=== PATIENT | male | born 1945 | race Caucasian/White ===

== ENCOUNTER → 2019-05-05 13:31 | Outpatient (CLI) | payer MEDICARE, OTHER, SELFPAY ==
[2019-05-05 13:39] LABS: Adenovirus F 40/41, stool Not Detected (NotDetected); Astrovirus Not Detected (NotDetected); Campylobacter Not Detected (NotDetected); Clostridium Difficile A/B, PCR Not Detected (NotDetected); Cryptosporidium Not Detected (NotDetected); Cyclospora Cayetanesis Not Detected (NotDetected); Entamoeba histolytica Not Detected (NotDetected); Enteroaggregative E coli Not Detected (NotDetected); Enteropathogenic E coli Not Detected (NotDetected); Enterotoxigenic E coli Not Detected (NotDetected); Giardia lamblia Not Detected (NotDetected); Norovirus Not Detected (NotDetected); Plesimonas Shigalloides, PCR Not Detected (NotDetected); Rotavirus A Not Detected (NotDetected); Salmonella, PCR Not Detected (NotDetected); Sapovirus Not Detected (NotDetected); Shiga-like toxin E coli Not Detected (NotDetected); Shigella Enterovasive E coli Not Detected (NotDetected); Vibrio Cholerae Not Detected (NotDetected); Vibrio, PCR Not Detected (NotDetected); Yersinia Entercolitica, PCR Not Detected (NotDetected)
== END ==
PROVIDERS: Visit Provider Nurse Practitioner Family
DX: K52.9 Noninfective gastroenteritis and colitis, unspecified (principal)
CPT/HCPCS: 87506

== ENCOUNTER → 2019-06-08 09:00 | Outpatient (CLI) | payer MEDICARE, OTHER, SELFPAY ==
--- NOTE | 2019-06-08 09:03 | US_ITS ---
US thyroid HISTORY: ITS.REASON: THYROID NODULE ORDERING PHYSICIAN: Ovidio Arreguin MD PATIENT AGE: 74 years Comparison: None FINDINGS:, There is enlarged thyroid gland The right lobe is 3 x 1.1 x 1.5 cm. The left lobe is 2.4 x 0.9 x 1.3 cm There is homogeneous echogenicity. No discrete nodule. The isthmus has an unremarkable appearance IMPRESSION: Unremarkable thyroid ultrasound
== END ==
PROVIDERS: PCP Family Medicine; Visit Provider Family Medicine
DX: E04.1 Nontoxic single thyroid nodule (principal)
CPT/HCPCS: 76536

== ENCOUNTER 2021-05-16 08:02 | Emergency (ER) | payer MEDICARE, OTHER, SELFPAY ==
[2021-05-16] VITALS (10 sets, daily range): BP systolic 116–155; BP diastolic 53–80; PULSE 65–82; RESP 16–20; TEMP 36.6–37.3; O2SAT 92–100; BMI 26.4
--- NOTE | 2021-05-16 08:38 | HMH.EDGENADL ---
ED Disposition Clinical Impression: Cholecystitis, Common bile duct stone, Gallstone pancreatitis Disposition: Xfer Short-Term Hosp Condition on Discharge: Fair Instructions: DI for Diarrhea and Traveler's Diarrhea -- Adult, DI for Diarrhea and Traveler's Diarrhea -- Child, DI for Nausea -- Adult, DI for Nausea -- Child Referrals: Kamlesh Fair MD [Primary Care Provider] - Forms: Transfer Record - ED - Critical Care Critical Care Time: No Attestation: On 05/16/21, the high probability of a clinically significant, sudden or life threatening deterioration of the following system(s) required my full and direct attention, intervention and personal management. The time I documented below is in addition to time spent performing reported procedures but includes the following listed in this critical care notation. Medical Decision Making - Yemi Inquiry Pt receiving controlled substance: Yes Yemi was queried for this patient: Yes Risks and benefits of using a controlled substance: were not discussed with pt by me Vital Signs: 05/16/21 08:04 05/16/21 08:30 05/16/21 09:00 Temperature 99.1 F Temperature Source Oral Pulse Rate 69 66 Pulse Rate [Left Radial] 82 Respiratory Rate 18 Blood Pressure 135/70 155/80 H Blood Pressure [Right Arm] 142/79 H Blood Pressure Mean 99 105 Blood Pressure Mean [Right Arm] 100 Blood Pressure Source [Right Arm] Automatic Cuff Blood Pressure Position Blood Pressure Position [Right Arm] Sitting 02 Sat by Pulse Oximetry 97 100 97 Oxygen Delivery Method Room Air 05/16/21 09:41 05/16/21 10:01 05/16/21 10:31 Temperature Temperature Source Pulse Rate 73 65 69 Pulse Rate [Left Radial] Respiratory Rate 18 20 20 Blood Pressure 125/53 L 120/57 L 128/59 L Blood Pressure [Right Arm] Blood Pressure Mean 77 78 82 Blood Pressure Mean [Right Arm] Blood Pressure Source [Right Arm] Blood Pressure Position Blood Pressure Position [Right Arm] 02 Sat by Pulse Oximetry 97 94 L 92 L Oxygen Delivery Method 05/16/21 11:30 05/16/21 11:55 05/16/21 12:00 Temperature Temperature Source Pulse Rate 70 69 68 Pulse Rate [Left Radial] Respiratory Rate 20 Blood Pressure 127/66 116/65 116/61 Blood Pressure [Right Arm] Blood Pressure Mean 78 72 79 Blood Pressure Mean [Right Arm] Blood Pressure Source [Right Arm] Blood Pressure Position Blood Pressure Position [Right Arm] 02 Sat by Pulse Oximetry 94 L 98 96 Oxygen Delivery Method 05/16/21 13:06 Temperature 98 F Temperature Source Oral Pulse Rate 78 Pulse Rate [Left Radial] Respiratory Rate 16 Blood Pressure 116/74 Blood Pressure [Right Arm] Blood Pressure Mean Blood Pressure Mean [Right Arm] Blood Pressure Source [Right Arm] Blood Pressure Position Sitting Blood Pressure Position [Right Arm] 02 Sat by Pulse Oximetry Oxygen Delivery Method Room Air - Lab Data Lab Results 05/16/21 08:13: WBC 8.3, RBC 3.91 L, Hgb 13.5 L, Hct 37.8 L, MCV 96.7 H, MCH 34.6 H, MCHC 35.7 H, RDW 13.2, Plt Count 250, MPV 7.8, Neut % (Auto) 81.5 H, Lymph % (Auto) 10.0, [place] % (Auto) 7.0, Eos % (Auto) 1.3, Baso % (Auto) 0.2, Neut # (Auto) 6.7, Lymph # (Auto) 0.8, [place] # (Auto) 0.6, Eos # (Auto) 0.1, Baso # (Auto) 0.0 05/16/21 08:13: Sodium 136, Potassium 3.4 L, Chloride 104, Carbon Dioxide 20 L, Anion Gap 15.4 H, BUN 11, Creatinine 1.10, Estimated Creat Clear 74, Estimated GFR 65, Est GFR ( Amer) 79, Glucose 101 H, Calcium 8.9, Total Bilirubin 3.4 H, AST 69 H, ALT 116 H, Alkaline Phosphatase 173 H, Total Protein 7.3, Albumin 4.1, Globulin 3.2, Albumin/Globulin Ratio 1.3 05/16/21 08:13: Monoscreen Negative 05/16/21 08:13: Amylase 252 H, Lipase 1878 H 05/16/21 09:02: SARS-CoV-2 (PCR) Not detected, Influenza A Untype (PCR) Not detected, Influenza Type B (PCR) Not detected 05/16/21 09:02: Lactate 0.8 05/16/21 09:03: Group A Strep Rapid Negative 05/16/21 11:45: Urine Color Gemma,
[2021-05-16 08:40] LABS: Chloride 104 mmol/L (98-107); Potassium 3.4 mmoL/L (3.5-5.1); Sodium 136 mmol/L (136-145)
[2021-05-16 08:42] LABS: Basophils % 0.2 % (0.1-2.0); Blood Urea Nitrogen 11 mg/dl (9-20); Creatinine Clearance Estimated 74 mL/min (50-200); Eosinophils # 0.1 K/mm3 (0.0-0.4); Eosinophils % 1.3 % (0.1-12.0); Estimated Glomerular Filt Rate 65 ml/min (>60); GFR (African American) 79 ML/MIN (>60); Hematocrit 37.8 % (42.0-52.0); Hemoglobin 13.5 g/dL (14.1-18.0); Lymphocytes # 0.8 K/mm3 (0.7-4.5); Mean Corpuscular HGB Conc 35.7 g/dL (31.8-35.4); Mean Corpuscular Hemoglobin 34.6 pg (27.0-31.2); Mean Corpuscular Volume 96.7 fl (80-94); Mean Platelet Volume 7.8 fl (7.4-10.4); Monocytes # 0.6 K/mm3 (0.1-1.0); Neutrophils # 6.7 K/mm3 (1.8-7.8); Neutrophils % 81.5 % (37.0-80.0); Platelet Count 250 K/mm3 (142-424); Red Blood Count 3.91 M/mm3 (4.60-6.20); Red Cell Distribution Width 13.2 % (11.5-17.5); White Blood Count 8.3 K/mm3 (4.8-10.8)
[2021-05-16 08:43] LABS: Alanine Aminotransferase 116 U/L (12-78); Albumin Level 4.1 g/dl (3.5-5.0); Albumin/Globulin Ratio 1.3 (1.1-1.8); Alkaline Phosphatase 173 U/L (38-126); Anion Gap 15.4 mEq/L (5-15); Aspartate Amino Transferase 69 U/L (17-59); Bilirubin,Total 3.4 mg/dl (0.2-1.3); Calcium 8.9 mg/dl (8.4-10.2); Carbon Dioxide 20 mmol/L (22.0-30.0); Globulin 3.2 g/dL (1.3-3.2); Glucose 101 mg/dl (74-100); Total Protein,Serum 7.3 g/dl (6.3-8.2)
--- NOTE | 2021-05-16 08:45 | XR_ITS ---
PROCEDURE: XR CHEST 2V CLINICAL HISTORY: fever Fever and shortness of air COMPARISON: CR CXR CHEST(2 VIEWS-NOT PORTABLE) from 03/23/2013 CR CXR CHEST(2 VIEWS-NOT PORTABLE) from 11/27/[address] ABDOMEN PELVIS W CON from 05/16/2021 FINDINGS: The cardiomediastinal silhouette and pulmonary vascularity are within normal limits. Minimal atelectatic or fibrotic change in the left lung base. The right lung is clear. Small hiatal hernia No acute bony abnormalities. IMPRESSION: Minimal left basilar atelectasis or fibrosis Dictated by: Rey Alicea MD 05/16/2021 10:09 Rey Alicea MD in [facility] 05/16/2021 10:09
--- NOTE | 2021-05-16 08:46 | CT_ITS ---
PROCEDURE: CT ABDOMEN PELVIS W CON CLINICAL INDICATION: abdominal pain Nausea and vomiting, bili pain COMPARISON: CT ABDPELW/O CT ABD PELVIS W/O CONTRAST from 12/07/2013 TECHNIQUE: IV Contrast: 75ML Isovue 370 Oral Contrast None Axial images obtained with sagittal and coronal reformats. All CT scans at the facility use one or more dose reduction, viz: automated exposure control, ma/kV adjustment per patient size (including targeted exams where dose is matched to indication, i.e. head), or iterative reconstruction technique. FINDINGS: LOWER THORAX: Chronic changes are present in the left lung base with chronic area of consolidation/volume loss laterally posteriorly. There is a small hiatal hernia. ABDOMEN & PELVIS: There are least 4 small areas of decreased attenuation within the liver. These are nonspecific. Differential diagnosis includes benign findings such as cyst or hemangiomas versus metastatic foci. Nonemergent MRI with hemangioma protocol may further evaluate. The liver has a somewhat irregular margin suggesting mild cirrhosis. Gallbladder wall is slightly thickened versus a small amount of pericholecystic fluid. Gallstones are present. There is a small amount of perisplenic fluid versus capsular thickening laterally versus chronic subcapsular hematoma. This does not appear significantly changed. The adrenal glands and pancreas have an unremarkable appearance. There are few small retroperitoneal lymph nodes. No renal or ureteral calculi. No evidence of appendicitis. Numerous colonic diverticula are present. No evidence of diverticulitis. Anterior to the descending colon on image 64 series 3 there is a circular area of increased density consistent with an area of epiploic appendagitis. There are postsurgical changes with a small bowel anastomosis the left lower quadrant with mild distension of the small bowel at this region with an air-fluid level and mildly prominent small bowel loops around this region with a few air-fluid levels. Postsurgical changes are present in the left inguinal region. There are old left superior and inferior pubic rami fractures on the left. Bladder diverticula are noted. Degenerative changes are present in the SI joints and lumbar spine. There is a small umbilical hernia containing fat. IMPRESSION: 1. Cholelithiasis with mild gallbladder wall thickening versus small amount of pericholecystic fluid. Consider ultrasound for further evaluation if cholecystitis is a clinical consideration. 2. Multiple hypodense hepatic lesions. Suggest nonemergent MRI with hemangioma protocol. 3. Chronic subcapsular thickening of the spleen on the left versus small amount of perisplenic fluid. 4. Postsurgical changes of the small bowel in the left lower quadrant with a dilated anastomotic loop in this area with an air-fluid level. Other mildly dilated loops are present around this region with a few scattered air-fluid levels. This could be related to either an atonic segment or early bowel obstruction. Please correlate with clinical parameters. 5. Epiploic appendagitis along the anterior aspect of the descending colon. 6. Colonic diverticulosis with no convincing evidence of diverticulitis Dictated by: Rey Alicea MD 05/16/2021 10:05 Rey Alicea MD in [facility] 05/16/2021 10:05
--- NOTE | 2021-05-16 09:12 | PC.NURSE ---
pt given urinal, unable to urinate at this time.
[2021-05-16 09:19] LABS: Coronavirus 19, PCR Not Detected (NotDetected); Influenza A, PCR Not Detected (NotDetected); Influenza B, PCR Not Detected (NotDetected)
[2021-05-16 09:28] LABS: Lactic Acid 0.8 mmol/L (0.7-2.1)
[2021-05-16 09:31] LABS: Strep Scrn Group A (Rapid) Negative (Negative)
[2021-05-16 09:53] LABS: Monoscreen (Rapid) Negative (Negative)
--- NOTE | 2021-05-16 10:19 | US_ITS ---
PROCEDURE: US GALLBLADDER CLINICAL INDICATION: possible cholecystitis COMPARISON: CT CT ABDOMEN PELVIS W CON from 05/16/2021 FINDINGS: Pancreas: Unremarkable/Not well seen Liver: Unremarkable. There is appropriate direction of blood flow within a non dilated portal vein. Right kidney: Unremarkable appearing. No hydronephrosis. Gallbladder: Gallstones and gallbladder sludge noted. Gallbladder wall is thickened at 5 mm. No pericholecystic fluid. Common bile duct is normal at 5 mm. IMPRESSION: Cholelithiasis and thick gallbladder sludge with gallbladder wall thickening Dictated by: Rey Alicea MD 05/16/2021 11:30 Rey Alicea MD in [facility] 05/16/2021 11:30
[2021-05-16 10:31] LABS: Amylase 252 U/L (30-110); Lipase 1878 U/L (23-300)
--- NOTE | 2021-05-16 11:06 | PC.NURSE ---
mechanical laboratory technician gave Dr Abhinav KAISER US results.
--- NOTE | 2021-05-16 11:19 | PC.NURSE ---
GAY KAYE speaking with Dr Fair
--- NOTE | 2021-05-16 11:28 | PC.NURSE ---
called for Dr Duke he is in surgery, they will call back
--- NOTE | 2021-05-16 11:42 | PC.NURSE ---
Dr La speaking with Dr Duke
[2021-05-16 11:53] LABS: Microscopic, Urine URINE MICROSCOPIC (MICROSCOPIC)
--- NOTE | 2021-05-16 11:56 | PC.NURSE ---
[facility] called for transfer they have no bed availability. Dr La asked to put transfer on hold for moment but to speak with Dr Vizcarra, pt's GI DR. Cope is paging him for us.
[2021-05-16 12:06] LABS: Appearance,Urine CLEAR (Clear); Blood, Urine TRACE-I (Negative); Color,Urine AMBER (Yellow); Glucose,Urine (UA) Negative (Negative); Ketones,Urine 1+ (Negative); Leukocyte Esterase,Urine Negative (Negative); Nitrate,Urine Negative (Negative); Protein,Urine TRACE (Negative); Urobilinogen,Urine >=8.0 EU/dl (0.2)
--- NOTE | 2021-05-16 12:10 | PC.NURSE ---
Dr La speaking with Dr Vizcarra GI nurse practitioner.
--- NOTE | 2021-05-16 12:15 | PC.NURSE ---
Dr La speaking with MD at [facility] [place] for admission
[2021-05-16 12:20] LABS: Bilirubin,Urine 1+ (Negative)
[2021-05-16 12:24] LABS: WBC,Urine Occasional #/hpf (0-3)
[2021-05-16 12:25] LABS: Bacteria,Urine Trace /lpf; Squamous Epithelial Cell,Urine Occasional #/hpf (0-5)
--- NOTE | 2021-05-16 12:40 | PC.NURSE ---
REPORT CALLED TO JUSTINO GUERRERO
[2021-05-17 09:13] LABS: Hep A Ab, IgM Negative (Negative); Hepatitis B Core Antibody IgM Negative (Negative); Hepatitis B Surface Antigen Negative (Negative); Hepatitis C Antibody <0.1 s/co ratio (0.0-0.9)
== END 2021-05-16 13:08 | disposition short-term general hospital (02) ==
PROVIDERS: Emergency Provider Emergency Medicine; PCP Family Medicine
DX: K85.10 Biliary acute pancreatitis without necrosis or infection (principal); K80.50 Calculus of bile duct without cholangitis or cholecystitis without obstruction; K21.9 Gastro-esophageal reflux disease without esophagitis; Z87.891 Personal history of nicotine dependence; I10 Essential (primary) hypertension; Z79.899 Other long term (current) drug therapy
CPT/HCPCS: 71046; 74177; 76705; 80053; 80074; 81001; 82150; 83605; 83690; 85025; 86318; 87040; 87077; 87186; 87430; 96365; 96367; 96375; 96376; 99284; J1335; J2405; Q9967; U0003

== ENCOUNTER → 2022-01-12 16:00 | Outpatient (CLI) | payer MEDICARE, OTHER, SELFPAY ==
--- NOTE | 2022-01-12 16:11 | XR_ITS ---
FINAL REPORT CLINICAL HISTORY: COVID OUTPATIENT, cough, soa, hx smoker COMPARISON: May 16, 2021 FINDINGS: The heart size is normal. The mediastinum is normal. There is no focal infiltrate or edema. There is worsening bibasilar atelectasis or pneumonia. There is no pneumothorax. There is no osseous abnormality. IMPRESSION: Worsening bibasilar atelectasis or pneumonia. Reviewed, Interpreted and Dictated by Idris Hsu III, MD Transcribed by Lobo Olguni Authenticated by Idris Hsu III, MD on 01/12/2022 04:58:46 PM [facility]
[2022-01-12 17:02] LABS: Adenovirus,PCR Not Detected (NotDetected); Bordetella Pertussis Not Detected (NotDetected); Chlamydophila Pneumoniae, PCR Not Detected (NotDetected); Coronavirus 19, PCR Not Detected (NotDetected); Coronavirus 229E Not Detected (NotDetected); Coronavirus NL63 Not Detected (NotDetected); Coronavirus OC43 Not Detected (NotDetected); Coronovirus HKU1,PCR Not Detected (NotDetected); Human Metapneumovirus Not Detected (NotDetected); Influenza A, PCR Not Detected (NotDetected); Influenza AH1, 2009 Not Detected (NotDetected); Influenza AH1, PCR Not Detected (NotDetected); Influenza AH3,PCR Not Detected (NotDetected); Influenza B, PCR Not Detected (NotDetected); Mycoplasma Pneumoniae, PCR Not Detected (NotDetected); Parainfluenza 1, PCR Not Detected (NotDetected); Parainfluenza 2, PCR Not Detected (NotDetected); Parainfluenza 3, PCR Not Detected (NotDetected); Parainfluenza 4, PCR Not Detected (NotDetected); Respiratory Syncytial Virus Not Detected (NotDetected); Rhinovirus/Enterovirus Not Detected (NotDetected)
[2022-01-12 19:07] LABS: Strep Scrn Group A (Rapid) Negative (Negative)
== END ==
PROVIDERS: PCP Nurse Practitioner; Visit Provider Nurse Practitioner
DX: Z20.822 Contact with and (suspected) exposure to COVID-19 (principal)
CPT/HCPCS: 71045; 87430; 87581; 87632; 87798; C9803; U0003; U0005

== ENCOUNTER → 2022-02-14 17:02 | Outpatient (CLI) | payer MEDICARE, OTHER, SELFPAY ==
--- NOTE | 2022-02-14 17:22 | XR_ITS ---
PROCEDURE INFORMATION: Exam: XR Chest Exam date and time: 02/14/2022 5:14 PM Age: 77 years old Clinical indication: Condition or disease; Other: Pneumonia TECHNIQUE: Imaging protocol: XR of the chest. Views: 2 views. COMPARISON: CR XR CHEST PORTABLE 01/12/2022 4:18 PM FINDINGS: Lungs: Consolidative opacity in the lingula, which may represent subsegmental atelectasis vs infiltrate. Hyperinflated lungs with flattening of the diaphragm and increased retrosternal space. Pleural spaces: No pleural effusion. No pneumothorax. Heart/Mediastinum: Cardiomediastinal silhouette is unchanged. Bones/joints: No acute osseous abnormality. Soft tissues: Unremarkable. IMPRESSION: 1. Consolidative opacity in the lingula, which may represent subsegmental atelectasis vs infiltrate. 2. Chronic findings compatible with COPD.
== END ==
PROVIDERS: PCP Nurse Practitioner; Visit Provider Nurse Practitioner
DX: J18.9 Pneumonia, unspecified organism (principal)
CPT/HCPCS: 71046

== ENCOUNTER → 2022-02-23 08:16 | Outpatient (CLI) | payer MEDICARE, OTHER, SELFPAY ==
[2022-02-23 08:48] LABS: Blood Urea Nitrogen 10 mg/dl (9-20); Estimated Glomerular Filt Rate 73 ml/min (>60); GFR (African American) 88 ML/MIN (>60)
--- NOTE | 2022-02-23 08:57 | CT_ITS ---
FINAL REPORT CLINICAL HISTORY: ABNORMAL CXR COMPARISON: Chest x-ray dated January 12, 2022 FINDINGS: Axial CT images of the chest were obtained with contrast. Coronal reformatted images were also obtained. This study was performed with techniques to keep radiation doses as low as reasonably achievable, (ALARA). Individualized dose reduction techniques using automated exposure control or adjustment of mA and/or KV according to the patient's size were employed. There is no evidence of mediastinal or hilar mass or adenopathy.No axillary mass or adenopathy is identified. There is a small hiatal hernia. On lung window images, no pulmonary mass or dominant pulmonary nodule is identified. There is a small lingular opacity which is consistent with atelectasis. There is also mild bibasilar atelectasis or scarring. No localized pulmonary inflammatory process is identified. Limited images of the upper abdomen reveal a small perisplenic fluid collection favoring a small chronic subcapsular hematoma which appears stable. There are postoperative changes consistent with cholecystectomy. IMPRESSION: No mass or localized inflammatory process. Small lingular opacity consistent with atelectasis. Small perisplenic fluid collection favoring a small chronic subcapsular hematoma, stable. Reviewed, Interpreted and Dictated by Idris Hsu III, MD Transcribed by Janice Perez Authenticated by Idris Hsu III, MD on 02/23/2022 10:11:13 AM [facility]
== END ==
PROVIDERS: PCP Nurse Practitioner; Visit Provider Nurse Practitioner
DX: R93.89 Abnormal findings on diagnostic imaging of other specified body structures (principal)
CPT/HCPCS: 36415; 71260; 82565; 84520; Q9967

== ENCOUNTER → 2022-04-13 10:19 | Outpatient (CLI) | payer MEDICARE, OTHER, SELFPAY ==
--- NOTE | 2022-04-13 10:31 | XR_ITS ---
FINAL REPORT CLINICAL HISTORY: LT KNEE PAIN FINDINGS: Three views of the left knee reveal no evidence of fracture or dislocation. The bony alignment is normal. There is mild and moderate degenerative change, greatest at the medial compartment. There is no evidence of joint effusion. There are meniscal calcifications. IMPRESSION: Degenerative change with no acute abnormality identified. Reviewed, Interpreted and Dictated by Idris Hsu III, MD Transcribed by Tiera Nam Authenticated by Idris Hsu III, MD on 04/13/2022 11:23:16 AM [facility]
--- NOTE | 2022-04-13 10:31 | XR_ITS ---
FINAL REPORT CLINICAL HISTORY: RT KNEE PAIN FINDINGS: Three views of the right knee reveal no evidence of fracture or dislocation. The bony alignment is normal. 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 There is mild and moderate degenerative change, greatest at the medial compartment. There is a moderate joint effusion. There are small soft tissue calcifications in the medial compartment. IMPRESSION: Degenerative change with no acute abnormality identified. Reviewed, Interpreted and Dictated by Idris Hsu III, MD Transcribed by Tiera Nam Authenticated by Idris Hsu III, MD on 04/13/2022 11:23:15 AM [facility]
== END ==
PROVIDERS: PCP Nurse Practitioner; Visit Provider Nurse Practitioner
DX: M25.562 Pain in left knee (principal); M25.561 Pain in right knee
CPT/HCPCS: 73562

== ENCOUNTER → 2022-07-05 06:21 | Outpatient (CLI) | payer MEDICARE, OTHER, SELFPAY ==
[2022-07-05 18:19] LABS: Basophils # 0.1 K/mm3 (0-0.2); Basophils % 0.7 % (0.1-2.0); Eosinophils # 0.7 K/mm3 (0.0-0.4); Eosinophils % 9.5 % (0.1-12.0); Hematocrit 38.1 % (42.0-52.0); Hemoglobin 12.4 g/dL (14.1-18.0); Lymphocytes # 1.3 K/mm3 (0.7-4.5); Lymphocytes % 18.4 % (10-50); Mean Corpuscular HGB Conc 32.5 g/dL (31.8-35.4); Mean Corpuscular Hemoglobin 34.2 pg (27.0-31.2); Mean Corpuscular Volume 105.4 fl (80-94); Mean Platelet Volume 10.3 fl (7.4-10.4); Monocytes # 0.6 K/mm3 (0.1-1.0); Monocytes % 8.8 % (1.7-9.3); Neutrophils # 4.3 K/mm3 (1.8-7.8); Neutrophils % 62.6 % (37.0-80.0); Platelet Count 352 K/mm3 (142-424); Red Blood Count 3.61 M/mm3 (4.60-6.20); Red Cell Distribution Width 13.9 % (11.5-17.5); White Blood Count 6.9 K/mm3 (4.8-10.8)
[2022-07-05 18:21] LABS: Alanine Aminotransferase 24 U/L (12-78); Albumin Level 3.6 g/dl (3.5-5.0); Albumin/Globulin Ratio 1.3 (1.1-1.8); Alkaline Phosphatase 121 U/L (38-126); Anion Gap 13.5 mEq/L (5-15); Aspartate Amino Transferase 31 U/L (17-59); Bilirubin,Total 1.6 mg/dl (0.2-1.3); Blood Urea Nitrogen 23 mg/dl (9-20); Calcium 8.8 mg/dl (8.4-10.2); Carbon Dioxide 18 mmol/L (22.0-30.0); Chloride 111 mmol/L (98-107); Estimated Glomerular Filt Rate 33 ml/min (>60); GFR (African American) 40 ML/MIN (>60); Globulin 2.8 g/dL (1.3-3.2); Glucose 100 mg/dl (74-100); Potassium 4.5 mmoL/L (3.5-5.1); Sodium 138 mmol/L (136-145); Total Protein,Serum 6.4 g/dl (6.3-8.2); Uric Acid 9.3 mg/dl (3.5-8.5)
== END ==
PROVIDERS: PCP Nurse Practitioner; Visit Provider Nurse Practitioner
DX: E79.0 Hyperuricemia without signs of inflammatory arthritis and tophaceous disease (principal); R30.0 Dysuria; R05.9 Cough, unspecified; R06.02 Shortness of breath
CPT/HCPCS: 80053; 84550; 85025; 87086

== ENCOUNTER → 2022-07-12 06:40 | Outpatient (CLI) | payer MEDICARE, OTHER, SELFPAY ==
[2022-07-12 20:26] LABS: Anion Gap 12.6 mEq/L (5-15); Blood Urea Nitrogen 29 mg/dl (9-20); Carbon Dioxide 20 mmol/L (22.0-30.0); Chloride 107 mmol/L (98-107); Estimated Glomerular Filt Rate 39 ml/min (>60); GFR (African American) 48 ML/MIN (>60); Potassium 4.6 mmoL/L (3.5-5.1); Sodium 135 mmol/L (136-145)
[2022-07-12 20:42] LABS: Glucose 82 mg/dl (74-100)
[2022-07-12 21:21] LABS: Calcium 8.2 mg/dl (8.4-10.2)
== END ==
PROVIDERS: PCP Nurse Practitioner; Visit Provider Nurse Practitioner
DX: M79.605 Pain in left leg (principal); M79.604 Pain in right leg
CPT/HCPCS: 80048

== ENCOUNTER → 2022-08-01 18:01 | Outpatient (CLI) | payer MEDICARE, OTHER, SELFPAY ==
--- NOTE | 2022-08-01 18:13 | XR_ITS ---
PROCEDURE INFORMATION: Exam: XR Bilateral Hips Exam date and time: 08/01/2022 6:15 PM Age: 77 years old Clinical indication: Pelvic pain; Additional info: Ble pain TECHNIQUE: Imaging protocol: Radiologic exam of the bilateral hips. Views: 2 views of hips with pelvis when performed. COMPARISON: CT ABDOMEN PELVIS W CON 05/16/2021 9:15 AM FINDINGS: Tubes, catheters and devices: Surgical clips project over the left side of the pelvis. Surgical staple line in the left lower quadrant. Bones/joints: No acute fracture or dislocation. Old left superior pubic ramus fracture. Spurring at the superior margin of the pubic symphysis. SI joints are unremarkable. Hip joints are preserved. Soft tissues: Unremarkable. IMPRESSION: No acute findings.
--- NOTE | 2022-08-01 18:13 | XR_ITS ---
PROCEDURE INFORMATION: Exam: XR Lumbosacral Spine Exam date and time: 08/01/2022 6:11 PM Age: 77 years old Clinical indication: Low back pain; Additional info: Ble pain TECHNIQUE: Imaging protocol: Radiologic exam of the lumbosacral spine. Views: 2 or 3 views. COMPARISON: CT LUMBAR SPINE WO CON 10/28/2019 5:02 PM FINDINGS: Bones/joints: No acute fracture or spondylolisthesis. Mild disc space narrowing at L5-S1. Mild facet arthrosis at L4-L5. Moderate facet arthrosis at L5-S1. Small endplate osteophytes at multiple lumbar levels. SI joints are unremarkable. Soft tissues: Unremarkable. Intraperitoneal space: Cholecystectomy clips. IMPRESSION: Degenerative changes.
== END ==
PROVIDERS: PCP Nurse Practitioner; Visit Provider Nurse Practitioner
DX: M54.16 Radiculopathy, lumbar region (principal)
CPT/HCPCS: 72100; 73521

== ENCOUNTER 2022-09-08 08:07 | Emergency (ER) | payer MEDICARE, OTHER, SELFPAY ==
[2022-09-08 08:08] VITALS: BP 137/85; PULSE 95; RESP 18; TEMP 37.1; O2SAT 96; BMI 27.1
--- NOTE | 2022-09-08 08:19 | ECG_ITS ---
APPROVED REPORT Exam: Resting ECG HR:84 bpm ECG Measurements Heart Rate 84 AXES TN 212 P 50 QRSd 96 QRS 63 QT 350 T 48 QTc 391 Conclusion SINUS RHYTHM WITH FIRST DEGREE AV BLOCK ABNORMAL ECG UNCONFIRMED REPORT Electronically signed by : Eddie Sifuentes MD 09/10/2022 21:29:01
--- NOTE | 2022-09-08 08:20 | CT_ITS ---
PROCEDURE INFORMATION: Exam: CT Cervical Spine Without Contrast Exam date and time: 09/08/2022 8:48 AM Age: 77 years old Clinical indication: Radicular pain (radiculopathy); Cervical region; Additional info: Pain, left radicular TECHNIQUE: Imaging protocol: Computed tomography of the cervical spine without contrast. Radiation optimization: All CT scans at this facility use at least one of these dose optimization techniques: automated exposure control; mA and/or kV adjustment per patient size (includes targeted exams where dose is matched to clinical indication); or iterative reconstruction. COMPARISON: CT CHEST W CON 02/23/2022 9:17 AM FINDINGS: Bones/joints: No acute fracture of the cervical spine. No subluxation or dislocation of the cervical spine. Intervertebral disc space narrowing C3 through C6 may represent degenerative disc disease.. Anterior osteophyte formation C3 through C6. Posterior osteophyte formation C3 through C6. Degenerative changes in the facets at multiple levels. Degenerative changes at C1/C2 Lungs: Lung apices are normal. Thyroid: The thyroid is unremarkable Soft tissues: Unremarkable. IMPRESSION: 1. No acute fracture of the cervical spine. 2. No subluxation or dislocation of the cervical spine. 3. Intervertebral disc space narrowing C3 through C6 may represent degenerative disc disease..
--- NOTE | 2022-09-08 08:22 | HMH.EDGENADL ---
Discharge Plan Disposition Patient Disposition: Home, Self-Care Condition: Fair Prescriptions Prescriptions: New ibuprofen 600 mg tablet 600 mg PO Q8H PRN (Reason: pain) Qty: 20 0RF prednisone 10 mg tablet 10 mg PO DAILY Qty: 21 0RF Rx Instructions: Take on decreasing burst, 6 tablets on day 1, 5 tablets on day 2, 4 tablets on day 3, etc methocarbamol 500 mg tablet 500 mg PO Q8H PRN (Reason: muscle spasm) Qty: 20 0RF No Action albuterol sulfate 90 mcg/actuation aerosol powdr breath activated 2 inh IH .COMPLEX PRN (Reason: shortness of breath or wheezing) Qty: 1 0RF Rx Instructions: 2 inhalations inhalation QID and prn PRN; colchicine 0.6 mg tablet 0.6 mg PO BID Qty: 60 2RF levothyroxine 25 mcg tablet 25 mcg PO DAILY Qty: 30 2RF hydrochlorothiazide 25 mg tablet 25 mg PO DAILY Qty: 30 2RF losartan 100 mg tablet 100 mg PO DAILY Qty: 30 2RF methylprednisolone [Medrol (Satinder)] 4 mg tablets,dose pack See Rx Instructions PO PER PKG DIR Qty: 21 0RF Rx Instructions: PO PER PKG DIR [id number] 2-30-10 mg/5 mL syrup 5 ml PO Q4H PRN (Reason: sinus symptoms) Qty: 473 1RF famotidine 20 MG tablet 20 mg PO DAILY tamsulosin 0.4 MG capsule 0.4 mg PO DAILY cyanocobalamin (vitamin B-12) 1,000 MCG capsule 1,000 mcg PO DAILY Referrals Follow up/Referrals: Kamlesh Fair MD [Primary Care Provider] - See instructions Activity Restrictions/Add. Instructions Additional Instructions/Restrictions: You have been evaluated for neck pain. This is likely due to degenerative disc disease of the cervical spine, C3-C6. Please take anti-inflammatories as scheduled, 600 mg ibuprofen. Take steroid burst. Muscle relaxers as needed. Follow-up with your primary care doctor. Return to the emergency department at once for any new or worsening symptoms Clinical Impressions Clinical Impression: DJD (degenerative joint disease) of cervical spine, Cervical disc disease Instructions Patient Instructions: DI for Cervical Radiculopathy, DI for Neck Pain Discharge ED Provider: Roselyn Siegel Adult HPI General Chief complaint: PAIN Stated complaint: Severe neck pain, no accident Time Seen by Provider: 09/08/22 08:09 Mode of Arrival: Ambulatory Source of Information: Patient Limitations: No Limitations History of Present Illness HPI narrative: 77-year-old male presenting to the emergency department with neck pain. Started earlier in the week, about 4 to 5 days ago. Initially was intermittent, worse with turning his neck ot the side. Pain starts in the midportion of the spine, just above the left shoulder. Has become more persistent. Was worse last night when he was trying to go to bed. Feels like achy, sharp pain. Radiates toward his left shoulder. No numbness, weakness, tingling in the upper extremities. He has a history of lumbar disc disease. Has never seen a scheduling specialist. Has tried taking Tylenol and ibuprofen without relief. Use heating pad last night. Denies recent illness, fevers, chills, nausea, vomiting, sore throat. Related Data Home Medications Medication Instructions Recorded Confirmed cyanocobalamin (vitamin B-12) 1,000 mcg PO DAILY Supplement 05/16/21 07/12/22 1,000 mcg capsule famotidine 20 mg tablet 20 mg PO DAILY stomach 05/16/21 07/12/22 tamsulosin 0.4 mg capsule 0.4 mg PO DAILY prostate 05/16/21 07/12/22 Previous Rx's Medication Instructions Recorded albuterol sulfate 90 mcg/actuation 2 inh inhalation .COMPLEX PRN 07/05/22 breath activated powder inhaler shortness of breath or wheezing #1 ea hydrochlorothiazide 25 mg tablet 25 mg PO DAILY #30 tabs 07/10/22 levothyroxine 25 mcg tablet 25 mcg PO DAILY #30 tabs 07/10/22 losartan 100 mg tablet 100 mg PO DAILY #30 tabs 07/10/22 colchicine 0.6 mg tablet 0.6 mg PO BID #60 tabs 07/12/22 methylprednisolone 4 mg tablets in See Rx Instructions PO
--- NOTE | 2022-09-08 08:53 | PC.NURSE ---
PT to RAD
--- NOTE | 2022-09-08 08:57 | PC.NURSE ---
pt back from rad
[2022-09-08 09:07] VITALS: BP 159/83; PULSE 64; RESP 18; O2SAT 98
--- NOTE | 2022-09-08 09:08 | PC.NURSE ---
Visitor back to the room
[2022-09-08 10:17] VITALS: BP 142/80; PULSE 68; RESP 18; TEMP 37.1; O2SAT 97
== END 2022-09-08 10:18 | disposition home or self-care (01) ==
PROVIDERS: Emergency Provider Emergency Medicine; PCP Family Medicine
DX: M50.30 Other cervical disc degeneration, unspecified cervical region (principal)
CPT/HCPCS: 72125; 93005; 96372; 99284

== ENCOUNTER → 2022-10-23 16:14 | Outpatient (CLI) | payer MEDICARE, OTHER, SELFPAY ==
--- NOTE | 2022-10-23 16:18 | XR_ITS ---
PROCEDURE INFORMATION: Exam: XR Chest Exam date and time: 10/23/2022 4:14 PM Age: 77 years old Clinical indication: Cough; Additional info: Covid 19, cough, bronchitis TECHNIQUE: Imaging protocol: Radiologic exam of the chest. Views: 2 views. COMPARISON: CT CHEST W CON 02/23/2022 9:17 AM FINDINGS: Lungs: No evidence of pneumonia or interstitial edema. Pleural spaces: Unremarkable. No pleural effusion. No pneumothorax. Heart/Mediastinum: Unremarkable. No cardiomegaly. Bones/joints: Unremarkable. IMPRESSION: No evidence of pneumonia or interstitial edema.
[2022-10-23 19:33] LABS: Influenza A, PCR Not Detected (NotDetected); Influenza B, PCR Not Detected (NotDetected)
[2022-10-23 21:06] LABS: Coronavirus 19, PCR Detected (NotDetected)
== END ==
PROVIDERS: PCP Nurse Practitioner; Visit Provider Nurse Practitioner
DX: J40 Bronchitis, not specified as acute or chronic (principal); R05.9 Cough, unspecified; U07.1 COVID-19
CPT/HCPCS: 71046; C9803; U0003; U0005

== ENCOUNTER → 2022-11-14 11:15 | Outpatient (CLI) | payer MEDICARE, OTHER, SELFPAY ==
[2022-11-14 18:17] LABS: Adenovirus,PCR Not Detected (NotDetected); Bordetella Pertussis Not Detected (NotDetected); Chlamydophila Pneumoniae, PCR Not Detected (NotDetected); Coronavirus 19, PCR Not Detected (NotDetected); Coronavirus 229E Not Detected (NotDetected); Coronavirus NL63 Not Detected (NotDetected); Coronavirus OC43 Not Detected (NotDetected); Coronovirus HKU1,PCR Not Detected (NotDetected); Human Metapneumovirus Not Detected (NotDetected); Influenza A, PCR Not Detected (NotDetected); Influenza AH1, 2009 Not Detected (NotDetected); Influenza AH1, PCR Not Detected (NotDetected); Influenza AH3,PCR Not Detected (NotDetected); Influenza B, PCR Not Detected (NotDetected); Mycoplasma Pneumoniae, PCR Not Detected (NotDetected); Parainfluenza 1, PCR Not Detected (NotDetected); Parainfluenza 2, PCR Not Detected (NotDetected); Parainfluenza 3, PCR Not Detected (NotDetected); Parainfluenza 4, PCR Not Detected (NotDetected); Respiratory Syncytial Virus Not Detected (NotDetected); Rhinovirus/Enterovirus Not Detected (NotDetected)
[2022-11-14 18:40] LABS: Basophils % 0.4 % (0.1-2.0); Eosinophils # 0.3 K/mm3 (0.0-0.4); Hematocrit 43.4 % (42.0-52.0); Hemoglobin 14.2 g/dL (14.1-18.0); Lymphocytes # 1.2 K/mm3 (0.7-4.5); Lymphocytes % 12.4 % (10-50); Mean Corpuscular HGB Conc 32.8 g/dL (31.8-35.4); Mean Corpuscular Hemoglobin 33.5 pg (27.0-31.2); Mean Platelet Volume 8.4 fl (7.4-10.4); Monocytes # 0.7 K/mm3 (0.1-1.0); Neutrophils # 7.4 K/mm3 (1.8-7.8); Neutrophils % 77.2 % (37.0-80.0); Platelet Count 382 K/mm3 (142-424); Red Blood Count 4.25 M/mm3 (4.60-6.20); Red Cell Distribution Width 13.1 % (11.5-17.5); White Blood Count 9.5 K/mm3 (4.8-10.8)
[2022-11-14 18:49] LABS: Alanine Aminotransferase 22 U/L (12-78); Albumin Level 3.7 g/dl (3.5-5.0); Albumin/Globulin Ratio 1.3 (1.1-1.8); Alkaline Phosphatase 223 U/L (38-126); Aspartate Amino Transferase 24 U/L (17-59); Bilirubin,Total 1.1 mg/dl (0.2-1.3); Blood Urea Nitrogen 16 mg/dl (9-20); Calcium 9.3 mg/dl (8.4-10.2); Carbon Dioxide 24 mmol/L (22.0-30.0); Chloride 102 mmol/L (98-107); Estimated Glomerular Filt Rate 54 ml/min (>60); GFR (African American) 65 ML/MIN (>60); Globulin 2.8 g/dL (1.3-3.2); Glucose 92 mg/dl (74-100); Sodium 132 mmol/L (136-145); Total Protein,Serum 6.5 g/dl (6.3-8.2); Uric Acid 6.8 mg/dl (3.5-8.5)
[2022-11-14 18:54] LABS: Erythrocyte Sedimentation Rate 54 mm/hr (0-20)
[2022-11-14 18:55] LABS: C-Reactive Protein 33.6 mg/L (0-4)
[2022-11-16 10:13] LABS: RA Latex Turbid. <10.0 IU/mL (<14.0)
[2022-11-19 12:46] LABS: Antinuclear Antibodies, IFA Negative (.)
[2022-11-19 16:23] LABS: Anti-Centromere B Antibodies <0.2 AI (0.0-0.9); Anti-DNA (DS) Ab Qn 2 IU/mL (0-9); Anti-Jo-1 <0.2 AI (0.0-0.9); Anti-Smith Antibody <0.2 AI (0.0-0.9); Antichromatin Antibodies <0.2 AI (0.0-0.9); Antiscleroderma-70 Antibodies <0.2 AI (0.0-0.9); RNP Antibodies <0.2 AI (0.0-0.9); Sjogren's Anti-SS-A <0.2 AI (0.0-0.9); Sjogren's Anti-SS-B <0.2 AI (0.0-0.9)
== END ==
PROVIDERS: PCP Nurse Practitioner; Visit Provider Nurse Practitioner
DX: M25.50 Pain in unspecified joint (principal); R50.9 Fever, unspecified; M54.2 Cervicalgia
CPT/HCPCS: 80053; 84550; 85025; 85651; 86038; 86140; 86225; 86235; 86431; 87581; 87632; 87798; C9803; U0003; U0005

== ENCOUNTER → 2022-12-12 10:35 | Outpatient (CLI) | payer MEDICARE, OTHER, SELFPAY ==
[2022-12-12 19:12] LABS: Adenovirus,PCR Not Detected (NotDetected); Bordetella Pertussis Not Detected (NotDetected); Chlamydophila Pneumoniae, PCR Not Detected (NotDetected); Coronavirus 19, PCR Not Detected (NotDetected); Coronavirus 229E Not Detected (NotDetected); Coronavirus NL63 Not Detected (NotDetected); Coronavirus OC43 Not Detected (NotDetected); Coronovirus HKU1,PCR Not Detected (NotDetected); Human Metapneumovirus Not Detected (NotDetected); Influenza A, PCR Not Detected (NotDetected); Influenza AH1, 2009 Not Detected (NotDetected); Influenza AH1, PCR Not Detected (NotDetected); Influenza AH3,PCR Not Detected (NotDetected); Influenza B, PCR Not Detected (NotDetected); Mycoplasma Pneumoniae, PCR Not Detected (NotDetected); Parainfluenza 1, PCR Not Detected (NotDetected); Parainfluenza 2, PCR Not Detected (NotDetected); Parainfluenza 3, PCR Not Detected (NotDetected); Parainfluenza 4, PCR Not Detected (NotDetected); Respiratory Syncytial Virus Not Detected (NotDetected); Rhinovirus/Enterovirus Not Detected (NotDetected)
[2022-12-12 19:27] LABS: Basophils # 0.1 K/mm3 (0-0.2); Basophils % 0.7 % (0.1-2.0); Eosinophils # 0.8 K/mm3 (0.0-0.4); Eosinophils % 9.4 % (0.1-12.0); Hematocrit 42.5 % (42.0-52.0); Hemoglobin 14.6 g/dL (14.1-18.0); Lymphocytes # 1.5 K/mm3 (0.7-4.5); Lymphocytes % 18.6 % (10-50); Mean Corpuscular HGB Conc 34.4 g/dL (31.8-35.4); Mean Corpuscular Hemoglobin 34.7 pg (27.0-31.2); Mean Corpuscular Volume 100.9 fl (80-94); Mean Platelet Volume 8.7 fl (7.4-10.4); Monocytes # 0.7 K/mm3 (0.1-1.0); Monocytes % 8.3 % (1.7-9.3); Neutrophils # 5.1 K/mm3 (1.8-7.8); Platelet Count 359 K/mm3 (142-424); Red Blood Count 4.21 M/mm3 (4.60-6.20); Red Cell Distribution Width 13.5 % (11.5-17.5); White Blood Count 8.1 K/mm3 (4.8-10.8)
== END ==
PROVIDERS: PCP Nurse Practitioner; Visit Provider Nurse Practitioner
DX: E79.0 Hyperuricemia without signs of inflammatory arthritis and tophaceous disease (principal); J06.9 Acute upper respiratory infection, unspecified
CPT/HCPCS: 85025; 87581; 87632; 87798; C9803; U0003; U0005

== ENCOUNTER → 2022-12-18 15:45 | Outpatient (CLI) | payer MEDICARE, OTHER, SELFPAY ==
[2022-12-18 19:03] LABS: Basophils % 0.2 % (0.1-2.0); Eosinophils % 0.1 % (0.1-12.0); Hematocrit 45.1 % (42.0-52.0); Hemoglobin 15.2 g/dL (14.1-18.0); Lymphocytes # 1.1 K/mm3 (0.7-4.5); Lymphocytes % 10.7 % (10-50); Mean Corpuscular HGB Conc 33.7 g/dL (31.8-35.4); Mean Corpuscular Hemoglobin 33.8 pg (27.0-31.2); Mean Corpuscular Volume 100.2 fl (80-94); Mean Platelet Volume 8.4 fl (7.4-10.4); Monocytes # 0.9 K/mm3 (0.1-1.0); Monocytes % 8.1 % (1.7-9.3); Neutrophils # 8.6 K/mm3 (1.8-7.8); Neutrophils % 80.9 % (37.0-80.0); Platelet Count 447 K/mm3 (142-424); Red Cell Distribution Width 13.6 % (11.5-17.5); White Blood Count 10.7 K/mm3 (4.8-10.8)
[2022-12-18 19:51] LABS: Anion Gap 16.2 mEq/L (5-15); Blood Urea Nitrogen 31 mg/dl (9-20); Calcium 8.8 mg/dl (8.4-10.2); Carbon Dioxide 20 mmol/L (22.0-30.0); Chloride 105 mmol/L (98-107); Estimated Glomerular Filt Rate 49 ml/min (>60); GFR (African American) 60 ML/MIN (>60); Glucose 127 mg/dl (74-100); Potassium 4.2 mmoL/L (3.5-5.1); Sodium 137 mmol/L (136-145)
== END ==
PROVIDERS: PCP Nurse Practitioner; Visit Provider Nurse Practitioner
DX: E79.0 Hyperuricemia without signs of inflammatory arthritis and tophaceous disease (principal); Z01.818 Encounter for other preprocedural examination
CPT/HCPCS: 80048; 85025

== ENCOUNTER → 2023-01-08 23:27 | Outpatient (CLI) | payer MEDICARE, OTHER, SELFPAY ==
[2023-01-08 18:40] LABS: Basophils % 0.3 % (0.1-2.0); Eosinophils # 0.4 K/mm3 (0.0-0.4); Eosinophils % 6.3 % (0.1-12.0); Hematocrit 41.5 % (42.0-52.0); Hemoglobin 13.6 g/dL (14.1-18.0); Lymphocytes # 1.1 K/mm3 (0.7-4.5); Lymphocytes % 17.7 % (10-50); Mean Corpuscular HGB Conc 32.9 g/dL (31.8-35.4); Mean Corpuscular Hemoglobin 32.5 pg (27.0-31.2); Mean Platelet Volume 8.3 fl (7.4-10.4); Monocytes # 0.5 K/mm3 (0.1-1.0); Monocytes % 8.8 % (1.7-9.3); Neutrophils # 4.1 K/mm3 (1.8-7.8); Platelet Count 386 K/mm3 (142-424); Red Blood Count 4.19 M/mm3 (4.60-6.20); Red Cell Distribution Width 13.8 % (11.5-17.5); White Blood Count 6.1 K/mm3 (4.8-10.8)
== END ==
PROVIDERS: PCP Nurse Practitioner; Visit Provider Nurse Practitioner
DX: R09.89 Other specified symptoms and signs involving the circulatory and respiratory systems (principal)
CPT/HCPCS: 85025

== ENCOUNTER → 2023-01-14 23:45 | Outpatient (CLI) | payer MEDICARE, OTHER, SELFPAY ==
[2023-01-14 19:16] LABS: Chloride 109 mmol/L (98-107); Potassium 4.6 mmoL/L (3.5-5.1); Sodium 134 mmol/L (136-145)
[2023-01-14 19:19] LABS: Anion Gap 14.6 mEq/L (5-15); Blood Urea Nitrogen 65 mg/dl (9-20); Carbon Dioxide 15 mmol/L (22.0-30.0); Estimated Glomerular Filt Rate 37 ml/min (>60); GFR (African American) 45 ML/MIN (>60)
[2023-01-14 19:20] LABS: Calcium 8.6 mg/dl (8.4-10.2); Glucose 107 mg/dl (74-100)
[2023-01-14 20:29] LABS: Basophils % 0.5 % (0.1-2.0); Eosinophils # 0.3 K/mm3 (0.0-0.4); Eosinophils % 4.5 % (0.1-12.0); Hematocrit 45.5 % (42.0-52.0); Hemoglobin 14.6 g/dL (14.1-18.0); Lymphocytes % 13.4 % (10-50); Mean Corpuscular HGB Conc 32.1 g/dL (31.8-35.4); Mean Corpuscular Hemoglobin 32.2 pg (27.0-31.2); Mean Corpuscular Volume 100.3 fl (80-94); Mean Platelet Volume 8.3 fl (7.4-10.4); Monocytes # 0.7 K/mm3 (0.1-1.0); Monocytes % 9.3 % (1.7-9.3); Neutrophils # 5.2 K/mm3 (1.8-7.8); Neutrophils % 72.3 % (37.0-80.0); Platelet Count 468 K/mm3 (142-424); Red Blood Count 4.54 M/mm3 (4.60-6.20); Red Cell Distribution Width 13.9 % (11.5-17.5); White Blood Count 7.2 K/mm3 (4.8-10.8)
== END ==
PROVIDERS: PCP Nurse Practitioner; Visit Provider Nurse Practitioner
DX: I10 Essential (primary) hypertension (principal); I95.9 Hypotension, unspecified
CPT/HCPCS: 80048; 85025

== ENCOUNTER → 2023-01-24 06:50 | Outpatient (CLI) | payer MEDICARE, OTHER, SELFPAY ==
[2023-01-24 18:04] LABS: Basophils % 0.6 % (0.1-2.0); Eosinophils # 0.4 K/mm3 (0.0-0.4); Eosinophils % 7.3 % (0.1-12.0); Hemoglobin 13.1 g/dL (14.1-18.0); Lymphocytes # 1.2 K/mm3 (0.7-4.5); Lymphocytes % 20.5 % (10-50); Mean Corpuscular HGB Conc 33.5 g/dL (31.8-35.4); Mean Corpuscular Hemoglobin 33.2 pg (27.0-31.2); Mean Corpuscular Volume 99.1 fl (80-94); Mean Platelet Volume 8.6 fl (7.4-10.4); Monocytes # 0.5 K/mm3 (0.1-1.0); Monocytes % 8.9 % (1.7-9.3); Neutrophils # 3.7 K/mm3 (1.8-7.8); Neutrophils % 62.6 % (37.0-80.0); Platelet Count 377 K/mm3 (142-424); Red Blood Count 3.93 M/mm3 (4.60-6.20); Red Cell Distribution Width 14.1 % (11.5-17.5); White Blood Count 5.9 K/mm3 (4.8-10.8)
[2023-01-24 18:08] LABS: Chloride 103 mmol/L (98-107); Sodium 135 mmol/L (136-145)
[2023-01-24 18:11] LABS: Blood Urea Nitrogen 15 mg/dl (9-20); Estimated Glomerular Filt Rate 65 ml/min (>60); GFR (African American) 79 ML/MIN (>60)
[2023-01-24 18:12] LABS: Calcium 8.7 mg/dl (8.4-10.2); Carbon Dioxide 27 mmol/L (22.0-30.0); Glucose 98 mg/dl (74-100)
== END ==
PROVIDERS: PCP Nurse Practitioner; Visit Provider Nurse Practitioner
DX: E79.0 Hyperuricemia without signs of inflammatory arthritis and tophaceous disease (principal); N18.9 Chronic kidney disease, unspecified
CPT/HCPCS: 80048; 85025

== ENCOUNTER → 2023-07-08 14:36 | Outpatient (CLI) | payer MEDICARE, OTHER, SELFPAY ==
[2023-07-08 19:47] LABS: Basophils % 0.3 % (0.1-2.0); Eosinophils # 0.6 K/mm3 (0.0-0.4); Eosinophils % 8.4 % (0.1-12.0); Hematocrit 39.8 % (42.0-52.0); Hemoglobin 13.5 g/dL (14.1-18.0); Lymphocytes # 1.1 K/mm3 (0.7-4.5); Lymphocytes % 16.7 % (10-50); Mean Corpuscular HGB Conc 33.8 g/dL (31.8-35.4); Mean Corpuscular Hemoglobin 33.9 pg (27.0-31.2); Mean Corpuscular Volume 100.2 fl (80-94); Mean Platelet Volume 8.8 fl (7.4-10.4); Monocytes # 0.5 K/mm3 (0.1-1.0); Monocytes % 7.7 % (1.7-9.3); Neutrophils # 4.5 K/mm3 (1.8-7.8); Platelet Count 325 K/mm3 (142-424); Red Blood Count 3.97 M/mm3 (4.60-6.20); White Blood Count 6.7 K/mm3 (4.8-10.8)
[2023-07-08 20:07] LABS: Chloride 104 mmol/L (98-107); Sodium 140 mmol/L (136-145)
[2023-07-08 20:08] LABS: Potassium 3.8 mmoL/L (3.5-5.1)
[2023-07-08 20:10] LABS: Blood Urea Nitrogen 21 mg/dl (9-20); Estimated Glomerular Filt Rate 54 ml/min (>60); GFR (African American) 65 ML/MIN (>60)
[2023-07-08 20:11] LABS: Anion Gap 15.8 mEq/L (5-15); Calcium 9.1 mg/dl (8.4-10.2); Carbon Dioxide 24 mmol/L (22.0-30.0); Glucose 114 mg/dl (74-100)
== END ==
PROVIDERS: PCP Nurse Practitioner; Visit Provider Nurse Practitioner
DX: J06.9 Acute upper respiratory infection, unspecified (principal); N18.9 Chronic kidney disease, unspecified; R05.9 Cough, unspecified
CPT/HCPCS: 80048; 85025

== ENCOUNTER → 2023-09-13 08:59 | Outpatient (CLI) | payer MEDICARE, OTHER, SELFPAY ==
[2023-09-12 19:08] LABS: Adenovirus,PCR Not Detected (NotDetected); Coronavirus 229E Not Detected (NotDetected); Coronavirus NL63 Not Detected (NotDetected); Coronavirus OC43 Not Detected (NotDetected); Coronovirus HKU1,PCR Not Detected (NotDetected); Human Metapneumovirus Not Detected (NotDetected); Influenza A, PCR Not Detected (NotDetected); Influenza AH1, 2009 Not Detected (NotDetected); Influenza AH1, PCR Not Detected (NotDetected); Influenza AH3,PCR Not Detected (NotDetected); Influenza B, PCR Not Detected (NotDetected); Parainfluenza 1, PCR Not Detected (NotDetected); Parainfluenza 2, PCR Not Detected (NotDetected); Parainfluenza 3, PCR Not Detected (NotDetected); Parainfluenza 4, PCR Not Detected (NotDetected); Respiratory Syncytial Virus Not Detected (NotDetected); Rhinovirus/Enterovirus Not Detected (NotDetected)
[2023-09-12 20:02] LABS: Basophils % 0.4 % (0.1-2.0); Eosinophils # 0.4 K/mm3 (0.0-0.4); Eosinophils % 7.3 % (0.1-12.0); Hematocrit 41.6 % (42.0-52.0); Hemoglobin 14.3 g/dL (14.1-18.0); Lymphocytes # 0.6 K/mm3 (0.7-4.5); Lymphocytes % 10.3 % (10-50); Mean Corpuscular HGB Conc 34.4 g/dL (31.8-35.4); Mean Corpuscular Hemoglobin 35.4 pg (27.0-31.2); Mean Corpuscular Volume 102.8 fl (80-94); Mean Platelet Volume 8.6 fl (7.4-10.4); Monocytes # 0.5 K/mm3 (0.1-1.0); Monocytes % 8.7 % (1.7-9.3); Neutrophils # 4.4 K/mm3 (1.8-7.8); Neutrophils % 73.3 % (37.0-80.0); Platelet Count 277 K/mm3 (142-424); Red Blood Count 4.04 M/mm3 (4.60-6.20); Red Cell Distribution Width 13.2 % (11.5-17.5)
[2023-09-12 21:48] LABS: Coronavirus 19, PCR Detected (NotDetected)
== END ==
PROVIDERS: PCP Nurse Practitioner; Visit Provider Nurse Practitioner
DX: U07.1 COVID-19; R05.8 Other specified cough; R09.81 Nasal congestion; R09.89 Other specified symptoms and signs involving the circulatory and respiratory systems; J02.9 Acute pharyngitis, unspecified; R53.83 Other fatigue; Z20.822 Contact with and (suspected) exposure to COVID-19
CPT/HCPCS: 85025; 87632; 87635

== ENCOUNTER 2023-12-18 21:09 | Outpatient (CLI) | payer MEDICARE, SELFPAY ==
[2023-12-18 18:20] LABS: Basophils # 0.1 K/mm3 (0-0.2); Basophils % 0.7 % (0.1-2.0); Eosinophils # 0.5 K/mm3 (0.0-0.4); Eosinophils % 5.7 % (0.1-12.0); Hematocrit 44.6 % (42.0-52.0); Hemoglobin 15.1 g/dL (14.1-18.0); Lymphocytes # 1.6 K/mm3 (0.7-4.5); Mean Corpuscular HGB Conc 33.9 g/dL (31.8-35.4); Mean Corpuscular Hemoglobin 34.9 pg (27.0-31.2); Mean Corpuscular Volume 103.2 fl (80-94); Mean Platelet Volume 8.9 fl (7.4-10.4); Monocytes # 0.7 K/mm3 (0.1-1.0); Monocytes % 8.3 % (1.7-9.3); Neutrophils # 5.6 K/mm3 (1.8-7.8); Neutrophils % 66.3 % (37.0-80.0); Platelet Count 340 K/mm3 (142-424); Red Blood Count 4.33 M/mm3 (4.60-6.20); Red Cell Distribution Width 13.4 % (11.5-17.5); White Blood Count 8.5 K/mm3 (4.8-10.8)
[2023-12-18 19:50] LABS: Chloride 102 mmol/L (98-107); Potassium 3.9 mmoL/L (3.5-5.1); Sodium 136 mmol/L (136-145)
[2023-12-18 19:52] LABS: Alanine Aminotransferase 17 U/L (12-78); Aspartate Amino Transferase 28 U/L (17-59); Blood Urea Nitrogen 16 mg/dl (9-20); Estimated Glomerular Filt Rate 54 ml/min (>60); GFR (African American) 65 ML/MIN (>60)
[2023-12-18 19:53] LABS: Albumin Level 3.9 g/dl (3.5-5.0); Albumin/Globulin Ratio 1.3 (1.1-1.8); Alkaline Phosphatase 145 U/L (38-126); Anion Gap 11.9 mEq/L (5-15); Bilirubin,Total 0.9 mg/dl (0.2-1.3); Calcium 9.1 mg/dl (8.4-10.2); Carbon Dioxide 26 mmol/L (22.0-30.0); Chol/HDL Ratio 5.4 (1-3.5); Cholesterol 182 mg/dl (140-200); Globulin 2.9 g/dL (1.3-3.2); Glucose 113 mg/dl (74-100); HDL Cholesterol 34 mg/dl (40-60); Total Protein,Serum 6.8 g/dl (6.3-8.2); Triglycerides 180 mg/dl (30-150); VLDL Cholesterol 36 mg/dL (0-40)
[2023-12-18 20:05] LABS: Direct LDL Cholesterol 108.32 mg/dL (100-129)
[2023-12-18 20:24] LABS: Prostate Specific Ag, Diagnost 0.629 ng/ml (0.0-4.0); Thyroid Stimulating Hormone 4.96 uIU/mL (0.465-4.68)
[2023-12-18 21:23] LABS: Vitamin B12 851 pg/mL (239-931)
[2023-12-18 22:32] LABS: Microalbumin < 6.000 mg/L (0-16.7)
[2023-12-18 22:36] LABS: Creatinine,Urine Random 91 mg/dL (Not Estab.)
== END 2023-12-18 23:59 ==
LOC: LAB.DROPOF 21:09
PROVIDERS: PCP Nurse Practitioner; Visit Provider Nurse Practitioner
DX: E03.9 Hypothyroidism, unspecified (principal); I10 Essential (primary) hypertension; N40.0 Benign prostatic hyperplasia without lower urinary tract symptoms
CPT/HCPCS: 80053; 80061; 82043; 82570; 82607; 84153; 84443; 85025

== ENCOUNTER 2024-02-10 19:33 | Outpatient (CLI) | payer MEDICARE, SELFPAY ==
[2024-02-10 18:53] LABS: Adenovirus,PCR Not Detected (NotDetected); Coronavirus 19, PCR Not Detected (NotDetected); Coronavirus 229E Not Detected (NotDetected); Coronavirus NL63 Not Detected (NotDetected); Coronavirus OC43 Not Detected (NotDetected); Coronovirus HKU1,PCR Not Detected (NotDetected); Human Metapneumovirus Not Detected (NotDetected); Influenza A, PCR Not Detected (NotDetected); Influenza AH1, 2009 Not Detected (NotDetected); Influenza AH1, PCR Not Detected (NotDetected); Influenza AH3,PCR Not Detected (NotDetected); Influenza B, PCR Not Detected (NotDetected); Parainfluenza 1, PCR Not Detected (NotDetected); Parainfluenza 2, PCR Not Detected (NotDetected); Parainfluenza 3, PCR Not Detected (NotDetected); Parainfluenza 4, PCR Not Detected (NotDetected); Respiratory Syncytial Virus Not Detected (NotDetected); Rhinovirus/Enterovirus Not Detected (NotDetected)
== END 2024-02-10 23:59 ==
LOC: LAB.DROPOF 19:33
PROVIDERS: PCP Nurse Practitioner; Visit Provider Nurse Practitioner
DX: J06.9 Acute upper respiratory infection, unspecified (principal); R05.9 Cough, unspecified; R06.02 Shortness of breath; R09.89 Other specified symptoms and signs involving the circulatory and respiratory systems
CPT/HCPCS: 87632; 87635

== ENCOUNTER 2024-04-07 11:44 | Outpatient (CLI) | payer MEDICARE, SELFPAY ==
[2024-04-07 19:35] LABS: Thyroid Stimulating Hormone 3.71 uIU/mL (0.465-4.68)
== END 2024-04-07 23:59 | disposition home or self-care (01) ==
LOC: LAB.DROPOF 04-08 09:56
PROVIDERS: PCP Family Medicine; Visit Provider Family Medicine
DX: E03.9 Hypothyroidism, unspecified (principal)
CPT/HCPCS: 84443

== ENCOUNTER 2024-07-09 11:48 | Outpatient (CLI) | payer MEDICARE, SELFPAY | END 2024-07-09 23:59 | disposition home or self-care (01) | LOC: LAB.DROPOF 07-11 17:36 | PROVIDERS: PCP Nurse Practitioner; Visit Provider Nurse Practitioner | DX: N30.01 Acute cystitis with hematuria (principal) | CPT/HCPCS: 87086 ==

== ENCOUNTER 2024-07-21 13:40 | Outpatient (CLI) | payer MEDICARE, SELFPAY ==
[2024-07-21 20:06] LABS: Basophils % 0.3 % (0.1-2.0); Eosinophils # 0.5 K/mm3 (0.0-0.4); Eosinophils % 6.6 % (0.1-12.0); Hematocrit 38.2 % (42.0-52.0); Hemoglobin 12.3 g/dL (14.1-18.0); Lymphocytes # 1.4 K/mm3 (0.7-4.5); Lymphocytes % 19.8 % (10-50); Mean Corpuscular HGB Conc 32.2 g/dL (31.8-35.4); Mean Corpuscular Hemoglobin 34.7 pg (27.0-31.2); Mean Corpuscular Volume 107.6 fl (80-94); Mean Platelet Volume 8.6 fl (7.4-10.4); Monocytes # 0.6 K/mm3 (0.1-1.0); Monocytes % 8.4 % (1.7-9.3); Neutrophils # 4.5 K/mm3 (1.8-7.8); Neutrophils % 64.9 % (37.0-80.0); Platelet Count 337 K/mm3 (142-424); Red Blood Count 3.55 M/mm3 (4.60-6.20); Red Cell Distribution Width 14.2 % (11.5-17.5); White Blood Count 6.9 K/mm3 (4.8-10.8)
[2024-07-21 22:34] LABS: Alanine Aminotransferase 15 U/L (12-78); Albumin Level 3.2 g/dl (3.5-5.0); Albumin/Globulin Ratio 1.2 (1.1-1.8); Alkaline Phosphatase 115 U/L (38-126); Anion Gap 9.6 mEq/L (5-15); Aspartate Amino Transferase 23 U/L (17-59); Blood Urea Nitrogen 13 mg/dl (9-20); Calcium 8.9 mg/dl (8.4-10.2); Carbon Dioxide 24 mmol/L (22.0-30.0); Chloride 106 mmol/L (98-107); Estimated Glomerular Filt Rate 65 ml/min (>60); GFR (African American) 79 ML/MIN (>60); Globulin 2.7 g/dL (1.3-3.2); Glucose 109 mg/dl (74-100); Potassium 3.6 mmoL/L (3.5-5.1); Sodium 136 mmol/L (136-145); Total Protein,Serum 5.9 g/dl (6.3-8.2)
== END 2024-07-21 23:59 | disposition home or self-care (01) ==
LOC: LAB.DROPOF 07-22 13:53
PROVIDERS: PCP Family Medicine; Visit Provider Family Medicine
DX: Z96.651 Presence of right artificial knee joint; I25.10 Atherosclerotic heart disease of native coronary artery without angina pectoris; L82.1 Other seborrheic keratosis; N18.9 Chronic kidney disease, unspecified; I10 Essential (primary) hypertension
CPT/HCPCS: 80053; 85025

== ENCOUNTER 2024-08-23 03:30 | Emergency (ER) | payer MEDICARE, SELFPAY ==
[2024-08-23 03:31] VITALS: BP 142/75; PULSE 65; RESP 17; TEMP 36.5; O2SAT 93; BMI 31.1
--- NOTE | 2024-08-23 03:34 | HMH.EDGENADL ---
Discharge Plan Disposition Patient Disposition: Home, Self-Care Prescriptions Prescriptions: New lidocaine 5 % adhesive patch,medicated 1 patch topical DAILY PRN (Reason: pain) Qty: 30 0RF Rx Instructions: leave on most painful area for up to 12 hrs cyclobenzaprine 5 mg tablet 5 mg PO TID PRN (Reason: muscle spasm) Qty: 30 0RF No Action methocarbamol 500 mg tablet 500 mg PO TIDP PRN (Reason: Muscle Spasms) Patient Comments: TAKE 1 TABLET BY MOUTH 3 TIMES DAILY NEEDED FOR MUSCLE SPASMS. omeprazole 40 mg capsule,delayed release(DR/EC) 40 mg PO BID Patient Comments: TAKE 1 CAPSULE BY MOUTH 2 TIMES DAILY (BEFORE MEALS). oxycodone-acetaminophen 5-325 mg tablet 1 tab PO Q6HP PRN (Reason: Pain) Patient Comments: TAKE 1 TABLET BY MOUTH EVERY 6 HOURS NEEDED FOR ACUTE PAIN FOR UP TO 3 DAYS. tamsulosin 0.4 mg capsule 0.4 mg PO HS Patient Comments: TAKE 1 CAPSULE BY MOUTH ONCE DAILY FOR PROSTATE. levothyroxine 50 mcg tablet 50 mcg PO AM Patient Comments: TAKE 1 TABLET BY MOUTH ONCE DAILY. pramipexole 0.125 mg tablet 0.125 mg PO DAILY Patient Comments: TAKE ONE TABLET BY MOUTH DAILY hydrochlorothiazide 25 mg tablet 25 mg PO DAILY Patient Comments: TAKE 1 TABLET BY MOUTH ONCE DAILY. rosuvastatin 10 mg tablet 10 mg PO HS Patient Comments: TAKE 1 TABLET BY MOUTH DAILY. pregabalin 100 mg capsule 100 mg PO TID Patient Comments: TAKE 1 CAPSULE BY MOUTH 3 TIMES DAILY FOR PAIN. Referrals Follow up/Referrals: Kamlesh Fair MD [Primary Care Provider] - See instructions Activity Restrictions/Add. Instructions Additional Instructions/Restrictions: Please take Flexeril and use lidocaine patches as needed for pain in addition to your other medications. Please follow-up with your primary care provider. Please return to the emergency department if you develop any new or worsening symptoms or become concerned for your health. Clinical Impressions Clinical Impression: Sciatica Qualifiers: Laterality: right Qualified Code(s): M54.31 - Sciatica, right side Instructions Patient Instructions: DI for Low Back Pain Print Language Print Language: Japanese Discharge ED Provider: Gurdeep Mueller Adult [facility] General Chief complaint: Back Pain/Injury Stated complaint: back pain Time Seen by Provider: 08/23/24 03:34 History of Present Illness HPI narrative: 79-year-old male presents with right-sided back pain rating down the right leg. He reports that symptoms been ongoing for the last week or so. He was seen at a Ortho urgent care in [place] and was diagnosed with sciatica. He was placed on a prednisone taper. He is also been taking Tylenol and Robaxin. He reports the pain has been continued to worsen. He has follow-up on Saturday with Ortho but does not feel like he can make it there. He denies any numbness or weakness of the right leg, but does have more pain. He denies any numbness in the groin or changes in bowel or bladder function. No recent falls, no fever, no immunocompromise. Related Data Home Medications ?Medication ?Instructions ?Recorded ?Confirmed hydrochlorothiazide 25 mg tablet 25 mg PO DAILY 08/23/24 08/23/24 levothyroxine 50 mcg tablet 50 mcg PO AM 08/23/24 08/23/24 methocarbamol 500 mg tablet 500 mg PO TIDP PRN Muscle Spasms 08/23/24 08/23/24 omeprazole 40 mg capsule,delayed 40 mg PO BID 08/23/24 08/23/24 release oxycodone-acetaminophen 5 mg-325 1 tab PO Q6HP PRN Pain 08/23/24 08/23/24 mg tablet pramipexole 0.125 mg tablet 0.125 mg PO DAILY 08/23/24 08/23/24 pregabalin 100 mg capsule 100 mg PO TID 08/23/24 08/23/24 rosuvastatin 10 mg tablet 10 mg PO HS 08/23/24 08/23/24 tamsulosin 0.4 mg capsule 0.4 mg PO HS 08/23/24 08/23/24 Previous Rx's ?Medication ?Instructions ?Recorded cyclobenzaprine 5 mg tablet 5 mg PO TID PRN muscle spasm #30 08/23/24 tabs lidocaine 5 % topical patch 1 patch topical DAILY PRN pain #30 08/23/24 ea Allergies Allergy/AdvReac Type Severity Reaction Status Date / Time No Known Allergies Allergy Verified 08/11/24 12:33 [facility] Disclaimer: The information contained in this section may have been updated after the patient was seen, as this information can be updated by other users. Medical History Osteoarthritis of knees, bilateral Cerumen debris on tympanic membrane of left ear Bilateral knee pain Restless legs syndrome Abdominal aortic ectasia Coronary artery calcification seen on CT scan Calcific aortic valve stenosis History of smoking CKD (chronic kidney disease) Chronic Kidney Disease Bilateral leg and foot pain Lumbar degenerative disc disease Seborrheic keratoses Osteoarthritis Acquired hypothyroidism BPH (benign prostatic hyperplasia) Hyperuricemia Gastroesophageal reflux disease Essential hypertension Surgical History Status post right knee replacement History of cholecystectomy History of hernia repair Family History Other Cancer Heart attack Social History Smoking Status: Never smoker alcohol intake: never substance use type: denies use current occupational status: employed Travel in the last 8 weeks: None household members: family housing: house ROS Obtained: Yes All systems reviewed & no additional complaints except as documented Physical Exam General General appearance: alert and in no apparent distress Head Head exam: atraumatic and normocephalic Eye Eye exam: Present normal appearance, PERRL and EOMI ENT ENT exam: Present normal oropharynx and normal external ear exam Neck Neck exam: Present normal inspection and full ROM Chest Chest inspection: Present normal inspection and symmetric chest wall rise; Absent tenderness Respiratory Respiratory exam: Present normal lung sounds bilaterally; Absent respiratory distress Cardiovascular Cardiovascular exam: Present regular rate and normal rhythm Abdominal Exam Abdominal exam: Present soft; Absent distention, tenderness or guarding Extremities Exam Extremities exam: Present normal inspection; Absent edema or joint swelling Back Exam Back exam: Present normal inspection and tenderness (Right sacroiliac joint) Neurological Exam Neurological exam: Present alert and oriented X3; Absent motor sensory deficit Psychiatric Psychiatric exam: Present normal affect and normal mood Skin Skin exam: Present warm, dry and normal color Lymphatic Lymphatic Findings: no adenopathy Medical Decision Making Medical Records Medical records reviewed: Yes I reviewed the patient's medical records. Screening: Per USPSTF and CDC recommendations, given the prevalence of disease in our region, it is our hospital?s policy to screen for HIV and viral Hepatitis for all patients aged 18 and over and those with ongoing risk factors. Yemi Inquiry Pt receiving controlled substance: No Yemi was queried for this patient: No Vital Signs: 08/23/24 03:31 08/23/24 04:02 Temperature 97.7 F 97.7 F Temperature Source Oral Oral Pulse Rate 69 Pulse Rate [Left] 65 Respiratory Rate 17 18 Blood Pressure 140/75 Blood Pressure [Right Arm] 142/75 H Blood Pressure Mean [Right Arm] 97 Blood Pressure Source [Right Arm] Automatic Cuff Blood Pressure Position [Right Arm] Supine 02 Sat by Pulse Oximetry 93 L Oxygen Delivery Method Room Air Room Air Lab Data Lab results reviewed: Yes I reviewed the patient's lab results. Orders (Tests/Meds): ED MEDICATIONS Discontinued Medications Generic Name Dose Route Start Last Admin Trade Name Serafin PRN Reason Stop Dose Admin Ketorolac Tromethamine 30 mg 08/23/24 03:47 08/23/24 03:51 Ketorolac 30mg/Ml Vial IM 08/23/24 03:48 30 mg ONCE ONE Administration Lidocaine 1 each 08/23/24 03:47 08/23/24 03:51 Lidocaine 5% Transdermal Patch TP 08/23/24 03:48 1 each ONCE ONE Administration Morphine Sulfate 4 mg 08/23/24 03:47 08/23/24 03:51 Morphine 4mg/Ml Syringe IM 08/23/24 03:48 4 mg ONCE ONE Administration Medical Decision Narrative: 79-year-old male presents for right sided low back pain radiating down the right leg.. History was obtained via interactive discussion with patient, family. On arrival, patient is [afebrile, hemodynamically stable, satting appropriately, alert, oriented x4, GCS 15], moving all extremities spontaneously. Full physical exam performed and significant for no focal neurologic deficits, no signs of spinal cord injury. Differential includes but is not limited to sacroiliitis, sciatica, arthritis, spinal cord pathology. Patient was given IM morphine, IM Toradol, lidocaine patch for symptomatic management and correction of underlying abnormalities. Radiograph, CT, MRI of the lumbar spine was considered, but deemed unnecessary due to no evidence of spinal cord pathology on exam. No history suggestive of infection or bleeding.. Given patient history, exam and workup, patient's presentation most likely represents right-sided radicular low back pain and sacroiliac joint pain. Indirect discussion was had with patient regarding symptomatic care and follow-up. He has follow-up scheduled on Saturday. I discharged him with prescription for Flexeril and lidocaine patches.. Procedures Risk/Benefits of Procedure(s) Were Explained: Yes Critical Care Critical Care Time Critical Care Time: No
[2024-08-23] MEDS: MORPHINE 4MG/ML SYRINGE 4 MG IM (03:51)
[2024-08-23] MEDS: LIDOCAINE 5% TRANSDERMAL PATCH 1 EACH TP (03:51)
[2024-08-23] MEDS: KETOROLAC 30MG/ML VIAL 30 MG IM (03:51)
[2024-08-23 04:02] VITALS: BP 140/75; PULSE 69; RESP 18; TEMP 36.5; O2SAT 96
== END 2024-08-23 04:07 | disposition home or self-care (01) ==
PROVIDERS: Emergency Provider Emergency Medicine; PCP Family Medicine
DX: M54.31 Sciatica, right side (principal)
CPT/HCPCS: 96372; 99283; J1885; J2270

== ENCOUNTER 2025-03-02 13:40 | Outpatient (CLI) | payer MEDICARE, SELFPAY ==
[2025-03-02 19:38] LABS: Alanine Aminotransferase 16 U/L (12-78); Albumin Level 3.8 g/dl (3.5-5.0); Albumin/Globulin Ratio 1.2 (1.1-1.8); Alkaline Phosphatase 132 U/L (38-126); Anion Gap 16.9 mEq/L (5-15); Aspartate Amino Transferase 21 U/L (17-59); Bilirubin,Total 1.3 mg/dl (0.2-1.3); Blood Urea Nitrogen 18 mg/dl (9-20); Calcium 8.9 mg/dl (8.4-10.2); Carbon Dioxide 22 mmol/L (22.0-30.0); Chloride 102 mmol/L (98-107); Estimated Glomerular Filt Rate 59 ml/min (>60); GFR (African American) 71 ML/MIN (>60); Globulin 3.1 g/dL (1.3-3.2); Glucose 101 mg/dl (74-100); Potassium 3.9 mmoL/L (3.5-5.1); Sodium 137 mmol/L (136-145); Total Protein,Serum 6.9 g/dl (6.3-8.2)
[2025-03-02 20:07] LABS: Thyroid Stimulating Hormone 3.78 uIU/mL (0.465-4.68)
--- OUTSIDE RECORDS SUMMARY | 2025-03-04 21:59 | XMS_ITS | Continuity of Care Document ---
Author Name [facility] Organization [facility] Care Team Providers Care Data Entry Representative Name Role Phone [facility] Unavailable Unavailable Problems Combined list of problems from Department of Defense and Veterans Affairs facilities. It does not include entries that were removed or entered in error. Problem Status Onset Date Problem Type Date of Resolution Comments Source Congestive heart failure Active 4 Condition [facility] Supraventricular tachycardia Active 3 Condition Nov 19, 2014 Entered By: WALDO ESCAMILLA Comment: s/p ablation and EP study [facility] Benign prostatic hyperplasia [facility] Stricture of esophagus Active 9 Condition Nov 19, 2014 Entered By: WALDO ESCAMILLA Comment: [facility] Hyp[facility] Active 5 [facility] Arthritis of knee Active [facility] Benign essential hypertension Active Condition [facility] Bradycardia Active [facility] C/O - low back pain [facility] Carpal tunnel syndrome [facility] Depression [facility]arrhea Active Condition [facility] Dyspnea on exertion Active [facility] Exposure to potentially hazardous substance ([facility] [id number]) Active Condition [place] [facility] Gastroesophageal reflux disease Active Condition [facility] Joint pain Active Condition [facility] On examination - no disease present Active [facility] Pain in left knee Active Condition [facility] Diagnosis: ICD-10-CM Z77.29 Contact with and exposure to other hazardous substances Active Diagnosis [facility] N Medications Combined list of outpatient medications from [facility] facilities.Medications provided include 1) outpatient medications from the last 15 months, and 2) patient-reported medications. Medication Details Route Status Patient Instructions Prescription Expires Prescription Number Last Dispense Date Ordering Provider Order Date Order Qty Source POTASSIUM CHLORIDE 10MEQ TAB,SA TAKE TWO TABLETS BY MOUTH DAILY ORAL ACTIVE RISA HARMAN 2018 [place] [facility] Immunizations Combined list of available immunizations from the [facility] and [facility] facilities. Immunization Series Date Given Administered By Site Reaction Lot Number CVX Code Drug Travel Director Status Comments Source PNEUMOCOCCAL CONJUGATE PCV 13 2016 133 complet ed [place] [facility] DTP 2013 01 complet ed [place] [facility] [id number] (HISTORICAL) 2013 33 complet ed [place] [facility] PNEUMOCOCCAL, UNSPECIFIED FORMULATION 2013 109 complet ed [place] [facility] ZOSTER LIVE 2013 121 complet ed [place] [facility] TDAP 2013 115 complet ed [place] [facility] Results Combined list of recent chemistry, hematology and other laboratory results from [facility] and [facility], ranging from 15 months to all on record, depending upon the facility. Order Name Results Value Reference Range Date Interpretation Specimen Comments Source PSA PROSTATE SPECIFIC AG [MASS/VOLU ME] IN SERUM OR PLASMA 0.421 ng/mL 0 - 3.999 2023 Specimen Type: SERUM No comment entered. Ordering Provider: TIMOTHY GUTIÉRREZ II Report Released Date/Time: Dec 13, 2023 01:15 PM Reporting Lab: [address] [id number] Performing Lab: [address] [address] [facility] Encounters Combined list of: 1) Encounters from Department [facility] facilities going backup to the last 18 months, not all [place] inpatient encounters are included; 2) Encounters from the [facility] facilities going backup to 280 months. Location Location Details Encounter Type Encounter Number Reason For Visit Attending Provider ADM Date DC Date Status Disposition Source [facility] Outpatient Encounter [id number] 10/11 [place] Outpatient Encounter [id number] Diagnos is: ICD-10- CM Z77.29 Contact with and exposur e to other [facility] TIMOTHY Young E II 12/13 [place] [facility] Social History Combined list of available smoking, tobacco, and other social history from Department of Defense and Veterans Affairs facilities. Social History Type Response Date Comment Source Tobacco smoking status NH[place]-TOBAC[place] USER EVERY DAY 09/25/2018 [facility] History of tobacco use VA-TOBACCO USE 30 YEARS OR MORE 09/25/2018 [facility] History of tobacco use V9 LIFETIME NON-USER OF TOBACCO 12/26/2017 [facility] History of tobacco use V9 CURRENT TOBACCO USER 03/22/2017 [facility] History of tobacco use V9 CURRENT TOBACCO USER 03/14/2016 [facility] History of tobacco use V9 TOBACCO OFFERED 12/28/2014 [facility] History of tobacco use V9 CURRENT TOBACCO USER 11/19/2014 Vet does not wish help quitting at this time. [facility]
== END 2025-03-02 23:59 | disposition home or self-care (01) ==
LOC: LAB.DROPOF 03-03 09:50
PROVIDERS: PCP Family Medicine; Visit Provider Family Medicine
DX: E03.9 Hypothyroidism, unspecified (principal); I10 Essential (primary) hypertension
CPT/HCPCS: 80053; 84443

== ENCOUNTER 2025-04-02 09:18 | Outpatient (CLI) | payer OTHER, SELFPAY ==
--- OUTSIDE RECORDS SUMMARY | 2025-04-02 09:22 | XMS_ITS | Continuity of Care Document ---
Author Name [facility] Organization [facility] Care Team Providers Care Fire Control Technician Name Role Phone [facility] Unavailable Unavailable Problems Combined list of problems from Department of Defense and Veterans Affairs facilities. It does not include entries that were removed or entered in error. Problem Status Onset Date Problem Type Date of Resolution Comments Source Congestive heart failure Active 4 Condition [facility] Supraventricular tachycardia Active 3 Condition Nov 19, 2014 Entered By: WALDO ESCAMILLA Comment: [facility]p [facility] Benign prostatic hyperplasia Active [facility] Stricture of esophagus Active 9 Condition Nov 19, 2014 Entered By: WALDO ESCAMILLA Comment: [facility] Hypothyroidism Active 5 Condition [facility] Arthritis of knee Active Condition [facility] Benign essential hypertension [facility] Bradycardia Active [facility] C/O - low back pain Active [facility] Carpal tunnel syndrome [facility] Depression [facility]arrhea Active [facility] Dyspnea on exertion Active [facility] Exposure [facility] potentially hazardous substance ([facility] [id number]) Active Condition [place] [facility] Gastroesophageal reflux disease Active Condition [facility] Joint pain Active Condition [facility] On examination - no disease present Active [facility] Pain in left knee Active Condition [facility] Diagnosis: ICD-10-CM Z77.29 Contact with and exposure to other hazardous substances Active Diagnosis [facility] N Medications Combined list of outpatient medications from [facility] facilities.Medications provided include 1) outpatient medications from the last 15 months, and 2) patient-reported medications. Medication Details Route Status Patient Instructions Prescription Expires Prescription Number Last Dispense Date Ordering Provider Order Date Order Qty Source POTASSIUM CHLORIDE 10MEQ TAB,SA TAKE TWO TABLETS BY MOUTH DAILY ORAL ACTIVE RISA HARMAN 2018 [place] [facility] Immunizations Combined list of available immunizations from the [facility] and [facility] facilities. Immunization Series Date Given Administered By Site Reaction Lot Number CVX Code Drug Paperhanger Pipe Status Comments Source PNEUMOCOCCAL CONJUGATE PCV 13 2016 133 complet ed [place] [facility] DTP 2013 01 complet ed [place] [facility] [id number] (HISTORICAL) 2013 33 complet ed [place] [facility] PNEUMOCOCCAL, UNSPECIFIED FORMULATION 2013 109 complet ed [place] [facility] ZOSTER LIVE 2013 121 complet ed [place] [facility] TDAP 2013 115 complet ed [place] [facility] Results Combined list of recent chemistry, hematology and other laboratory results from [facility] and [facility], ranging from 15 months to all on record, depending upon the facility. Order Name Results Value Reference Range Date Interpretation Specimen Comments Source PSA PROSTATE SPECIFIC AG [MASS/VOLU ME] IN SERUM OR PLASMA 0.421 ng/mL 0 - 3.999 2023 Specimen Type: SERUM No comment entered. Ordering Provider: TIMOTHY GUTIÉRREZ II Report Released Date/Time: Dec 13, 2023 01:15 PM Reporting Lab: [address] [id number] Performing Lab: [address] [address] [facility] Encounters Combined list of: 1) Encounters from Department [facility] facilities going backup to the last 18 months, not all [place] inpatient encounters are included; 2) Encounters from the [facility] facilities going backup to 280 months. Location Location Details Encounter Type Encounter Number Reason For Visit Attending Provider ADM Date DC Date Status Disposition Source [facility] Outpatient Encounter [id number] 10/11 [place] Outpatient Encounter [id number] Diagnos is: ICD-10- CM Z77.29 Contact with and exposur e to other [facility] TIMOTHY Young E II 12/13 [place] [facility] Social History Combined list of available smoking, tobacco, and other social history from Department of Defense and Veterans Affairs facilities. Social History Type Response Date Comment Source Tobacco smoking status NHIS [place]-TOBACCO USER EVERY DAY 09/25/2018 [facility] History of tobacco use VA-TOBACCO USE 30 YEARS OR MORE 09/25/2018 [facility] History of tobacco use V9 LIFETIME NON-USER OF TOBACCO 12/26/2017 [facility] History of tobacco use V9 CURRENT TOBACCO USER 03/22/2017 [facility] History of tobacco use V9 CURRENT TOBACCO USER 03[facility]14/2016 [facility] History of tobacco use V9 CURRENT TOBACCO USER 12/28/2014 [facility] History of tobacco use V9 CURRENT TOBACCO USER 11/19/2014 Vet does not wish help quitting at this time. [facility]
[2025-04-02 10:55] LABS: Free T4 (Free Thyroxine) 1.09 ng/dl (0.78-2.19)
[2025-04-02 11:11] LABS: Thyroid Stimulating Hormone 4.14 uIU/mL (0.465-4.68)
== END 2025-04-02 23:59 | disposition home or self-care (01) ==
LOC: LAB 09:20
PROVIDERS: PCP Family Medicine; Visit Provider Chiropractor
DX: E21.0 Primary hyperparathyroidism (principal)
CPT/HCPCS: 36415; 84439; 84443; 84481

== ENCOUNTER 2025-05-24 13:42 | Outpatient (CLI) | payer OTHER, SELFPAY ==
--- OUTSIDE RECORDS SUMMARY | 2025-04-27 11:15 | XMS_ITS | Encounter Summary ---
Author Organization [facility] Address [address] [place] [address] Care Team Providers Care Paper Cup Handle Machine Operator Name Role Phone Darrius Fair MD Primary Care Provider [phone] Marcial Vizcarra MD Unavailable Reason for Visit * Reason Comments Follow-up Encounter Details Date Type Department Care Team (Late st Contact Info) Description 04/27/2025 11:15 AM EDT Office Visit [facility] French Teacher [facility] [place] [address] Ney Amaral MD [address] [place] [address] S/P total knee arthroplasty, right (Primary Dx) Social History Tobacco Use Types Packs/Day Years Used Date Smoking Tobacco: Former Cigarettes Q uit: 03/05/1968 Smokeless Tobacco: Former Chew Alcohol Use Standard Drinks/Week Comments No 0 (1 standard drink = 0.6 oz pur e alcohol) Overall Financial Resource Strain (CARDIA) Answe r Date Recorded How hard is it for you to pa y for the very basics like food, housing, medical care, and heating? Not very hard 09/20/2023 PHQ-2 Answer Date Recorded PHQ-2 Total Score 0 09/20/2023 Exercise Vital Sign Answer Date Recorde d On average, how many days pe r week do you engage in moderate to strenuous exercise (like a brisk walk)? 5 days 09/20/2023 On average, how many minutes do you engage in exercise at this level? 20 min 09/20/2023 Hunger Vital Sign Answer Date Recorded Within the past 12 months, y ou worried that your food would run out before you got the money to buy more. Never true 09/20/20 23 Within the past 12 months, t he food you bought just didn't last and you didn't have money to get more. Never true 09/20/2023 PRAPARE - Transportation Answer Date Re corded In the past 12 months, has l ack of transportation kept you from medical appointments or from getting medications? No 08/26 In the past 12 months, has l ack of transportation kept you from meetings, work, or from getting things needed for daily living? No 09/20/2023 Sex and Gender Information Value Date Recorded Sex Assigned at Not on file Legal Sex Male 1:23 PM EDT Gender Identity Not on file Sexual Orientation Not on file documented as of this encounter Functional Status * Is the person deaf or does he/she have serious difficulty hearing? Answer Date of Assessment Author No 01/03/2023 6:00 PM Lizzie Almaguer, Educator Senior Clinical * Is the person blind or does he/she have serious difficulty seeing even when wearing glasses? Answer Date of Assessment Author No 01/03/2023 6:00 PM Lizzie Almaguer Nursing Student * Does this person have serious difficulty walking or climbing stairs? Answer Date of Assessment Author No 01/03/2023 6:00 PM Lizzie Almaguer Nursing Student * Does this person have difficulty dressing or bathing? Answer Date of Assessment Author No 01/03/2023 6:00 PM Lizzie Almaguer Nursing Student * Because of a physical, mental or emotional condition, does this person have difficulty doing errands alone such as visiting a doctor's office or shopping? Answer Date of Assessment Author No 01/03/2023 6:00 PM Lizzie Almaguer Nursing Student documented as of this encounter Mental Status * Because of a physical, mental or emotional condition, does this person have serious difficulty concentrating, remembering or making decisions? Answer Entry Date Author No 01/03/2023 6:00 PM EST Lizzie Horton, Educator Senior Clinical documented in this encounter Progress Notes * Ney Amaral MD - 04/27/2025 11:15 AM EDT Images from the original note were not included. [address] [phone] ([phone] [place], [place] [phone]) [place], [place] Jonathon Lara 1945 Chief Complaint Patient presents with Right Knee - Follow-up Subjective: The patient comes in today, now status post left total knee arthroplasty. They tell me that for themost part the joint is doing well overall. The pain is minimal. The swelling is acceptable. For themost part, joint replacement has helped with activities of daily living. They are overall pleased with their progress. They recheck today for routine follow up evaluation. Not sure he is glad he had it done. 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 Objective: On physical examination the patient is alert and oriented. Appropriate mood for the conversation. Well-developed and well-nourished in appearance. Limited gait examination reveals no obvious abnormalities. Bilateral upper and lower extremities demonstrate apparently normal range of motion and stability with intact pulses and sensation to light touch of the wrist, hand, ankle and foot bilaterally.Skin of bilateral upper and lower extremities with no obvious rash or lesions. Apparently normal muscle tone and reflexes for bilateral knees and ankles. No evidence of obvious significant lymphedemaof bilateral lower extremities. Respiratory rate is normal by clinical examination. Pulse rate is normal by peripheral pulse examination. The surgical incision is healed nicely. No erythema or signs of infection. Hip--Gentle internal and external rotation of the hip is supple and benign. Leg lengths are grosslyequivalent today. Heel-toe reciprocating gait pattern. No evidence of antalgia. Normal lateral femoral cutaneous nerve sensation. The skin is intact. No significant swelling noted. No evidence of significant lymphadenopathy noted. Knee--Range of motion is from approximately 0-120 degrees. Stable to varus/valgus stress and to anterior/posterior drawer testing as expected after total knee. There is some numbness adjacent to the incision as expected. No evidence of DVT or PE by clinical examination. Imaging: Radiographs are reviewed today. These show a well positioned right total knee arthroplasty, withoutevidence of hardware or implant complications. Assessment and Plan: Diagnoses and all orders for this visit: S/P total knee arthroplasty, right - Large Joint Injection/Arthrocentesis: R knee - ANAEROBIC CULTURE (NO STAIN) - BODY FLUID CULTURE (STAIN INCLUDED) - FUNGUS CULTURE (NO STAIN) - JOINT FLUID CRYSTALS - JOINT FLUID CELL COUNT - JOINT FLUID DIFFERENTIAL PLAN: At this point the patient has recovered as expected following surgery. The patient is doing well. Continue weight bearing as tolerated. Continue normal activities. We have talked about wear characteristics and the anticipated life expectancy after major joint replacement. We will have the patient follow up as scheduled. We talked about antibiotic prophylaxis as indicated. Right total knee with apparently routine recovery Right LE neuropathy This seems to be causing his pain today. Chronic neuropathy in the legs. To rule out the knee as the cause of the pain: Right knee aspiration and injection today. No immediate relief in the office today. This suggests an extra articular source of the pain. Addendum: Right knee aspiration 103 nucleated cells 13% segs Cultures NGTD documented in this encounter H&P Notes * Ney Amaral MD - 04/27/2025 11:15 AM EDTAssociated Order(s): Large Joint Injection/Arthrocentesis: R knee Large Joint Injection/Arthrocentesis: R knee on 04/27/2025 11:15 AM Indications: pain Details: 22 G needle, superolateral approach Medications: 40 mg triamcinolone acetonide 40 mg/mL; 2 mL BUPivacaine HCl 0.5 % (5 mg/mL) Aspirate: 10 mL clear and yellow; sent for lab analysis Outcome: tolerated well, no immediate complications Procedure, treatment alternatives, risks and benefits explained, specific risks discussed. Consent was given by the patient. Patient was prepped and draped in the usual sterile fashion. documented in this encounter Plan of Treatment Upcoming Encounters Date Type Department Care Team (Late st Contact Info) Description 06/11/2025 9:00 AM EDT Office Visit [facility] [address] [place] [address] Fadumo Curran NP [address] [place] [address] Pending Results Name Type Priority Associated Diagnoses Date /Time FUNGUS CULTURE (NO STAIN) Microbiology Routine S/P total knee arthroplasty, right 04/27/2025 12:15 PM EDT documented as of this encounter Procedures Procedure Name Priority Date/Time Associated Diagnosis Comments FUNGUS CULTURE (NO STAIN) Routine 04/27/2025 12:15 PM EDT S/P total knee arthroplasty, right JOINT FLUID DIFFERENTIAL Routine 04/27/2025 12:15 PM EDT S/P total knee arthroplasty, right BODY FLUID CULTURE (STAIN INCLUDED) Routine 04/27/2025 12:15 PM EDT S/P total knee arthroplasty, right ANAEROBIC CULTURE (NO STAIN) Routine 04/27/2025 12:15 PM EDT S/P total knee arthroplasty, right JOINT FLUID CRYSTALS Routine 04/27/2025 12:15 PM EDT S/P total knee arthroplasty, right JOINT FLUID CELL COUNT Routine 12:15 PM EDT S/P total knee arthroplasty, right WA ARTHROCENTESIS ASPIR&/INJ MAJOR JT/BURSA W/O US Routine 04/27/2025 11:15 AM EDT S/P total knee arthroplasty, right documented in this encounter Results * JOINT FLUID DIFFERENTIAL (04/27/2025 12:15 PM EDT) Segs JF 13 <25 % 04/27/2025 9:38 PM EDT [facility] Lymphs JF 39 % 04/27/2025 9:38 PM EDT [facility] Macrophages JF 44 % 04/27/2025 9:38 PM EDT [facility] Syn Cell JF 2 % 04/27/2025 9:38 PM EDT [facility] Other JF 2 % 04/27/2025 9:38 PM EDT [facility] Comment:2 basophils. Body Fluid STRUCTURE OF RIGHT KNEE REGION / Unknown 04/27/2025 12:15 PM EDT 04/27/2025 12:15 PM EDT Ney Amaral MD BODY FLUIDS AND STOO LS ORDERABLES Final Result Performing Organization Address City/[facility]/ZIP Co de Phone Number [place] [phone] * JOINT FLUID CELL COUNT (04/27/2025 12:15 PM EDT) Color JF Yellow Yellow, Straw 04/27/2025 9:37 PM EDT [facility] Appear JF Hazy Clear, Slightly Hazy, Hazy 04/27/2025 9:37 PM EDT [facility] RBC JF 952 /mcL 04/27/2025 9:37 PM EDT [facility] Total Nucleated Cells JF 103 <=150 /mcL 04/27/2025 9:37 PM EDT [facility] Body Fluid STRUCTURE OF RIGHT KNEE REGION / Unknown 04/27/2025 12:15 PM EDT 04/27/2025 12:15 PM EDT us Ney Amaral MD BODY FLUIDS AND STOO LS ORDERABLES Final Result [facility] [address] [facility], [place] [address] * JOINT FLUID CRYSTALS (04/27/2025 12:15 PM EDT) Crystal JF None Seen None Seen 04/27/2025 9:37 PM EDT [facility] Body Fluid STRUCTURE OF RIGHT KNEE REGION / Unknown 04/27/2025 12:15 PM EDT 04/27/2025 12:15 PM EDT Ney Amaral MD BODY FLUIDS AND STOO LS ORDERABLES Final Result Performing Organization Address [facility] Co de Phone Number [facility] [address] [place] [address] , [place] [address] * BODY FLUID CULTURE (STAIN INCLUDED) (04/27/2025 12:15 PM EDT) Culture No growth at 94 hours. 05/02/2025 7:21 AM EDT [facility] Stain Rare WBCs 05/02/2025 7:21 AM EDT [facility] Stain No organisms seen 05/02/2025 7:21 AM EDT [facility] Body Fluid STRUCTURE OF RIGHT KNEE REGION / Unknown 04/27/2025 12:15 PM EDT 04/27/2025 12:15 PM EDT Ney Amaral MD MICROBIOLOGY - GENER AL ORDERABLES Final Result Performing Organization Address [facility] de Phone Number [facility] [address] [place] [address] , [place] [address] * ANAEROBIC CULTURE (NO STAIN) (04/27/2025 12:15 PM EDT) Culture No anaerobic growth at 5 days. 05/03/2025 9:31 AM EDT [facility] Body Fluid STRUCTURE OF RIGHT KNEE REGION / Unknown 04/27/2025 12:15 PM EDT 04/27/2025 12:15 PM EDT Ney Amaral MD MICROBIOLOGY - GENER AL ORDERABLES Final Result Performing Organization Address [facility] Co de Phone Number [facility] [address] [place] [address] , [place] [address] * WA ARTHROCENTESIS ASPIR&/INJ MAJOR JT/BURSA W/O US (04/27/2025 11:15 AM EDT) Narrative [facility] - 04/27/2025 11:15 AM EDT Ney mAaral MD 05/07/2025 11:48 PM Large Joint Injection/Arthrocentesis: R knee on 04/27/2025 11:15 AM Indications: pain Details: 22 G needle, superolateral approach Medications: 40 mg triamcinolone acetonide 40 mg/mL; 2 mL BUPivacaine HCl 0.5 % (5 mg/mL) Aspirate: 10 mL clear and yellow; sent for lab analysis Outcome: tolerated well, no immediate complications Procedure, treatment alternatives, risks and benefits explained, specific risks discussed. Consent was given by the patient. Patient was prepped and draped in the usual sterile fashion. Ney Amaral MD PROCEDURE/MINOR SURG ICAL ORDERABLES Final Result [facility] documented in this encounter Visit Diagnoses Diagnosis S/P total knee arthroplasty, right- Primary documented in this encounter Administered Medications Inactive Administered Medications - up to 1 most recent administrations Medication Order MAR Action Action Date Dose Rate Site BUPivacaine HCl (MARCAINE/SENSORCAINE) 0.5 % (5 mg/mL) injection 2 mL 2 mL, Intra-articular, ONCE PRN, 1 dose, Starting on Sat04/27/25 at 1115, Until Sat04/27/25 at 1115, Dx: 1. S/P total knee arthroplasty, rightIndications:S/P total knee arthroplasty, right Given 04/27/2025 11:15 AM EDT 2 mL Right Knee triamcinolone acetonide (KENALOG-40) injection 40 mg 40 mg, Intra-articular, ONCE PRN, 1 dose, Starting on Sat04/27/25 at 1115, Until Sat04/27/25 at 1115, Dx: 1. S/P total knee arthroplasty, rightIndications:S/P total knee arthroplasty, right Given 04/27/2025 11:15 AM EDT 40 mg Right Knee documented in this encounter Additional Health Concerns Assessment Noted Time A fall risk assessment has been complete d for the patient 06/16/2020 10:01 AM EDT documented as of this encounter Care Teams Paper Cup Handle Machine Operator Relationship Specialty Start Date End Date Darrius Fair MD [address] [place] [facility] [facility] [address] [place] [id number] PCP - General 03/05/11 Marcial Vizcarra MD [address] [facility] [address] [place] [phone] Physician Internal Medicine-Gastroenterology 11/22/16 documented as of this encounter
--- OUTSIDE RECORDS SUMMARY | 2025-05-24 08:44 | XMS_ITS | Continuity of Care Document ---
Author Name [facility] Organization [facility] Care Team Providers Care Manager Managed Backup Services Name Role Phone [facility] Unavailable Unavailable Problems Combined list of problems from Department of Defense and Veterans Affairs facilities. It does not include entries that were removed or entered in error. Problem Status Onset Date Problem Type Date of Resolution Comments Source Congestive heart failure Active 4 Condition [facility] Supraventricular tachycardia Active 3 Condition Nov 19, 2014 Entered By: WALDO ESCAMILLA Comment: s/p ablation and EP study [facility] N Benign prostatic hyperplasia Active 2 Condition [facility] N Stricture of esophagus Active 9 Condition Nov 19, 2014 Entered By: WALDO ESCAMILLA Comment[facility]th[facility] of [facility] Benign essential hypertension Active Condition [place] Bradycardia [facility] C/O - low back pain [facility] Carpal tunnel syndrome [facility] Depression [facility] Diarrhea Active Condition [place] Dyspnea on exertion [facility] Exposure to potentially hazardous substance ([facility] [id number]) Active Condition [place] [facility] Gastroesophageal reflux disease Active Condition [place] Joint pain [facility] On examination - no disease present [facility] Pain in left knee Active Condition [facility] Diagnosis: ICD-10-CM Z77.29 Contact with and exposure to other hazardous substances Active Diagnosis [facility] N Medications Combined list of outpatient medications from [facility] facilities.Medications provided include 1) outpatient medications from the last 15 months, and 2) patient-reported medications. Medication Details Route Status Patient Instructions Prescription Expires Prescription Number Last Dispense Date Ordering Provider Order Date Order Qty Source POTASSIUM CHLORIDE 10MEQ TAB,SA TAKE TWO TABLETS BY MOUTH DAILY ORAL ACTIVE RISA HARMAN 2018 [facility] Immunizations Combined list of available immunizations from the [facility] and [facility] facilities. Immunization Series Date Given Administered By Site Reaction Lot Number CVX Code Drug Pharmacy Tech Customer Service Status Comments Source PNEUMOCOCCAL CONJUGATE PCV 13 2016 133 complet ed [facility] DTP 2013 01 complet ed [facility] [id number] (HISTORICAL) 2013 33 complet ed [facility] PNEUMOCOCCAL, UNSPECIFIED FORMULATION 2013 109 complet ed [facility] ZOSTER LIVE 2013 121 complet ed [facility] TDAP 2013 115 complet ed [facility] Results Combined list of recent chemistry, hematology and other laboratory results from [facility], ranging from 15 months to all on record, depending upon the facility. Order Name Results Value Reference Range Date Interpretation Specimen Comments Source PSA PROSTATE SPECIFIC AG [MASS/VOLU ME] IN SERUM OR PLASMA 0.421 ng/mL 0 - 3.999 2023 Specimen Type: SERUM No comment entered. Ordering Provider: TIMOTHY GUTIÉRREZ II Report Released Date/Time: Dec 13, 2023 01:15 PM Reporting Lab: [address] [address] Performing Lab: [address] [address] [facility] Encounters Combined list of: 1) Encounters from Department [facility] facilities going backup to the last 18 months, not all [place] inpatient encounters are included; 2) Encounters from the [facility] facilities going backup to 280 months. Location Location Details Encounter Type Encounter Number Reason For Visit Attending Provider ADM Date DC Date Status Disposition Source [facility] Outpatient Encounter [id number] Diagnos is: ICD-10- CM Z77.29 Contact with and exposur e to other hazardo us substan TIMOTHY Young E II 12/13 [facility] Social History Combined list of available smoking, tobacco, and other social history from Department of Defense and Veterans Affairs facilities. Social History Type Response Date Comment Source Tobacco smoking status NHIS OR-TOBACCO USER EVERY DAY 09/25/2018 [facility] of [facility] 30 [facility] WAKEUP 09/25/2018 [facility] History of tobacco use V9 LIFETIME NON-USER OF TOBACCO 12/26/2017 [facility] History of tobacco use V9 CURRENT TOBACCO USER 03/22/2017 [facility] History of tobacco use V9 CURRENT TOBACCO USER 03/14/2016 [facility] History of tobacco use V9 CURRENT TOBACCO USER 12/28/2014 [facility] History of tobacco use V9 CURRENT TOBACCO USER 11/19/2014 Vet does not wish help quitting at this time. [facility]
--- OUTSIDE RECORDS SUMMARY | 2025-05-24 13:45 | XMS_ITS | Clinical Summary ---
Author Organization [facility] Address [address] [place] [address] Phone Care Team Providers Care Director Of Vocational Guidance Name Role Phone Antonieta Ulloa MD [facility] [phone] Conditions or Problems Problem Name Problem Code Onset Date Status Entry Date Provider Comment Standard Description Annotate HERNIATED LUMBAR DISC 205120786 (SNOMED CT) Active Jalen Mckeon MD Prolapsed lumbar intervertebral disc Medications Medication Instructions Start Date Stop Date Generic Name NDC Provider MEDROL 4 MG TBPK take as directed 6 days METHYLPREDNISOLONE [id number] Jalen Mckeon MD PROTONIX 40 MG SOLR [place] PANTOPRAZOLE SODIUM [id number] Jalen Mckeon MD MOBIC TABLET [place] MELOXICAM TABS [id number] Jalen Mckeon MD Medications Administered No information available. Allergies, Adverse Reactions, Alerts Observed no known allergies at Results No information available. Plan of Care No information available. Procedures No information available. Vital Signs Date Name Value Unit Description BP Diastolic 80 mm[Hg] blood pressu re, diastolic BP Systolic 140 mm[Hg] blood pressur e, systolic Height 73 [in_us] height E&M Weight Measured 210 [lb_av] weight E& M Weight Measured 210 [lb_av] weight E& M Immunizations No information available. Advance Directives No information available.
--- OUTSIDE RECORDS SUMMARY | 2025-05-24 13:46 | XMS_ITS | Encounter Summary ---
Author Organization [facility] Address [address] [place] [address] Care Team Providers Care Straightener Gun Parts Name Role Phone None, None Primary Care Provider Unavailabl e Encounter Details Date Type Department Care Team (Late st Contact Info) Description 06/05/2024 Preop Surgical Orders Community Physician Ordering Department [address] [place] [address] Ney Amaral MD [address] [place] [address] [address] [place] [address] Social History Tobacco Use Types Packs/Day Years Used Date Smoking Tobacco: Former Cigarettes Smokeless Tobacco: Former Alcohol Use Standard Drinks/Week Comments Not Currently 0 (1 standard drink = 0.6 oz pur e alcohol) Sex and Gender Information Value Date Recorded Sex Assigned at Not on file Legal Sex Male 11:22 AM EDT Gender Identity Not on file Sexual Orientation Not on file documented as of this encounter Plan of Treatment Not on file documented as of this encounter Visit Diagnoses Not on filedocumented in this encounter Care Teams Straightener Gun Parts Relationship Specialty Start Date End Date None, None [address] [place] [address] PCP - General 06/11/24 documented as of this encounter
--- OUTSIDE RECORDS SUMMARY | 2025-05-24 13:46 | XMS_ITS | Encounter Summary ---
Author Organization [place] [address] Care Team Providers Care Biomedical Analytical Scientist Name Role Phone Darrius Fair MD Primary Care Provider [phone] Marcial Vizcarra MD Unavailable [phone] Encounter Details Date Type Department Care Team (Late st Contact Info) Description 03/04/2023 Orders Only [facility] Gastro [facility] [address] [facility] [address] [place] [address] Marcial Vizcarra MD [address] [place] [address] Social History Tobacco Use Types Packs/Day Years [...] on file Sexual Orientation Not on file COVID-19 Exposure Response Date Recorded In the last 10 days, have yo u been in contact with someone who was confirmed or suspected to have Coronavirus/COVID-19? No / Unsure 02/18/2023 11:20 AM EDT documented as of this encounter Functional Status * Is the person deaf or does he/she have serious difficulty hearing? Answer Date of Assessment Author No 01/03/2023 6:00 PM Lizzie Almaguer, Bumper Machine Operator * Is the person blind or does he/she have serious difficulty seeing even when wearing glasses? Answer Date of Assessment Author No 01/03/2023 6:00 PM Lizzie Almaguer, Bumper Machine Operator * Does this person have serious difficulty walking or climbing stairs? Answer Date of Assessment Author No 01/03/2023 6:00 PM Lizzie Almaguer, Bumper Machine Operator * Does this person have difficulty dressing or bathing? Answer Date of Assessment Author No 01/03/2023 6:00 PM Lizzie Almaguer, Bumper Machine Operator * Because of a physical, mental or emotional condition, does this person have difficulty doing errands alone such as visiting a doctor's office or shopping? Answer Date of Assessment Author No 01/03/2023 6:00 PM Lizzie Almaguer, Bumper Machine Operator documented as of this encounter Mental Status * Because of a physical, mental or emotional condition, does this person have serious difficulty concentrating, remembering or making decisions? Answer Entry Date Author No 01/03/2023 6:00 PM Lizzie Almaguer, Bumper Machine Operator documented in this encounter Plan of Treatment Upcoming Encounters Date Type Department Care Team (Late st Contact Info) Description 06/11/2025 9:00 AM EDT Office Visit [facility] [address] [address] Fadumo Curran NP [address] [place] [address] documented as of this encounter Procedures Procedure Name Priority Date/Time Associated Diagnosis Comments GMED EGD Routine 03/04/2023 1:00 PM EDT documented in this encounter Results * [facility]ED EGD (03/04/2023 1:00 PM EDT) 03/04/2023 1:0 0 PM EDT Impressions H LAB - 03/04/2023 2:12 PM EDT Normal duodenum. Hiatal Hernia. Tortuosity of the esophageal lumen was noted, consistent with presbyesophagus. Plan: Follow-up as needed This section is an excerpt of the full report. us Marcial Vizcarra MD GI PROCEDURE ORDERABLES Fin al Result [facility] [address] [place] [address] documented in this encounter Visit Diagnoses Not on filedocumented in this encounter Additional Health Concerns Infection Onset Date Last Indicated Resolved Time COVID-19 Comment:Reports positive home test on 09/1109/11/2023 09/18/2023 10/08/2023 10:12 PM EST Assessment Noted Time A fall risk assessment has been complete d for the patient 06/16/2020 10:01 AM EDT documented as of this encounter Care Teams Biomedical Analytical Scientist Relationship Specialty Start Date End Date Darrius Fair MD [address] [address] [address] [place] [address] PCP - General 03/05/11 Marcial Vizcarra MD [address] [address] [address] [place] [address] Physician Internal Medicine-Gastroenterology 11/22/16 documented as of this encounter
--- OUTSIDE RECORDS SUMMARY | 2025-05-24 13:46 | XMS_ITS | Clinical Summary ---
Author Organization [facility] Address [address] [place] [address] Care Team Providers Care Tobacco Scrap Sifter Name Role Phone Lore Neal NP Primary Care Provider [phone] Allergies No known active allergies Medications Abaloparatide (TYMLOS) 3120 MCG/1.56ML SOPN Inject 80 mcg under the skin daily. 3 Active acetaminophen (TYLENOL) 500 MG TABS Take by mouth every 4 (four) hours as needed. Active albuterol 108 (90 Base) mcg/puff inhaler Use 2 puffs. Active azithromycin (ZITHROMAX) 250 mg tablet SMARTSIG:By Mouth 3 Active benzonatate 200 MG CAPS Take 200 mg by mouth 3 (three) times daily as needed. 3 Active cefdinir (OMNICEF) 300 mg capsule Take 300 mg by mouth. 3 Active cholecalciferol (VITAMIN D) 5000 units (125 mcg) TABS Take 5,000 mcg by mouth daily. 3 Active Cobalamin Combinations (B-12) 100-5000 MCG SUBL TAKE 1 TABLET BY MOUTH ONCE DAILY FOR SUPPLEMENT. 3 Active vitamin D-2 (ERGOCALCIFEROL) 11130 unit (1.25mg) CAPS Take 50,000 Units by mouth. 3 Active doxycycline (VIBRA-TABS) 100 MG TABS Take 100 mg by mouth 2 (two) times daily. 3 Active ergocalciferol (ERGOCALCIFEROL) 1.25 MG (32957 UT) CAPS Take 1 capsule by mouth once a week. 3 Active finasteride (PROSCAR) 5 MG TABS Take 5 mg by mouth nightly. 3 Active gabapentin (NEURONTIN) 100 MG CAPS Take 200 mg by mouth. 3 Active hydroCHLOROthiazi de (HYDRODIURIL) 25 MG TABS Take 25 mg by mouth daily. 2 Active hydrocodone-aceta minophen (NORCO) 5-325 mg TABS SMARTSI Tablet(s) By Mouth Every 8 Hours PRN 3 Active levothyroxine (SYNTHROID, LEVOTHROID) 25 MCG TABS Take 25 mcg by mouth daily. 3 Active losartan (COZAAR) 100 MG TABS Take 100 mg by mouth daily. 3 Active methocarbamol (ROBAXIN) 500 MG TABS Take 500 mg by mouth. 3 Active methylPREDNIsolon e (MEDROL DOSEPAK) 4 mg tablet pack SMARTSIG:By Mouth 3 Active predniSONE (DELTASONE) 20 mg tablet SMARTSIG:By Mouth 3 Active tamsulosin (FLOMAX) 0.4 MG CAPS Take 0.4 mg by mouth daily. 3 Active traMADol (ULTRAM) 50 MG TABS SMARTSI Tablet(s) By Mouth Every 8 Hours PRN 3 Active tiZANidine (ZANAFLEX) 4 MG TABS Take 2 mg by mouth. 2 Active Active Problems No known active problems Social History Tobacco Use Types Packs/Day Years Used Date Smoking Tobacco: Never Assessed Food Insecurities Answer Date Recorded Worried about running out of food Not on file 12/17/2023 Food Bought Not on file 12/17/2023 Housing/Utilities Answer Date Recorded Worried about losing home Not on file 2023 Stayed outside house Not on file 12/17/2023 Unable to get utilities Not on file 12/17/19 Interpersonal Safety Answer Date Record ed Feel physically or emotionally unsafe where curr ently live Not on file 12/17/2023 Harm by anyone Not on file 12/17/2023 Emotionally Harmed Not on file 12/17/2023 Transportation Answer Date Recorded Worried about transportation Not on file Utilities Answer Date Recorded Worried about losing home Not on file 2023 Stayed outside house Not on file 03/25/2024 Unable to get utilities Not on file 03/25/20 Sex and Gender Information Value Date Recorded Sex Assigned at Not on file Legal Sex Male 2:57 PM EDT Gender Identity Not on file Sexual Orientation Not on file Last Filed Vital Signs Vital Sign Reading Time Taken Comments Blood Pressure 130/80 07/30/2023 12:45 PM EDT Pulse 80 07/30/2023 12:45 PM EDT Temperature - - Respiratory Rate - - Oxygen Saturation - - Inhaled Oxygen Concentration - - Weight 100.7 kg (222 lb) 07/30/2023 12:45 PM EDT Height 182.9 cm (6') 07/30/2023 12:45 PM EDT Body Mass Index 30.11 07/30/2023 12:45 PM EDT Plan of Treatment Health Maintenance Due Date Last Done Comments Hepatitis C Screening 1945 Shingrix (#1) 1997 RSV Vaccine (60+ or ) (1 - 1-dose 75+ series) 2022 DTap,Tdap,and Td (3 - Td or Tdap) 11/19/2024 11/19/2014, 11/19/2014 Influenza Vaccine (Season Ended) 2025 Pneumococcal 50+ Completed 03/22/2017, 11/19/2014 HPV Aged Out No longer eligi ble based on patient's age to complete this topic Meningococcal conjugate marily nt 4 (MCV4) Aged Out No longer eligible b ased on patient's age to complete this topic RSV Immunization (<20 months) Aged Out No longer eligible based on patient's age to complete this topic Insurance HUMAN MEDICARE SUPPLEMENT SECONDARY ONLY MEDICARE on file Care Teams Tobacco Scrap Sifter Relationship Specialty Start Date End Date Lore Neal NP PCP - General 06/11/23
--- OUTSIDE RECORDS SUMMARY | 2025-05-24 13:46 | XMS_ITS | Encounter Summary ---
Author Organization [place] [address] Care Team Providers Care Pile Driver Name Role Phone Darrius Fair MD Primary Care Provider [phone] Marcial Vizcarra MD Unavailable Deb Garcia RN Unavailable Un available Encounter Details Date Type Department Care Team (Late st Contact Info) Description 11/22/2016 Orders Only SEP Gastro CV [address] [facility] [address] [place] [address] Marcial Vizcarra MD [address] [place], [place] [id number] Social History Tobacco Use Types Packs/Day Years Used Date Smoking Tobacco: Former Cigarettes Q uit: 03/05/1968 Alcohol Use Standard Drinks/Week Comments No 0 (1 standard drink = 0.6 oz pur e alcohol) Sex and Gender Information Value Date Recorded Sex Assigned at Not on file Legal Sex Male 1:23 PM EDT Gender Identity Not on file Sexual Orientation Not on file documented as of this encounter Plan of Treatment Upcoming Encounters Date Type Department Care Team (Late st Contact Info) Description 06/11/2025 9:00 AM EDT Office Visit [facility] [address] [place], [place] [id number] Fadumo Curran NP [address] [place] [address] documented as of this encounter Procedures Procedure Name Priority Date/Time Associated Diagnosis Comments GMED EGD Routine 11/22/2016 2:00 PM EST documented in this encounter Results * GMED EGD (11/22/2016 2:00 PM EST) 11/22/2016 2:00 PM EST Impressions [facility] - 11/22/2016 1:21 PM EST Normal duodenum. Hiatal Hernia. 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 (Dilation). Plan: Follow-up as needed This section is an excerpt of the full report. us Marcial Vizcarra MD GI PROCEDURE ORDERABLES Fin al Result [facility] [address] [place] [address] documented in this encounter Visit Diagnoses Not on filedocumented in this encounter Additional Health Concerns Infection Onset Date Last Indicated Resolved Time R/O C-Diff 09/16/2019 09/16/2019 09/16/2019 2:46 PM EDT R/O C-Diff 12/10/2019 12/10/2019 12/10/2019 8:04 PM EST COVID-19 Comment:Reports positive home test on 09/1109/11/2023 09/18/2023 10/08/2023 10:12 PM EST documented as of this encounter Care Teams Pile Driver Relationship Specialty Start Date End Date Darrius Fair MD [address] [place] [id number] PCP - General 03/05/11 Marcial Vizcarra MD [address] [place] [id number] Physician Internal Medicine-Gastroenterology 11/22/16 Deb Garcia, RN Registered Nurse 06/02/20 06/02/20 documented as of this encounter
--- OUTSIDE RECORDS SUMMARY | 2025-05-24 13:46 | XMS_ITS | Encounter Summary ---
Author Organization [place] [address] Care Team Providers Care Water Quality Assistant Name Role Phone Darrius Fair MD Primary Care Provider [phone] Marcial Vizcarra MD Unavailable [phone] Deb Garcia RN Unavailable Un available Encounter Details Date Type Department Care Team (Late st Contact Info) Description 12/01/2012 Orders Only SEP Gastro CVH [address] [facility] Building [address] [place] [address] Marcial Vizcarra MD [address] [place], [place] [phone] Social History Tobacco Use Types Packs/Day Years [...] AM EDT Office Visit [facility] [address] [place], [place] [id number] Fadumo Curran NP [address] [place] [address] documented as of this encounter Procedures Procedure Name Priority Date/Time Associated Diagnosis Comments GMED EGD Routine 12/01/2012 12:00 AM EST documented in this encounter Results * GMED EGD (12/01/2012 12:00 AM EST) 12/01/2012 Impressions [facility] - 12/01/2012 2:20 PM EST Medium hiatal hernia Stricture of the gastroesophageal junction (dilation) Otherwise normal EGD to second part of the duodenum Narrative [facility] - 12/01/2012 2:20 PM EST Performing Provider: Marcial Vizcarra M.D. Referring Provider: Rosalio Fair MD Marcial Vizcarra MD GI PROCEDURE ORDERABLES Fin al Result Performing Organization Address City/State/[facility] Co de Phone Number [facility] [address] [facility] [address] [address] documented in this encounter Visit Diagnoses Not on filedocumented in this encounter Additional Health Concerns Infection Onset Date Last Indicated Resolved Time R/O C-Diff 09/16/2019 09/16/2019 09/16/2019 2:46 PM EDT R/O C-Diff 12/10/2019 12/10/2019 12/10/2019 8:04 PM EST COVID-19 Comment:Reports positive home test on 09/1109/11/2023 09/18/2023 10/08/2023 10:12 PM EST documented as of this encounter Care Teams Water Quality Assistant Relationship Specialty Start Date End Date Darrius Fair MD [address] [place] [phone] PCP - General 03/05/11 Marcial Vizcarra MD [address] [facility] [address] [place] [phone] Physician Internal Medicine-Gastroenterology 11/22/16 Deb Garcia, RN Registered Nurse 06/02/20 06/02/20 documented as of this encounter
--- OUTSIDE RECORDS SUMMARY | 2025-05-24 13:46 | XMS_ITS | Encounter Summary ---
Author Organization [place] [address] Care Team Providers Care Solutions Market Consultant Name Role Phone Darrius Fair MD Primary Care Provider [phone] Marcial Vizcarra MD Unavailable Deb Garcia RN Unavailable Un available Encounter Details Date Type Department Care Team (Late st Contact Info) Description 09/22/2014 Orders Only SEP Gastro CV [address] [facility] [address] [place] [address] Marcial Vizcarra MD [address] [place], [place] [phone] Social History Tobacco Use Types Packs/Day Years [...] [facility] [address] [place], [place] [phone] Fadumo Curran NP [address] [facility] [address] documented as of this encounter Procedures Procedure Name Priority Date/Time Associated Diagnosis Comments GMED EGD Routine 09/22/2014 10:15 AM EDT documented in this encounter Results * GMED EGD (09/22/2014 10:15 AM EDT) 09/22/2014 10:1 5 AM EDT Impressions [facility] - 09/22/2014 10:51 AM EDT Normal duodenum. Hiatal Hernia. 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 (Dilation). Plan: Follow-up as needed This section is an excerpt of the full report. us Marcial Vizcarra MD GI PROCEDURE ORDERABLES Fin al Result [facility] [address] [place] [address] documented in this encounter Visit Diagnoses Not on filedocumented in this encounter Additional Health Concerns Infection Onset Date Last Indicated Resolved Time R/O C-Diff 09/16/2019 09/16/2019 09/16/2019 2:46 PM EDT R/O C-Diff 12/10/2019 12/10/2019 12/10/2019 8:04 PM EST COVID-19 Comment:Reports positive home test on 09/1109/11/2023 09/18/2023 10/08/2023 10:12 PM EST documented as of this encounter Care Teams Solutions Market Consultant Relationship Specialty Start Date End Date Darrius Fair MD [facility] [place] [phone] PCP - General 03/05/11 Marcial Vizcarra MD [address] [place] [phone] Physician Internal Medicine-Gastroenterology 11/22/16 Deb Garcia, RN Registered Nurse 06/02/20 06/02/20 documented as of this encounter
--- OUTSIDE RECORDS SUMMARY | 2025-05-24 13:46 | XMS_ITS | Clinical Summary ---
Author Organization [facility] Address [address] [facility] [address] [place] [address] Phone Care Team Providers Care Child Day Care Provider Name Role Phone Darrius Fair MD Primary Care Provider [phone] Marcial Vizcarra MD Unavailable [phone] Allergies No known active allergies Medications tamsulosin (FLOMAX) 0.4 mg capsule Take 0.4 mg by mouth nightly. Active cyanocobalamin 1,000 mcg Oral Tablet Take 5,000 mcg by mouth daily. 04/27/20 21 Active hydroCHLOROthiazid e (HYDRODIURIL) 25 mg Oral Tablet Take 1 Tablet by mouth daily. 30 Tablet 5 08/23/20 22 Active Additional Information Patient taking differently: 12.5 mgOral DAILY, Reason: Advised by Physician, Reported on 12/25/2022 tiZANidine (ZANAFLEX) 4 mg Oral TabletIndications: Neck pain Take 0.5 Tablets by mouth nightly as needed for Muscle spasms. 14 Tablet 11/14/20 22 Active cyanocobalamin/fol ic acid (VITAMIN L65-RMNQS ACID) 1,000-400 mcg SL Lozenge 01/08/20 23 Active finasteride (PROSCAR) 5 mg Oral Tablet Take 5 mg by mouth nightly. 05/17/20 23 Active ergocalciferol (VITAMIN D) 1,250 mcg (50,000 unit) Oral CapsuleIndications :Vitamin D deficiency Take 1 Capsule by mouth once a week. 12 Capsule 06/11/20 Active Insulin [place], Disposable, 30 gauge x 04/09 Misc Needle 1 Each by Misc.(Non-Drug; Combo Route) route daily. 100 Each 4 06/11/20 Active Additional Information Patient not taking.Reason: Therapy Completed, Reported on 02/26/2024 Cholecalciferol, Vitamin D3, 50 mcg (2,000 unit) Oral TabletIndications: Kyphosis of thoracic region, unspecified kyphosis type,Age related osteoporosis, unspecified pathological fracture presence Take 1 Tablet by mouth daily. 90 Tablet 2 12/17/19 24 Active gabapentin (NEURONTIN) 600 mg Oral TabletIndications: Status post lumbar spinal fusion,Lumbar radiculopathy Take 1 Tablet by mouth 2 times daily. 60 Tablet 3 01/20/20 24 Active Additional Information Patient not taking.Reason: Therapy Completed, Reported on 09/11/2024 albuterol (PROVENTIL HFA;VENTOLIN HFA) 90 mcg/actuation Inhl HFA Aerosol Inhaler INHALE 2 PUFFS INTO THE LUNGS EVERY 4 TO 6 HOURS NEEDED FOR SHORTNESS OF BREATH OR WHEEZING. 02/10/20 Active pramipexole (MIRAPEX) 0.125 mg Oral Tablet Take 0.125 mg by mouth daily. 04/10/20 24 Active amLODIPine (NORVASC) 5 mg Oral TabletIndications: Primary hypertension Take 1 Tablet by mouth daily. 30 Tablet 11 05/13/20 24 Active Additional Information Patient not taking.Reason: Therapy Completed, Reported on 10/14/2024 rosuvastatin (CRESTOR) 10 mg Oral TabletIndications: Mixed hyperlipidemia Take 1 Tablet by mouth daily. 30 Tablet 11 05/13/20 24 Active nalOXone (NARCAN) 4 mg/actuation Nasl [place], Non-Aerosol 0.1 mL by Nasal route as needed for Opioid Reversal. [place] the contents of one device (0.1mL) into one nostril upon signs of opioid overdose. Call 911. May repeat dose in other nostril if no response within 2-3 minutes. 1 Each 08/20/20 24 Active ibuprofen (ADVIL;MOTRIN) 800 mg Oral TabletIndications: Sacroiliitis,Lumba r radiculopathy,Stat us post lumbar spinal fusion,Lumbar spondylosis,Degene ration of intervertebral disc of lumbar region with lower extremity pain Take 1 Tablet by mouth 3 times daily. 90 Tablet 08/25/20 24 Active pregabalin (LYRICA) 100 mg Oral Capsule 100 mg. 08/23/20 24 Active methocarbamoL (ROBAXIN) 500 mg Oral Tablet Take 1 Tablet by mouth 2 times daily. 60 Tablet 4 10/25/20 24 Active HYDROcodone-acetam inophen (NORCO) 5-325 mg Oral TabletIndications: Status post lumbar laminectomy Take one tablet by mouth every 8 hours PRN 40 Tablet 11/11/20 Active omeprazole (PRILOSEC) 40 mg Oral Capsule, Delayed Release(E.C.) Take 1 Capsule by mouth 2 times daily (before meals). 60 Capsule 11/16/20 24 Active LEVOthyroxine (SYNTHROID) 50 mcg Oral Tablet Take 50 mcg by mouth daily. 11/11/20 24 Active methocarbamoL (ROBAXIN) 500 mg Oral Tablet Take 1 Tablet by mouth 2 times daily. 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 08/14/2023 Overview (08/14/2023): Added automatically from request for surgery [id number] Postoperative anemia 01/03/2023 Cervical myelopathy 12/20/2022 Overview (12/20/2022): Added automatically from request for surgery [id number] Neck pain 11/14/2022 Bilateral shoulder pain 11/14/2022 KENNY (acute kidney injury) 08/23/2022 Assessment & Plan (08/23/2022 5:01 PM EDT): Cut losartan in half to 50 mg Cut hctz in half to 12.5 mg daily Stay off the meloxicam Repeat labs 4 weeks If not back to normal, will work up further based on previous baseline values 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 Will have him stop the colchicine. His symptoms he describes are atypical of gout and may respond better to gabapentin Acute (reversible) ischemia of small intestine, extent unspecified 08/11/2021 Assessment & Plan (08/11/2021 3:08 PM EDT): S/p small bowel resection 2018 following possible perforated viscous/ infected bowel Congestive heart failure, un specified HF chronicity, unspecified heart failure type 08/11/2021 Assessment & Plan (08/11/2021 3:08 PM EDT): History of congestive heart failure-managed at [facility] Supraventricular tachycardia 08/11/2021 Assessment & Plan (08/11/2021 3:08 PM EDT): Status post ablation and EP study-followed at [facility] Moderate protein-calorie malnutrition 05/17/2021 Assessment & Plan (05/17/2021 11:43 AM EDT): Evidence Supported Diagnosis: Moderate protein-calorie malnutrition Acute Illness Indicators: >7.5% weight loss in 3 months;<75% energy intake compared to estimate energy needs for >7 days;moderate fat depletion;moderate muscle mass depletion Gallstone pancreatitis 05/16/2021 Assessment & Plan (05/17/2021 11:45 AM EDT): Patient still has an obstructive jaundice on labs but it is improved from the prior. Plan is for an MRCP today. I discussed the case with the GI team. We will await their evaluation. If patient does not have a preop ERCP, would recommend a lap cholecystectomy with intraoperative cholangiogram, possible open. If the patient does undergo a preoperative ERCP, would recommend a laparoscopic cholecystectomy, possible open. I discussed this plan with the patient. He stated his understanding and agreement. Recommend IV fluids to maintain a urine output of 45 to 90 mL/h. Recommend n.p.o. until pain relieved or patient is postop Surgery will follow. Esophageal dysphagia 02/08/2021 Esophageal dysmotility 01/24/2021 Overview (01/24/2021): Added automatically from request for surgery [id number] Thickening of esophagus 05/29/2020 Intractable nausea and vomiting 05/29/2020 History of esophageal stricture 05/29/2020 Calculus of gallbladder with out cholecystitis without obstruction 02/22/2020 Hypertension 11/09/2018 Assessment & Plan (08/23/2022 5:01 PM EDT): BP well controlled Decrease losartan and hctz Hypothyroidism 11/09/2018 CKD (chronic kidney disease), stage III 11/09/20 18 Resolved Problems Problem Noted Date Diagnosed Date Resolved Date Abdominal pain 06/02/2020 07/07/2020 Large hiatal hernia 05/29/2020 07/07/20 20 Esophageal dysphagia 11/20/2019 020 Overview (11/20/2019): Added automatically from request for surgery [id number] Perforated viscus 11/08/2018 06/02/2020 Gastric outlet obstruction 0 06/02/2020 Encounters Date Type Department Care Team Description 04/27/2025 11:15 AM EDT Office Visit [facility] [address] [place] [id number] Ney Amaral MD S/P total knee arthroplasty, right (Primary Dx) from Last 3 Months Immunizations Immunization Administration Dates Next Due Moderna SARS-CoV-2 Vaccine 12+ Yrs (Light blue b order) 12/01/2020 Surgical History Surgery Date Site/Laterality Comments ESOPHAGEAL DILATATION ABLATION OF DYSRHYTHMIC FOCUS SVT INGUINAL HERNIA REPAIR 09/12/2018 Left LAPAROSCOPIC LEFT INGUINAL HERNIA REPAIR WITH MESH ; Surgeon: Oneil Koroma MD; Location: [facility]; Service: General Medical devices from this surgery are in the Medical Devices section. COLON SURGERY 11/08/2018 N/A exploratory laparotomy small bowel resection; Surgeon: Toshia Scanlon MD; Location: [facility]; Service: General UPPER GASTROINTESTINAL ENDOSCOPY 12/03/2019 N/A ESOPHAGOGASTRODUODENOSCOPY with balloon dilation; Surgeon: Marcial Vizcarra MD; Location: [facility]; Service: Endoscopy UPPER GASTROINTESTINAL ENDOSCOPY 05/31/2020 N/A ESOPHAGOGASTRODUODENOSCOPY; Surgeon: Ingrid Ordaz MD; Location: [facility]; Service: Endoscopy GASTRIC FUNDOPLICATION 06/03/2020 N/A LAPAROSCOPIC HIATAL HERNIA REPAIR, LYSIS OF ADHESIONS; Surgeon: Yaron Arceo DO; Location: [facility]; Service: General UPPER GASTROINTESTINAL ENDOSCOPY 02/08/2021 N/A Esophagogastroduodenoscopy with submucosal injection of botox and balloon dilation; Surgeon: Marcial Vizcarra MD; Location: [facility]; Service: Endoscopy CHOLECYSTECTOMY, LAPAROSCOPIC 05/18/2021 Abdomen/N/A LAPAROSCOPIC CHOLECYSTECTOMY WITH CHOLANGIOGRAM; Surgeon: Adelia Vidal MD; Location: [facility]; Service: General ESOPHAGEAL MOTILITY STUDY 10/16/2021 N/A ESOPHAGEAL MANOMETRY with impedance; Surgeon: Ingrid Ordaz MD; Location: [facility]; Service: Endoscopy CATARACT EXTRACTION EXTRACAPSULAR W/ INTRAOCULAR LENS IMPLANTATION 12/26/[address] Juan Fuentes CATARACT EXTRACTION EXTRACAPSULAR W/ INTRAOCULAR LENS IMPLANTATION 01/23/[address] Juan Fuentes NECK SURGERY LUMBAR FUSION 09/19/2023 Spine/N/A L5-S1 ANTERIOR LUMBAR INTERBODY FUSION WITH POSTERIOR FUSION; Surgeon: Clifford Velasco MD; Location: [facility] MAIN OR; Service: Spine Medical devices from this surgery are in the Medical Devices section. Medical History Medical History Date Comments Hypertension Shortness of breath Prostate disorder BPH SVT (supraventricular tachycardia) Clostridium difficile diarrhea GERD (gastroesophageal reflux disease) Hiatal hernia with esophageal dysmotility Arthritis Neuromuscular disorder (HCC) je rking in BLE at times Thyroid disease Pneumonia 10/25/2022 covid Family History Medical History Relation Name Comments Cancer Father lung Anesth Problems Neg Hx Relation Name Status Comments Father Social History Tobacco Use Types Packs/Day Years Used Date Smoking Tobacco: Former Cigarettes Q uit: 03/05/1968 Smokeless Tobacco: Former Chew Tobacco Cessation:Counseling Given: Not Answered Alcohol Use Standard Drinks/Week Comments No 0 [...] money to buy more. Never true 09/20/20 Within the past 12 months, t he [...] on file Sexual Orientation Not on file Obstetrics History Last Filed Vital Signs Vital Sign Reading Time Taken Comments Blood Pressure 144/71 10/26/2024 9:50 AM EST Pulse 81 10/26/2024 9:55 AM EST Temperature 36.6 C (97.8 F) 10/26/2024 9:30 AM EST Respiratory Rate 18 10/26/2024 9:55 AM EST Oxygen Saturation 92% 10/26/2024 9:55 AM EST Inhaled Oxygen Concentration - - Weight 108.9 kg (240 lb) 01/29/2025 8:52 AM EST Height 182.9 cm (6') 01/29/2025 8:52 AM EST Body Mass Index 32.55 01/29/2025 8:52 AM EST Plan of Treatment Upcoming Encounters Date Type Department Care Team (Late st Contact Info) Description 06/11/2025 9:00 AM EDT Office Visit [facility] [address] [place] [address] Fadumo Curran NP [address] [place] [address] Health Maintenance Due Date Last Done Comments Wellness Exam Medicare 1948 Hepatitis C Screening 1963 Zoster (2 of 3) 01/14/2015 11/19/2014 RSV or 60+ (1 - 1-dose 75+ series) 2022 COVID-19 Vaccine (4 - 2023-2 5 season) 2024 12/05/2021, 12/28/2020, 12/01/2020 DTaP/TDaP/Td (3 - Td or Tdap) 11/19/2024, 11/19/2014 Influenza Vaccine (Season Ended) 2025 Pneumococcal Vaccine 50+ Completed 017, 11/19/2014 Hepatitis B Vaccine Aged Out No longe r eligible based on patient's age to complete this topic Meningococcal B Vaccine Aged Out No l onger eligible based on patient's age to complete this topic Medical Devices Implanted Type Area Tufting Machine Operator Device Identifier Shelf Expiration Date Model / Serial / Lot Iol Device Fixation Strap Absorbable 12 Straps Secure Strap 5mm - [id number] Implanted:Qty : 1 on 09/12/2018 by Oneil Koroma MD at [facility] Left: Inguinal J&J:ETHICON:END O-SURGERY 06/24/2020 [id number] / [id number] / [id number] Mesh 3d Left Large [id number] - [id number] Implanted:Qty : 1 on 09/12/2018 by Oneil Koroma MD at [facility] Left: Inguinal CR BARD:DAVOL 03/22/2023 [id number] / [id number] / [id number] Putty 1ml I-Fact Dbm Crsh Syr Bg - [id number] Implanted:Qty : 1 on 01/02/2023 by Clifford Velasco MD at [facility] N/A: Spine Cervical CERAPEDICS 07/25/2025 [id number] / / [id number] Cage Spinal Acis Proti 10 Degree Large 8 Mm - [id number] Implanted:Qty : 1 on 01/02/2023 by Clifford Velasco MD at [facility] N/A: Spine Cervical J&J:DEPUY:DEPUY SPINE [id number] 10/02/2024129038083 / / [id number] Putty 1ml I-Fact Dbm Crsh Syr Bg - [id number] Implanted:Qty : 1 on 01/02/2023 by Clifford Velasco MD at [facility] N/A: Spine Cervical CERAPEDICS 06/24/2025 [id number] / / [id number] Cage Spinal Acis Proti 10 Degree Large 8 Mm - [id number] Implanted:Qty : 1 on 01/02/2023 by Clifford Velasco MD at [facility] N/A: Spine Cervical J&J:DEPUY:DEPUY SPINE [id number] 10/02/2024982716819 / / [id number] Cage Spinal Acis Proti 10 Degree Large 8 Mm - [id number] Implanted:Qty : 1 on 01/02/2023 by Clifford Velasco MD at [facility] N/A: Spine Cervical J&J:DEPUY:DEPUY SPINE [id number] 10/02/2024813209999 / / [id number] Scr Bn 4mm 14mm [place] Ti - [id number] Implanted:Qty : 8 on 01/02/2023 by Clifford eVlasco MD at [facility] N/A: Spine Cervical J&J:DEPUY:DEPUY SPINE [id number] / / Plt 14mm Prebnt 27r36c7.5mm Ti - [id number] Implanted:Qty : 1 on 01/02/2023 by Clifford Velasco MD at [facility] N/A: Spine Cervical J&J:DEPUY:DEPUY SPINE [id number] / / Kt Graft 1.4ml Infs Xs Angelo Matrx 2-Tn Bnd 5ml Strl H2o - [id number] Implanted:Qty : 1 on 09/19/2023 by Cliffrod Velasco MD at [facility] N/A: Spine Lumbar MEDTRONIC:SOFAM OR DANEK [id number] 11/24/2024 [id number] / / [id number] Cage Spinal Modulus Alif [id number] 20 Angle Degree - [id number] Implanted:Qty : 1 on 09/19/2023 by Clifford Velasco MD at [facility] N/A: Spine Lumbar NUVASIVE 03/30/2026 [id number] / / [id number] Solomon Spinal Modulus Alif 5.0mm X 22.5mm Fixed Titanium - [id number] Implanted:Qty : 1 on 09/19/2023 by Clifford Velasco MD at [facility] N/A: Back NUVASIVE [id number] / / Solomon Spinal Modulus Alif 5.0mm X 25mm Fixed Titanium - [id number] Implanted:Qty : 1 on 09/19/2023 by Clifford Velasco MD at [facility] N/A: Back NUVASIVE [id number] / / Screw Lock Reline [place] Open 5.5mm - [id number] Implanted:Qty : 4 on 09/19/2023 by Clifford Velasco MD at [facility] N/A: Back NUVASIVE [id number] / / Screw Bn 7.5mm 50mm Reline 2c Angie Parrish Mas - [id number] Implanted:Qty : 1 on 09/19/2023 by Clifford Velasco MD at [facility] N/A: Back NUVASIVE [id number] / / Screw Bn 7.5mm 40mm Reline 2c Angie Parrish Mas - [id number] Implanted:Qty : 3 on 09/19/2023 by Clifford Velasco MD at [facility] N/A: Back NUVASIVE [id number] / / Song Ti Mas Reline 5.5 X 35mm Lordotic - [id number] Implanted:Qty : 1 on 09/19/2023 by Clifford Velasco MD at [facility] N/A: Back NUVASIVE [id number] / / Song Ti Mas Reline 5.5 X 40mm Lordotic - [id number] Implanted:Qty : 1 on 09/19/2023 by Clifford Velasco MD at [facility] N/A: Back NUVASIVE [id number] / / Gel Propel Dbm 5cc - [id number] Implanted:Qty : 1 on 09/19/2023 by Clifford Velasco MD at [facility] N/A: Back NUVASIVE 02/20/2026 [id number] / / [id number] Procedures Procedure Name Priority Date/Time Associated Diagnosis Comments JOINT FLUID DIFFERENTIAL Routine 04/27/2025 12:15 PM EDT S/P total knee arthroplasty, right JOINT FLUID CELL COUNT Routine 12:15 PM EDT S/P total knee arthroplasty, right JOINT FLUID CRYSTALS Routine 04/27/2025 12:15 PM EDT S/P total knee arthroplasty, right FUNGUS CULTURE (NO STAIN) Routine 04/27/2025 12:15 PM EDT S/P total knee arthroplasty, right BODY FLUID CULTURE (STAIN INCLUDED) Routine 04/27/2025 12:15 PM EDT S/P total knee arthroplasty, right ANAEROBIC CULTURE (NO STAIN) Routine 04/27/2025 12:15 PM EDT S/P total knee arthroplasty, right [place] ARTHROCENTESIS ASPIR&/INJ MAJOR JT/BURSA W/O US Routine 04/27/2025 11:15 AM EDT S/P total knee arthroplasty, right from Last 3 Months Results * JOINT FLUID DIFFERENTIAL (04/27/2025 12:15 PM EDT) Segs JF 13 <25 % 04/27/2025 9:38 PM EDT [facility] Lymphs JF 39 % 04/27/2025 9:38 PM EDT [facility] Macrophages JF 44 % 04/27/2025 9:38 PM EDT [facility] Syn Cell JF 2 % 04/27/2025 9:38 PM EDT [facility] Other JF 2 % 04/27/2025 9:38 PM EDT [facility] Comment:2 basophils. Body Fluid STRUCTURE OF RIGHT KNEE REGION / Unknown 04/27/2025 12:15 PM EDT 04/27/2025 12:15 PM EDT us Ney Amaral MD BODY FLUIDS AND STOO LS ORDERABLES Final Result Performing Organization Address City/[facility]/ZIP Co de Phone Number [place] [phone] * BODY FLUID CULTURE (STAIN INCLUDED) (04/27/2025 12:15 PM EDT) Culture No growth at 94 hours. 05/02/2025 7:21 AM EDT [facility] Stain Rare WBCs 05/02/2025 7:21 AM EDT [facility] Stain No organisms seen 05/02/2025 7:21 AM EDT [facility] Body Fluid STRUCTURE OF RIGHT KNEE REGION / Unknown 04/27/2025 12:15 PM EDT 04/27/2025 12:15 PM EDT Ney Amaral MD MICROBIOLOGY - GENER AL ORDERABLES Final Result Performing Organization Address City/[facility]/ZIP Co de Phone Number [facility] [address] [place] [address], [place] [address] * ANAEROBIC CULTURE (NO STAIN) (04/27/2025 12:15 PM EDT) Culture No anaerobic growth at 5 days. 05/03/2025 9:31 AM EDT [facility] Body Fluid STRUCTURE OF RIGHT KNEE REGION / Unknown 04/27/2025 12:15 PM EDT 04/27/2025 12:15 PM EDT us Ney Amaral MD MICROBIOLOGY - GENER AL ORDERABLES Final Result Performing Organization Address [facility] Co de Phone Number [facility], [address] , [place] [address] * JOINT FLUID CRYSTALS (04/27/2025 12:15 PM EDT) Crystal JF None Seen None Seen 04/27/2025 9:37 PM EDT [facility] Body Fluid STRUCTURE OF RIGHT KNEE REGION / Unknown 04/27/2025 12:15 PM EDT 04/27/2025 12:15 PM EDT us Ney Amaral MD BODY FLUIDS AND STOO LS ORDERABLES Final Result Performing Organization Address [facility] de Phone Number [facility], [address] , [place] [address] * JOINT FLUID CELL COUNT (04/27/2025 12:15 [...] FLUIDS AND STOO LS ORDERABLES Final Result [facility], [address], [place] [address] * [place] ARTHROCENTESIS ASPIR&/INJ MAJOR JT/BURSA W/O US (04/27/2025 [...] and draped in the usual sterile fashion. us Ney Amaral MD PROCEDURE/MINOR SURG ICAL ORDERABLES Final Result Performing Organization Address City/[facility] Co de Phone Number [facility] from Last 3 Months Insurance ANTHEM MEDICARE ADVANTAGE MR MEDICARE ADVANTAGE MR MEDICARE ADVANTAGE MR MEDICARE ADVANTAGE MR ANTHEM MEDICARE ADVANTAGE MR Advance Directives For more information, please contact: [phone] Documents on File Type Date Recorded Patient Supervisor Cloth Winding Expl anation Power of Male Model 12/23/2024 1:54 PM OC PO WER OF DEHYDROGENATION CONVERTER OPERATOR ADVANCE DIRECTIVE 09/24/2023 5:29 PM POA 02/23/2013 * Full Code (Latest Code Status on File) Date Activated Date Inactivated Comments 09/19/2023 7:35 PM 09/20/2023 10:08 PM * Full Code Date Activated Date Inactivated Comments 01/02/2023 8:25 PM 01/03/2023 11:06 PM * Full Code Date Activated Date Inactivated Comments 05/18/2021 10:04 AM 05/20/2021 5:45 PM * Full Code Date Activated Date Inactivated Comments 06/02/2020 10:55 AM 06/06/2020 9:26 PM * Full Code Date Activated Date Inactivated Comments 05/29/2020 11:40 AM 06/01/2020 5:49 PM Care Teams Child Day Care Provider Relationship Specialty Start Date End Date Darrius Fair MD [address] [place] [facility] [address] [place] [id number] PCP - General 03/05/11 Marcial Vizcarra MD [address] [facility] [address] [place] [id number] Physician Internal Medicine-Gastroenterology 11/22/16
--- OUTSIDE RECORDS SUMMARY | 2025-05-24 13:46 | XMS_ITS | Referral Summary ---
Author Organization [facility] Address [address] [place] [address] Care Team Providers Care Drapery Operator Name Role Phone Lore Neal NP Primary Care Provider Allergies No known active allergies Medications Abaloparatide [...] FOR SUPPLEMENT. 3 Active vitamin D-2 (ERGOCALCIFEROL) 43627 unit (1.25mg) CAPS Take 50,000 Units by mouth. 3 Active doxycycline (VIBRA-TABS) 100 MG TABS Take 100 mg by mouth 2 (two) times daily. 3 Active ergocalciferol (ERGOCALCIFEROL) 1.25 MG (82364 UT) CAPS Take 1 capsule by mouth [...] 07/30/2023 12:45 PM EDT Plan of Treatment Not on file Insurance MEDICARE on file Care Teams Drapery Operator Relationship Specialty Start Date End Date Lore Neal, PRANAV PCP - General 06/11/23
--- OUTSIDE RECORDS SUMMARY | 2025-05-24 13:46 | XMS_ITS | Encounter Summary ---
Author Organization [place] [address] Care Team Providers Care Lawn Mower Operator Name Role Phone Darrius Fair MD Primary Care Provider [phone] Marcial Vizcarra MD Unavailable [phone] Encounter Details Date Type Department Care Team (Late st Contact Info) Description 10/18/2020 Orders Only [facility] Gastro [facility] [address] [facility] [address] [place] [address] Marcial Vizcarra MD [address] [place], [place] [id number] Social History Tobacco Use Types Packs/Day Years [...] Exposure Response Date Recorded In the last month, have you been in contact with someone who was confirmed or suspected to have Coronavirus / COVID-19? No / Unsure 09/22/2020 9:43 AM EDT documented as of this encounter Functional Status * Is the person deaf or does he/she have serious difficulty hearing? Answer Date of Assessment Author No 06/01/2020 11:55 AM Sandra Floyd RN * Is the person blind or does he/she have serious difficulty seeing even when wearing glasses? Answer Date of Assessment Author No 06/01/2020 11:55 AM Sandra Floyd RN * Does this person have serious difficulty walking or climbing stairs? Answer Date of Assessment Author No 06/01/2020 11:55 AM Sandra Floyd RN * Does this person have difficulty dressing or bathing? Answer Date of Assessment Author No 06/01/2020 11:55 AM Sandra Floyd RN * Because of a physical, mental or emotional condition, does this person have difficulty doing errands alone such as visiting a doctor's office or shopping? Answer Date of Assessment Author No 06/01/2020 11:55 AM Sandra Floyd RN documented as of this encounter Mental Status * Because of a physical, mental or emotional condition, does this person have serious difficulty concentrating, remembering or making decisions? Answer Entry Date Author No 06/01/2020 11:55 AM Sandra Floyd RN documented in this encounter Plan of Treatment Upcoming Encounters Date Type Department Care Team (Late st Contact Info) Description 06/11/2025 9:00 AM EDT Office Visit [facility] [address] [address] Fadumo Curran NP [address] [place] [address] documented as of this encounter Procedures Procedure Name Priority Date/Time Associated Diagnosis Comments GMED EGD Routine 10/18/2020 1:00 PM EST documented in this encounter Results * GMED EGD (10/18/2020 1:00 PM EST) 10/18/2020 1:00 PM EST Impressions [facility] - 10/18/2020 2:43 PM EST Normal duodenum. Hiatal Hernia. 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 (Dilation). Plan: Follow-up as needed This section is an excerpt of the full report. Marcial Vizcarra MD GI PROCEDURE ORDERABLES Wilfrido marii Result - Final [facility] [address] [place] [address] documented in this encounter Visit Diagnoses Not on filedocumented in this encounter Additional Health Concerns Infection Onset Date Last Indicated Resolved Time COVID-19 Comment:Reports positive home test on 09/1109/11/2023 09/18/2023 10/08/2023 10:12 PM EST Assessment Noted Time A fall risk assessment has been complete d for the patient 06/16/2020 10:01 AM EDT documented as of this encounter Care Teams Lawn Mower Operator Relationship Specialty Start Date End Date Darrius Fair MD [address] [place] [address] [address] [place] [address] PCP - General 03/05/11 Marcial Vizcarra MD [address] [place] [address] [address] [place] [address] Physician Internal Medicine-Gastroenterology 11/22/16 documented as of this encounter
--- OUTSIDE RECORDS SUMMARY | 2025-05-24 13:46 | XMS_ITS | Clinical Summary ---
Author Organization [facility] Address [address] [place] [address] Care Team Providers Care Delivery Representative Name Role Phone None, None Primary Care Provider Unavailabl e Allergies No known active allergies Medications amLODIPine (NORVASC) 5 mg tablet Take 1 Tablet by mouth daily. 4 Active Cholecalciferol , Vitamin D3, 50 mcg (2,000 unit) Tablet Take 1 Tablet by mouth daily. 4 Active gabapentin (NEURONTIN) 600 mg tablet Take 1 Tablet by mouth 2 times daily. 4 Active levothyroxine (SYNTHROID) 25 mcg tablet Take by mouth daily. Active omeprazole (PriLOSEC) 40 mg Capsule, Delayed Release(E.C.) Take 40 mg by mouth. 4 Active pramipexole (MIRAPEX) 0.125 mg Tablet Take 0.125 mg by mouth. 4 Active rosuvastatin (CRESTOR) 10 mg Tablet Take 1 Tablet by mouth daily. 4 Active tamsulosin (FLOMAX) 0.4 mg sustained release capsule Take 0.4 mg by mouth. Active traMADol (ULTRAM) 50 mg tablet Take 50 mg by mouth every 8 hours as needed. 4 Active albuterol (VENTOLIN/PROAI R/PROVENTIL HFA) 90 mcg/actuation HFA Aerosol Inhaler INHALE 2 PUFFS INTO THE LUNGS EVERY 4 TO 6 HOURS NEEDED FOR SHORTNESS OF BREATH OR WHEEZING. 4 Active docusate sodium (COLACE) 100 mg capsule Take 1 Capsule (100 mg) by mouth 2 times daily as needed for Constipation. 30 Capsule Active Active Problems Problem Noted Date Diagnosed Date Primary osteoarthritis of right knee 05/01/2024 Encounters Date Type Department Care Team Description 03/01/2025 Telephone [facility] Physicians - Vascular Surgery, [place] [address] [place] [phone] Magdaleno Cano MD Scheduling from Last 3 Months Family History Medical History Relation Name Comments Heart Problems Mother Anesthesia Complications Neg Hx Relation Name Status Comments Mother Social History Tobacco Use Types Packs/Day Years Used Date Smoking Tobacco: Former Cigarettes Smokeless Tobacco: Former Tobacco Cessation:Counseling Given: Not Answered Alcohol Use Standard Drinks/Week Comments Not Currently 0 (1 standard drink = 0.6 oz pur e alcohol) Sex and Gender Information Value Date Recorded Sex Assigned at Not on file Legal Sex Male 11:22 AM EDT Gender Identity Not on file Sexual Orientation Not on file Last Filed Vital Signs Vital Sign Reading Time Taken Comments Blood Pressure 125/76 06/11/2024 12:32 PM EDT Pulse 72 06/11/2024 12:32 PM EDT Temperature 36.3 C (97.3 F) 06/11/2024 12:18 PM EDT Respiratory Rate 16 06/11/2024 12:3 2 PM EDT Oxygen Saturation 93% 06/11/2024 12: 32 PM EDT Inhaled Oxygen Concentration - - Weight 105.2 kg (231 lb 14.8 oz) 06/11/2024 7:35 AM EDT Height 182.9 cm (6') 06/11/2024 7:35 AM EDT Body Mass Index 31.45 06/11/2024 7:35 AM EDT Plan of Treatment Health Maintenance Due Date Last Done Comments Tetanus Vaccination (Every 10 Years) 1965 Hepatitis C Virus (HCV) Screening 02/10/1968 Pneumococcal Vaccine: 50+ Years (1 of 1 - PCV) 997 Zoster-RZV(Shingrix) (1 of 2) 1997 Fall Risk Assessment 02/10/2012 RSV Vaccines (1 - 1-dose 75+ series) 2022 COVID-19 Vaccine ( - 2023- season) 2024 Advance Care Planning 11/25/2024 BMI Counseling 11/25/2024 Depression Screening 11/25/2024 Lipid Monitoring 03/27/2025 03/27/2024 Influenza Vaccination (Season Ended) 2025 Lipid Screening Discontinued 03/27/2024 Medical Devices Implanted Type Area Smocker Device Identifier Shelf Expiration Date Model / Serial / Lot Attune Pat Med Shannan 35mm - [id number] Implanted:Qty : 1 on 06/11/2024 by Ney Amaral MD at [facility] Right: Knee MYRIAM \T\ [employer] [id number] 03/24/2029 [id number] / / [id number] Attune Tib Base Afxm Fxd Bear Sz 7 - [id number] Implanted:Qty : 1 on 06/11/2024 by Ney Amaral MD at [facility] Right: Knee MYRIAM \T\ [employer] [id number] 03/24/2034 [id number] / / [id number] Cruciate Retaining Sz7 - [id number] Implanted:Qty : 1 on 06/11/2024 by Ney Amaral MD at [facility] Right: Knee MYRIAM \T\ [employer] [id number] 02/22/2033 [id number] / / [id number] Cement Bone Simplex Hv - [id number] Implanted:Qty : 1 on 06/11/2024 by Ney Amaral MD at [facility] Right: Knee [employer] [id number] 07/25/2025 [id number] / / [id number] Tibial Insert Fixed Bearing Sz7 - [id number] Implanted:Qty : 1 on 06/11/2024 by Ney Amaral MD at [facility] Right: Knee MYRIAM \T\ [employer] [id number] 02/23/2032 [id number] / / [id number] - [id number] Implanted:Qty : 1 on 06/11/2024 by Ney Amaral MD at [facility] Right: Knee MYRIAM \T\ Core Competence [id number] / / Insurance [employer] Care Teams Delivery Representative Relationship Specialty Start Date End Date None, None [address] [place] [address] PCP - General 06/11/24
--- OUTSIDE RECORDS SUMMARY | 2025-05-24 13:46 | XMS_ITS | Encounter Summary ---
Author Organization [facility] Address [address] [place] [address] Care Team Providers Care Bleach Tester Name Role Phone None, None Primary Care Provider Unavailabl e Reason for Visit * Reason Onset Date Comments Scheduling 03/01/2025 Encounter Details Date Type Department Care Team (Late st Contact Info) Description 03/01/2025 Telephone [facility] Physicians - Vascular Surgery, [place] [address] [facility] [place] [id number] Magdaleno Cano MD [address] [facility] [address] [place], [place] [id number] Scheduling Social History Tobacco Use Types Packs/Day Years [...] on file documented as of this encounter Miscellaneous Notes * Telephone Encounter - Delmi Sheehan - 03/01/2025 12:27 PM EDT LVM TO SCHEDULE PT FOR REFERRAL FOR PAD documented in this encounter Plan of Treatment Not on file documented as of this encounter Visit Diagnoses Not on filedocumented in this encounter Care Teams Bleach Tester Relationship Specialty Start Date End Date None, None [address] [place] [address] PCP - General 06/11/24 documented as of this encounter
--- NOTE | 2025-05-24 13:49 | CA_ITS ---
APPROVED REPORT EXAM: Comprehensive 2D, Doppler, and color-flow Echocardiogram Ic Design Manager: Candy Lugo RVT Ht: 6 ft 0 in Wt: 237lbs BSA: 2.29 BP: 104/60 mmHg Indications: Congestive Heart Failure,Palpatitions 2D Dimensions IVSd 1.11 cm M: 0.6-1.2 LVEF (Visual) 56.10 % PWd 1.03 cm M: 0.6 - 1.2 LA Volume 50.90 mL LVDd 4.72 cm M: 4.2 - 5.9 LA Volume Index 22.23 mL/m2 (M/F) 16-34 LVDs 3.34 cm M: 2.5 - 4.0 M-Mode Dimensions LA Diam 4.79 cm (1.9-4.0) TAPSE 2.30 (<1.7) LV Diastology E Decel Time 193 (160-240 msec) E/A Ratio 0.7 Aortic Valve MADELEINE Index 1.00 cm2/m2 AoV Peak Erasto. 173.0 (50-130 cm/s) AO Peak GR. 11.90 mmHg AO Mean GR. 6.00 (<5 mmHg) AO VTI 33.4 (18-25 cm) MADELEINE (VTI) 2.35 (2.5-4.5 cm2) Mitral Valve MV E Max Erasto. 62.0 (40-130 cm/s) MV A Velocity 85.0 (40-130 cm/s) E/A Ratio 0.73 MV PHT 57.0 ms Pulmonary Valve PV Peak Velocity 65.0 (50-150 cm/s) Left Ventricle The left ventricle is normal size. The left ventricular systolic function is normal. The left ventricular ejection fraction is within the normal range. There is increased LV wall thickness. There is normal LV segmental wall motion. Transmitral Doppler flow pattern suggests impaired LV relaxation. LVEF is 55%. Right Ventricle Right ventricle is mildly dilated. The right ventricular systolic function is normal. Atria The left atrium is mildly dilated. The right atrium is mildly dilated. There is no Doppler evidence of interatrial shunt. Aortic Valve The aortic valve is mildly thickened. There is no aortic valvular stenosis. No aortic regurgitation is present. Mitral Valve The mitral valve is normal in structure. Trace mitral regurgitation. No evidence of mitral valve stenosis. Tricuspid Valve Tricuspid valve is grossly normal in structure and function. Trace tricuspid regurgitation. There is insufficient TR jet to estimate RVSP. Pulmonic Valve The pulmonary valve is normal in structure. Trace pulmonic regurgitation. Great Vessels The aortic root is normal in size. IVC is normal in size and collapses >50% with inspiration. Pericardium There is no pericardial effusion. Other Information Study Quality: Fair Conclusion Normal biventricular systolic function. Mild RV dilation. Mild biatrial dilation. No significant valvular stenosis or regurgitation. Electronically signed by : Allyson Norman MD 05/27/2025 00:07:00
--- NOTE | 2025-05-24 14:12 | ECG_ITS ---
APPROVED REPORT Exam: Resting ECG HR:64 bpm ECG Measurements Heart Rate 64 AXES UT 256 P 22 QRSd 90 QRS 41 QT 387 T 62 QTc 396 Conclusion SINUS RHYTHM WITH FIRST DEGREE AV BLOCK ABNORMAL ECG UNCONFIRMED REPORT Electronically signed by : Eddie Sifuentes MD 05/25/2025 08:46:35
== END 2025-05-24 23:59 | disposition home or self-care (01) ==
LOC: RT 13:44
PROVIDERS: PCP Family Medicine; Visit Provider Chiropractor
DX: I44.0 Atrioventricular block, first degree (principal); I50.9 Heart failure, unspecified; I47.10 Supraventricular tachycardia, unspecified; R94.31 Abnormal electrocardiogram [ECG] [EKG]
CPT/HCPCS: 93005; 93306

== ENCOUNTER 2025-06-22 12:09 | Outpatient (CLI) | payer OTHER, SELFPAY ==
--- OUTSIDE RECORDS SUMMARY | 2025-04-27 11:15 | XMS_ITS | Encounter Summary ---
Author Organization [facility] Address [address] [place] [address] Care Team Providers Care Electric Welder Helper Name Role Phone Darrius Fair MD Primary Care Provider [phone] Marcial Vizcarra MD Unavailable [phone] Reason for Visit * Reason Comments Follow-up Encounter Details Date Type Department Care Team (Late st Contact Info) Description 04/27/2025 11:15 AM EDT Office Visit [facility] Internet Cafe Manager [facility] [place] [address] Ney Amaral MD [address] [place] [address] S/P total knee arthroplasty, right [...] Author No 01/03/2023 6:00 PM Lizzie Almaguer, Dietary Manager * Is the person blind or does [...] No 01/03/2023 6:00 PM EST Lizzie Horton, Dietary Manager documented in this encounter Progress Notes * Ney Amaral MD - 04/27/2025 11:15 AM EDT Images from the original note were not included. [address] [phone] [place], [place] [phone] [place], [place] Jonathon Lara 1945 Chief Complaint Patient [...] Care Team (Late st Contact Info) Description 07/01/2025 1:00 PM EDT Appointment [facility] [address] [place] [address] Bridgette Padron, MARITIME OFFICER [address] [place] [address] [place] [address] 07/19/2025 1:00 PM EDT Office Visit [facility] [address] [place] [address] Mukund Noel MD [address] [place], [place] [id number] 08/03/2025 10:30 AM EDT Office Visit [facility] [address] [address] Bridgette Padron, MARITIME OFFICER[address] [place] [address] documented as of this encounter Procedures Procedure [...] PM EDT S/P total knee arthroplasty, right [place] ARTHROCENTESIS ASPIR&/INJ MAJOR JT/BURSA W/O US Routine 04/27/2025 11:15 AM EDT S/P total knee arthroplasty, right documented in this encounter Results * JOINT FLUID DIFFERENTIAL (04/27/2025 12:15 PM EDT) Segs JF 13 <25 % 04/27/2025 9:38 PM EDT [facility] Lymphs JF 39 % 04/27/2025 9:38 PM EDT [facility] Macrophages JF 44 % 04/27/2025 9:38 PM EDT [facility] Syn Cell JF 2 % 04/27/2025 9:38 PM EDT [facility] Other JF 2 % 04/27/2025 9:38 PM EDT [facility] Comment:2 basophils. Body Fluid STRUCTURE OF RIGHT KNEE REGION / Unknown 04/27/2025 12:15 PM EDT 04/27/2025 12:15 PM EDT us Ney Amaral MD BODY FLUIDS AND JACOB HAMMOND ORDERABLES Final Result [place] [phone] * JOINT FLUID CELL COUNT (04/27/2025 12:15 [...] LS ORDERABLES Final Result Performing Organization Address [facility] Co de Phone Number [email or web address] [address] [facility] , [place] [address] * JOINT FLUID CRYSTALS (04/27/2025 12:15 PM EDT) Crystal JF None Seen None Seen 04/27/2025 9:37 PM EDT [email or web address] Body Fluid STRUCTURE OF RIGHT KNEE REGION / Unknown 04/27/2025 12:15 PM EDT 04/27/2025 12:15 PM EDT us Ney Amaral MD BODY FLUIDS AND STOO LS ORDERABLES Final Result Performing Organization Address [facility] de Phone Number [email or web address] [address] [facility] , [place] [address] * FUNGUS CULTURE (NO STAIN) (04/27/2025 12:15 PM EDT) Culture No growth of fungus at 4 weeks. 05/26/2025 8:57 AM EDT [email or web address] Aspirate STRUCTURE OF RIGHT KNEE REGION / Unknown 04/27/2025 12:15 PM EDT 04/27/2025 12:15 PM EDT Ney Amaral MD MICROBIOLOGY - GENER AL ORDERABLES Final Result Performing Organization Address [facility] Co de Phone Number [email or web address] [address] [facility] , [place] [address] * BODY FLUID CULTURE (STAIN INCLUDED) (04/27/2025 12:15 PM EDT) Culture No growth at 94 hours. 05/02/2025 7:21 AM EDT [facility] Stain Rare WBCs 05/02/2025 7:21 AM EDT [facility] Stain No organisms seen 05/02/2025 7:21 AM EDT [facility] [employer] [facility] Body Fluid STRUCTURE OF RIGHT KNEE REGION / Unknown 04/27/2025 12:15 PM EDT 04/27/2025 12:15 PM EDT Ney Amaral MD MICROBIOLOGY - GENER AL ORDERABLES Final Result Performing Organization Address [facility]/ZIP Co de Phone Number [facility] [employer] [address] , [place] [address] * ANAEROBIC CULTURE (NO STAIN) (04/27/2025 12:15 PM EDT) Culture No anaerobic growth at 5 days. 05/03/2025 9:31 AM EDT [employer] Body Fluid STRUCTURE OF RIGHT KNEE REGION / Unknown 04/27/2025 12:15 PM EDT 04/27/2025 12:15 PM EDT Result [facility] Ney Amaral MD MICROBIOLOGY - GENER AL ORDERABLES Final Result Performing Organization Address [facility] de Phone Number [facility] [employer] [address] , [place] [address] * [place] ARTHROCENTESIS ASPIR&/INJ MAJOR JT/BURSA W/O US (04/27/2025 11:15 AM EDT) Narrative [facility] - 04/27/2025 11:15 AM EDT Ney Amaral MD 05/07/2025 11:48 PM Large Joint Injection/Arthrocentesis: [...] MD PROCEDURE/MINOR SURG ICAL ORDERABLES Final Result [facility] documented in this encounter Visit Diagnoses Diagnosis S/P total knee arthroplasty, right- Primary documented in this encounter Administered Medications Inactive Administered Medications - up to 1 most recent administrations Medication Order MAR Action Action Date Dose Rate Site BUPivacaine HCl (MARCAINE/SENSORCAINE) 0.5 % (5 mg/mL) injection 2 mL 2 mL, Intra-articular, ONCE PRN, 1 dose, Starting on 04/27/25 at 1115, Until 04/27/25 at 1115, Dx: 1. S/P total knee arthroplasty, rightIndications:S/P total knee arthroplasty, right Given 04/27/2025 11:15 AM EDT 2 mL Right Knee triamcinolone acetonide (KENALOG-40) injection 40 mg 40 mg, Intra-articular, ONCE PRN, 1 dose, Starting on 04/27/25 at 1115, Until 04/27/25 at 1115, Dx: 1. S/P total knee arthroplasty, rightIndications:S/P total knee arthroplasty, right Given 04/27/2025 11:15 AM EDT 40 mg Right Knee documented in this encounter Additional Health Concerns Assessment Noted Time A fall risk assessment has been complete d for the patient 06/16/2020 10:01 AM EDT documented as of this encounter Care Teams Electric Welder Helper Relationship Specialty Start Date End Date Darrius Fair MD [address] [place] [address] [place] [id number] PCP - General 03/05/11 Marcial Vizcarra MD [address] [place] [address] [place] [phone] Physician Internal Medicine-Gastroenterology 11/22/16 documented as of this encounter
--- OUTSIDE RECORDS SUMMARY | 2025-05-24 08:44 | XMS_ITS | Continuity of Care Document ---
Author Name [facility] Organization [facility] Care Team Providers Care Court Recorder Name Role Phone [facility] Unavailable Unavailable Problems Combined list of problems from Department of Defense and Veterans Affairs facilities. It does not include entries that were removed or entered in error. Problem Status Onset Date Problem Type Date of Resolution Comments Source Congestive heart failure Active 4 [facility] Supraventricular tachycardia Active 3 Condition Nov 19, 2014 Entered By: WALDO ESCAMILLA Comment: s/p ablation and EP study [facility] N Benign prostatic hyperplasia Active 2 Condition [facility] N Stricture of esophagus Active 9 Condition Nov 19, 2014 Entered By: WALDO ESCAMILLA Comment: [facility]th[facility] of [facility] Benign essential hypertension Active Condition [place] Bradycardia [facility] C/O - low back pain [facility] Carpal tunnel syndrome [facility] Depression [facility]arrhea Active Condition [place] Dyspnea on exertion Active [facility] Exposure to potentially hazardous substance ([facility] [id number]) Active Condition [place] Gastroesophageal reflux disease Active Condition [place] [facility] Joint pain [facility] On examination - no disease present Active [facility] Pain in left knee Active Condition [facility] Diagnosis: ICD-10-CM Z77.29 Contact with and exposure to other hazardous substances Active Diagnosis [facility] N Medications Combined list of outpatient medications from [facility] facilities.Medications provided include 1) outpatient medications from the last 15 months, and 2) patient-reported medications. Medication Details Route Status Patient Instructions Prescription Expires Prescription Number Last Dispense Date Ordering Provider Order Date Order Qty Source POTASSIUM CHLORIDE 10MEQ TAB,SA TAKE TWO TABLETS BY MOUTH DAILY ORAL ACTIVE RISA HARMAN 2018 [place] [facility] Immunizations Combined list of available immunizations from the [facility] and [facility] facilities. Immunization Series Date Given Administered By Site Reaction Lot Number CVX Code Drug Geriatric Aide Status Comments Source PNEUMOCOCCAL CONJUGATE PCV 13 2016 133 complet ed [place] [facility] DTP 2013 01 complet ed [place] [facility] [id number] (HISTORICAL) 2013 33 complet ed [place] [facility] PNEUMOCOCCAL, UNSPECIFIED FORMULATION 2013 109 complet ed [place] [facility] ZOSTER LIVE 2013 121 complet ed [place] [facility] TDAP 2013 115 complet ed [place] [facility] Results Combined list of recent chemistry, hematology and other laboratory results from [facility], ranging from 15 months to all on record, depending upon the facility. Order Name Results Value Reference Range Date Interpretation Specimen Comments Source PSA PROSTATE SPECIFIC AG [MASS/VOLU ME] IN SERUM OR PLASMA 0.421 ng/mL 0 - 3.999 2023 Specimen Type: SERUM No comment entered. Ordering Provider: TIMOTHY GUTIÉRREZ II Report Released Date/Time: Dec 13, 2023 01:15 PM Reporting Lab: [address] [address] Performing Lab: [address] [address] [facility] Encounters Combined list of: 1) Encounters from Department [facility] facilities going backup to the last 18 months, not all [place] inpatient encounters are included; 2) Encounters from the [facility] facilities going backup to 280 months. Location Location Details Encounter Type Encounter Number Reason For Visit Attending Provider ADM Date DC Date Status Disposition Source [facility] Outpatient Encounter [id number] Diagnos is: ICD-10- CM Z77.29 Contact with and exposur e to other hazardo us substan TIMOTHY Young E II 12/13 [place] [facility] Social History Combined list of available smoking, tobacco, and other social history from Department of Defense and Veterans Affairs facilities. Social History Type Response Date Comment Source Tobacco smoking status NHIS [place]-TOBACCO USER EVERY DAY 09/25/2018 [facility] of [facility] 30 [facility] WAKEUP 09/25/2018 [facility] History of tobacco use V9 LIFETIME NON-USER OF TOBACCO 12/26/2017 [facility] History of tobacco use V9 CURRENT TOBACCO USER 03/22/2017 [facility] History of tobacco use V9 CURRENT TOBACCO USER 03/14/2016 [facility] History of tobacco use V9 CURRENT TOBACCO USER 12/28/2014 [facility] History of tobacco use V9 CURRENT TOBACCO USER 11/19/2014 Vet does not wish help quitting at this time. [facility]
--- OUTSIDE RECORDS SUMMARY | 2025-06-03 15:00 | XMS_ITS | Encounter Summary ---
Author Organization [facility] Address [address] [place] [address] Care Team Providers Care Note Teller Name Role Phone Darrius Fair MD Primary Care Provider [phone] Marcial Vizcarra MD Unavailable [phone] Reason for Visit * Reason Comments Follow-up Encounter Details Date Type Department Care Team (Late st Contact Info) Description 06/03/2025 3:00 PM EDT Office Visit [facility] [address] [address] Fadumo Curran NP [address] [place] [address] Primary osteoarthritis of left knee (Primary Dx); S/P total knee arthroplasty, right Social History Tobacco Use Types Packs/Day Years [...] on file documented as of this encounter Last Filed Vital Signs Vital Sign Reading Time Taken Comments Blood Pressure - - Pulse - - Temperature - - Respiratory Rate - - Oxygen Saturation - - Inhaled Oxygen Concentration - - Weight 108.9 kg (240 lb) 06/03/2025 3:26 PM EDT Height 182.9 cm (6') 06/03/2025 3:26 PM EDT Body Mass Index 32.55 06/03/2025 3:26 PM EDT documented in this encounter Functional Status * Is the person deaf or does he/she have serious difficulty hearing? Answer Date of Assessment Author No 01/03/2023 6:00 PM Lizzie Almaguer, Patient Transporter * Is the person blind or does he/she have serious difficulty seeing even when wearing glasses? Answer Date of Assessment Author No 01/03/2023 6:00 PM Lizzie Almaguer, Patient Transporter * Does this person have serious difficulty walking or climbing stairs? Answer Date of Assessment Author No 01/03/2023 6:00 PM Lizzie Almaguer, Patient Transporter * Does this person have difficulty dressing or bathing? Answer Date of Assessment Author No 01/03/2023 6:00 PM Lizzie Almaguer, Patient Transporter * Because of a physical, mental or emotional condition, does this person have difficulty doing errands alone such as visiting a doctor's office or shopping? Answer Date of Assessment Author No 01/03/2023 6:00 PM Lizzie Almaguer, Patient Transporter documented as of this encounter Mental Status * Because of a physical, mental or emotional condition, does this person have serious difficulty concentrating, remembering or making decisions? Answer Entry Date Author No 01/03/2023 6:00 PM Lizzie Almaguer, Patient Transporter documented in this encounter Progress Notes * Fadumo Curran NP - 06/03/2025 3:00 PM EDTAssociated Order(s): Large Joint Injection/Arthrocentesis: L knee Post-Procedure Diagnose(s): Primary osteoarthritis of left knee Large Joint Injection/Arthrocentesis: L knee on 06/03/2025 3:00 PM Indications: pain Details: 22 G needle, superolateral approach Medications: 2 mL BUPivacaine HCl 0.5 % (5 mg/mL); 40 mg triamcinolone acetonide 40 mg/mL Outcome: tolerated well, no immediate complications Procedure, treatment alternatives, risks and benefits explained, specific risks discussed. Consent was given by the patient. Immediately prior to procedure a time out was called to verify the correctpatient, procedure, equipment, support worker and site/side marked as required. Patient was prepped and draped in the usual sterile fashion. * Fadumo Curran NP - 06/03/2025 3:00 PM EDT Images from the original note were not included. [address] [phone] [place], [place] [phone] [place], [place] Jonathon Lara 1945 Chief Complaint Patient presents with Left Knee - Follow-up, OA Right TKA Year Follow-up Subjective: The patient comes in today, now status post 1 year right total knee arthroplasty 7-18-24. They tellme that for the most part the joint is doing better. The pain is improving. The swelling is acceptable. For the most part, joint replacement has helped with activities of daily living. They recheck today for year anniversary follow up evaluation. He does have a history of neuropathy, and this affects both his knees. His arthritic left knee is still painful, but responds to Cortisone injections. He tries to stay very active and this contributes to his pain. He understands this but thought the right knee would be pain free at all times. Explained nature of TKA and realistic expectations. Objective: On physical examination the patient is alert and oriented. Appropriate mood for the conversation. Well-developed and well-nourished in appearance. Limited gait examination reveals some antalgia with cane. Apparently normal muscle tone for bilateral knees and ankles. No evidence of obvious significant lymphedema of bilateral lower extremities. Respiratory rate is normal by clinical examination. Pulse rate is normal by peripheral pulse examination. The right knee surgical incision is healed nicely. No erythema or signs of infection. Right Knee--Range of motion is from approximately 0-120 degrees. Stable to varus/valgus stress and to anterior/posterior drawer testing as expected after total knee. There is some numbness adjacent to the incision as expected. No evidence of DVT or PE by clinical examination. Left Knee Exam Comments: Examination of the left knee shows that it is stable to varus and valgus stressing. Normal anterior/posterior drawer testing. Normal Andreas testing. Normal Andres testing. There is tenderness to palpation over the medial joint line, as well as the patellofemoral joint. The skin is intact. Imaging: Radiographs are reviewed today. These show a well positioned right total knee arthroplasty, withoutevidence of hardware or implant complications. X-rays reviewed today of the left knee show osteoarthritic degenerative change with joint space narrowing, subchondral sclerosis and osteophyte formation. There are no acute findings noted in these films. Kellgren-Juan Grade 3-4 Assessment and Plan: Diagnoses and all orders for this visit: Primary osteoarthritis of left knee - Large Joint Injection/Arthrocentesis: L knee S/P total knee arthroplasty, right PLAN: Continue weight bearing as tolerated. Continue normal activities. We have talked about wear characteristics and the anticipated life expectancy after major joint replacement. Left knee OA. Obtains several months relief with injections. Cortisone injection administered today. Chronic neuropathy in the legs. Seeing a clinic in [place] for treatments. He feels these might be helping. Right total knee with apparently routine recovery but slow. Right knee aspiration showed no signs of infection. Cortisone injection provided some relief. He feels the right knee continues to improve. Follow up prn for left knee Cortisone injection. documented in this encounter Plan of Treatment Upcoming Encounters Date Type Department Care Team (Late st Contact Info) Description 07/01/2025 1:00 PM EDT Appointment [facility] [address] [place] [address] Bridgette Padron, WEB SYSTEMS DEVELOPER [address] [place] [address] 07/19/2025 1:00 PM EDT Office Visit [facility] Cardiac Surgeons [address] [place] [address] Mukund Noel MD [address] [place] [address] 08/03/2025 10:30 AM EDT Office Visit [facility] [address] [address] Bridgette Padron, WEB SYSTEMS DEVELOPER[address] [address] documented as of this encounter Procedures Procedure Name Priority Date/Time Associated Diagnosis Comments MS ARTHROCENTESIS ASPIR&/INJ MAJOR JT/BURSA W/O US Routine 06/03/2025 3:00 PM EDT Primary osteoarthritis of left knee documented in this encounter Results * MS ARTHROCENTESIS ASPIR&/INJ MAJOR JT/BURSA W/O US (06/03/2025 3:00 PM EDT) Narrative [facility] - 06/03/2025 3:00 PM EDT Fadumo Curran NP 06/03/2025 5:32 PM Large Joint Injection/Arthrocentesis: L knee on 06/03/2025 3:00 PM Indications: pain Details: 22 G needle, superolateral approach Medications: 2 mL BUPivacaine HCl 0.5 % (5 mg/mL); 40 mg triamcinolone acetonide 40 mg/mL Outcome: tolerated well, no immediate complications Procedure, treatment alternatives, risks and benefits explained, specific risks discussed. Consent was given by the patient. Immediately prior to procedure a time out was called to verify the correct patient, procedure, equipment, support worker and site/side marked as required. Patient was prepped and draped in the usual sterile fashion. us Fadumo Curran NP PROCEDURE/MINOR SURGICAL ORDERAB LES Final Result [facility] documented in this encounter Visit Diagnoses Diagnosis Primary osteoarthritis of left knee- Primary Primary localized osteoarthrosis, lower leg S/P total knee arthroplasty, right documented in this encounter Administered Medications Inactive Administered Medications - up to 1 most recent administrations Medication Order MAR Action Action Date Dose Rate Site BUPivacaine HCl (MARCAINE/SENSORCAINE) 0.5 % (5 mg/mL) injection 2 mL 2 mL, Intra-articular, ONCE PRN, 1 dose, Starting on Lo 06/03/25 at 1500, Until Lo 06/03/25 at 1500, Dx: 1. Primary osteoarthritis of left kneeIndications:Primary osteoarthritis of left knee Given 06/03/2025 3:00 PM EDT 2 mL Left Knee triamcinolone acetonide (KENALOG-40) injection 40 mg 40 mg, Intra-articular, ONCE PRN, 1 dose, Starting on Lo 06/03/25 at 1500, Until Lo 06/03/25 at 1500, Dx: 1. Primary osteoarthritis of left kneeIndications:Primary osteoarthritis of left knee Given 06/03/2025 3:00 PM EDT 40 mg Left Knee documented in this encounter Additional Health Concerns Assessment Noted Time A fall risk assessment has been complete d for the patient 06/16/2020 10:01 AM EDT documented as of this encounter Care Teams Note Teller Relationship Specialty Start Date End Date Darrius Fair MD [facility] [address] [place] [address] PCP - General 03/05/11 Mracial Vizcarra MD [facility] [address] [place] [address] Physician Internal Medicine-Gastroenterology 11/22/16 documented as of this encounter
--- OUTSIDE RECORDS SUMMARY | 2025-06-03 15:15 | XMS_ITS | Encounter Summary ---
Author Organization [facility] Address [address] [place] [address] Care Team Providers Care [employer] Superintendent Name Role Phone Darrius Fair MD Primary Care Provider [phone] Marcial Vizcarra MD Unavailable [phone] Encounter Details Date Type Department Care Team (Late st Contact Info) Description 06/03/2025 3:15 PM EDT Ancillary Procedure [facility] [address] [place] [address] Fadumo Curran NP [address] [place] [address] Primary osteoarthritis of left knee Social History Tobacco Use Types Packs/Day Years [...] 6:00 PM Lizzie Almaguer Nursing Student * Is the person blind or does [...] Date Author No 01/03/2023 6:00 PM EST Cookendor thais, Lizzie, Childcare Center Administrator documented in this encounter Plan of Treatment Upcoming Encounters Date Type Department Care Team (Late st Contact Info) Description 07/01/2025 1:00 PM EDT Appointment [facility] [address] [place] [address] Bridgette Padron, WIRE FRAME LAMPSHADE MAKER[address] [place] [address] 07/19/2025 1:00 PM EDT Office Visit [facility] Cardiac Surgeons [address] [place] [address] Mukund Noel MD [address] [place], [place] [id number] 08/03/2025 10:30 AM EDT Office Visit [facility] [address] [address] Bridgette Padron, [address] [address] documented as of this encounter Procedures Procedure Name Priority Date/Time Associated Diagnosis Comments XR KNEE LEFT AP LATERAL AND SUNRISE STANDING Routine 06/03/2025 3:16 PM EDT Primary osteoarthritis of left knee documented in this encounter Results * XR KNEE LEFT AP LATERAL AND SUNRISE STANDING (06/03/2025 3:16 PM EDT) Narrative [facility] - 06/03/2025 3:16 PM EDT Please see physician's note from office encounter for x-ray imaging result us Fadumo Curran NP IMG DIAGNOSTIC IMAGING ORDERABLE S Final Result [facility] documented in this encounter Visit Diagnoses Diagnosis Primary osteoarthritis of left knee Primary localized osteoarthrosis, lower leg documented in this encounter Additional Health Concerns Assessment Noted Time A fall risk assessment has been complete d for the patient 06/16/2020 10:01 AM EDT documented as of this encounter Care Teams [employer] Superintendent Relationship Specialty Start Date End Date Darrius Fair MD [address] [address] [address] [place] [id number] PCP - General 03/05/11 Marcial Vizcarra MD [address] [address] [address] [place] [id number] Physician Internal Medicine-Gastroenterology 11/22/16 documented as of this encounter
--- OUTSIDE RECORDS SUMMARY | 2025-06-03 15:50 | XMS_ITS | Encounter Summary ---
Author Organization [facility] Address [address] [place] [address] Care Team Providers Care Chef Name Role Phone Darrius Fair MD Primary Care Provider [phone] Marcial Vizcarra MD Unavailable Encounter Details Date Type Department Care Team (Late st Contact Info) Description 06/03/2025 3:50 PM EDT Ancillary Procedure [facility] [address] [place] [address] Fadumo Curran NP [address] [place] [address] S/P total knee arthroplasty, right Social History [...] Author No 01/03/2023 6:00 PM Lizzie Almaguer, Novelties Sales Representative * Is the person blind or does he/she have serious difficulty seeing even when wearing glasses? Answer Date of Assessment Author No 01/03/2023 6:00 PM Lizzie Almaguer, Novelties Sales Representative * Does this person have serious difficulty [...] 01/03/2023 6:00 PM EST Cookendor thais, Lizzie, Novelties Sales Representative documented in this encounter Plan of Treatment Upcoming Encounters Date Type Department Care Team (Late st Contact Info) Description 07/01/2025 1:00 PM EDT Appointment [facility] [address] [place] [address] Bridgette Padron, [address] [place] [address] 07/19/2025 1:00 PM EDT Office Visit [facility] Cardiac Surgeons [address] [place] [address] Mukund Noel MD [address] [place], [place] [id number] 08/03/2025 10:30 AM EDT Office Visit [facility] [address] [address] Bridgette Padron, [address] [address] documented as of this encounter Procedures Procedure Name Priority Date/Time Associated Diagnosis Comments XR KNEE RIGHT AP AND LATERAL Routine 06/03/2025 3:57 PM EDT S/P total knee arthroplasty, right documented in this encounter Results * XR KNEE RIGHT AP AND LATERAL (06/03/2025 3:57 PM EDT) Narrative [facility] - 06/03/2025 3:57 PM EDT Please see physician's note from office encounter for x-ray imaging result us Fadumo Curran NP IMG DIAGNOSTIC IMAGING ORDERABLE S Final Result [facility] documented in this encounter Visit Diagnoses Diagnosis S/P total knee arthroplasty, right documented in this encounter Additional Health Concerns Assessment Noted Time A fall risk assessment has been complete d for the patient 06/16/2020 10:01 AM EDT documented as of this encounter Care Teams Chef Relationship Specialty Start Date End Date Marv, Darrius Madhu, MD [address] [facility] [address] [place] [id number] PCP - General 03/05/11 Marcial Vizcarra MD [address] [facility] [address] [place] [id number] Physician Internal Medicine-Gastroenterology 11/22/16 documented as of this encounter
--- OUTSIDE RECORDS SUMMARY | 2025-06-07 13:30 | XMS_ITS | Encounter Summary ---
Author Organization [place] [address] Care Team Providers Care Software Tools Build Engineer Name Role Phone Darrius Fair MD Primary Care Provider [phone] Marcial Vizcarra MD Unavailable [phone] Reason for Referral * Echo (Routine) - Authorized Specialty Diagnoses / Procedures Referred By Lima mosqueda Referred To Contact Radiology Diagnoses Mixed hyperlipidemia SOB (shortness of breath) Chest pain, unspecified type Nonrheumatic aortic valve stenosis Procedures EC ECHOCARDIOGRAM COMPLETE W DOPPLER AND COLOR FLOW MAPPING Bridgette Padron APRN [address] [place] [address] Phone: tel: fax: Referral ID Status Reason Start Date Expiration Date V isits Requested Visits Authorized [id number] Authorized 06/07/2025 06/07/2027 1 1 Reason for Visit * Reason Comments Follow-up Med refillsDr. Huffm an patient Patient has neuropathy Wanting refills on crestor Shortness of Breath All the time Encounter Details Date Type Department Care Team (Latest Contact Info) Description 06/07/2025 1:30 PM EDT Office Visit [facility] [address] Bridgette Padron APRN [address] [facility] [place], [place] [address] Dyspnea on exertion (Primary Dx); SOB (shortness of breath); Chest pain, unspecified type; Nonrheumatic aortic valve stenosis; Diastolic dysfunction; Essential hypertension; Mixed hyperlipidemia Social History Tobacco Use Types Packs/Day Years Used Date Smoking Tobacco: Former Cigarettes Q uit: 03/05/1968 Smokeless Tobacco: Former Chew Tobacco Cessation:Counseling Given: No Alcohol Use Standard Drinks/Week Comments No 0 [...] Sign Reading Time Taken Comments Blood Pressure 120/70 06/07/2025 1:18 PM EDT Pulse 66 06/07/2025 1:18 PM EDT Temperature - - Respiratory Rate - - Oxygen Saturation 98% 06/07/2025 1:18 PM EDT Inhaled Oxygen Concentration - - Weight 111.6 kg (246 lb) 06/07/2025 1:18 PM EDT Height 182.9 cm (6') 06/07/2025 1:18 PM EDT Body Mass Index 33.36 06/07/2025 1:18 PM EDT documented in this encounter Functional Status * Is the person deaf or does he/she have serious difficulty hearing? Answer Date of Assessment Author No 01/03/2023 6:00 PM Lizzie Almaguer, Campus Rep * Is the person blind or does he/she have serious difficulty seeing even when wearing glasses? Answer Date of Assessment Author No 01/03/2023 6:00 PM Lizzie Almaguer, Campus Rep * Does this person have serious difficulty walking or climbing stairs? Answer Date of Assessment Author No 01/03/2023 6:00 PM Lizzie Almaguer, Campus Rep * Does this person have difficulty dressing or bathing? Answer Date of Assessment Author No 01/03/2023 6:00 PM Lizzie Almaguer, Campus Rep * Because of a physical, mental or emotional condition, does this person have difficulty doing errands alone such as visiting a doctor's office or shopping? Answer Date of Assessment Author No 01/03/2023 6:00 PM Lizzie Almaguer, Campus Rep documented as of this encounter Mental Status * Because of a physical, mental or emotional condition, does this person have serious difficulty concentrating, remembering or making decisions? Answer Entry Date Author No 01/03/2023 6:00 PM Lizzie Almaguer, Campus Rep documented in this encounter Ordered Prescriptions Prescription Sig Dispense Quantity Refills Last Filled Start Date End Date rosuvastatin (CRESTOR) 10 mg Oral TabletIndications:Mi xed hyperlipidemia Take 1 Tablet by mouth daily. 90 Tablet 3 06/07/2025 5 documented in this encounter Progress Notes * Bridgette Padron, KURTIS - 06/07/2025 1:30 PM EDT [facility] Note CC: Chief Complaint Patient presents with Follow-up Med refills Dr. Darby patient Patient has neuropathy Wanting refills on crestor Shortness of Breath All the time HPI Jonathon Lara is a 80 y.o. male with a history of , remote SVT s/p ablation at , HTN, HLD, hypothyroidism, chronic back pain with neuropathy who presents for follow up. Patient of Dr. Darby. He admits that he has been more SOB with exertion for the last 3 weeks, also having SOB at rest. Reports a little chest tightness with exertion that improves with rest for thelast 2-3 months. Some LE edema that improves overnight[place], states he hasn't been doing less he's just been more SOB with his activities. Amlodipine was stopped by PCP due to low BPs. Has been taking half dose of HCTZ. Medications Current Outpatient Medications Medication Sig Dispense Refill albuterol (PROVENTIL HFA;VENTOLIN HFA) 90 mcg/actuation Inhl HFA Aerosol Inhaler INHALE 2 PUFFS INTO THE LUNGS EVERY 4 TO 6 HOURS NEEDED FOR SHORTNESS OF BREATH OR WHEEZING. Cholecalciferol, Vitamin D3, 50 mcg (2,000 unit) Oral Tablet Take 1 Tablet by mouth daily. 90 Tablet 2 cyanocobalamin 1,000 mcg Oral Tablet Take 5,000 mcg by mouth daily. finasteride (PROSCAR) 5 mg Oral Tablet Take 5 mg by mouth nightly. hydroCHLOROthiazide (HYDRODIURIL) 25 mg Oral Tablet Take 1 Tablet by mouth daily. (Patient taking differently: Take 12.5 mg by mouth daily.) 30 Tablet 5 LEVOthyroxine (SYNTHROID) 50 mcg Oral Tablet Take 50 mcg by mouth daily. methocarbamoL (ROBAXIN) 500 mg Oral Tablet Take 1 Tablet by mouth 2 times daily. 60 Tablet 4 omeprazole (PRILOSEC) 40 mg Oral Capsule, Delayed Release(E.C.) Take 1 Capsule by mouth 2 times daily (before meals). 60 Capsule 0 pregabalin (LYRICA) 100 mg Oral Capsule 100 mg. rosuvastatin (CRESTOR) 10 mg Oral Tablet Take 1 Tablet by mouth daily. 90 Tablet 3 tamsulosin (FLOMAX) 0.4 mg capsule Take 0.4 mg by mouth nightly. cyanocobalamin/folic acid (VITAMIN [id number] ACID) 1,000-400 mcg SL Lozenge (Patient not taking: Reported on 06/07/2025) Insulin [place], Disposable, 30 gauge x 04/09 Misc Needle 1 Each by Misc.(Non- Drug; Combo Route) route daily. (Patient not taking: Reported on 06/07/2025) 100 Each 4 nalOXone (NARCAN) 4 mg/actuation Nasl [place], Non-Aerosol 0.1 mL by Nasal route as needed for OpioidReversal. [place] the contents of one device (0.1mL) into one nostril upon signs of opioid overdose. Call 911. May repeat dose in other nostril if no response within 2-3 minutes. (Patient not taking: Reported on 06/07/2025) 1 Each 0 No current facility-administered medications for this visit. PFSH Past Medical History: Diagnosis Date Arthritis Clostridium difficile diarrhea GERD (gastroesophageal reflux disease) Hiatal hernia with esophageal dysmotility Hypertension Neuromuscular disorder (HCC) jerking in BLE at times Pneumonia 10/25/2022 covid Prostate disorder BPH Shortness of breath SVT (supraventricular tachycardia) Thyroid disease Family History Problem Relation Age of Onset Cancer Father lung Anesth Problems Neg Hx Social History Socioeconomic History Marital status: Spouse name: None Number of children: None Years of education: None Highest education level: None Tobacco Use Smoking status: Former Current packs/day: 0.00 Types: Cigarettes Quit date: 03/05/1968 Years since quittin.2 Smokeless tobacco: Former Types: Chew Vaping Use Vaping status: Never Used Substance and Sexual Activity Alcohol use: No Drug use: No Social Drivers of Health Financial Resource Strain: Low Risk (09/20/2023) Overall Financial Resource Strain (CARDIA) Difficulty of Paying Living Expenses: Not very hard Received from [employer] and [employer] [facility]ceived from [facility] and [employer] [facility] Transportation Physical Activity: Insufficiently Active (09/20/2023) Exercise Vital Sign Days of Exercise per Week: 5 days Minutes of Exercise per Session: 20 min Received from [facility] and [facility] [employer] [facility] Interpersonal Safety Received from [facility] and [facility] Housing/Utilities Past Surgical History: Procedure Laterality Date ABLATION OF DYSRHYTHMIC FOCUS SVT CATARACT EXTRACTION EXTRACAPSULAR W/ INTRAOCULAR LENS IMPLANTATION Right 12/26/2021 Dr. Juan Fuentes CATARACT EXTRACTION EXTRACAPSULAR W/ INTRAOCULAR LENS IMPLANTATION Left 01/23/2022 Dr. Juan Fuentes CHOLECYSTECTOMY, LAPAROSCOPIC N/A 05/18/2021 LAPAROSCOPIC CHOLECYSTECTOMY WITH CHOLANGIOGRAM; Surgeon: Adelia Vidal MD; Location: [facility] MAIN OR; Service: General COLON SURGERY N/A 11/08/2018 exploratory laparotomy small bowel resection; Surgeon: Toshia Scanlon MD; Location: [facility]; Service: General ESOPHAGEAL DILATATION ESOPHAGEAL MOTILITY STUDY N/A 10/16/2021 ESOPHAGEAL MANOMETRY with impedance; Surgeon: Ingrid Ordaz MD; Location: [facility] ENDOSCOPY; Service: Endoscopy GASTRIC FUNDOPLICATION N/A 06/03/2020 LAPAROSCOPIC HIATAL HERNIA REPAIR, LYSIS OF ADHESIONS; Surgeon: Yaron Arceo DO; Location: [facility]; Service: General INGUINAL HERNIA REPAIR Left 09/12/2018 LAPAROSCOPIC LEFT INGUINAL HERNIA REPAIR WITH MESH ; Surgeon: Oneil Koroma MD; Location: [facility]; Service: General LUMBAR FUSION N/A 09/19/2023 L5-S1 ANTERIOR LUMBAR INTERBODY FUSION WITH POSTERIOR FUSION; Surgeon: Clifford Velasco MD; Location: [facility]; Service: Spine NECK SURGERY UPPER GASTROINTESTINAL ENDOSCOPY N/A 12/03/2019 ESOPHAGOGASTRODUODENOSCOPY with balloon dilation; Surgeon: Marcial Vizcarra MD; Location: [facility]; Service: Endoscopy UPPER GASTROINTESTINAL ENDOSCOPY N/A 05/31/2020 ESOPHAGOGASTRODUODENOSCOPY; Surgeon: Ingrid Ordaz MD; Location: [facility]; Service: Endoscopy UPPER GASTROINTESTINAL ENDOSCOPY N/A 02/08/2021 Esophagogastroduodenoscopy with submucosal injection of botox and balloon dilation; Surgeon: Marcial Vizcarra MD; Location: [facility]; Service: Endoscopy ROS: Eyes - no vision changes ENT - no hearing changes GI - no hematochezia, no melena, no hematemesis - no hematuria Neuro - no syncope, no pre-syncope, no dizziness Psych - no depression, no anxiety Physical Exam Vitals: 06/07/25 1318 BP: 120/70 Pulse: 66 SpO2: 98% Weight: 246 lb (111.6 kg) Body mass index is 33.36 kg/m??. Constitutional: NAD, [place] Neck: Mild JVD. Cardiovascular: RRR, S1 & S2 normal. No murmurs. Pulmonary/Chest: Decreased. No wheezing or rales. Abdominal: BS+, obese Musculoskeletal: Trace LE edema Neurological: alert and oriented Skin: warm Labs and Imaging Clinical labs and imaging studies were independently reviewed and results were discussed with the patient. Lab Results Component Value Date WBC 9.2 10/09/2024 HGB 12.9 (L) 10/09/2024 HCT 39.7 (L) 10/09/2024 MCV 104.5 (H) 10/09/2024 PLT 221 10/09/2024 Lab Results Component Value Date CREATININE 1.30 10/09/2024 BUN 18 10/09/2024 NA 142 10/09/2024 K 4.2 10/09/2024 CL 105 10/09/2024 CO2 25 10/09/2024 GFRAFRAM 54 (L) 08/11/2021 GFRNONAFRAM 47 (L) 08/11/2021 Lab Results Component Value Date INR 0.99 10/09/2024 Lab Results Component Value Date BNP 130 12/28/2018 Lab Results Component Value Date CHOLESTEROL 204 (H) 03/27/2024 Lab Results Component Value Date HDL 53 03/27/2024 Lab Results Component Value Date LDLCALC 136 (H) 03/27/2024 Lab Results Component Value Date TRIG 84 03/27/2024 The 10-year ASCVD risk score (Delvin CASE, et al., 2019) is: 30.2% Cardiac Testing: TTE 12/2023: * Left ventricular function is normal with an estimated ejection fraction of 60-65%. * Left ventricular chamber dimension is decreased. * There is mildly increased left ventricular wall thickness. * Left ventricular segmental wall motion is normal. * The left ventricular diastolic function is consistent with diastolic dysfunction and normal left atrial pressure. * Right ventricular systolic function is normal, with a tricuspid annular plane systolic excursion of 2.5 cm and a RV s' of 12.7 cm/s. * There is mild thickening and calcification of the aortic valve with a severely restricted left coronary cusp leaflet. * There is mild aortic valve stenosis. Stress Test 02/2024: * No reversible perfusion defects, SSS 0. Small mild rest only apical defect likely attenuation. * Normal LV size and function. Estimated LVEF 66%. No TID. * Low risk stress test. Impression: Jonathon Lara is a 80 y.o. male with a history of , remote SVT s/p ablation at , HTN, HLD, hypothyroidism, chronic back pain with neuropathy who presents for follow up. Recommendations: # SCHMIDT and chest tightness possibly due to HFpEF # Aortic stenosis # Remote h/o SVT s/p ablation at # HTN # HLD # Hypothyroidism # Chronic back pain with neuropathy - More SCHMIDT recently and some SOB at rest. Some chest tightness with exertion as well. - BP controlled. - Difficult to assess volume status but suspect mildly volume overloaded on exam. - TTE 12/2023 with EF 60-65%, mild LVH, diastolic dysfunction, normal RVSF, mild thickening and calcification of AV with severely restricted left coronary cusp leaflet, mild , proximal ascending aorta borderline dilated 3.7 cm. - Repeat TTE to reassess aorta and with worsening SOB. - Lexiscan MPI 02/2024 negative for ischemia. - Continue rosuvastatin 10 mg HS. - LDL 136 in 03/2024. - Check lipids. - Check Pro BNP, CBC, CMP, and lipids. - Continue HCTZ 12.5 mg daily for now. - If Cr stable will consider changing to aldactone 25 mg daily. - Will decide on ischemic testing pending TTE given negative stress last year. - Lifestyle modifications discussed. - Advised ER precautions. RTC in 1-2 months to reassess. Signed: Bridgette Padron APRN 06/07/25 2:49 PM documented in this encounter Miscellaneous Notes * Patient Instructions - Oneil Owen MA - 06/07/2025 1:30 PM EDT You may receive a survey via phone, mail or e-mail, regarding your visit today. Your feedback is important to us. We ask that you please take a few minutes to fill out the survey. You were assisted by KURTIS Angeles and [employer] PLUNKETT Thank You for choosing [facility]. We sincerely thank you for the opportunity to be a part of your care. documented in this encounter Plan of Treatment Upcoming Encounters Date Type Department Care Team (Late st Contact Info) Description 07/01/2025 1:00 PM EDT Appointment [facility] [address] [place] [place] [address] Bridgette Padron, IMPLANT POLISHER [address] [place] [address] 07/19/2025 1:00 PM EDT Office Visit [facility] Cardiac Surgeons [address] [place] [id number] Mukund Noel MD [address] [place], [place] [id number] 08/03/2025 10:30 AM EDT Office Visit [facility] [address] [address] Bridgette Padron, IMPLANT POLISHER[address] [address] Scheduled Orders Name Type Priority Associated Diagnoses Order Schedule EC ECHOCARDIOGRAM COMPLETE W DOPPLER AND COLOR FLOW MAPPING Imaging Cardiology Routine Mixed hyperlipidemia SOB (shortness of breath) Chest pain, unspecified type Nonrheumatic aortic valve stenosis 1 Occurrences starting 06/07/2025 until 06/07/2027 documented as of this encounter Results * NT PROBNP (06/07/2025 2:41 PM EDT) NT Pro-BNP 144 <=852 pg/mL 06/07/2025 7:53 PM EDT [facility] [employer] Blood VENOUS BLOOD / Unknown Venipuncture / Unknown 06/07/2025 2:41 PM EDT 06/07/2025 2:41 PM EDT Narrative [facility] [employer] [employer] - 06/07/2025 7:53 PM EDT An NT pro-BNP level less than 300 pg/mL in any patient, regardless of age, effectively rules out acute CHF with a 99% negative predictive value. Ingestion of miranda doses of biotin (>5 mg/day) taken within 8 hours of drawing blood sample can interfere with this immunoassay test. Bridgette Padron IMPLANT POLISHER CHEMISTRY ORDERABLES Fin al Result [facility] [address] [facility] , [place] [address] * (ABNORMAL) LIPID PANEL REFLEX (06/07/2025 2:41 PM EDT) [facility] Cholesterol 120 <200 mg/dL 06/07/2025 7:51 PM EDT [facility] Comment: < 200 Desirable 200 - 239 Borderline High >= 240 High Triglyceride 156(H) <150 mg/dL 06/07/2025 7:51 PM EDT [facility] Comment: < 150 Normal 150 - 199 Borderline High 200 - 499 High >= 500 Very High HDL 33(L) >=40 mg/dL 06/07/2025 7:51 PM EDT [facility] Comment: > 60 Optimal 40 - 60 Acceptable < 40 Low LDL Calculated 60 <100 mg/dL 06/07/2025 7:51 PM EDT [facility] Comment: < 100 Optimal 100 - 129 Near or above optimal 130 - 159 Borderline High 160 - 189 High >= 190 Very High The National Institutes of Health (NIH) equation is used for all lipid panels that report calculated LDL (LDL-C). Non-HDL-C Calculated 87 <=129 mg/dL 06/07/2025 7:51 PM EDT [facility] Comment: <130 Desirable 130-159 Above Desirable 160-189 Borderline High 190-219 High >= 220 Very High Fasting Specimen? No None 025 7:51 PM EDT [facility] Blood VENOUS BLOOD / Unknown Venipuncture / Unknown 06/07/2025 2:41 PM EDT 06/07/2025 2:41 PM EDT Bridgette Padron IMPLANT POLISHER CHEMISTRY ORDERABLES Fin al Result [facility] [address] [facility] , [place] [address] * (ABNORMAL) COMPREHENSIVE METABOLIC PANEL (06/07/2025 2:41 PM EDT) Sodium 139 136 - 145 mmol/L 06/07/2025 7:51 PM EDT [facility] Potassium 3.8 3.5 - 5.0 mmol/L 06/07/2025 7:51 PM EDT [facility] Chloride 105 98 - 107 mmol/L 06/07/2025 7:51 PM EDT [facility] Total CO2 21(L) 22 - 29 mmol/L 06/07/2025 7:51 PM EDT [facility] Anion Gap 13 7 - 16 mmol/L 06/07/2025 7:51 PM EDT [facility] Calcium 8.8 8.8 - 10.4 mg/dL 06/07/2025 7:51 PM EDT [facility] Glucose Lvl 111(H) 70 - 99 mg/dL 06/07/2025 7:51 PM EDT [facility] BUN 15 8 - 23 mg/dL 06/07/2025 7:51 PM EDT [facility] Creatinine 1.22 0.67 - 1.30 mg/dL 06/07/2025 7:51 PM EDT [facility] Albumin 3.8 3.2 - 4.6 gm/dL 06/07/2025 7:51 PM EDT [facility] Total Protein 6.7 6.4 - 8.3 gm/dL 06/07/2025 7:51 PM EDT [facility] Bili Total 0.5 0.2 - 1.4 mg/dL 06/07/2025 7:51 PM EDT [facility] ALT 8 <=41 U/L 06/07/2025 7:51 PM EDT [facility] AST 13 <=40 U/L 06/07/2025 7:51 PM EDT [facility] Alk Phos 119 40 - 129 U/L 06/07/2025 7:51 PM EDT [facility] eGFR (CKD-EPIcr 2020) 61 >=60 mL/min/1.7 3 m2 06/07/2025 7:51 PM EDT [facility] Comment:Estimated GFR was ca lculated using the CKD-EPIcr (2020) equation refit without race. The equation is recommended by the National Kidney Foundation - [place] Society of Nephrology Task Force. Blood VENOUS BLOOD / Unknown Venipuncture / Unknown 06/07/2025 2:41 PM EDT 06/07/2025 2:41 PM EDT us Bridgette Padron IMPLANT POLISHER CHEMISTRY ORDERABLES Fin al Result [facility] [address] [facility] , [address] [place] [id number] * (ABNORMAL) CBC (06/07/2025 2:41 PM EDT) WBC 7.4 3.7 - 10.3 x10(3)/mcL 06/07/2025 7:34 PM EDT [facility] RBC 4.03(L) 4.60 - 6.10 x10(6)/mcL 06/07/2025 7:34 PM EDT [facility] Hgb 13.0(L) 13.7 - 17.5 g/dL 06/07/2025 7:34 PM EDT [facility] Hct 40.4 40.0 - 51.0 % 06/07/2025 7:34 PM EDT [facility] MCV 100.2(H) 80.0 - 100.0 fL 06/07/2025 7:34 PM EDT [facility] MCH 32.3 26.0 - 34.0 pg 06/07/2025 7:34 PM EDT [facility] MCHC 32.2 30.7 - 35.5 g/dL 06/07/2025 7:34 PM EDT [facility] RDW 14.0 <=14.9 % 06/07/2025 7:34 PM EDT [facility] Platelet 230 155 - 369 x10(3)/mcL 06/07/2025 7:34 PM EDT [facility] MPV 10.1 8.8 - 12.5 fL 06/07/2025 7:34 PM EDT [facility] Blood VENOUS BLOOD / Unknown Venipuncture / Unknown 06/07/2025 2:41 PM EDT 06/07/2025 2:41 PM EDT us Bridgette Padron IMPLANT POLISHER HEMATOLOGY ORDERABLES Fi nal Result [facility] [address] [facility] , [place] [address] documented in this encounter Visit Diagnoses Diagnosis Dyspnea on exertion- Primary Other dyspnea and respiratory abnormality SOB (shortness of breath) Shortness of breath Chest pain, unspecified type Nonrheumatic aortic valve stenosis Aortic valve disorders Diastolic dysfunction Heart disease, unspecified Essential hypertension Unspecified essential hypertension Mixed hyperlipidemia documented in this encounter Discontinued Medications Medication Sig Discontinue Reason Start Date End Da te amLODIPine (NORVASC) 5 mg Oral TabletIndications:Primar y hypertension Take 1 Tablet by mouth daily. Discontinued by another clinician 05/13/2024 06/07/2025 ergocalciferol (VITAMIN D) 1,250 mcg (50,000 unit) Oral CapsuleIndications:Vitam in D deficiency Take 1 Capsule by mouth once a week. DELETE-Duplicate 06/11/2023 06/07/2025 gabapentin (NEURONTIN) 600 mg Oral TabletIndications:Status post lumbar spinal fusion,Lumbar radiculopathy Take 1 Tablet by mouth 2 times daily. Patient Reported not taking medication 01/20/2024 06/07/2025 HYDROcodone-acetaminophe n (NORCO) 5-325 mg Oral TabletIndications:Status post lumbar laminectomy Take one tablet by mouth every 8 hours PRN Patient Reported not taking medication 11/11/2024 06/07/2025 ibuprofen (ADVIL;MOTRIN) 800 mg Oral TabletIndications:Sacroi liitis,Lumbar radiculopathy,Status post lumbar spinal fusion,Lumbar spondylosis,Degeneration of intervertebral disc of lumbar region with lower extremity pain Take 1 Tablet by mouth 3 times daily. Patient Reported not taking medication 08/25/2024 06/07/2025 methocarbamoL (ROBAXIN) 500 mg Oral Tablet Take 1 Tablet by mouth 2 times daily. DELETE-Duplicate 01/22/2025 06/07/2025 pramipexole (MIRAPEX) 0.125 mg Oral Tablet Take 0.125 mg by mouth daily. Patient Reported not taking medication 04/10/2024 06/07/2025 tiZANidine (ZANAFLEX) 4 mg Oral TabletIndications:Neck pain Take 0.5 Tablets by mouth nightly as needed for Muscle spasms. Patient Reported not taking medication 11/14/2022 06/07/2025 rosuvastatin (CRESTOR) 10 mg Oral TabletIndications:Mixed hyperlipidemia Take 1 Tablet by mouth daily. Reorder 05/31/2025 06/07/2025 documented as of this encounter Additional Health Concerns Assessment Noted Time A fall risk assessment has been complete d for the patient 06/16/2020 10:01 AM EDT documented as of this encounter Care Teams Software Tools Build Engineer Relationship Specialty Start Date End Date Darrius Fair MD [address] [place] [address] [address] [place] [address] PCP - General 03/05/11 Marcial Vizcarra MD [address] [place] [address] [address] [place] [id number] Physician Internal Medicine-Gastroenterology 11/22/16 documented as of this encounter
--- OUTSIDE RECORDS SUMMARY | 2025-06-07 14:41 | XMS_ITS | Encounter Summary ---
Author Organization [place] [address] Care Team Providers Care Critical Care Nurse Practitioner Name Role Phone Darrius Fair MD Primary Care Provider [phone] Marcial Vizcarra MD Unavailable Encounter Details Date Type Department Care Team (Latest Contact Info) Description 06/07/2025 2:41 PM EDT - 06/07/2025 11:59 PM EDT Hospital Encounter [facility] [address] [place] [address] Mixed hyperlipidemia; SOB (shortness of breath); Chest pain, unspecified type; Nonrheumatic aortic valve stenosis Discharge Disposition: Home or Self Care Social History Tobacco Use Types Packs/Day Years [...] Author No 01/03/2023 6:00 PM Lizzie Almaguer, Biomedical Engineering Internship * Does this person have serious difficulty [...] 01/03/2023 6:00 PM EST Cookendor thais, Lizzie, Biomedical Engineering Internship documented in this encounter Medications at Time of Discharge albuterol (PROVENTIL HFA;VENTOLIN HFA) 90 mcg/actuation Inhl HFA Aerosol Inhaler INHALE 2 PUFFS INTO THE LUNGS EVERY 4 TO 6 HOURS NEEDED FOR SHORTNESS OF BREATH OR WHEEZING. 02/10/2024 Cholecalciferol, Vitamin D3, 50 mcg (2,000 unit) Oral TabletIndications:Ky phosis of thoracic region, unspecified kyphosis type,Age related osteoporosis, unspecified pathological fracture presence Take 1 Tablet by mouth daily. 90 Tablet 2 12/17/2023 cyanocobalamin 1,000 mcg Oral Tablet Take 5,000 mcg by mouth daily. 04/27/2021 finasteride (PROSCAR) 5 mg Oral Tablet Take 5 mg by mouth nightly. 05/17/2023 hydroCHLOROthiazide (HYDRODIURIL) 25 mg Oral Tablet Take 1 Tablet by mouth daily. 30 Tablet 5 08/23/2022 Insulin [place], Disposable, 30 gauge x 04/09 Misc Needle 1 Each by Misc.(Non-Drug ; Combo Route) route daily. 100 Each 4 06/11/2023 LEVOthyroxine (SYNTHROID) 50 mcg Oral Tablet Take 50 mcg by mouth daily. 11/11/2024 methocarbamoL (ROBAXIN) 500 mg Oral Tablet Take 1 Tablet by mouth 2 times daily. 60 Tablet 4 10/25/2024 omeprazole (PRILOSEC) 40 mg Oral Capsule, Delayed Release(E.C.) Take 1 Capsule by mouth 2 times daily (before meals). 60 Capsule 11/16/2024 pregabalin (LYRICA) 100 mg Oral Capsule 100 mg. 08/23/2024 tamsulosin (FLOMAX) 0.4 mg capsule Take 0.4 mg by mouth nightly. cyanocobalamin/folic acid (VITAMIN O10-OVVXG ACID) 1,000-400 mcg SL Lozenge 01/08/2023 nalOXone (NARCAN) 4 mg/actuation Nasl [place], Non-Aerosol 0.1 mL by Nasal route as needed for Opioid Reversal. [place] the contents of one device (0.1mL) into one nostril upon signs of opioid overdose. Call 911. May repeat dose in other nostril if no response within 2-3 minutes. 1 Each 08/20/2024 5 rosuvastatin (CRESTOR) 10 mg Oral TabletIndications:Mi xed hyperlipidemia Take 1 Tablet by mouth daily. 90 Tablet 3 06/07/2025 5 documented as of this encounter Discharge Disposition Disposition Code Departure Means Destination Home or Self Care documented in this encounter Plan of Treatment Upcoming Encounters Date Type Department Care Team (Late st Contact Info) Description 07/01/2025 1:00 PM EDT Appointment [facility] [address] [place] [address] Bridgette Padron, MEDICAL STENOGRAPHER [address] [facility] [place] [address] 07/19/2025 1:00 PM EDT Office Visit [facility] Surgeons [address] [place] [phone] Mukund Noel MD [address] [place] [address] 08/03/2025 10:30 AM EDT Office Visit [facility] [address] [address] Bridgette Padron, MEDICAL STENOGRAPHER [address] [place] [id number] documented as of this encounter Procedures Procedure Name Priority Date/Time Associated Diagnosis Comments LIPID PANEL REFLEX Routine 06/07/2025 2: 41 PM EDT Mixed hyperlipidemia SOB (shortness of breath) Chest pain, unspecified type Nonrheumatic aortic valve stenosis CBC Routine 06/07/2025 2:41 PM EDT Mixed hyperlipidemia SOB (shortness of breath) Chest pain, unspecified type Nonrheumatic aortic valve stenosis NT PROBNP Routine 06/07/2025 2:41 PM EDT Mixed hyperlipidemia SOB (shortness of breath) Chest pain, unspecified type Nonrheumatic aortic valve stenosis COMPREHENSIVE METABOLIC PANEL Routine 06/07/2025 2:41 PM EDT Mixed hyperlipidemia SOB (shortness of breath) Chest pain, unspecified type Nonrheumatic aortic valve stenosis documented in this encounter Results * NT PROBNP (06/07/2025 2:41 PM EDT) NT Pro-BNP 144 <=852 pg/mL 06/07/2025 7:53 PM EDT [facility] Blood VENOUS BLOOD / Unknown Venipuncture / Unknown 06/07/2025 2:41 PM EDT 06/07/2025 2:41 PM EDT Narrative [facility] - 06/07/2025 7:53 PM EDT An NT pro-BNP level less than 300 pg/mL in any patient, regardless of age, effectively rules out acute CHF with a 99% negative predictive value. Ingestion of miranda doses of biotin (>5 mg/day) taken within 8 hours of drawing blood sample can interfere with this immunoassay test. us Bridgette Padron MEDICAL STENOGRAPHER CHEMISTRY ORDERABLES Fin al Result [facility] [address] [facility] , [address] [place] [id number] * (ABNORMAL) LIPID PANEL REFLEX (06/07/2025 2:41 PM EDT) Cholesterol 120 <200 mg/dL 06/07/2025 7:51 PM EDT [facility] Comment: < 200 Desirable 200 - 239 Borderline High >= 240 High Triglyceride 156(H) <150 mg/dL 06/07/2025 7:51 PM EDT [facility] Comment: < 150 Normal 150 - 199 Borderline High 200 - 499 High >= 500 Very High HDL 33(L) >=40 mg/dL 06/07/2025 7:51 PM EDT [facility] Comment: > 60 Optimal 40 - 60 Acceptable < 40 Low LDL Calculated 60 <100 mg/dL 06/07/2025 7:51 PM EDT [facility] Comment: < 100 Optimal 100 - 129 Near or above optimal 130 - 159 Borderline High 160 - 189 High >= 190 Very High The National Institutes of Health (NIH) equation is used for all lipid panels that report calculated LDL (LDL-C). Non-HDL-C Calculated 87 <=129 mg/dL 06/07/2025 7:51 PM EDT [facility] Comment: <130 Desirable 130-159 Above Desirable 160-189 Borderline High 190-219 High >= 220 Very High Fasting Specimen? No None 025 7:51 PM EDT [facility] Blood VENOUS BLOOD / Unknown Venipuncture / Unknown 06/07/2025 2:41 PM EDT 06/07/2025 2:41 PM EDT Bridgette Padron MEDICAL STENOGRAPHER CHEMISTRY ORDERABLES Fin al Result [facility] [address] [facility] , [place] [address] * (ABNORMAL) COMPREHENSIVE METABOLIC PANEL (06/07/2025 2:41 [...] 06/07/2025 7:51 PM EDT [facility] Albumin 3.8 3.2 - 4.6 gm/dL 06/07/2025 7:51 PM EDT [facility] Total Protein 6.7 6.4 - 8.3 gm/dL 06/07/2025 7:51 PM EDT [facility] Bili Total 0.5 0.2 - 1.4 mg/dL 06/07/2025 7:51 PM EDT [facility] ALT 8 <=41 U/L 06/07/2025 7:51 PM EDT [facility] AST 13 <=40 U/L 06/07/2025 7:51 PM EDT [facility] Alk Phos 119 40 - 129 U/L 06/07/2025 7:51 PM EDT [facility] eGFR (CKD-EPIcr 2020) 61 >=60 mL/min/1.7 3 m2 06/07/2025 7:51 PM EDT [facility] Comment:Estimated GFR was ca lculated using the CKD-EPIcr (2020) equation refit without race. The equation is recommended by the National Kidney Foundation - [place] [employer] of Nephrology Task Force. Blood VENOUS BLOOD / Unknown Venipuncture / Unknown 06/07/2025 2:41 PM EDT 06/07/2025 2:41 PM EDT us Bridgette Padron MEDICAL STENOGRAPHER CHEMISTRY ORDERABLES Fin al Result [facility] [address] [facility] , [place] [address] * (ABNORMAL) CBC (06/07/2025 2:41 PM EDT) WBC 7.4 3.7 - 10.3 x10(3)/mcL 06/07/2025 7:34 PM EDT [facility] RBC 4.03(L) 4.60 - 6.10 x10(6)/mcL 06/07/2025 7:34 PM EDT [facility] Hgb 13.0(L) 13.7 - 17.5 g/dL 06/07/2025 [...] - 369 x10(3)/mcL 06/07/2025 7:34 PM EDT [facility] MPV 10.1 8.8 - 12.5 fL 06/07/2025 7:34 PM EDT [facility] Blood VENOUS BLOOD / Unknown Venipuncture / Unknown 06/07/2025 2:41 PM EDT 06/07/2025 2:41 PM EDT Bridgette Padron MEDICAL STENOGRAPHER HEMATOLOGY ORDERABLES Fi nal Result [facility] [address] [facility], [place] [address] documented in this encounter Visit Diagnoses Diagnosis Mixed hyperlipidemia SOB (shortness of breath) Shortness of breath Chest pain, unspecified type Nonrheumatic aortic valve stenosis Aortic valve disorders documented in this encounter Additional Health Concerns Assessment Noted Time A fall risk assessment has been complete d for the patient 06/16/2020 10:01 AM EDT documented as of this encounter Care Teams Critical Care Nurse Practitioner Relationship Specialty Start Date End Date Darrius Fair MD [address] [place] [address] [address] [place] [address] PCP - General 03/05/11 Marcial Vizcarra MD [address] [place] [id number] Physician Internal Medicine-Gastroenterology 11/22/16 documented as of this encounter
--- OUTSIDE RECORDS SUMMARY | 2025-06-14 11:41 | XMS_ITS | Encounter Summary ---
Author Organization [place] [address] Care Team Providers Care Sub Master Name Role Phone Darrius Fair MD Primary Care Provider [phone] Marcial Vizcarra MD Unavailable [phone] Encounter Details Date Type Department Care Team (Latest Contact Info) Description 06/14/2025 11:41 AM EDT - 06/14/2025 11:59 PM EDT Hospital Encounter [facility] [address] [place] [address] Mixed hyperlipidemia; Precordial pain; Nonrheumatic aortic valve stenosis Discharge Disposition: Home [...] 01/03/2023 6:00 PM EST Cookendor thais, Lizzie, Licensed Mortgage Loan Officer documented in this encounter Medications at Time [...] mouth daily. 30 Tablet 5 08/23/2022 Insulin [place], Disposable, 30 gauge x 5/16 Misc Needle 1 Each by Misc.(Non-Drug ; [...] mg by mouth nightly. cyanocobalamin/folic acid (VITAMIN A40-MXFCF ACID) 1,000-400 mcg SL Lozenge 01/08/2023 nalOXone (NARCAN) 4 mg/actuation Nasl [place], Non-Aerosol 0.1 mL by Nasal route as needed for Opioid Reversal. [place] the contents of one device (0.1mL) into [...] [facility] [address] [place] [address] Bridgette Padron, [address] [address] 07/19/2025 1:00 PM EDT Office Visit [facility] Card[facility] Surgeons [address] [place] [phone] Mukund Noel MD [address] [place], [place] [id number] 08/03/2025 10:30 AM EDT Office Visit [facility] [address] [address] Bridgette Padron, [address] [address] documented as of this encounter Goals Goal Patient Goal Type Associated Problems Recent Progress Patient-Stated? Author Autogenerat ed Goal Care Plan Autogenerated Problem No Tara [place], NA documented as of this encounter Procedures Procedure Name Priority Date/Time Associated Diagnosis Comments COMPREHENSIVE METABOLIC PANEL Routine 06/14/2025 11:56 AM EDT Mixed hyperlipidemia Precordial pain Nonrheumatic aortic valve stenosis documented in this encounter Results * (ABNORMAL) COMPREHENSIVE METABOLIC PANEL (06/14/2025 11:56 AM EDT) Sodium 136 136 - 145 mmol/L 06/14/2025 9:09 PM EDT [facility] Potassium 3.8 3.5 - 5.0 mmol/L 06/14/2025 9:09 PM EDT [facility] Chloride 101 98 - 107 mmol/L 06/14/2025 9:09 PM EDT [facility] Total CO2 22 22 - 29 mmol/L 06/14/2025 9:09 PM EDT [facility] Anion Gap 13 7 - 16 mmol/L 06/14/2025 9:09 PM EDT [facility] Calcium 9.2 8.8 - 10.4 mg/dL 06/14/2025 9:09 PM EDT [facility] Glucose Lvl 107(H) 70 - 99 mg/dL 06/14/2025 9:09 PM EDT [facility] BUN 15 8 - 23 mg/dL 06/14/2025 9:09 PM EDT [facility] Creatinine 1.34(H) 0.67 - 1.30 mg/dL 06/14/2025 9:09 PM EDT [facility] Albumin 4.2 3.2 - 4.6 gm/dL 06/14/2025 9:09 PM EDT [facility] Total Protein 7.0 6.4 - 8.3 gm/dL 06/14/2025 9:09 PM EDT [facility] Bili Total 0.6 0.2 - 1.4 mg/dL 06/14/2025 9:09 PM EDT [facility] ALT 10 <=41 U/L 06/14/2025 9:09 PM EDT [facility] AST 15 <=40 U/L 06/14/2025 9:09 PM EDT [facility] Alk Phos 122 40 - 129 U/L 06/14/2025 9:09 PM EDT [facility] eGFR (CKD-EPIcr 2020) 54(L) >=60 mL/min/1.7 3 m2 06/14/2025 9:09 PM EDT [facility] Comment:Estimated GFR was ca lculated using the CKD-EPIcr (2020) equation refit without race. The equation is recommended by the National Kidney Foundation - [place] [employer] of Nephrology Task Force. Blood VENOUS BLOOD / Unknown Venipuncture / Unknown 06/14/2025 11:56 AM EDT 06/14/2025 11:56 AM EDT us Tobias Darby DO CHEMISTRY ORDERABLES Final R esult [facility] [address] [place] [address], [address] [place] [phone] documented in this encounter Visit Diagnoses Diagnosis Mixed hyperlipidemia Precordial pain Nonrheumatic aortic valve stenosis Aortic valve disorders documented in this encounter Orders Lab Orders Without Results Count Last Ordered D ate First Ordered Date BASIC METABOLIC PANEL 1 06/14/2025 documented in this encounter Additional Health Concerns Active Problems Noted Date Diagnosed Date Autogenerated Problem 06/10/2025 Assessment Noted Time A fall risk assessment has been complete d for the patient 06/16/2020 10:01 AM EDT documented as of this encounter Care Teams Sub Master Relationship Specialty Start Date End Date Darrius Fair MD [address] [place] [address] [address] [place] [address] PCP - General 03/05/11 Marcial Vizcarra MD [facility] [place] [address] [address] [facility] [place] [address] Physician Internal Medicine-Gastroenterology 11/22/16 documented as of this encounter
--- OUTSIDE RECORDS SUMMARY | 2025-06-17 07:57 | XMS_ITS | Encounter Summary ---
[place] [address] Care Team Providers Care Analysis Mgr Name Role Phone Darrius Fair MD Primary Care Provider [phone] Marcial Vizcarra MD Unavailable [phone] Reason for Referral * Consultation (Routine) - Pending Review Specialty Diagnoses / Procedures Referred By Lima mosqueda Referred To Contact Thoracic Surgery (Cardiothoracic Vascular Surgery) Diagnoses Coronary artery disease of [place] artery of [place] heart with stable angina pectoris Procedures IN OFFICE/OUTPATIENT NEW MODERATE MDM 45 MINUTES Tobias Darby DO [address] [place] [address] Phone: tel: fax: Mukund Noel MD [address] [place] [address] Phone: tel: fax: Referral ID Status Reason Start Date Expiration Date V isits Requested Visits Authorized [id number] Pending Review 06/17/2025 06/17/2026 1 1 Question Answer Reason for Referral: Coronary Artery Bypass Graft (CABG) Reason for Visit * Auth/Cert/Inpt Specialty Diagnoses / Procedures Referred By Lima mosqueda Referred To Contact Diagnoses Rheumatic aortic stenosis Chest pain, unspecified type Rheumatic aortic stenosis [I06.0] Chest pain, unspecified type [R07.9] Procedures IN CATH PLMT L HRT & ARTS W/NJX & ANGIO IMG S&I CORONARY ANGIOGRAM / CARDIAC CATHETERIZATION Referral ID Status Reason Start Date Expiration Date Visits Re quested Visits Authorized [id number] 1 1 Encounter Details Date Type Department Care Team (Latest Contact Info) Description 06/17/2025 7:57 AM EDT - 06/17/2025 12:11 PM EDT Hospital Encounter [facility] [address] [place] [address] Tobias Darby, DO [address] [place], [place] [id number] Coronary artery disease of [place] artery of [place] heart with stable angina pectoris (Primary Dx); Rheumatic aortic stenosis; Chest pain, unspecified type; Mixed hyperlipidemia Discharge Disposition: Home or Self Care Social [...] Sign Reading Time Taken Comments Blood Pressure 141/61 06/17/2025 11:55 AM EDT Pulse 62 06/17/2025 11:55 AM EDT Temperature - - Respiratory Rate 16 06/17/2025 11:55 AM EDT Oxygen Saturation 96% 06/17/2025 11:55 AM EDT Inhaled Oxygen Concentration - - Weight 104.3 kg (230 lb) 06/17/2025 8:12 AM EDT Height - - Body Mass Index 31.19 06/07/2025 1:18 PM EDT documented in this encounter Functional Status * Is the person deaf or does he/she have serious difficulty hearing? Answer Date of Assessment Author No 01/03/2023 6:00 PM Lizzie Almaguer, Sewage Disposal Engineer * Is the person blind or does he/she have serious difficulty seeing even when wearing glasses? Answer Date of Assessment Author No 01/03/2023 6:00 PM Lizzie Almaguer, Sewage Disposal Engineer * Does this person have serious difficulty [...] 01/03/2023 6:00 PM EST Cookendor thais, Lizzie, Sewage Disposal Engineer documented in this encounter Discharge Instructions * Discharge Instructions* Colleen Bustos, DAK[place] - 06/17/2025 10:48 AM EDT [facility] Discharge Instructions - Following Sedation A responsible adult, 18 years or older must be in attendance until the next morning. Rest quietly today. May resume usual diet. Do not drive or operate any machinery until the next morning or as instructed. Do not make any legal or important decisions for the next 24 hours. Do not drink alcoholic beverages or take sleeping pills for 24 hours unless otherwise directed. [facility]-Discharge IP/OP CARDIOVASCULAR ANGIOGRAM--RADIAL ACCESS [facility] Discharge Instructions - Arm Access Best wishes are extended to you on behalf of [facility] as you are discharged. Because we are most concerned with your health, we suggest you carefully read and take an active role in your overall health and follow these instructions. CARE FOR 24 HOURS FOLLOWING THE PROCEDURE: Rest quietly today. Caregiver needs to be present with you for the first 24-hours post-procedure, related to the sedation you have received during your procedure. Do not lift, bend, flex affected wrist/arm. Do not support weight on your affected wrist/arm when rising from a chair or bed. Do not subject hand/arm to any forceful movements for [address] a car for 24 hours. Return to your usual diet including, low fat, no added salt. Remove the bandage on the puncture site after 24 hours and replace with a Band- Aid or leave open toair. You may experience the following conditions: Discoloration and/or a small lump at the puncture site this will gradually go away. Soreness at the puncture site when you first begin to use your wrist/arm. Numbness at the puncture site; this should go away within 4-6 hours. CARE FOR FIRST THREE DAYS FOLLOWING YOUR PROCEDURE: Do not take a bath, swim, wash dishes or any activity which would require your hand/arm to be submersed in water. May shower and gently wash the puncture site after 24 hours. Do not lift anything heavier than 5 pounds with the affected arm, unless otherwise instructed by your doctor. Do not operate a lawnmower, motorcycle, chainsaw or other activities that require excessive wrist movement, unless otherwise instructed by your doctor. Do not engage in vigorous exercise i.e. tennis, golf, weight lifting, etc. CONCERNS: CALL YOUR PHYSICIAN???S OFFICE TO REPORT THE FOLLOWING Excessive pain in the area around puncture site or in the arm. Increase in swelling around puncture site or arm. Loss of color, extreme coldness or numbness of arm or hand. Sign of infection- fever, chills, and redness at puncture site. CONCERNS: BLEEDING Sit down, apply pressure for 10 minutes with your first three fingers of opposite arm over the access site Release pressure if bleeding has not stopped, reapply pressure and CALL 911; do not have someone drive you to the emergency room You may return to your normal activities on 06/20/2025. You may return to work on 06/20/2025. Do NOT stop taking ASPIRIN, PLAVIX (CLOPIDOGREL), BRILINTA (TICAGRELOR) OR EFFIENT (PRASUGREL) for any reason without first discussing with your physician, due to the risk of heart attack and . IF PAIN INTENSIFIES OR PAIN IS UNRELIEVED WITH MEDICATIONS ORDERED, CALL YOUR PHYSICIAN. MEDICATIONS: A copy of the discharge medication instruction sheet was provided. *Contact your physician before resuming any medication from home not listed in the discharge medication instruction sheet. ADDITIONAL INSTRUCTIONS: Smoking is hazardous to your health. Second hand smoke is hazardous to those around you. If you smoke, you can contact your Primary Care Provider for smoking cessation information and classes. HEART FAILURE: Call your physician if you experience any weight gain of 4 lbs. in 2 days, chest discomfort, swelling of feet/ankles, frequent dry hacking cough especially when lying down, dizziness, fainting, passing out, difficulty breathing, leg cramping, decrease in activity tolerance, problems related to current illness/procedure or if symptoms persist or worsen. I HAVE RECEIVED AND UNDERSTAND THE ABOVE INSTRUCTIONS. documented in this encounter Medications at Time [...] Take 5 mg by mouth nightly. 05/17/2023 hydroCHLOROthiazid e (HYDRODIURIL) 25 mg Oral Tablet Take 1 Tablet by mouth daily. 30 Tablet 5 08/23/2022 Insulin [place], Disposable, 30 gauge x 04/09 Misc Needle 1 Each by Mis.(Non-Drug; Combo Route) route daily. 100 Each 4 [...] capsule Take 0.4 mg by mouth nightly. documented as of this encounter Ordered Prescriptions Prescription Sig Dispense Quantity Refills Last Filled Start Date End Date rosuvastatin (CRESTOR) 20 mg Oral TabletIndications:Mi xed hyperlipidemia Take 1 Tablet by mouth nightly. 90 Tablet 3 06/17/2025 5 documented in this encounter Discharge Disposition Disposition Code Departure Means Destination Comment s Home or Self Long Term documented in this encounter H&P Notes * Tobias Darby DO - 06/17/2025 8:28 AM EDT Addendum PHYSICIAN IMMEDIATE PRE-PROCEDURE UPDATE H&P and SEDATION ASSESSMENT Risks, benefits, potential complications and alternatives have been discussed with patient and/or patient's legal authorized entry level account representative. HISTORY AND PHYSICAL H&P is less than 30 days old and reviewed. Patient evaluated by ABRASIVE WHEEL MOLDER at office visit, having typical angina, high pre-test probability for CAD, decision was made to undergo cardiac catheterization. Risks/benefits discussed with patient. SEDATION ASSESSMENT The patient's immediate pre-procedure physical assessment indicates the patient is a suitable candidate for and agrees to the planned sedation: Moderate sedation Patient has been NPO for a sufficient period of time to allow for gastric emptying. Comment: Patient has no previous adverse experience to anesthesia. Comment: Patient's cardiovascular function and vital signs are within patient's defined baseline. Comment: Patient's airway has been assessed and consideration has been given as to how it might alter the patient's response to sedation. Comment: Mallampati score III Source Note - Bridgette Padron APRN - 06/07/2025 1:30 PM EDT [facility] CC: Chief [...] mg by mouth nightly. cyanocobalamin/folic acid (VITAMIN [id number]-ORKGZ ACID) 1,000-400 mcg SL Lozenge (Patient not taking: Reported on 06/07/2025) Insulin [place], Disposable, 30 gauge x 5/16 Misc Needle 1 Each by Mis.(Non- Drug; Combo Route) route daily. (Patient not taking: Reported on 06/07/2025) 100 Each 4 nalOXone (NARCAN) 4 mg/actuation Nasl [place], Non-Aerosol 0.1 mL by Nasal route as needed for OpioidReversal. [place] the contents of one device (0.1mL) into one nostril upon signs of opioid overdose. Call 911. May repeat dose in other nostril if no response within 2-3 minutes. (Patient not taking: Reported on 06/07/2025) 1 Each 0 No current facility-administered medications for this visit. COUNT INCLUDES THE [facility] Past Medical History: Diagnosis Date Arthritis Clostridium [...] Living Expenses: Not very hard Received from [employer] Food Insecurities Received from [employer] Transportation Physical Activity: Insufficiently Active (09/20/2023) Exercise Vital Sign Days of Exercise per Week: 5 days Minutes of Exercise per Session: 20 min Received from [employer] Interpersonal Safety Received from [employer] Housing/Utilities Past Surgical History: Procedure Laterality Date [...] POSTERIOR FUSION; Surgeon: Clifford Velasco MD; Location: [facility] MAIN OR; Service: Spine NECK SURGERY UPPER [...] mass index is 33.36 kg/m??. Constitutional: NAD, [place] Neck: Mild JVD. Cardiovascular: RRR, S1 & [...] 06/07/25 2:49 PM documented in this encounter Procedure Notes * Tobias Darby DO - 06/17/2025 8:48 AM EDT [facility] CARDIAC PROCEDURE NOTE Jonathon Lara June 17, 2025 PRE-OP DIAGNOSIS: Chest Pain/Dyspnea POST-OP DIAGNOSIS: CAD PROCEDURE(S): [facility] Coronary angiography LVEDP PRESSURE: 14 mmHg FINDINGS: Moderate diffuse LM disease extending into proximal LAD High grade mid LAD disease High grade ostial Lcx disease involving high OM1 vs RI Catheter induced vasospasm involving RCA, resolved with catheter withdrawal LVEDP 14 mmHg Mild , mean PG <10 mmHg SPECIMENS: none PLAN: CT surgery consult for CABG CONDITION POST PROCEDURE: STABLE ESTIMATED BLOOD LOSS: <50ml COMPLICATIONS (IF YES, LIST COMPLICATIONS): No Tobias Darby DO Date: 06/17/2025 documented in this encounter Miscellaneous Notes * Plan of Care - Colleen Bustos RN - 06/17/2025 9:50 AM EDT Problem: 4M's of Age Friendly Care Goal: What matters to patient and family Outcome: Progressing Goal: Mentation Outcome: Progressing Goal: Mobility Outcome: Progressing Goal: Medication Outcome: Progressing Problem: Potential for anxiety Description: Related to: Procedure Goal: Patient verbalizes an understanding of planned interventions and/or demonstrates signs of decreased anxiety. Outcome: Progressing Problem: Potential for alteration in skin integrity Description: Related to: Procedure Goal: Pre-op skin integrity will be maintained. Outcome: Progressing Problem: Pain Management Goal: The patient's stated pain goal will be reached and maintained. Outcome: Progressing Problem: Safety: Fall Risk Description: Related to: Procedure Goal: Patient will be free from falls. Outcome: Progressing Problem: Potential for injury Description: Related to: Procedure Goal: Patient is free from signs or symptoms of physical injury unrelated to the intended therapeutic effects of the procedure. Outcome: Progressing Problem: Pain Management Description: Related to: Procedure Goal: The patient's stated pain goal will be reached and maintained. Outcome: Progressing Problem: Potential for altered respiratory status. Description: Related to: Sedation/Anesthesia Goal: Patient will remain free of respiratory complications. Outcome: Progressing Problem: Bleeding Goal: Access site will be free of hematoma/bleeding. Outcome: Progressing Problem: Potential for post-op nausea/vomiting Description: Related to procedure Goal: Patient will be free of post-op nausea/vomiting or nausea/vomiting will be controlled. Outcome: Progressing Problem: Potential for altered tissue perfusion-contrast reaction/renal impairment Description: Related to: Contrast administration Goal: Patient will be free of contrast reaction and GFR will remain baseline. Outcome: Progressing Problem: Potential for alteration in skin integrity Goal: Skin integrity is maintained or improved Outcome: Progressing Problem: Alteration in circulation/neurovascular status Goal: Circulation/neurovascular status will be maintained. Outcome: Progressing Problem: Safety: Fall Risk Goal: Patient will be free from falls. Outcome: Progressing Problem: Thermoregulation Goal: Patient's temperature will be greater than 96.8F at discharge. Outcome: Progressing Problem: Pain Management Description: Related to: Procedure Goal: The patient's stated pain goal will be reached and maintained. Outcome: Completed Problem: Potential for Infection Description: Related to: -Invasive lines (IV, CVD, Indwelling Urinary Catheter) -Alteration in skin integrity related to positioning during procedure -Surgical Site Goal: Patient will be free from infection Outcome: Completed Problem: Potential for injury Description: Related to: Procedure Goal: Patient is free from signs or symptoms of physical injury unrelated to the intended therapeutic effects of the procedure. Outcome: Completed Problem: Bleeding Description: Related to: Procedure Goal: Patient will have no signs/symptoms of bleeding. Outcome: Completed Problem: Alteration in circulation/neurovascular status Description: Related to: Procedure Goal: Patient will maintain adequate tissue perfusion. Outcome: Completed Problem: Potential for altered tissue perfusion-contrast reaction/renal impairment Description: Related to: Contrast administration Goal: Patient will be free of contrast reaction and contrast administration will be minimized. Outcome: Completed Problem: Potential for respiratory impairment Description: Related to: Sedation/Anesthesia Goal: Patient will remain free of respiratory complications. Outcome: Completed * Plan of Care - Gladys Siddiqui RN - 06/17/2025 8:56 AM EDT Problem: 4M's of Age Friendly Care Goal: What matters to patient and family Outcome: Adequate for Discharge Goal: Mentation Outcome: Adequate for Discharge Goal: Mobility Outcome: Adequate for Discharge Goal: Medication Outcome: Adequate for Discharge Problem: Potential for anxiety Description: Related to: Procedure Goal: Patient verbalizes an understanding of planned interventions and/or demonstrates signs of decreased anxiety. Outcome: Adequate for Discharge Problem: Potential for alteration in skin integrity Description: Related to: Procedure Goal: Pre-op skin integrity will be maintained. Outcome: Adequate for Discharge Problem: Pain Management Goal: The patient's stated pain goal will be reached and maintained. Outcome: Adequate for Discharge Problem: Safety: Fall Risk Description: Related to: Procedure Goal: Patient will be free from falls. Outcome: Adequate for Discharge Problem: Potential for injury Description: Related to: Procedure Goal: Patient is free from signs or symptoms of physical injury unrelated to the intended therapeutic effects of the procedure. Outcome: Adequate for Discharge * Plan of Care - Colleen Bustos RN - 06/17/2025 8:13 AM EDT Problem: 4M's of Age Friendly Care Goal: What matters to patient and family Outcome: Progressing Goal: Mentation Outcome: Progressing Goal: Mobility Outcome: Progressing Goal: Medication Outcome: Progressing Problem: Potential for anxiety Description: Related to: Procedure Goal: Patient verbalizes an understanding of planned interventions and/or demonstrates signs of decreased anxiety. Outcome: Progressing Problem: Potential for alteration in skin integrity Description: Related to: Procedure Goal: Pre-op skin integrity will be maintained. Outcome: Progressing Problem: Pain Management Goal: The patient's stated pain goal will be reached and maintained. Outcome: Progressing Problem: Safety: Fall Risk Description: Related to: Procedure Goal: Patient will be free from falls. Outcome: Progressing Problem: Potential for injury Description: Related to: Procedure Goal: Patient is free from signs or symptoms of physical injury unrelated to the intended therapeutic effects of the procedure. Outcome: Progressing documented in this encounter Plan of Treatment Upcoming Encounters Date Type Department Care Team (Late st Contact Info) Description 07/01/2025 1:00 PM EDT Appointment [facility] [address] [place] [address] Bridgette Padron, KURTIS [address] [place] [address] [place] [address] 07/19/2025 1:00 PM EDT Office Visit [facility] [address] [place] [address] Mukund Noel MD [address] [place] [address] 08/03/2025 10:30 AM EDT Office Visit [facility] [address] [address] Bridgette Padron, KURTIS [address] [place] [address] [place] [address] Scheduled Referrals Name Type Priority Associated Diagnoses Orde r Schedule AMB REFERRAL TO CARDIAC SURGERY Outpatient Referral Routine Coronary artery disease of [place] artery of [place] heart with stable angina pectoris Ordered: 06/17/2025 documented as of this encounter Goals Goal Patient Goal Type Associated Problems Recent Progress Patient-Stated? Author Autogenerat ed Goal Care Plan Autogenerated Problem No Tara Pacheco, NA documented as of this encounter Procedures Procedure Name Priority Date/Time Associated Diagnosis Comments CARDIAC PROCEDURE Routine 06/17/2025 9:4 2 AM EDT Rheumatic aortic stenosis Chest pain, unspecified type CARDIAC PROCEDURE Routine 06/17/2025 9:4 2 AM EDT Rheumatic aortic stenosis Chest pain, unspecified type FAMILY LAW MEDIATOR HEMODYNAMIC WAVEFORMS Routine 06/17/2025 8:58 AM EDT documented in this encounter Results * CORONARY ANGIOGRAM (COR/LHC/LV GRAM, CARDIAC CATHETERIZATION), LEFT HEART CATH (06/17/2025 9:42 AM EDT) Narrative [facility] - 06/19/2025 2:45 PM EDT Mid LAD lesion is 80% stenosed. Ost Cx lesion is 80% stenosed. 1st Mrg lesion is 80% stenosed. Mid LM to Dist LM lesion is 40% stenosed. Procedure Details CARDIAC CATHETERIZATION PROCEDURE NOTE: Procedures Performed: 1. Ultrasound guided radial artery access 2. Left Heart Catheterization 3. Selective Coronary Angiography 4. Moderate (Conscious) Sedation Procedure in Detail: The risks, benefits and alternatives were explained in detail to the patient and informed consent was granted. The patient was brought to the cardiac cath laboratory suite and was prepped and draped in the usual sterile fashion. Conscious sedation was achieved with IV versed and fentanyl. Please see additional notes from procedure for the total time of physician supervised moderate sedation and total doses of drugs administered. 2% lidocaine was used to provide local anesthesia over the right wrist. Using a modified Seldinger technique a 6 Fr radial artery sheath was introduced into the right radial artery. Verapamil and nitroglycerin were administered via the radial artery sheath to prevent vasospasm. Weight based heparin was administered via the radial sheath for anticoagulation. The following catheters were used: Left Main: 5Fr JL 3.5 RCA: 5 Fr Steffi LV: 5 Fr Pigtail Catheter Selective coronary angiography of the coronary arteries was performed in various projections. A 5 Fr Pigtail catheter was introduced into the left ventricle and hemodynamic measurements were made in the left ventricle. The catheter was then pulled back across the aortic valve to assess for an aortic valve pressure gradient. During the case meticulous sheath and catheter care was performed with frequent saline flushes. Hemostasis was achieved using a radial artery hemostatic band. The patient was transferred to the cardiac ship laborer holding area in stable condition. There were no complications noted during the procedure. Estimated blood loss was less than 5 to 10 ml. Coronary Findings Diagnostic Dominance: Right Left Main: Mid LM to Dist LM lesion is 40% stenosed. Small LM per body size, likely underestimated severity angiographically Left Anterior Descending: Mid LAD lesion is 80% stenosed. The lesion is located at a bifurcation. Left Circumflex: Ost Cx lesion is 80% stenosed. First Obtuse Marginal Branch: 1st Mrg lesion is 80% stenosed. Right Coronary Artery: Catheter induced vasospasm in proximal RCA, resolved w/ catheter withdrawal Intervention No interventions have been documented. Study Details 80 yo male presented w/ typical angina,high pre-test probability, decision made to undergo cardiac catheterization for evaluation of obstructive CAD. Left Heart Pressures LV systolic/diastolic : 124/3 LVEDP /post-A wave : 14 mmHg us Tobias R Darby DO CARDIAC CATH ORDERABLES Nicole l Result [facility] * FAMILY LAW MEDIATOR HEMODYNAMIC WAVEFORMS (06/17/2025 8:58 AM EDT) 06/17/2025 8:58 AM EDT us Tobias R Darby DO CARDIAC CATH ORDERABLES Nicole l Result Performing Organization Address City/[facility]/ZIP Co de Phone Number [facility] [address] [place] [address] documented in this encounter Visit Diagnoses Diagnosis Coronary artery disease of [place] artery of [place] heart with stable angina pectoris- Primary Rheumatic aortic stenosis Chest pain, unspecified type Mixed hyperlipidemia Chest pain, unspecified type documented in this encounter Administered Medications Inactive Administered Medications - up to 1 most recent administrations Medication Order MAR Action Action Date Dose Rate Site 0.9 % NaCl infusion 1 mL/kg/hr 88.3 kg Adjusted weight (88.3 mL/hr), Intravenous, PREPROCEDURE, Starting on Lo 06/17/25 at 0938, Until Lo 06/17/25 at 1616, Pre-Procedure(Cath) 0.9 % NaCl infusion Intravenous, at 100 mL/hr, CONTINUOUS, Starting on Lo 06/17/25 at 1015, Until Lo 06/17/25 at 1414, Recovery(Cath) Rate/Dose Change 06/17/2025 9:55 AM EDT 100 mL/hr aspirin tablet 325 mg 325 mg, Oral, PREPROCEDURE, 1 dose, Starting on Lo 06/17/25 at 0838, Until Lo 06/17/25 at 0839, Pre-procedure, Only give pre-procedure if patient did not take ordered 325 mg aspirin at home, or is not taking aspirin at all. Do not give if patient takes aspirin 81 mg at home. If patient allergic to aspirin, call physician., Pre-Procedure(Cath) Given 06/17/2025 8:39 AM EDT 325 mg atropine injection 1 mg 1 mg, Intravenous, PRN, Starting on Lo 06/17/25 at 1002, Until Lo 06/17/25 at 1616, Symptomatic bradycardia, emergency treatment, Administer IV push for symptomatic bradycardia, may repeat every 3-5 minutes to total of 3 mg. , Recovery(Cath) dextrose 50 % solution 25 g 25 g, Intravenous, PRN, Starting on Lo 06/17/25 at 1002, Until Lo 06/17/25 at 1616, Low blood sugar, for emergency treatment of profound hypoglycemia, May repeat in 15 minutes. VESICANT , Recovery(Cath) EPINEPHrine injection 1 mg 1 mg, Intravenous, PRN, Starting on Lo 06/17/25 at 1002, Until Lo 06/17/25 at 1616, Ventricular fibrillation, Emergency order for V-FIB or Pulseless V-TACH, Emergency order for V-FIB or Pulseless V-TACH, Asystole, PEA. VESICANT , Recovery(Cath) sodium chloride 0.9 % 264.9 mL IV bolus Intravenous, PREPROCEDURE, 1 dose, Starting on Lo 06/17/25 at 0838, Until Lo 06/17/25 at 0921, at 264.9 mL/hr, Start immediately upon arrival: 0.9% sodium chloride at 3 mL/kg/ for one hour, then 1 mL/kg/hr, Pre-Procedure(Cath) IV Started 06/17/2025 8:21 AM EDT 264.9 mL/hr documented in this encounter Discontinued Medications Medication Sig Discontinue Reason Start Date End Da te rosuvastatin (CRESTOR) 10 mg Oral TabletIndications:Mixed hyperlipidemia Take 1 Tablet by mouth daily. 06/07/2025 06/17/2025 cyanocobalamin/folic acid (VITAMIN W61-MHECL ACID) 1,000-400 mcg SL Lozenge Stop Taking at Discharge 01/08/2023 06/17/2025 nalOXone (NARCAN) 4 mg/actuation Nasl [place], Non-Aerosol 0.1 mL by Nasal route as needed for Opioid Reversal. [place] the contents of one device (0.1mL) into one nostril upon signs of opioid overdose. Call 911. May repeat dose in other nostril if no response within 2-3 minutes. Stop Taking at Discharge 08/20/2024 06/17/2025 documented as of this encounter Active and Recently Administered Medications Times are shown in EDT. Continuous Medication Order 06/15/2025 06/16/2025 06/17/2025 0.9 % NaCl infusion Intravenous, at 100 mL/hr, CONTINUOUS, Starting on Lo 06/17/25 at 1015, Until Lo 06/17/25 at 1414, Recovery(Cath) 0955 (Rate/Dose López ge - Provider: Colleen Bustos RN)1616 (Due: Order Ending - Provider: Automatic Discharge Provider - Comment: [Order ends at this time. Document the following action when infusion is complete: Stopped]) PRN Medication Order 06/15/2025 06/16/2025 06/17/2025 0.9 % NaCl infusion 1 mL/kg/hr 88.3 kg Adjusted weight (88.3 mL/hr), Intravenous, PREPROCEDURE, Starting on Lo 06/17/25 at 0938, Until Lo 06/17/25 at 1616, Pre-Procedure(Cath) aspirin tablet 325 mg (COMPLETED) 325 mg, Oral, PREPROCEDURE, 1 dose, Starting on Lo 06/17/25 at 0838, Until Lo 06/17/25 at 0839, Pre-procedure, Only give pre-procedure if patient did not take ordered 325 mg aspirin at home, or is not taking aspirin at all. Do not give if patient takes aspirin 81 mg at home. If patient allergic to aspirin, call physician., Pre-Procedure(Cath) 0839 (Given - Provid er: Colleen Bustos RN) atropine injection 1 mg 1 mg, Intravenous, PRN, Starting on Lo 7/25 at 1002, Until Lo 7/25 at 1616, Symptomatic bradycardia, emergency treatment, Administer IV push for symptomatic bradycardia, may repeat every 3-5 minutes to total of 3 mg. , Recovery(Cath) dextrose 50 % solution 25 g 25 g, Intravenous, PRN, Starting on Lo 7 at 1002, Until Lo 7/25 at 1616, Low blood sugar, for emergency treatment of profound hypoglycemia, May repeat in 15 minutes. VESICANT , Recovery(Cath) EPINEPHrine injection 1 mg 1 mg, Intravenous, PRN, Starting on Lo 7 at 1002, Until Lo 7/25 at 1616, Ventricular fibrillation, Emergency order for V-FIB or Pulseless V-TACH, Emergency order for V-FIB or Pulseless V-TACH, Asystole, PEA. VESICANT , Recovery(Cath) fentaNYL (SUBLIMAZE) injection (CANCELED) INTRAPROCEDURE, Starting on Lo 7 at 0906, Until Lo 725 at 0942, Intra-procedure(Cath) 0906 (Given - Provid er: Colleen Bustos RN)0912 (Given - Provider: Colleen Bustos RN) fentaNYL (SUBLIMAZE) injection (CANCELED) INTRAPROCEDURE, Starting on Lo 7/25 at 0940, Until Lo 7/25 at 0951, Intra-procedure(Cath) 0940 (Given - Provid er: Colleen Bustos RN) heparin (porcine) injection (CANCELED) INTRAPROCEDURE, Starting on Lo 7/25 at 0938, Until Lo 7/24/25 at 0942, Intra-procedure(Cath) 0938 (Given - Provid er: Colleen Bustos RN) heparin 2 units/ml in 0.9% NaCl 500 mL (CANCELED) INTRAPROCEDURE, Starting on Lo 7/24/25 at 0939, Until Lo 7 at 0942, Intra-procedure(Cath) 0939 (Given - Provid er: Tobias Darby DO) iopamidoL (ISOVUE-370) 370 mg iodine /mL (76 %) injection (LOW) (CANCELED) INTRAPROCEDURE, Starting on Lo 7/25 at 0941, Until Lo 725 at 0942, Intra-procedure(Cath) 09 (Given - Provid er: Tobias Darby DO) lidocaine 20 mg/mL (2 %) injection (CANCELED) INTRAPROCEDURE, Starting on Lo 7/25 at 0910, Until Lo 725 at 0942, Intra-procedure(Cath) 09 (Given - Provid er: Tobias Darby DO) midazolam (VERSED) injection (CANCELED) INTRAPROCEDURE, Starting on Lo 7 at 0906, Until Lo 725 at 0942, Intra-procedure(Cath) 09 (Given - Provid er: Colleen Bustos RN) nitroglycerin injection (CANCELED) INTRAPROCEDURE, Starting on Lo 7/25 at 0912, Until Lo 725 at 0942, Intra-procedure(Cath) 09 (Given - Provid er: Tobias Darby DO) sodium chloride 0.9 % 264.9 mL IV bolus (COMPLETED) Intravenous, PREPROCEDURE, 1 dose, Starting on Lo 7 at 0838, Until Lo 7 at 0921, at 264.9 mL/hr, Start immediately upon arrival: 0.9% sodium chloride at 3 mL/kg/ for one hour, then 1 mL/kg/hr, Pre-Procedure(Cath) 08 (IV Started - P rovider: Colleen Bustos RN)09 (Due: Stopped - Provider: Colleen Bustos RN) verapamiL (ISOPTIN) injection (CANCELED) INTRAPROCEDURE, Starting on Lo 724/25 at 0912, Until Lo 7/25 at 0942, Intra-procedure(Cath) 09 (Given - Provid er: Tobias Darby DO) documented in this encounter Orders Medications Ordered That Noé ht Not Have Been Administered Count Last Ordered Date First Ordered Date 0.9 % NaCl infusion 1 06/17/2025 atropine injection 1 mg 1 06/17/2025 dextrose 50 % solution 25 g 1 06/17/2025 EPINEPHrine injection 1 mg 1 06/17/2025 fentaNYL (SUBLIMAZE) injection 2 06/17/2025 heparin (porcine) injection 1 06/17/2025 heparin 2 units/ml in 0.9% NaCl 500 mL 1 iopamidoL (ISOVUE-370) 370 m g iodine /mL (76 %) injection (LOW) 1 06/17/2025 lidocaine 20 mg/mL (2 %) injection 1 2024 midazolam (VERSED) injection 1 06/17/2025 nitroglycerin injection 1 06/17/2025 verapamiL (ISOPTIN) injection 1 06/17/2025 Discharge Count Last Ordered Date First Orde red Date DISCHARGE PATIENT 1 06/17/2025 documented in this encounter Additional Health Concerns Active Problems Noted Date Diagnosed Date Autogenerated Problem 06/10/2025 Assessment Noted Time A fall risk assessment has been complete d for the patient 06/16/2020 10:01 AM EDT documented as of this encounter Care Teams Analysis Mgr Relationship Specialty Start Date End Date Darrius Fair MD [address] [place] [address] PCP - General 03/05/11 Marcial Vizcarra MD [address] [facility] [place] [address] Physician Internal Medicine-Gastroenterology 11/22/16 documented as of this encounter
--- OUTSIDE RECORDS SUMMARY | 2025-06-17 09:00 | XMS_ITS | Encounter Summary ---
Author Organization [place] [address] Care Team Providers Care Bushing Press Operator Name Role Phone Darrius Fair MD Primary Care Provider [phone] Marcial Vizcarra MD Unavailable [phone] Reason for Visit * Auth/Cert/Inpt Specialty Diagnoses / Procedures Referred By Lima t Referred To Contact Diagnoses Rheumatic aortic stenosis Chest pain, unspecified type Rheumatic aortic stenosis [I06.0] Chest pain, unspecified type [R07.9] Procedures WA CATH PLMT L HRT & ARTS W/NJX & ANGIO IMG S&I CORONARY ANGIOGRAM / CARDIAC CATHETERIZATION Referral ID Status Reason Start Date Expiration Date Visits Re quested Visits Authorized [id number] 1 1 Encounter Details Date Type Department Care Team (Late st Contact Info) Description 06/17/2025 9:00 AM EDT - 06/17/2025 10:00 AM EDT Surgery [facility] FO[facility] AND BEVERAGE ATTENDANT [address] [place], [place] [id number] Tobias Darby, DO [address] [place], [place] [id number] CORONARY ANGIOGRAM / CARDIAC CATHETERIZATION Surgery Details Date/Time Status Location OR Service Patient Class Case Class Case Type Trauma Case? 06/17/2025 9:00 AM Posted [facility] ATTEND[facility] IMAGING [facility] CCL 1 Cardiac Same Day Surgery Elective Panel 1 Procedure LRB Anes Op Region Wound Class Comments CORONARY ANGIOGRAM / CARDIAC CATHETERIZATION N/A Moderate Sedation CORONARY ANGIOGRAM / CARDIAC CATHETERIZATION LEFT HEART CATHETERIZATION N/A Moderate Sedation Surgeon Surgeon Role Service Panel Tobias Darby R, DO Primary Cardiac 1 documented in this encounter Social History Tobacco Use Types Packs/Day Years [...] Sign Reading Time Taken Comments Blood Pressure 142/65 06/17/2025 9:50 AM EDT Pulse 62 06/17/2025 9:50 AM EDT Temperature - - Respiratory Rate 12 06/17/2025 9:50 AM EDT Oxygen Saturation 96% 06/17/2025 9:50 AM EDT Inhaled Oxygen Concentration - - Weight 104.3 kg (230 lb) 06/17/2025 8:12 AM EDT Height - - Body Mass Index 31.19 06/07/2025 1:18 PM EDT documented in this encounter Functional Status * Is the person deaf or does he/she have serious difficulty hearing? Answer Date of Assessment Author No 01/03/2023 6:00 PM Lizzie Almaguer, Property Loss Insurance Claim Adjuster * Is the person blind or does he/she have serious difficulty seeing even when wearing glasses? Answer Date of Assessment Author No 01/03/2023 6:00 PM Lizzie Almaguer, Property Loss Insurance Claim Adjuster * Does this person have serious difficulty walking or climbing stairs? Answer Date of Assessment Author No 01/03/2023 6:00 PM Lizzie Almaguer, Property Loss Insurance Claim Adjuster * Does this person have difficulty dressing or bathing? Answer Date of Assessment Author No 01/03/2023 6:00 PM Lizzie Almaguer, Property Loss Insurance Claim Adjuster * Because of a physical, mental or emotional condition, does this person have difficulty doing errands alone such as visiting a doctor's office or shopping? Answer Date of Assessment Author No 01/03/2023 6:00 PM Lizzie Almaguer, Property Loss Insurance Claim Adjuster documented as of this encounter Mental Status * Because of a physical, mental or emotional condition, does this person have serious difficulty concentrating, remembering or making decisions? Answer Entry Date Author No 01/03/2023 6:00 PM Lizzie Almaguer, Property Loss Insurance Claim Adjuster documented in this encounter Discharge Instructions * Discharge Instructions* Colleen Bustos RN - 06/17/2025 10:48 AM EDT [facility] Discharge Instructions - Following Sedation A responsible [...] otherwise directed. [facility]-Discharge IP/OP CARDIOVASCULAR ANGIOGRAM--RADIAL ACCESS [facility] Discharge Instructions - Arm Access Best wishes are extended to you on behalf of [facility] as you are discharged. Because we are [...] mouth daily. 30 Tablet 5 08/23/2022 Insulin [place], Disposable, 30 gauge x 04/09 Misc Needle [...] by mouth nightly. 90 Tablet 3 06/17/2025 documented in this encounter Discharge Disposition Disposition Code Departure Means Destination Comment s Home or Self Custodial documented in this encounter H&P Notes * Tobias Darby, - 06/17/2025 8:28 AM EDT Addendum PHYSICIAN IMMEDIATE PRE-PROCEDURE UPDATE H&P and SEDATION ASSESSMENT Risks, benefits, potential complications and alternatives have been discussed with patient and/or patient's legal authorized tax compliance representative. HISTORY AND PHYSICAL H&P is less than 30 days old and reviewed. Patient evaluated by FUELER at office visit, having typical angina, high [...] Mallampati score III Source Note - Bridgette Padron, KURTIS - 06/07/2025 1:30 PM EDT [facility] Note CC: Chief [...] mg by mouth nightly. cyanocobalamin/folic acid (VITAMIN L86-VKPPB ACID) 1,000-400 mcg SL Lozenge (Patient not taking: Reported on 06/07/2025) Insulin [place], Disposable, 30 gauge x 04/09 Misc Needle 1 Each by Mis.(Non- Drug; Combo Route) route daily. (Patient not taking: Reported on 06/07/2025) 100 Each 4 nalOXone (NARCAN) 4 mg/actuation Nasl [place], Non-Aerosol 0.1 mL by Nasal route as needed for OpioidReversal. [place] the contents of one device (0.1mL) into one nostril upon signs of opioid overdose. Call 911. May repeat dose in other nostril if no response within 2-3 minutes. (Patient not taking: Reported on 06/07/2025) 1 Each 0 No current facility-administered medications for this visit. [facility] Past Medical History: Diagnosis Date Arthritis [...] Living Expenses: Not very hard Received from [employer] [facility] [employer] [facility] Food Insecurities Received from [employer] and [facility] Transportation Physical Activity: Insufficiently Active (09/20/2023) Exercise Vital Sign Days of Exercise per Week: 5 days Minutes of Exercise per Session: 20 min Received from [facility] Interpersonal Safety Received from [facility] [employer] [facility] Housing/Utilities Past Surgical History: Procedure Laterality Date [...] mass index is 33.36 kg/m??. Constitutional: NAD, [place] Neck: Mild JVD. Cardiovascular: RRR, S1 & [...] documented in this encounter Procedure Notes * Darby, Tobias R, DO - 06/17/2025 8:[address] [facility] CARDIAC PROCEDURE NOTE Jonathon Lara Neo June 17, 2025 PRE-OP DIAGNOSIS: Chest Pain/Dyspnea POST-OP DIAGNOSIS: CAD PROCEDURE(S): [facility] Coronary angiography LVEDP PRESSURE: 14 mmHg FINDINGS: [...] EDT Appointment FTT ECHO [address] [place] [id number] Bridgette Padron, FUELER [address] [place] [address] 07/19/2025 1:00 PM EDT Office Visit [facility] Cardiac Surgeons [address] [place] [address] Mukund Noel MD [address] [place], [place] [id number] 08/03/2025 10:30 AM EDT Office Visit [facility] [address] [address] Bridgette Padron, FUELER [address] [place] [address] Scheduled Referrals Name Type Priority Associated Diagnoses Orde r Schedule AMB REFERRAL TO CARDIAC SURGERY Outpatient Referral Routine Coronary artery disease of [place] artery of [place] heart with stable angina pectoris Ordered: 06/17/2025 [...] Rheumatic aortic stenosis Chest pain, unspecified type FOOD AND BEVERAGE ATTENDANT HEMODYNAMIC WAVEFORMS Routine 06/17/2025 8:58 AM EDT [...] The patient was transferred to the cardiac wetlands conservation laborer holding area in stable condition. There [...] DO CARDIAC CATH ORDERABLES Nicole l Result [facility] * FOOD AND BEVERAGE ATTENDANT HEMODYNAMIC WAVEFORMS (06/17/2025 8:58 AM EDT) 06/17/2025 8:58 AM EDT us Tobias R Darby DO CARDIAC CATH ORDERABLES Nicole l Result Performing Organization Address [facility] [[email or web address]] Co de Phone Number [phone] [address] [place] [address] documented in this encounter Visit Diagnoses Diagnosis Coronary artery disease of [place] artery of [place] heart with stable angina pectoris- Primary Rheumatic [...] PEA. VESICANT , Recovery(Cath) fentaNYL (SUBLIMAZE) injection INTRAPROCEDURE, Starting on Lo 06/17/25 at 0906, Until Lo 06/17/25 at 0942, Intra-procedure(Cath ) Given 06/17/2025 9:12 AM EDT 25 mcg fentaNYL (SUBLIMAZE) injection INTRAPROCEDURE, Starting on Lo 06/17/25 at 0940, Until Lo 06/17/25 at 0951, Intra-procedure(Cath ) Given 06/17/2025 9:40 AM EDT 25 mcg heparin (porcine) injection INTRAPROCEDURE, Starting on Lo 06/17/25 at 0938, Until Lo 06/17/25 at 0942, Intra-procedure(Cath ) Given 06/17/2025 9:38 AM EDT 3,000 Units heparin 2 units/ml in 0.9% NaCl 500 mL INTRAPROCEDURE, Starting on Lo 06/17/25 at 0939, Until Lo 06/17/25 at 0942, Intra-procedure(Cath ) Given 06/17/2025 9:39 AM EDT 2 'Bag' iopamidoL (ISOVUE-370) 370 mg iodine /mL (76 %) injection (LOW) INTRAPROCEDURE, Starting on Lo 06/17/25 at 0941, Until Lo 06/17/25 at 0942, Intra-procedure(Cath ) Given 06/17/2025 9:41 AM EDT 90 mL lidocaine 20 mg/mL (2 %) injection INTRAPROCEDURE, Starting on Lo 06/17/25 at 0910, Until Lo 06/17/25 at 0942, Intra-procedure(Cath ) Given 06/17/2025 9:10 AM EDT 1.5 mL Right Wrist midazolam (VERSED) injection INTRAPROCEDURE, Starting on Lo 06/17/25 at 0906, Until Lo 06/17/25 at 0942, Intra-procedure(Cath ) Given 06/17/2025 9:06 AM EDT 2 mg nitroglycerin injection INTRAPROCEDURE, Starting on Lo 06/17/25 at 0912, Until Lo 06/17/25 at 0942, Intra-procedure(Cath ) Given 06/17/2025 9:12 AM EDT 200 mcg sodium chloride 0.9 % 264.9 mL IV bolus Intravenous, PREPROCEDURE, 1 dose, Starting on Lo 06/17/25 at 0838, Until Lo 06/17/25 at 0921, at 264.9 mL/hr, Start immediately upon arrival: 0.9% sodium chloride at 3 mL/kg/ for one hour, then 1 mL/kg/hr, Pre-Procedure(Cath) IV Started 06/17/2025 8:21 AM EDT 264.9 mL/hr verapamiL (ISOPTIN) injection INTRAPROCEDURE, Starting on Lo 06/17/25 at 0912, Until Lo 06/17/25 at 0942, Intra-procedure(Cath ) Given 06/17/2025 9:12 AM EDT 2.5 mg documented in this encounter Discontinued Medications Medication Sig Discontinue Reason Start Date End Da te rosuvastatin (CRESTOR) 10 mg Oral TabletIndications:Mixed hyperlipidemia Take 1 Tablet by mouth daily. 06/07/2025 06/17/2025 cyanocobalamin/folic acid (VITAMIN F20-BUEAN ACID) 1,000-400 mcg SL Lozenge Stop Taking at Discharge 01/08/2023 06/17/2025 nalOXone (NARCAN) 4 mg/actuation Nasl [place], Non-Aerosol 0.1 mL by Nasal route as needed for Opioid Reversal. [place] the contents of one device (0.1mL) into [...] 25 g, Intravenous, PRN, Starting on Lo 725 at 1002, Until Lo 725 at 1616, Low blood sugar, for emergency treatment of profound hypoglycemia, May repeat in 15 minutes. VESICANT , Recovery(Cath) EPINEPHrine injection 1 mg 1 mg, Intravenous, PRN, Starting on Lo 725 at 1002, Until Lo 725 at 1616, Ventricular fibrillation, Emergency order for V-FIB or Pulseless V-TACH, Emergency order for V-FIB or Pulseless V-TACH, Asystole, PEA. VESICANT , Recovery(Cath) fentaNYL (SUBLIMAZE) injection (CANCELED) INTRAPROCEDURE, Starting on Lo 7/25 at 0906, Until Lo 725 at 0942, Intra-procedure(Cath) 0906 (Given - Provid er: Colleen Bustos RN)0912 (Given - Provider: Colleen Bustos RN) fentaNYL (SUBLIMAZE) injection (CANCELED) INTRAPROCEDURE, Starting on Lo 7/25 at 0940, Until Lo 724/25 at 0951, Intra-procedure(Cath) 0940 (Given - Provid er: Colleen Bustos RN) heparin (porcine) injection (CANCELED) INTRAPROCEDURE, Starting on Lo 7/25 at 0938, Until Lo 7/24/25 at 0942, Intra-procedure(Cath) 0938 (Given - Provid er: Colleen Bustos RN) heparin 2 units/ml in 0.9% NaCl 500 mL (CANCELED) INTRAPROCEDURE, Starting on Lo 724/25 at 0939, Until Lo 7/24/25 at 0942, Intra-procedure(Cath) 0939 (Given - Provid er: Tobias Darby DO) iopamidoL (ISOVUE-370) 370 mg iodine /mL (76 %) injection (LOW) (CANCELED) INTRAPROCEDURE, Starting on Lo 7/24/25 at 0941, Until Lo 7/24/25 at 0942, Intra-procedure(Cath) 0941 (Given - Provid er: Tobias Darby DO) lidocaine 20 mg/mL (2 %) injection (CANCELED) INTRAPROCEDURE, Starting on Lo 7 at 0910, Until Lo 7 at 0942, Intra-procedure(Cath) 0910 (Given - Provid er: Tobias Darby DO) midazolam (VERSED) injection (CANCELED) INTRAPROCEDURE, Starting on Lo 06/17/25 at 0906, Until Lo 7 at 0942, Intra-procedure(Cath) 09 (Given - Provid er: Colleen Bustos RN) nitroglycerin injection (CANCELED) INTRAPROCEDURE, Starting on Lo 7 at 0912, Until Lo 7 at 0942, Intra-procedure(Cath) 0912 (Given - Provid er: Tobias Darby DO) sodium chloride 0.9 % 264.9 mL IV bolus (COMPLETED) Intravenous, PREPROCEDURE, 1 dose, Starting on Lo 06/17/25 at 0838, Until Lo 7 at 0921, at 264.9 mL/hr, Start immediately upon arrival: 0.9% sodium chloride at 3 mL/kg/ for one hour, then 1 mL/kg/hr, Pre-Procedure(Cath) 0821 (IV Started - P rovider: Colleen Bustos RN)0921 (Due: Stopped - Provider: Colleen Bustos RN) verapamiL (ISOPTIN) injection (CANCELED) INTRAPROCEDURE, Starting on Lo 06/17/25 at 0912, Until Lo 7 at 0942, Intra-procedure(Cath) 09 (Given - Provid er: Tobias Darby DO) documented in this encounter Orders Medications Ordered That Noé ht Not Have Been Administered Count Last Ordered Date First Ordered Date 0.9 % NaCl infusion 1 06/17/2025 atropine injection 1 mg 1 06/17/2025 dextrose 50 % solution 25 g 1 06/17/2025 EPINEPHrine injection 1 mg 1 06/17/2025 Discharge Count Last Ordered Date First Orde red Date DISCHARGE PATIENT 1 06/17/2025 documented in this encounter Additional Health Concerns Active Problems Noted Date Diagnosed Date Autogenerated Problem 06/10/2025 Assessment Noted Time A fall risk assessment has been complete d for the patient 06/16/2020 10:01 AM EDT documented as of this encounter Care Teams Bushing Press Operator Relationship Specialty Start Date End Date Darrius Fair MD [address] [place] [address] PCP - General 03/05/11 Marcial Vizcarra MD [address] [place] [address] Physician Internal Medicine-Gastroenterology 11/22/16 documented as of this encounter
[2025-06-22 15:02] LABS: Hematocrit 43.3 % (42.0-52.0); Hemoglobin 14.8 g/dL (14.1-18.0); Immature Granulocytes % 0.4 %; Mean Corpuscular HGB Conc 34.2 g/dL (31.8-35.4); Mean Corpuscular Hemoglobin 32.6 pg (27.0-31.2); Mean Corpuscular Volume 95.4 fl (80-94); Nucleated Red Blood Cells % 0 %; Platelet Count 276 K/mm3 (142-424); Red Blood Count 4.54 M/mm3 (4.60-6.20); Red Cell Distribution Width-SD 47.8 fL; White Blood Count 9.3 K/mm3 (4.8-10.8)
--- OUTSIDE RECORDS SUMMARY | 2025-06-23 12:29 | XMS_ITS | Encounter Summary ---
Author Organization [place] [address] Care Team Providers Care Information Clerk Brokerage Name Role Phone Darrius Fair MD Primary Care Provider [phone] Marcial Vizcarra MD Unavailable Deb Garcia RN Unavailable Un available Encounter Details Date Type Department Care Team (Late st Contact Info) Description 12/01/2012 Orders Only [facility] [address] [facility] [address] [place] [address] Marcial Vizcarra MD [address] [place], [place] [id number] Social History Tobacco Use Types Packs/Day Years [...] FTT ECHO [address] [place] [place] [address] Bridgette Padron, LAND RESOURCE SPECIALIST [address] [place] [address] [place] [address] 07/19/2025 1:00 PM EDT Office Visit [facility] Cardiac Surgeons [address] [place] [address] Mukund Noel MD [address] [place] [address] 08/03/2025 10:30 AM EDT Office Visit [facility] [address] [address] Bridgette Padron, [address] [place] [address] documented as of this encounter Procedures Procedure Name Priority Date/Time Associated Diagnosis Comments GMED EGD Routine 12/01/2012 12:00 AM EST documented in this encounter Results * GMED EGD (12/01/2012 12:00 AM EST) 12/01/2012 Impressions [facility] - 12/01/2012 2:20 PM EST Medium hiatal hernia Stricture of the gastroesophageal junction (dilation) Otherwise normal EGD to second part of the duodenum Narrative [facility] - 12/01/2012 2:20 PM EST Performing Provider: Marcial Vizcarra M.D. Referring Provider: Rosalio Fair MD us Marcial Vizcarra MD GI PROCEDURE ORDERABLES Fin al Result [facility] [address] [facility] [address] [address] documented in this encounter Visit Diagnoses Not on filedocumented in this encounter Additional Health Concerns Infection Onset Date Last Indicated Resolved Time R/O C-Diff 09/16/2019 09/16/2019 09/16/2019 2:46 PM EDT R/O C-Diff 12/10/2019 12/10/2019 12/10/2019 8:04 PM EST COVID-19 Comment:Reports positive home test on 09/1109/11/2023 09/18/2023 10/08/2023 10:12 PM EST documented as of this encounter Care Teams Information Clerk Brokerage Relationship Specialty Start Date End Date Darrius Fair MD [address] [place] [address] PCP - General 03/05/11 Marcial Vizcarra MD [address] [facility] [address] [place] [address] Physician Internal Medicine-Gastroenterology 11/22/16 Deb Garcia, RN Registered Nurse 06/02/20 06/02/20 documented as of this encounter
--- OUTSIDE RECORDS SUMMARY | 2025-06-23 12:29 | XMS_ITS | Encounter Summary ---
Author Organization [place] [address] Care Team Providers Care Tracer Clerk Name Role Phone Darrius Fair MD Primary Care Provider [phone] Marcial Vizcarra MD Unavailable [phone] Encounter Details Date Type Department Care Team (Late st Contact Info) Description 03/04/2023 Orders Only [facility] [address] [facility] [address] [place] [address] Marcial Vizcarra MD [address] [place] [address] Social History Tobacco Use Types Packs/Day [...] Author No 01/03/2023 6:00 PM Lizzie Almaguer, Community Liaison Officer * Is the person blind or does he/she have serious difficulty seeing even when wearing glasses? Answer Date of Assessment Author No 01/03/2023 6:00 PM Lizzie Almaguer, Community Liaison Officer * Does this person have serious difficulty walking or climbing stairs? Answer Date of Assessment Author No 01/03/2023 6:00 PM Lizzie Almaguer, Community Liaison Officer * Does this person have difficulty dressing or bathing? Answer Date of Assessment Author No 01/03/2023 6:00 PM Lizzie Almaguer, Community Liaison Officer * Because of a physical, mental or emotional condition, does this person have difficulty doing errands alone such as visiting a doctor's office or shopping? Answer Date of Assessment Author No 01/03/2023 6:00 PM Lizzie Almaguer, Community Liaison Officer documented as of this encounter Mental Status * Because of a physical, mental or emotional condition, does this person have serious difficulty concentrating, remembering or making decisions? Answer Entry Date Author No 01/03/2023 6:00 PM Lizzie Almaguer Community Liaison Officer documented in this encounter Plan of Treatment Upcoming Encounters Date Type Department Care Team (Late st Contact Info) Description 07/01/2025 1:00 PM EDT Appointment [facility] [address] [place] [address] Bridgette Padron APRN [address] [place], [place] [id number] 07/19/2025 1:00 PM EDT Office Visit [facility] Cardiac Surgeons [address] [place] [address] Mukund Noel MD [address] [place] [address] 08/03/2025 10:30 AM EDT Office Visit [facility] [place] [id number] Bridgette Padron [employer]GS[employer] F[employer]ER [address] [facility] [place] [address] documented as of this encounter Procedures Procedure Name Priority Date/Time Associated Diagnosis Comments GMED EGD Routine 03/04/2023 1:00 PM EDT documented in this encounter Results * GMED EGD (03/04/2023 1:00 PM EDT) 03/04/2023 1:00 PM EDT Impressions [facility] - 03/04/2023 2:12 PM EDT Normal duodenum. Hiatal Hernia. Tortuosity of the esophageal lumen was noted, consistent with presbyesophagus. Plan: Follow-up as needed This section is an excerpt of the full report. us Marcial Vizcarra MD GI PROCEDURE ORDERABLES Fin al Result [facility] [address] [place] [address] documented in this encounter Visit Diagnoses Not on filedocumented in this encounter Additional Health Concerns Infection Onset Date Last Indicated Resolved Time COVID-19 Comment:Reports positive home test on 09/1109/11/2023 09/18/2023 10/08/2023 10:12 PM EST Assessment Noted Time A fall risk assessment has been complete d for the patient 06/16/2020 10:01 AM EDT documented as of this encounter Care Teams Tracer Clerk Relationship Specialty Start Date End Date Darrius Fair MD [address] [place] [address] PCP - General 03/05/11 Marcial Vizcarra MD [address] [place] [address] Physician Internal Medicine-Gastroenterology 11/22/16 documented as of this encounter
--- OUTSIDE RECORDS SUMMARY | 2025-06-23 12:29 | XMS_ITS | Clinical Summary ---
Author Organization [facility] Address [address] [place] [address] Care Team Providers Care Peanut Sheller Name Role Phone None, None Primary Care [...] Date Primary osteoarthritis of right knee 05/01/2024 Family History Medical History Relation Name Comments [...] - 1-dose 75+ series) 2022 COVID-19 Vaccine (2023- season) 2024 Advance Care Planning 11/25/2024 Depression Screening 11/25/2024 Lipid Monitoring 03/27/2025 03/27/2024 Influenza Vaccination (#1) 2025 Lipid Screening Discontinued 03/27/2024 Medical Devices Implanted Type Area Cloth Shrinking Machine Operator Helper Device Identifier Shelf Expiration Date Model / Serial / Lot Attune Pat Med Shannan 35mm - [id number] Implanted:Qty : 1 on 06/11/2024 by Ney Amaral MD at [facility] Right: Knee [employer] \T\ [employer] [id number] 03/24/2029 [id number] / / [id number] Attune Tib Base Afxm Fxd Bear Sz 7 - [id number] Implanted:Qty : 1 on 06/11/2024 by Ney Amaral MD at [facility] Right: Knee [employer] \T\ [employer] [id number] 03/24/2034 [id number] / / [id number] Cruciate Retaining Sz7 - [id number] Implanted:Qty : 1 on 06/11/2024 by Ney Amaral MD at [facility] Right: Knee [employer] \T\ [employer] [id number] 02/22/2033 [id number] / / [id number] Cement Bone Simplex Hv - [id number] Implanted:Qty : 1 on 06/11/2024 by Ney Amaral MD at [facility] Right: Knee [employer] [id number] 07/25/2025 [id number] / / [id number] Tibial Insert Fixed Bearing Sz7 - [id number] Implanted:Qty : 1 on 06/11/2024 by Ney Amaral MD at [facility] Right: Knee [employer] \T\ [employer] [id number] 02/23/2032 [id number] / / [id number] - [id number] Implanted:Qty : 1 on 06/11/2024 by Ney Amaral MD at [facility] Right: Knee [employer] \T\ [employer] [id number] / / Insurance [employer]ARE Care Teams Peanut Sheller Relationship Specialty Start Date End Date None, None [address] [place] [address] PCP - General 06/11/24
--- OUTSIDE RECORDS SUMMARY | 2025-06-23 12:29 | XMS_ITS | Clinical Summary ---
Author Organization [facility] Address [address] [place] [address] Phone Care Team Providers Care Classified Advertising Manager Name Role Phone Antonieta Ulloa MD [facility] [phone] Conditions or Problems Problem Name Problem Code Onset Date Status Entry Date Provider Comment Standard Description Annotate HERNIATED LUMBAR DISC 300878455 (SNOMED CT) Active Jalen Mckeon MD Prolapsed lumbar intervertebral disc Medications Medication Instructions Start Date Stop Date Generic Name NDC Provider MEDROL 4 MG TBPK take as directed 6 days METHYLPREDNISOLONE [id number] Jalen Mckeon MD PROTONIX 40 MG SOLR Non-Warren PANTOPRAZOLE SODIUM [id number] Jalen Mckeon MD MOBIC TABLET Non-Warren MELOXICAM TABS [id number] Jalen Mckeon MD Medications Administered No information [...]
--- OUTSIDE RECORDS SUMMARY | 2025-06-23 12:29 | XMS_ITS | Encounter Summary ---
Author Organization [place] [address] Care Team Providers Care Audio Specialist Name Role Phone Darrius Fair MD Primary Care Provider [phone] Marcial Vizcarra MD Unavailable [phone] Reason for Visit * Reason Onset Date Comments Other 06/08/2025 Encounter Details Date Type Department Care Team (Latest Contact Info) Description 06/08/2025 Results Follow-Up [facility] [address] [place] [address] Bridgette Padron, VIDEO GAME CREATOR [address] [place] [address] CBC, COMPREHENSIVE METABOLIC PANEL, LIPID PANEL REFLEX, NT PROBNP Social History Tobacco Use Types Packs/Day Years [...] Author No 01/03/2023 6:00 PM Lizzie Almaguer, Delivery Rn * Is the person blind or does [...] No 01/03/2023 6:00 PM EST Lizzie Horton, Delivery Rn documented in this encounter Miscellaneous Notes * Telephone Encounter - Jaylin Kelly - 06/11/2025 9:31 AM EDT Pt's daughter called back. Please call when possible. documented in this encounter Plan of Treatment Upcoming Encounters Date Type Department Care Team (Late st Contact Info) Description 07/01/2025 1:00 PM EDT Appointment [facility] [address] [place] [address] Bridgette Padron, [address] [place] [address] 07/19/2025 1:00 PM EDT Office Visit [facility] Cardiac Surgeons [address] [place] [id number] Mukund Noel MD [address] [place] [address] 08/03/2025 10:30 AM EDT Office Visit [facility] [address] [address] Bridgette Padron, [address] [address] documented as of this encounter Visit Diagnoses Not on filedocumented in this encounter Additional Health Concerns Assessment Noted Time A fall risk assessment has been complete d for the patient 06/16/2020 10:01 AM EDT documented as of this encounter Care Teams Audio Specialist Relationship Specialty Start Date End Date Darrius Fair MD [facility] [address] [place] [phone] PCP - General 03/05/11 Marcial Vizcarra MD [address] [place] [phone] Physician Internal Medicine-Gastroenterology 11/22/16 documented as of this encounter
--- OUTSIDE RECORDS SUMMARY | 2025-06-23 12:29 | XMS_ITS | Clinical Summary ---
Author Organization [facility] [place] Address [address] [facility] [address] [place] [address] Phone Care Team Providers Care Abstract Manager Name Role Phone Darrius Fair MD Primary Care Provider [phone] Marcial Vizcarra MD Unavailable [phone] Allergies No known active allergies Medications tamsulosin (FLOMAX) 0.4 mg capsule Take 0.4 mg by mouth nightly. Active cyanocobalamin 1,000 mcg Oral Tablet Take 5,000 mcg by mouth daily. 021 Active hydroCHLOROthiazi de (HYDRODIURIL) 25 mg Oral Tablet Take 1 Tablet by mouth daily. 30 Tablet 5 022 Active Additional Information Patient taking differently: 12.5 mgOral DAILY, Reason: Advised by Physician, Reported on 06/17/2025 finasteride (PROSCAR) 5 mg Oral Tablet Take 5 mg by mouth nightly. 023 Active Insulin [place], Disposable, 30 gauge x 16 Misc Needle 1 Each by Misc.(Non-Drug ; Combo Route) route daily. 100 Each 4 023 Active Additional Information Patient not taking.Reason: Therapy Completed, Reported on 06/17/2025 Cholecalciferol, Vitamin D3, 50 mcg (2,000 unit) Oral TabletIndications :Kyphosis of thoracic region, unspecified kyphosis type,Age related osteoporosis, unspecified pathological fracture presence Take 1 Tablet by mouth daily. 90 Tablet 2 024 Active albuterol (PROVENTIL HFA;VENTOLIN HFA) 90 mcg/actuation Inhl HFA Aerosol Inhaler INHALE 2 PUFFS INTO THE LUNGS EVERY 4 TO 6 HOURS NEEDED FOR SHORTNESS OF BREATH OR WHEEZING. 024 Active pregabalin (LYRICA) 100 mg Oral Capsule 100 mg. 024 Active methocarbamoL (ROBAXIN) 500 mg Oral Tablet Take 1 Tablet by mouth 2 times daily. 60 Tablet 4 Active omeprazole (PRILOSEC) 40 mg Oral Capsule, Delayed Release(E.C.) Take 1 Capsule by mouth 2 times daily (before meals). 60 Capsule 024 Active LEVOthyroxine (SYNTHROID) 50 mcg Oral Tablet Take 50 mcg by mouth daily. Active rosuvastatin (CRESTOR) 20 mg Oral TabletIndications :Mixed hyperlipidemia Take 1 Tablet by mouth nightly. 90 Tablet 3 025 Active tiZANidine (ZANAFLEX) 4 mg Oral TabletIndications :Neck pain Take 0.5 Tablets by mouth nightly as needed for Muscle spasms. 14 Tablet 022 2024 Discontinued(P atient Reported not taking medication) cyanocobalamin/fo lic acid (VITAMIN Q77-YGHKL ACID) 1,000-400 mcg SL Lozenge 023 2024 Discontinued(S top Taking at Discharge) gabapentin (NEURONTIN) 600 mg Oral TabletIndications :Status post lumbar spinal fusion,Lumbar radiculopathy Take 1 Tablet by mouth 2 times daily. 60 Tablet 3 024 2024 Discontinued(P atient Reported not taking medication) pramipexole (MIRAPEX) 0.125 mg Oral Tablet Take 0.125 mg by mouth daily. 024 2024 Discontinued(P atient Reported not taking medication) rosuvastatin (CRESTOR) 10 mg Oral TabletIndications :Mixed hyperlipidemia Take 1 Tablet by mouth daily. 30 Tablet 11 024 2024 Discontinued nalOXone (NARCAN) 4 mg/actuation Nasl Olga, Non-Aerosol 0.1 mL by Nasal route as needed for Opioid Reversal. Olga the contents of one device (0.1mL) into one nostril upon signs of opioid overdose. Call 911. May repeat dose in other nostril if no response within 2-3 minutes. 1 Each 024 2024 Discontinued(S top Taking at Discharge) ibuprofen (ADVIL;MOTRIN) 800 mg Oral TabletIndications :Sacroiliitis,Lum bar radiculopathy,Sta tus post lumbar spinal fusion,Lumbar spondylosis,Degen eration of intervertebral disc of lumbar region with lower extremity pain Take 1 Tablet by mouth 3 times daily. 90 Tablet 024 2024 Discontinued(P atient Reported not taking medication) HYDROcodone-aceta minophen (NORCO) 5-325 mg Oral TabletIndications :Status post lumbar laminectomy Take one tablet by mouth every 8 hours PRN 40 Tablet 024 2024 Discontinued(P atient Reported not taking medication) rosuvastatin (CRESTOR) 10 mg Oral TabletIndications :Mixed hyperlipidemia Take 1 Tablet by mouth daily. 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 08/14/2023 Overview (08/14/2023): Added automatically from request for surgery [id number] Postoperative anemia 01/03/2023 Cervical myelopathy 12/20/2022 Overview (12/20/2022): Added automatically from request for surgery [id number] Neck pain 11/14/2022 Bilateral shoulder pain 11/14/2022 EKNNY (acute kidney injury) 08/23/2022 Assessment & Plan [...] EDT): History of congestive heart failure-managed at [facility] Supraventricular tachycardia 08/11/2021 Assessment & Plan (08/11/2021 3:08 PM EDT): Status post ablation and EP study-followed at [facility] Moderate protein-calorie malnutrition 05/17/2021 Assessment & Plan [...] (01/24/2021): Added automatically from request for surgery [id number] Thickening of esophagus 05/29/2020 Intractable nausea and [...] (11/20/2019): Added automatically from request for surgery [id number] Perforated viscus 11/08/2018 06/02/2020 Gastric outlet obstruction 0 06/02/2020 Encounters Date Type Department Care Team Description 06/17/2025 9:00 AM EDT - 06/17/2025 10:00 AM EDT Surgery [facility] [employer] [address] [place] [address] Tobias Darby DO CORONARY ANGIOGRAM / CARDIAC CATHETERIZATION 06/17/2025 7:57 AM EDT - 06/17/2025 12:11 PM EDT Hospital Encounter [facility] [address] 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); Rheumatic aortic stenosis; Chest pain, unspecified type; Mixed hyperlipidemia Discharge Disposition: Home or Self Care 06/15/2025 Results Follow-Up [facility] [address] [place] [address] Rosalina Pimentel APRN COMPREHENSIVE METABOLIC PANEL 06/14/2025 11:41 AM EDT - 06/14/2025 11:59 PM EDT Hospital Encounter [facility] [address] [place] [address] Mixed hyperlipidemia; Precordial pain; Nonrheumatic aortic valve stenosis Discharge Disposition: Home or Self Care 06/14/2025 Orders Only [facility] [address] [place] [address] Tobias Darby, Mixed hyperlipidemia (Primary Dx); Precordial pain; Nonrheumatic aortic valve stenosis 06/14/2025 Telephone [facility] [address] [place] [address] Tobias Darby, Procedure 06/08/2025 Results Follow-Up [address] [address] Bridgette Padron APRN CBC, COMPREHENSIVE METABOLIC PANEL, LIPID PANEL REFLEX, NT PROBNP 06/07/2025 2:41 PM EDT - 06/07/2025 11:59 PM EDT Hospital Encounter [facility] [address] [address] Mixed hyperlipidemia; SOB (shortness of breath); Chest pain, unspecified type; Nonrheumatic aortic valve stenosis Discharge Disposition: Home or Self Care 06/07/2025 1:30 PM EDT Office Visit [facility] [address] Bridgette Padron APRN Dyspnea on exertion (Primary Dx); SOB (shortness of breath); Chest pain, unspecified type; Nonrheumatic aortic valve stenosis; Diastolic dysfunction; Essential hypertension; Mixed hyperlipidemia 06/03/2025 3:50 PM EDT Ancillary Procedure [facility] [address] [address] Fadumo Curran NP S/P total knee arthroplasty, right 06/03/2025 3:15 PM EDT Ancillary Procedure [facility] [address] [place] [address] Fadumo Curran NP Primary osteoarthritis of left knee 06/03/2025 3:00 PM EDT Office Visit [facility] [address] [place] [address] Fadumo Curran NP Primary osteoarthritis of left knee (Primary Dx); S/P total knee arthroplasty, right 05/27/2025 Refill [facility] [address] [address] Tobias Darby, DO Medication Refill; Central Patient Navigator Outreach (med refill - 30 HV ) 04/27/2025 11:15 AM EDT [facility] [place] [address] Ney Amaral MD S/P total knee arthroplasty, [...] POSTERIOR FUSION; Surgeon: Clifford Velasco MD; Location: [facility] MAIN OR; Service: Spine Medical devices [...] Pulse 62 06/17/2025 11:55 AM EDT Temperature 36.6 C (97.8 F) 10/26/2024 9:30 AM EST Respiratory Rate 16 06/17/2025 11:55 AM EDT Oxygen Saturation 96% 06/17/2025 11:55 AM EDT Inhaled Oxygen Concentration - - Weight 104.3 kg (230 lb) 06/17/2025 8:12 AM EDT Height 182.9 cm (6') 06/07/2025 1:18 PM EDT Body Mass Index 31.19 06/07/2025 1:18 PM EDT Plan of Treatment Upcoming Encounters Date Type Department Care Team (Late st Contact Info) Description 07/01/2025 1:00 PM EDT Appointment [facility] [address] [place] [address] Bridgette Padron, ELECTRICAL INSTALLATION SUPERVISOR [address] [facility] [place] [address] 07/19/2025 1:00 PM EDT Office Visit [facility] [address] [place] [id number] Mukund Noel MD [address] [place] [address] 08/03/2025 10:30 AM EDT Office [place] [address] Bridgette Padron, ELECTRICAL INSTALLATION SUPERVISOR[address] [place] [address] Health Maintenance Due Date Last Done Comments Wellness Exam Medicare 1948 Hepatitis C Screening 1963 Zoster (2 of 3) 01/14/2015 11/19/2014 RSV or 60+ (1 - 1-dose 75+ series) 2022 COVID-19 Vaccine (2023-2 5 season) 2024 12/05/2021, 12/28/2020, 12/01/2020 DTaP/TDaP/Td (3 - Td or Tdap) 11/19/2024, 11/19/2014 Influenza Vaccine (#1) 2025 Pneumococcal Vaccine 50+ Completed 017, 11/19/2014 Hepatitis B Vaccine Aged Out No longe r eligible based on patient's age to complete this topic Meningococcal B Vaccine Aged Out No l onger eligible based on patient's age to complete this topic Goals Goal Patient Goal Type Associated Problems Recent Progress Patient-Stated? Author Autogenerat ed Goal Care Plan Autogenerated Problem No Tara Pacheco, NA Medical Devices Implanted Type Area Supervisor Welding Equipment Repairer Device Identifier Shelf Expiration Date Model / Serial / Lot Iol Device Fixation Strap Absorbable 12 Straps Secure Strap 5mm - [id number] Implanted:Qty : 1 on 09/12/2018 by Oneil Koroma MD at [facility] Left: Inguinal J&J:ETHICON:END O-SURGERY 06/24/2020 [id number] / [id number] / [id number] Mesh 3d Left Large [id number] - [id number] Implanted:Qty : 1 on 09/12/2018 by Oneil Koroma MD at [facility] Left: Inguinal CR BARD:DAVOL 03/22/2023 [id number] / [id number] / [id number] Putty 1ml I-Fact Dbm Crsh Syr Bg - [id number] Implanted:Qty : 1 on 01/02/2023 by Clifford Velasco MD at [facility] N/A: Spine Cervical CERAPEDICS 07/25/2025 [id number] / / [id number] Cage Spinal Acis Proti 10 Degree Large 8 Mm - [id number] Implanted:Qty : 1 on 01/02/2023 by Clifford Velasco MD at [facility] N/A: Spine Cervical J&J:DEPUY:DEPUY SPINE [id number] 10/02/[id number] Putty 1ml I-Fact Dbm Crsh Syr Bg - [id number] Implanted:Qty : 1 on 01/02/2023 by Clifford Velasco MD at [facility] N/A: Spine Cervical CERAPEDICS 06/24/2025 700-010 / / [id number] Cage Spinal Acis Proti 10 Degree Large 8 Mm - [id number] Implanted:Qty : 1 on 01/02/2023 by Clifford Velasco MD at [facility] N/A: Spine Cervical J&J:DEPUY:DEPUY SPINE [id number] 10/02/[id number] Cage Spinal Acis Proti 10 Degree Large 8 Mm - [id number] Implanted:Qty : 1 on 01/02/2023 by Clifford Velasco MD at [facility] N/A: Spine Cervical J&J:DEPUY:DEPUY SPINE [id number] 10/02/2024 [id number] / / [id number] Scr Bn 4mm 14mm [place] Ti - [id number] Implanted:Qty : 8 on 01/02/2023 by Clifford Velasco MD at [facility] N/A: Spine Cervical J&J:DEPUY:DEPUY SPINE [id number] / / Plt 14mm Prebnt 68b89i5.5mm Ti - [id number] Implanted:Qty : 1 on 01/02/2023 by Clifford Velasco MD at [facility] N/A: Spine Cervical J&J:DEPUY:DEPUY SPINE [id number] / / Kt Graft 1.4ml Infs Xs Angelo Matrx 2-Tn Bnd 5ml Strl H2o - [id number] Implanted:Qty : 1 on 09/19/2023 by Clifford Velasco MD at [facility] N/A: Spine Lumbar MEDTRONIC:SOFAM OR DANEK [id number] 11/24/2024 [id number] / / [id number] Cage Spinal Modulus Alif [id number] 20 Angle Degree - [id number] Implanted:Qty : 1 on 09/19/2023 by Clifford Velasco MD at [facility] N/A: Spine Lumbar NUVASIVE 03/30/2026 [id number] / / [id number] [place] Spinal Modulus Alif 5.0mm X 22.5mm Fixed Titanium - [id number] Implanted:Qty : 1 on 09/19/2023 by Clifford Velasco MD at [facility] N/A: Back NUVASIVE [id number] / / [place] Spinal Modulus Alif 5.0mm X 25mm Fixed Titanium - [id number] Implanted:Qty : 1 on 09/19/2023 by Clifford Velasco MD at [facility] N/A: Back NUVASIVE [id number] / / Screw Lock Reline Tul[place] Open 5.5mm - [id number] Implanted:Qty : 4 on 09/19/2023 by Clifford Velasco MD at [facility] N/A: Back NUVASIVE [id number] / / Screw Bn 7.5mm 50mm Reline 2c Spne Pa Ns Mas - [id number] Implanted:Qty : 1 on 09/19/2023 by Clifford Velasco MD at [facility] N/A: Back NUVASIVE [id number] / / Screw Bn 7.5mm 40mm Reline 2c Spne Pa Ns Mas - [id number] Implanted:Qty : 3 on 09/19/2023 by Clifford Velasco MD at [facility] N/A: Back NUVASIVE [id number] / / Song Ti Mas Reline 5.5 X 35mm Lordotic - [id number] Implanted:Qty : 1 on 09/19/2023 by Clifford Velasco MD at [facility] N/A: Back NUVASIVE [id number] / / Song Ti Mas Reline 5.5 X 40mm Lordotic - [id number] Implanted:Qty : 1 on 09/19/2023 by Clifford Velasco MD at [facility] N/A: Back NUVASIVE [id number] / / Gel Propel Dbm 5cc - [id number] Implanted:Qty : 1 on 09/19/2023 by Clifford Velasco MD at [facility] N/A: Back NUVASIVE 02/20/2026 [id number] / / [id number] Procedures Procedure Name Priority Date/Time Associated Diagnosis Comments CARDIAC PROCEDURE Routine 06/17/2025 9:4 2 AM EDT Rheumatic aortic stenosis Chest pain, unspecified type CARDIAC PROCEDURE Routine 06/17/2025 9:4 2 AM EDT Rheumatic aortic stenosis Chest pain, unspecified type CROWN WHEEL ASSEMBLER HEMODYNAMIC WAVEFORMS Routine 06/17/2025 8:58 AM EDT COMPREHENSIVE METABOLIC PANEL Routine 06/14/2025 11:56 AM EDT Mixed hyperlipidemia Precordial pain Nonrheumatic aortic valve stenosis NT PROBNP Routine 06/07/2025 2:41 PM EDT Mixed hyperlipidemia SOB (shortness of breath) Chest pain, unspecified type Nonrheumatic aortic valve stenosis LIPID PANEL REFLEX Routine 06/07/2025 2: 41 [...] pain, unspecified type Nonrheumatic aortic valve stenosis XR KNEE RIGHT AP AND LATERAL Routine 06/03/2025 3:57 PM EDT S/P total knee arthroplasty, right XR KNEE LEFT AP LATERAL AND SUNRISE STANDING Routine 06/03/2025 3:16 PM EDT Primary osteoarthritis of left knee MD ARTHROCENTESIS ASPIR&/INJ MAJOR JT/BURSA W/O US Routine 06/03/2025 3:00 PM EDT Primary osteoarthritis of left knee JOINT FLUID DIFFERENTIAL Routine 04/27/2025 12:15 PM [...] PM EDT S/P total knee arthroplasty, right MD ARTHROCENTESIS ASPIR&/INJ MAJOR JT/BURSA W/O US Routine 04/27/2025 11:15 AM EDT S/P total knee arthroplasty, right from Last 3 Months Results * CORONARY ANGIOGRAM (COR/LHC/LV GRAM, CARDIAC [...] The patient was transferred to the cardiac labor operator holding area in stable condition. There were [...] ORDERABLES Nicole l Result Performing Organization Address City/[facility]/ZIP Co de Phone Number [facility] * CROWN WHEEL ASSEMBLER HEMODYNAMIC WAVEFORMS (06/17/2025 8:58 AM EDT) 06/17/2025 8:58 AM EDT us Tobias R Darby DO CARDIAC CATH ORDERABLES Nicole l Result Performing Organization Address City/[facility]/ZIP Co de Phone Number [place] [phone] * (ABNORMAL) COMPREHENSIVE METABOLIC PANEL (06/14/2025 11:56 AM EDT) Only the most recent of2 resultswithin the time period is included. Sodium 136 136 - 145 mmol/L 06/14/2025 9:09 PM EDT [facility] Potassium 3.8 3.5 - 5.0 mmol/L 06/14/2025 9:09 PM EDT [facility] Chloride 101 98 - 107 mmol/L 06/14/2025 9:09 PM EDT [facility] Total CO2 22 22 - 29 mmol/L 06/14/2025 9:09 PM EDT [facility] Anion Gap 13 7 - 16 mmol/L 06/14/2025 9:09 PM EDT [facility] Calcium 9.2 8.8 - 10.4 mg/dL 06/14/2025 9:09 PM EDT [facility] Glucose Lvl 107(H) 70 - 99 mg/dL 06/14/2025 9:09 PM EDT [facility] BUN 15 8 - 23 mg/dL 06/14/2025 9:09 PM EDT [facility] Creatinine 1.34(H) 0.67 - 1.30 mg/dL 06/14/2025 9:09 PM EDT [facility] Albumin 4.2 3.2 - 4.6 gm/dL 06/14/2025 9:09 PM EDT [facility] Total Protein 7.0 6.4 - 8.3 gm/dL 06/14/2025 9:09 PM EDT [facility] Bili Total 0.6 0.2 - 1.4 mg/dL 06/14/2025 9:09 PM EDT [facility] ALT 10 <=41 U/L 06/14/2025 9:09 PM EDT [facility] AST 15 <=40 U/L 06/14/2025 9:09 PM EDT [facility] Alk Phos 122 40 - 129 U/L 06/14/2025 9:09 PM EDT [facility] eGFR (CKD-EPIcr 2020) 54(L) >=60 mL/min/1.7 3 m2 06/14/2025 9:09 PM EDT [facility] Comment:Estimated GFR was ca lculated using the CKD-EPIcr (2020) equation refit without race. The equation is recommended by the National Kidney Foundation - [place] [employer] of Nephrology Task Force. Blood VENOUS BLOOD / Unknown Venipuncture / Unknown 06/14/2025 11:56 AM EDT 06/14/2025 11:56 AM EDT us Tobias Darby DO CHEMISTRY ORDERABLES Final R esult [facility] [address] [facility] , [place] [address] * (ABNORMAL) LIPID PANEL REFLEX (06/07/2025 2:41 PM EDT) Cholesterol 120 <200 mg/dL 06/07/2025 7:51 PM EDT [facility] Comment: < 200 Desirable 200 - 239 Borderline High >= 240 High Triglyceride 156(H) <150 mg/dL 06/07/2025 7:51 PM EDT [facility] Comment: < 150 Normal 150 - 199 Borderline High 200 - 499 High >= 500 Very High HDL 33(L) >=40 mg/dL 06/07/2025 7:51 PM EDT [facility] Comment: > 60 Optimal 40 - 60 Acceptable < 40 Low LDL Calculated 60 <100 mg/dL 06/07/2025 7:51 [address] [facility] Comment: < 100 Optimal 100 - 129 Near or above optimal 130 - 159 Borderline High 160 - 189 High >= 190 Very High The National Institutes of Health (NIH) equation is used for all lipid panels that report calculated LDL (LDL-C). Non-HDL-C Calculated 87 <=129 mg/dL 06/07/2025 7:51 PM EDT [facility] Comment: <130 Desirable 130-159 Above Desirable 160-189 Borderline High 190-219 High >= 220 Very High Fasting Specimen? No None 025 7:51 PM EDT [facility] [facility] Blood VENOUS BLOOD / Unknown Venipuncture / Unknown 06/07/2025 2:41 PM EDT 06/07/2025 2:41 PM EDT Bridgette Padron ELECTRICAL INSTALLATION SUPERVISOR CHEMISTRY ORDERABLES Fin al Result [facility], [facility] [address] [facility] , [place] [address] * (ABNORMAL) CBC (06/07/2025 2:41 PM EDT) WBC 7.4 3.7 - 10.3 x10(3)/mcL 06/07/2025 7:34 PM EDT [facility], [facility] RBC 4.03(L) 4.60 - 6.10 x10(6)/mcL [...] 06/07/2025 7:34 PM EDT [facility] MCHC 32.2 30.7 - 35.5 g/dL 06/07/2025 7:34 PM EDT [facility] RDW 14.0 <=14.9 % 06/07/2025 7:34 PM EDT [facility] Platelet 230 155 - 369 x10(3)/mcL 06/07/2025 7:34 PM EDT [facility] MPV 10.1 8.8 - 12.5 fL 06/07/2025 7:34 PM EDT [facility] Blood VENOUS BLOOD / Unknown Venipuncture / Unknown 06/07/2025 2:41 PM EDT 06/07/2025 2:41 PM EDT us Bridgette Padron ELECTRICAL INSTALLATION SUPERVISOR HEMATOLOGY ORDERABLES Fi nal Result [facility] [address] [facility] , [address] [place] [phone] * NT PROBNP (06/07/2025 2:41 PM EDT) NT Pro-BNP 144 <=852 pg/mL 06/07/2025 7:53 PM EDT [facility] Blood VENOUS BLOOD / Unknown Venipuncture / Unknown 06/07/2025 2:41 PM EDT 06/07/2025 2:41 PM EDT Narrative [facility] - 06/07/2025 7:53 PM EDT An NT pro-BNP level less than 300 pg/mL in any patient, regardless of age, effectively rules out acute CHF with a 99% negative predictive value. Ingestion of miranda doses of biotin (>5 mg/day) taken within 8 hours of drawing blood sample can interfere with this immunoassay test. us Bridgettemorenita Padron ELECTRICAL INSTALLATION SUPERVISOR CHEMISTRY ORDERABLES Fin al Result Performing Organization Address [facility] Co de Phone Number [facility] [address], [place] [address] * XR KNEE RIGHT AP AND LATERAL (06/03/2025 3:57 PM EDT) Narrative [facility] - 06/03/2025 3:57 PM EDT Please see physician's note from office encounter for x-ray imaging result Fadumo Curran NP IMG DIAGNOSTIC IMAGING ORDERABLE S Final Result Performing Organization Address [facility] de Phone Number [facility] * XR KNEE LEFT AP LATERAL AND SUNRISE STANDING (06/03/2025 3:16 PM EDT) Narrative [facility] - 06/03/2025 3:16 PM EDT Please see physician's note from office encounter for x-ray imaging result us Fadumo Curran NP IMG DIAGNOSTIC IMAGING ORDERABLE S Final Result Performing Organization Address [facility] de Phone Number [facility] * MD ARTHROCENTESIS ASPIR&/INJ MAJOR JT/BURSA W/O US (06/03/2025 [...] to verify the correct patient, procedure, equipment, learning support teacher and site/side marked as required. Patient was prepped and draped in the usual sterile fashion. Fadumo Curran NP PROCEDURE/MINOR SURGICAL ORDERAB LES Final Result [facility] * FUNGUS CULTURE (NO STAIN) (04/27/2025 12:15 PM EDT) Culture No growth of fungus at 4 weeks. 05/26/2025 8:57 AM EDT [facility] Aspirate STRUCTURE OF RIGHT KNEE REGION / Unknown 04/27/2025 12:15 PM EDT 04/27/2025 12:15 PM EDT us Ney Amaral MD MICROBIOLOGY - GENER AL ORDERABLES Final Result Performing Organization Address [facility]/ZIP Co de Phone Number [facility] [address] [facility], [place] [address] * JOINT FLUID DIFFERENTIAL (04/27/2025 12:15 PM EDT) Segs JF 13 <25 % 04/27/2025 9:38 PM EDT [facility] Lymphs JF 39 % 04/27/2025 9:38 PM EDT [facility] Macrophages JF 44 % 04/27/2025 9:38 PM EDT [facility] Syn Cell JF 2 % 04/27/2025 9:38 PM EDT [facility] Other JF 2 % 04/27/2025 9:38 PM EDT [facility] Comment:2 basophils. Body Fluid STRUCTURE OF RIGHT KNEE REGION / Unknown 04/27/2025 12:15 PM EDT 04/27/2025 12:15 PM EDT Ney Amaral MD BODY FLUIDS AND STOO LS ORDERABLES Final Result Performing Organization Address City/[facility]/[place] [address] * BODY FLUID CULTURE (STAIN INCLUDED) (04/27/2025 12:15 PM EDT) Culture No growth at 94 hours. 05/02/2025 7:21 AM EDT [facility] Stain Rare WBCs 05/02/2025 7:21 AM EDT [facility] [employer] [facility], [facility] Stain No organisms seen 05/02/2025 7:21 AM EDT [facility] [facility], [facility] Body Fluid STRUCTURE OF RIGHT KNEE REGION / Unknown 04/27/2025 12:15 PM EDT 04/27/2025 12:15 PM EDT us Ney Amaral MD MICROBIOLOGY - GENER AL ORDERABLES Final Result Performing Organization Address City/[facility] Co de Phone Number [facility] [employer], [address] , [place] [address] * ANAEROBIC CULTURE (NO STAIN) (04/27/2025 12:15 PM EDT) Culture No anaerobic growth at 5 days. 05/03/2025 9:31 AM EDT [facility] [employer] [facility], [facility] Body Fluid STRUCTURE OF RIGHT KNEE REGION / Unknown 04/27/2025 12:15 PM EDT 04/27/2025 12:15 PM EDT us Ney Amaral MD MICROBIOLOGY - GENER AL ORDERABLES Final Result Performing Organization Address City/[facility]/ZIP Co de Phone Number [facility] [employer], [address] , [place] [address] * JOINT FLUID CRYSTALS (04/27/2025 12:15 PM EDT) Crystal JF None Seen None Seen 04/27/2025 9:37 PM EDT [facility] [facility], [facility] Body Fluid STRUCTURE OF RIGHT KNEE REGION / Unknown 04/27/2025 12:15 PM EDT 04/27/2025 12:15 PM EDT us Ney Amaral MD BODY FLUIDS AND STOO LS ORDERABLES Final Result Performing Organization Address [facility] Co de Phone Number [facility] [employer], [address] , [place] [address] * JOINT FLUID CELL COUNT (04/27/2025 12:15 [...] LS ORDERABLES Final Result Performing Organization Address [facility] Co de Phone Number [facility] [employer], [address] , [place] [address] * MD ARTHROCENTESIS ASPIR&/INJ MAJOR JT/BURSA W/O US (04/27/2025 [...] PROCEDURE/MINOR SURG ICAL ORDERABLES Final Result ORTHOCINCY from Last 3 Months Additional Health Concerns Active Problems Noted Date Diagnosed Date Autogenerated Problem 06/10/2025 Insurance MEDICARE ADVANTAGE MR MEDICARE ADVANTAGE MR EM MEDICARE ADVANTAGE MR ANTHEM MEDICARE ADVANTAGE MR MEDICARE ADVANTAGE MR Advance Directives For more information, please contact: [phone] Documents on File Type Date Recorded Patient Health Therapist Expl anation Power of Boss Dyer 12/23/2024 1:54 PM OC PO WER OF NURSE AUDITOR ADVANCE DIRECTIVE 09/24/2023 5:29 PM POA 02/23/2013 [...] 11:40 AM 06/01/2020 5:49 PM Care Teams Abstract Manager Relationship Specialty Start Date End Date Darrius Fair MD [address] [place] [address] PCP - General 03/05/11 Marcial Vizcarra MD [address] [place] [address] Physician Internal Medicine-Gastroenterology 11/22/16
--- OUTSIDE RECORDS SUMMARY | 2025-06-23 12:29 | XMS_ITS | Encounter Summary ---
Author Organization [place] [address] Care Team Providers Care Lead Technologist In Cytogenetics Name Role Phone Darrius Fair MD Primary Care Provider [phone] Marcial Vizcarra MD Unavailable [phone] Encounter Details Date Type Department Care Team (Late st Contact Info) Description 06/14/2025 Orders Only [facility] [address] [place] [address] Tobias Darby, DO [address] [place] [address] Mixed hyperlipidemia (Primary Dx); Precordial pain; Nonrheumatic aortic valve stenosis Social History Tobacco Use Types Packs/Day Years [...] Author No 01/03/2023 6:00 PM Lizzie Almaguer, Fitness Coach * Is the person blind or does he/she have serious difficulty seeing even when wearing glasses? Answer Date of Assessment Author No 01/03/2023 6:00 PM Lizzie Almaguer, Fitness Coach * Does this person have serious difficulty walking or climbing stairs? Answer Date of Assessment Author No 01/03/2023 6:00 PM Lizzie Almaguer, Fitness Coach * Does this person have difficulty dressing or bathing? Answer Date of Assessment Author No 01/03/2023 6:00 PM Lizzie Almaguer, Fitness Coach * Because of a physical, mental or emotional condition, does this person have difficulty doing errands alone such as visiting a doctor's office or shopping? Answer Date of Assessment Author No 01/03/2023 6:00 PM Lizzie Almaguer, Arnaldo Weems documented as of this encounter Mental Status * Because of a physical, mental or emotional condition, does this person have serious difficulty concentrating, remembering or making decisions? Answer Entry Date Author No 01/03/2023 6:00 PM Lizzie Almaguer, Fitness Coach documented in this encounter Plan of Treatment Upcoming Encounters Date Type Department Care Team (Late st Contact Info) Description 07/01/2025 1:00 PM EDT Appointment [facility] [address] [place] [address] Bridgette Padron, [address] [place] [address] 07/19/2025 1:00 PM EDT Office Visit [facility] Cardiac Surgeons [address] [place] [address] Mukund Noel MD [address] [place], [place] [id number] 08/03/2025 10:30 AM EDT Office Visit [facility] [address] [address] Bridgette Padron, HOME [facility] [address] [place] [address] documented as of this encounter Goals Goal Patient Goal Type Associated Problems Recent Progress Patient-Stated? Author Autogenerat ed Goal Care Plan Autogenerated Problem No Tara Pacheco, NA documented as of this encounter Results * (ABNORMAL) COMPREHENSIVE METABOLIC [...] 9:09 PM EDT [facility] Calcium 9.2 8.8 - 10.4 mg/dL 06/14/2025 9:09 PM EDT [facility] Glucose Lvl 107(H) 70 - 99 mg/dL 06/14/2025 9:09 PM EDT [facility] BUN 15 8 - 23 mg/dL 06/14/2025 9:09 PM EDT [facility] Creatinine 1.34(H) 0.67 - 1.30 mg/dL 06/14/2025 9:09 PM EDT [facility] Albumin 4.2 3.2 - 4.6 gm/dL 06/14/2025 9:09 PM EDT [facility] Total Protein 7.0 6.4 - 8.3 gm/dL 06/14/2025 9:09 PM EDT [facility] Bili Total 0.6 0.2 - 1.4 mg/dL 06/14/2025 9:09 PM EDT [facility] ALT 10 <=41 U/L 06/14/2025 9:09 PM EDT [facility] AST 15 <=40 U/L 06/14/2025 9:09 PM EDT [facility] Alk Phos 122 40 - 129 U/L 06/14/2025 9:09 PM EDT [facility] eGFR (CKD-EPIcr 2020) 54(L) >=60 mL/min/1.7 3 m2 06/14/2025 9:09 PM EDT [facility] Comment:Estimated GFR was ca lculated using the CKD-EPIcr (2020) equation refit without race. The equation is recommended by the National Kidney Foundation - [place] [employer] of Nephrology Task Force. Blood VENOUS BLOOD / Unknown Venipuncture / Unknown 06/14/2025 11:56 AM EDT 06/14/2025 11:56 AM EDT us Tobias Darby DO CHEMISTRY ORDERABLES Final R esult [facility] [address] [facility] , [place] [address] documented in this encounter Visit Diagnoses Diagnosis Mixed hyperlipidemia- Primary Precordial pain Nonrheumatic aortic valve stenosis Aortic [...] documented as of this encounter Care Teams Lead Technologist In Cytogenetics Relationship Specialty Start Date End Date Darrius Fair MD [address] [place] [address] PCP - General 03/05/11 Marcial Vizcarra MD [address] [place] [address] Physician Internal Medicine-Gastroenterology 11/22/16 documented as of this encounter
--- OUTSIDE RECORDS SUMMARY | 2025-06-23 12:29 | XMS_ITS | Referral Summary ---
Author Organization [facility] Address [address] [place] [address] Care Team Providers Care Wood Barker Name Role Phone Lore Neal NP Primary Care Provider [phone] Allergies No known active allergies Medications Abaloparatide [...] FOR SUPPLEMENT. 3 Active vitamin D-2 (ERGOCALCIFEROL) 21674 unit (1.25mg) CAPS Take 50,000 Units by mouth. 3 Active doxycycline (VIBRA-TABS) 100 MG TABS Take 100 mg by mouth 2 (two) times daily. 3 Active ergocalciferol (ERGOCALCIFEROL) 1.25 MG (64173 UT) CAPS Take 1 capsule by mouth [...] file Insurance MEDICARE on file Care Teams Wood Barker Relationship Specialty Start Date End Date Lore Neal, PRANAV PCP - General 06/11/23
--- OUTSIDE RECORDS SUMMARY | 2025-06-23 12:29 | XMS_ITS | Encounter Summary ---
Author Organization [facility] Address [address] [place] [address] Care Team Providers Care Foreign Languages Professor Name Role Phone None, None Primary Care Provider Unavailabl e Encounter Details Date Type Department Care Team (Late st Contact Info) Description 06/05/2024 Preop Surgical Orders Community Physician Ordering Department [address] [place] [address] Ney Amaral MD [address] [place] [address] [address] [place] [address] Social History Tobacco Use Types Packs/Day Years [...] on filedocumented in this encounter Care Teams Foreign Languages Professor Relationship Specialty Start Date End Date None, None [address] [place] [address] PCP - General 06/11/24 documented as of this encounter
--- OUTSIDE RECORDS SUMMARY | 2025-06-23 12:29 | XMS_ITS | Clinical Summary ---
Author Organization [facility] Address [address] [place] [address] Care Team Providers Care Armhole Sewer Name Role Phone Lore Neal NP Primary Care Provider [phone] Allergies No known active allergies Medications Abaloparatide [...] FOR SUPPLEMENT. 3 Active vitamin D-2 (ERGOCALCIFEROL) 48582 unit (1.25mg) CAPS Take 50,000 Units by mouth. 3 Active doxycycline (VIBRA-TABS) 100 MG TABS Take 100 mg by mouth 2 (two) times daily. 3 Active ergocalciferol (ERGOCALCIFEROL) 1.25 MG (32559 UT) CAPS Take 1 capsule by mouth [...] or Tdap) 11/19/2024 11/19/2014, 11/19/2014 Influenza Vaccine (#1) 2025 Pneumococcal 50+ Completed 03/22/2017, 11/19/2014 HPV [...] SECONDARY ONLY MEDICARE on file Care Teams Armhole Sewer Relationship Specialty Start Date End Date Lore Neal NP PCP - General 06/11/23
--- OUTSIDE RECORDS SUMMARY | 2025-06-23 12:29 | XMS_ITS | Encounter Summary ---
Author Organization [place] [address] Care Team Providers Care Loss Prevention Agent Name Role Phone Darrius Fair MD Primary Care Provider [phone] Marcial Vizcarra MD Unavailable [phone] Reason for Visit * Reason Onset Date Comments Procedure 06/14/2025 Encounter Details Date Type Department Care Team (Late st Contact Info) Description 06/14/2025 Telephone [facility] [address] [facility] [address] [place] [address] Tobias Darby, DO [address] [place] [address] Procedure Social History Tobacco Use Types Packs/Day Years [...] Author No 01/03/2023 6:00 PM Lizzie Almaguer, Blind Escort * Is the person blind or does he/she have serious difficulty seeing even when wearing glasses? Answer Date of Assessment Author No 01/03/2023 6:00 PM Lizzie Almaguer, Blind Escort * Does this person have serious difficulty [...] Author No 01/03/2023 6:00 PM Lizzie Almaguer, Blind Escort documented in this encounter Miscellaneous Notes * Telephone Encounter - Anyi Fischre MA - 06/14/2025 9:20 AM EDT Called and spoke with patient's daughter and sent Forgamet message. Hospital: [facility]:[address] Outpatient Entrance Date: 06/17/2025 Arrival Time: 8am Procedure Time: 9am Diet Instructions: For 2 days before your procedure, drink 6 to 8 glasses of water, unless you have been diagnosed with heart failure or are a dialysis patient on fluid restrictions. Do not eat solid foods after midnight the night before your procedure. You may have black coffee, tea, juice, Jell-O, or Gatorade until 2 hours before your procedure. Do not drink for 2 hours before your procedure time. Medication Instructions: Bring an updated medication list or original medication bottles with you. If you are a diabetic and take insulin, take a half dose of your morning insulin. If you are a diabetic and take a diabetic pill, do not take your diabetic pill the morning of the procedure. If you are prescribed Exenatide (Byetta); Liraglutide (Saxenda), Liraglutide (Victoza), Lixisenatide Adlyxin, PO Semaglutide (Rybelsus) hold 1 day prior to procedure. If you are prescribed Dulaglutide (Trulicity), Exenatide (Bydureon BCise), Semaglutide (Ozempic, Wegovy), Tirzepatide (Zepbound) hold for 1 week prior to procedure. Please hold your water pill (Hydrochlorothiazide, Bumetanide, Furosemide, Metolazone, Spironolactone, Chlorthalidone, Torsemide) the morning of the procedure if you have not had an acute exacerbationof heart failure in the past 30 days. If you are prescribed Plavix, Aspirin, Brilinta or Effient take those the mornings of procedure. Take your morning medication with small sips of water. Ask your doctor for instructions for ???blood thinners,?? such as Coumadin, Eliquis, Xarelto. Other Important Instructions: Please do not make plans for other activities or responsibilities the day of your procedure. The length of time you will be at our facility after your procedure depends on the procedure. Plan to be at our facility for approximately 4- 5 hours. Please have required lab tests done at least one day prior to your procedure, but no more than 10 days before the procedure. Wear comfortable, loose clothing the day of your procedure. Please leave money, jewelry and all other valuables at home. Please wear your glasses/contact lenses, hearing aids or dentures during your stay so that you willbe comfortable. Please bring your insurance cards, along with a photo ID, as this information is necessary to coordinate insurance benefits. You are scheduled to arrive one hour before scheduled procedure time, this is so appropriate care can be given. Currently, we are allowing ONE visitor to accompany you to your procedure. This person must be at least 18 years of age and are encouraged to remain with you until discharge. General Discharge Instructions: You will need transportation home and someone with you at home overnight for your safety. This is due to the sedation you will receive during your procedure. Patients will NOT be permitted to use Uber/Lift/Taxi services as a means of transportation. You may have limitations to work and physical activity after this procedure. You will be given individual discharge instructions before you go home. If you have questions regarding this information or your upcoming procedure you can reach us at , Saturday through Saturday, 7:00 a.m. to 3:30 p.m. documented in this encounter Plan of Treatment Upcoming Encounters Date Type Department Care Team (Late st Contact Info) Description 07/01/2025 1:00 PM EDT Appointment [facility] E[facility] [address] [place] [address] Bridgette Padron, ELECTRICIAN UNDERGROUND [address] [place] [place] [address] 07/19/2025 1:00 PM EDT Office Visit [facility] Cardiac Surgeons [place] [address] [facility] [address] [place] [address] Mukund Noel MD [address] [place] [address] 08/03/2025 10:30 AM EDT Office Visit [facility] [address] [facility] [place] [address] Bridgette Padron, ELECTRICIAN UNDERGROUND [address] [place] [address] documented as of this encounter Goals Goal Patient Goal Type Associated Problems Recent Progress Patient-Stated? Author Autogenerat ed Goal Care Plan Autogenerated Problem No Tara Pacheco M, NA documented as of this encounter Visit Diagnoses Not on filedocumented in this encounter Additional Health Concerns Active Problems Noted Date Diagnosed Date Autogenerated Problem 06/10/2025 Assessment Noted Time A fall risk assessment has been complete d for the patient 06/16/2020 10:01 AM EDT documented as of this encounter Care Teams Loss Prevention Agent Relationship Specialty Start Date End Date Darrius Fair MD [address] [address] [address] [place] [address] PCP - General 03/05/11 Marcial Vizcarra MD [address] [address] [address] [place] [address] Physician Internal Medicine-Gastroenterology 11/22/16 documented as of this encounter
--- OUTSIDE RECORDS SUMMARY | 2025-06-23 12:29 | XMS_ITS | Encounter Summary ---
Author Organization [place] [address] Care Team Providers Care Music Sound Light Technician Name Role Phone Darrius Fair MD Primary Care Provider [phone] Marcial Vizcarra MD Unavailable [phone] Deb Garcia RN Unavailable Un available Encounter Details Date Type Department Care Team (Late st Contact Info) Description 09/22/2014 Orders Only [facility] G[facility] [address] [facility] Building [address] [place] [address] Marcial Vizcarra MD [address] [place], [place] [id number] Social History Tobacco Use Types Packs/Day Years [...] [facility] [address] [place] [address] Bridgette Padron, BAND TUMBLER [address] [place] [address] 07/19/2025 1:00 PM EDT Office Visit [facility] Cardiac Surgeons [address] [place] [phone] Mukund Noel MD [address] [place] [address] 08/03/2025 10:30 AM EDT Office [place] [address] Bridgette Padron, [address] [place] [address] documented as of this encounter Procedures Procedure Name Priority Date/Time Associated Diagnosis Comments GMED EGD Routine 09/22/2014 10:15 AM EDT documented in this encounter Results * ED EGD (09/22/2014 10:15 AM EDT) 09/22/2014 10:1 5 AM EDT Impressions [facility] - 09/22/2014 10:51 AM EDT Normal duodenum. Hiatal Hernia. 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 (Dilation). Plan: Follow-up as needed This section is an excerpt of the full report. us Marcial Vizcarra MD GI PROCEDURE ORDERABLES Fin al Result [facility] [address] [place] [address] documented in this encounter Visit Diagnoses Not on filedocumented in this encounter Additional Health Concerns Infection Onset Date Last Indicated Resolved Time R/O C-Diff 09/16/2019 09/16/2019 09/16/2019 2:46 PM EDT R/O C-Diff 12/10/2019 12/10/2019 12/10/2019 8:04 PM EST COVID-19 Comment:Reports positive home test on 09/1109/11/2023 09/18/2023 10/08/2023 10:12 PM EST documented as of this encounter Care Teams Music Sound Light Technician Relationship Specialty Start Date End Date Darrius Fair MD [address] [address] [address] [place] [address] PCP - General 03/05/11 Marcial Vizcarra MD [address] [address] [address] [place] [address] Physician Internal Medicine-Gastroenterology 11/22/16 Deb Garcia, RN Registered Nurse 06/02/20 06/02/20 documented as of this encounter
--- OUTSIDE RECORDS SUMMARY | 2025-06-23 12:29 | XMS_ITS | Encounter Summary ---
Author Organization [place] [address] Care Team Providers Care Beekeeper Name Role Phone Darrius Fair MD Primary Care Provider [phone] Marcial Vizcarra MD Unavailable [phone] Encounter Details Date Type Department Care Team (Late st Contact Info) Description 10/18/2020 Orders Only [facility] G[facility] [address] [facility] [place] [facility] Building [address] [place] [address] Marcial Vizcarra MD [address] [place], [place] [id number] Social History Tobacco Use Types Packs/Day Years [...] EDT Appointment [facility] ECHO [address] [place] [address] Bridgette Padron RN MEDICAL SURGICAL [address] [place], [place] [phone] 07/19/2025 1:00 PM EDT Office Visit [facility] Cardiac Surgeons [address] [place] [address] Mukund Noel MD [address] [place] [id number] 08/03/2025 10:30 AM EDT Office [place] [address] Bridgette Padron, RN MEDICAL SURGICAL [address] [place] [address] documented as of this encounter Procedures Procedure Name Priority Date/Time Associated Diagnosis Comments GMED EGD Routine 10/18/2020 1:00 PM EST documented in this encounter Results * GMED EGD (10/18/2020 1:00 PM EST) 10/18/2020 1:00 PM EST Impressions [facility] - 10/18/2020 2:43 PM EST Normal duodenum. Hiatal Hernia. 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 (Dilation). Plan: Follow-up as needed This section is an excerpt of the full report. Marcial Vizcarra MD GI PROCEDURE ORDERABLES Wilfrido marii Result - Final [facility] [address] [place] [address] documented in this encounter Visit Diagnoses Not on filedocumented in this encounter Additional Health Concerns Infection Onset Date Last Indicated Resolved Time COVID-19 Comment:Reports positive home test on 09/1109/11/2023 09/18/2023 10/08/2023 10:12 PM EST Assessment Noted Time A fall risk assessment has been complete d for the patient 06/16/2020 10:01 AM EDT documented as of this encounter Care Teams Beekeeper Relationship Specialty Start Date End Date Darrius Fair MD [address] [place] [address] PCP - General 03/05/11 Marcial Vizcarra MD [address] [place] [address] Physician Internal Medicine-Gastroenterology 11/22/16 documented as of this encounter
--- OUTSIDE RECORDS SUMMARY | 2025-06-23 12:29 | XMS_ITS | Encounter Summary ---
Author Organization [place] [address] Care Team Providers Care Scrub Tech Name Role Phone Darrius Fair MD Primary Care Provider [phone] Marcial Vizcarra MD Unavailable Deb Garcia RN Unavailable Un available Encounter Details Date Type Department Care Team (Late st Contact Info) Description 11/22/2016 Orders Only SEP Gastro CV [address] [facility] Building [address] [place] [address] Marcial Vizcarra MD [address] [place], [place] [id number] Social History Tobacco Use Types Packs/Day Years [...] FTT ECHO [address] [place] [address] Bridgette Padron, ACCOUNT DEVELOPMENT REPRESENTATIVE [address] [facility] [place] [address] 07/19/2025 1:00 PM EDT Office Visit [facility] Cardiac Surgeons [address] [place] [phone] Mukund Noel MD 1 [place] [address] 08/03/2025 10:30 AM EDT [place] [address] Bridgette Padron, [address] [place] [address] documented as of this encounter Procedures Procedure Name Priority Date/Time Associated Diagnosis Comments ED EGD Routine 11/22/2016 2:00 PM EST documented in this encounter Results * ED EGD (11/22/2016 2:00 PM EST) 11/22/2016 2:00 PM EST Impressions [facility] LAB - 11/22/2016 1:21 PM EST Normal duodenum. Hiatal Hernia. 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 (Dilation). Plan: Follow-up as needed This section is an excerpt of the full report. us Marcial Vizcarra MD GI PROCEDURE ORDERABLES Fin al Result [facility] LAB 1 [place] [address] documented in this encounter Visit Diagnoses Not on filedocumented in this encounter Additional Health Concerns Infection Onset Date Last Indicated Resolved Time R/O C-Diff 09/16/2019 09/16/2019 09/16/2019 2:46 PM EDT R/O C-Diff 12/10/2019 12/10/2019 12/10/2019 8:04 PM EST COVID-19 Comment:Reports positive home test on 09/1109/11/2023 09/18/2023 10/08/2023 10:12 PM EST documented as of this encounter Care Teams Scrub Tech Relationship Specialty Start Date End Date Darrius Fair MD [address] [place] [address] PCP - General 03/05/11 Marcial Vizcarra MD [address] [facility] [address] [place] [address] Physician Internal Medicine-Gastroenterology 11/22/16 Deb Garcia, RN Registered Nurse 06/02/20 06/02/20 documented as of this encounter
--- OUTSIDE RECORDS SUMMARY | 2025-06-23 12:30 | XMS_ITS | Encounter Summary ---
Author Organization [place] [address] Care Team Providers Care Hand Crown Pouncer Name Role Phone Darrius Fair MD Primary Care Provider [phone] Marcial Vizcarra MD Unavailable [phone] Reason for Visit * Reason Onset Date Comments Medication Refill Central Patient Navigator Outreach 05/27/2025 med refill - 30 HV Encounter Details Date Type Department Care Team (Late st Contact Info) Description 05/27/2025 Refill [facility] [place] [address] [place], [place] [id number] Tobias Darby R, DO [address] [place] [address] Medication Refill; Central Patient Navigator Outreach (med refill - 30 HV ) Social History Tobacco Use Types Packs/Day Years [...] Author No 01/03/2023 6:00 PM Lizzie Almaguer, Sleeve Setter Lockstitch * Is the person blind or does [...] Author No 01/03/2023 6:00 PM Lizzie Almaguer, Sleeve Setter Lockstitch * Because of a physical, mental or [...] No 01/03/2023 6:00 PM EST Lizzie Horton, Sleeve Setter Lockstitch documented in this encounter Ordered Prescriptions Prescription Sig Dispense Quantity Refills Last Filled Start Date End Date rosuvastatin (CRESTOR) 10 mg Oral TabletIndications:Mi xed hyperlipidemia Take 1 Tablet by mouth daily. 30 Tablet 05/31/2025 documented in this encounter Miscellaneous Notes * Telephone Encounter - Mei Santoro - 05/31/2025 3:19 PM EDT Patient Outreach: Medication refill appointment, jennifer count: Med Refill 30 H&V Attempt Count: 1st Care Gaps Addressed electrical and instrumentation mechanic: Annual Wellness Visit and Appointment Outcome: Appointment schedule with Specialty 06/07/25 by daughterBing pierce elsy appt today Call back number: [phone] * Telephone Encounter - Cesia Howell CPhT - 05/31/2025 8:36 AM EDT Rosuvastatin 10 Future Visit: None Last Assessed Visit: 05/13/24 Follow-Up Date: 11/12/24 Appointment protocol failed. One jennifer supply sent to pharmacy. Routed to Patient Navigators. documented in this encounter Plan of Treatment Upcoming Encounters Date Type Department Care Team (Late st Contact Info) Description 07/01/2025 1:00 PM EDT Appointment [facility]TT ECHO [address] [place] [address] Bridgette Padron, DIGITAL FIELD SERVICE TECHNICIAN [address] [place] [address] 07/19/2025 1:00 PM EDT Office Visit [facility] Cardiac Surgeons [place] [address] [place] [address] [address] [place] [phone] Mukund Noel MD 1 [place] [address] 08/03/2025 10:30 AM EDT Office Visit [facility] [place] [address] [facility] [place] [address] Bridgette Padron, DIGITAL FIELD SERVICE TECHNICIAN [address] [facility] [place] [address] documented as of this encounter Visit Diagnoses Diagnosis Mixed hyperlipidemia documented in this encounter Discontinued Medications Medication Sig Discontinue Reason Start Date End Da te rosuvastatin (CRESTOR) 10 mg Oral TabletIndications:Mixed hyperlipidemia Take 1 Tablet by mouth daily. 05/13/2024 05/31/2025 documented as of this encounter Additional Health Concerns Assessment Noted Time A fall risk assessment has been complete d for the patient 06/16/2020 10:01 AM EDT documented as of this encounter Care Teams Hand Crown Pouncer Relationship Specialty Start Date End Date Darrius Fair MD [address] [place] [address] [address] [place] [address] PCP - General 03/05/11 Marcial Vizcarra MD [address] [place] [address] [address] [facility] [place] [address] Physician Internal Medicine-Gastroenterology 11/22/16 documented as of this encounter
--- OUTSIDE RECORDS SUMMARY | 2025-06-23 12:30 | XMS_ITS | Encounter Summary ---
Author [place] [address] Care Team Providers Care Senior Project Controls Specialist Name Role Phone Darrius Fair MD Primary Care Provider [phone] Marcial Vizcarra MD Unavailable [phone] Encounter Details Date Type Department Care Team (Latest Contact Info) Description 06/15/2025 Results Follow-Up [facility] [place] [address] [facility] [address] [place] [address] Rosalina Pimentel, DIGITAL SOLUTION ARCHITECT [address] [place] [address] COMPREHENSIVE METABOLIC PANEL Social History Tobacco Use Types Packs/Day Years [...] 01/03/2023 6:00 PM EST Cookendor thais, Lizzie, Riprap Placing Supervisor documented in this encounter Plan of Treatment Upcoming Encounters Date Type Department Care Team (Late st Contact Info) Description 07/01/2025 1:00 PM EDT Appointment [facility]TT ECHO [address] [place] [address] Bridgette Padron, [address] [place], [place] [phone] 07/19/2025 1:00 PM EDT Office Visit [facility] Cardiac Surgeons [address] [place] [phone] Mukund Neol MD 1 [place], [place] [phone] 08/03/2025 10:30 AM EDT Office Visit SEP H&V [address] [phone] Bridgette Padron, [address] [address] documented as of this encounter Goals Goal Patient Goal Type Associated Problems Recent Progress Patient-Stated? Author Autogenerat ed Goal Care Plan Autogenerated Problem No Tara Pacheco, NA documented as of this encounter Visit Diagnoses Not on filedocumented in this encounter Additional Health Concerns Active Problems Noted Date Diagnosed Date Autogenerated Problem 06/10/2025 Assessment Noted Time A fall risk assessment has been complete d for the patient 06/16/2020 10:01 AM EDT documented as of this encounter Care Teams Senior Project Controls Specialist Relationship Specialty Start Date End Date Darrius Fair MD [address] [place] [address] [address] [facility] [place] [address] PCP - General 03/05/11 Marcial Vizcarra MD [address] [address] [place] [address] Physician Internal Medicine-Gastroenterology 11/22/16 documented as of this encounter
== END 2025-06-22 23:59 | disposition home or self-care (01) ==
LOC: LAB.DROPOF 06-23 12:26
PROVIDERS: PCP Family Medicine; Visit Provider Family Medicine
DX: I25.10 Atherosclerotic heart disease of native coronary artery without angina pectoris (principal)
CPT/HCPCS: 85025

== ENCOUNTER 2025-10-19 15:30 | Outpatient (CLI) | payer OTHER, SELFPAY ==
--- OUTSIDE RECORDS SUMMARY | 2025-08-24 13:45 | XMS_ITS | Encounter Summary ---
Author Organization [place] [address] Care Team Providers Care Roofing Machine Tender Name Role Phone Darrius Fair MD Primary Care Provider [phone] Marcial Vizcarra MD Unavailable [phone] Reason for Visit * Reason Comments Post-op Encounter Details Date Type Department Care Team (Late st Contact Info) Description 08/24/2025 2:45 PM EDT Office Visit [facility] Cardiac Surgeons [place] [address] [facility] [address] [place] [address] Mukund Noel MD 1 [place], [place] [id number] S/P CABG (coronary artery bypass graft) (Primary Dx) Social History Tobacco Use Types Packs/Day Years Used Date Smoking Tobacco: Former Cigarettes Q uit: 03/05/1968 Smokeless Tobacco: Former Chew Tobacco Cessation:Counseling Given: Not Answered Alcohol Use Standard Drinks/Week Comments No 0 (1 standard drink = 0.6 oz pur e alcohol) B1300 Health Literacy Answer Date Recor ded How often do you need to hav e someone help you when you read instructions, pamphlets, or other written material from your doctor or pharmacy? Sometimes 07/20/2025 [facility] Utilities Answer Date Recorded In the past 12 months has e [place], gas, oil, or water [employer] threatened to shut off services in your home? No 07/29/2025 Overall Financial Resource Strain (CARDIA) Answe r Date Recorded How hard is it for you to pa y for the very basics like food, housing, medical care, and heating? Not hard at all 07/29/2025 PHQ-2 Answer Date Recorded PHQ-2 Total Score 0 07/29/2025 [facility] - Occupational Stress Questionnaire Answer Date Recorded Do you feel stress - tense, restless, nervous, or anxious, or unable to sleep at night because your mind is troubled all the time - these days? Only a little 07/29/2025 Exercise Vital Sign Answer Date Recorde d On average, how many days pe r week do you engage in moderate to strenuous exercise (like a brisk walk)? 5 days 07/29/2025 On average, how many minutes do you engage in exercise at this level? 10 min 07/29/2025 Hunger Vital Sign Answer Date Recorded Within the past 12 months, y ou worried that your food would run out before you got the money to buy more. Never true 07/29/20 25 Within the past 12 months, t he food you bought just didn't last and you didn't have money to get more. Never true 07/29/2025 [facility] - Transportation Answer Date Re corded In the past 12 months, has l ack of transportation kept you from medical appointments or from getting medications? No 06/26 In the past 12 months, has l ack of transportation kept you from meetings, work, or from getting things needed for daily living? No 07/20/2025 Housing Stability Vital Sign Answer Jarred e Recorded In the last 12 months, was t here a time when you were not able to pay the mortgage or rent on time? No 07/20/2025 In the past 12 months, how m any times have you moved where you were living? 0 07/20/2025 At any time in the past 12 m [facility], were you homeless or living in a retirement (including now)? No 07/20/2025 [facility] IP Transportation Answer D ate Recorded In the past 12 months, has l ack of reliable transportation kept you from medical appointments, meetings, work or from getting things needed for daily living? No 07/29/2025 Sex and Gender Information Value Date Recorded Sex Assigned at Not on file Legal Sex Male 1:23 PM EDT Gender Identity Not on file Sexual Orientation Not on file documented as of this encounter Last Filed Vital Signs Vital Sign Reading Time Taken Comments Blood Pressure 118/76 08/24/2025 2:47 PM EDT Pulse 73 08/24/2025 2:47 PM EDT Temperature - - Respiratory Rate - - Oxygen Saturation 97% 08/24/2025 2:47 PM EDT Inhaled Oxygen Concentration - - Weight 103.9 kg (229 lb) 08/24/2025 2:47 PM EDT Height 182.9 cm (6') 08/24/2025 2:47 PM EDT Body Mass Index 31.06 08/24/2025 2:47 PM EDT documented in this encounter Functional [...] 6:00 PM Lizzie Almaguer Nursing Student documented in this encounter Ordered Prescriptions Prescription Sig Dispense Quantity Refills Last Filled Start Date End Date amiodarone (PACERONE) 200 mg Oral TabletIndications:S /P CABG (coronary artery bypass graft) Take 1 Tablet by mouth daily. 30 Tablet 1 08/24/2025 documented in this encounter Progress Notes * Mukund Noel MD - 08/24/2025 2:45 PM EDT Cardiothoracic Surgery Outpatient Follow-up Note Procedure: 07/28/2025 ([facility]) 1. Coronary artery bypass graft x 5 with a left intramammary artery to left anterior descending coronary artery, reverse saphenous vein graft from aorta to second obtuse marginal, reverse saphenous vein graft from aorta to first obtuse marginal, reverse saphenous vein graft from aorta to distal right coronary artery,, reverse saphenous vein graft from the camargo of the graft to the second obtuse marginal to the first diagonal. 2. Ligation of left atrial appendage with 45 mm atrial clip 3. Sternal plating 4. Transesophageal echocardiogram preoperatively and postoperatively. Subjective: Jonathon Lara, 80 y.o. male presents to office today for followup. Doing ok. Still having some soreness to LLE. Now home from rehab. Objective: Vitals: 08/24/25 1447 BP: 118/76 Pulse: 73 SpO2: 97% General: alert and oriented x 3 Chest: incision healing well. Redness resolved. Has mod skin sloughing to red area. Heart: no M/R/G Lungs: clear to auscultation Extremities: typical bruising to LLE. Current Medications[1] Assessment / Plan: S/p CABG (MOISE-> LAD, SVG-> 2nd OM, SVG-> 1st OM, SVG-> distal RCA, SVG-> 2nd OM), KAT ligation (45 mm Atrial clip), sternal plating 07/28/2025: on bASA, crestor Pneumonia: discharged on cipro. Stable today. Sternal wound cellulitis: completed antibiotics. Post op afib: regular today. Plan to continue amio for 3 months. No heavy lifting greater than 10 lbs x 12 weeks s/p surgery. Patient may not drive for 2-4 weeks or while taking any narcotic pain meds Cardiac Rehab to be scheduled. Getting home health. Return to Clinic 3-4 weeks doing better, now back home, erythema is much better the cellulitis has resolved. follow up in 3 weeks with me and finish course of abx. Further input from Dr Spaulding. America Ortiz, CIVIL TRANSPORTATION ENGINEER [1] Current Outpatient Medications: acetaminophen 325 mg Oral Tab, Take 2 Tablets by mouth every 4 hours as needed for Pain., Disp: , Rfl: albuterol (PROVENTIL HFA;VENTOLIN HFA) 90 mcg/actuation Inhl HFA Aerosol Inhaler, INHALE 2 PUFFS INTO THE LUNGS EVERY 4 TO 6 HOURS NEEDED FOR SHORTNESS OF BREATH OR WHEEZING., Disp: , Rfl: amiodarone (PACERONE) 200 mg Oral Tablet, Take 1 Tablet by mouth daily., Disp: 30 Tablet, Rfl: 0 aspirin 81 mg Oral Tablet, Chewable, Take 1 Tablet by mouth daily for 90 days., Disp: , Rfl: Cholecalciferol, Vitamin D3, 50 mcg (2,000 unit) Oral Tablet, Take 1 Tablet by mouth daily., Disp: 90 Tablet, Rfl: 2 docusate sodium (COLACE) 100 mg Oral Capsule, Take 1 Capsule by mouth 2 times daily., Disp: 60 Capsule, Rfl: 0 folic acid (FOLVITE) 1 mg Oral Tablet, Take 1 Tablet by mouth daily., Disp: 30 Tablet, Rfl: 0 fUROsemide (LASIX) 20 mg Oral Tablet, Take 1 Tablet by mouth daily., Disp: 30 Tablet, Rfl: 0 guaiFENesin (MUCINEX) 600 mg Oral Tablet Extended Release 12hr, Take 1 Tablet by mouth 2 times daily as needed for Congestion., Disp: , Rfl: LEVOthyroxine (SYNTHROID) 50 mcg Oral Tablet, Take 50 mcg by mouth daily., Disp: , Rfl: metoprolol succinate (TOPROL-XL) 25 mg Oral Tablet Sustained Release 24 hr, Take 0.5 Tablets by mouth daily., Disp: , Rfl: midodrine (PROAMATINE) 5 mg Oral Tablet, Take 1 tablet by mouth three times daily IF systolic bloodpressure is less than 90, Disp: 60 Tablet, Rfl: 0 oxyCODONE (ROXICODONE) 5 mg Oral Tablet, Take 1 Tablet by mouth every 6 hours as needed for Acute Pain > 3 Days Medically Necessary (R52)., Disp: 20 Tablet, Rfl: 0 pantoprazole (PROTONIX) 40 mg Oral Tablet, Delayed Release (E.C.), Take 1 Tablet by mouth daily for30 days., Disp: , Rfl: polyethylene glycol (GLYCOLAX, MIRALAX) 17 gram Oral Powder in Packet, Take 17 g by mouth daily for30 days., Disp: 30 Each, Rfl: 0 rosuvastatin (CRESTOR) 20 mg Oral Tablet, Take 1 Tablet by mouth nightly., Disp: 90 Tablet, Rfl: 3 senna-docusate (SENNOSIDES-DOCUSATE SODIUM) 8.6-50 mg Oral Tablet, Take 2 Tablets by mouth 2 times daily., Disp: 120 Tablet, Rfl: 0 tamsulosin (FLOMAX) 0.4 mg capsule, Take 0.4 mg by mouth nightly., Disp: , Rfl: documented in this encounter Plan of Treatment Upcoming Encounters Date Type Department Care Team (Late st Contact Info) Description 11/09/2025 1:00 PM EST Office Visit [facility] Cardiac Surgeons [address] [place] [address] Mukund Noel MD 1 [place] [address] 11/15/2025 12:15 PM EST Appointment [facility] [address] [facility] [place] [address] Melani Donaldson, CIVIL TRANSPORTATION ENGINEER [address] [place] [address] [place] [address] 12/14/2025 11:15 AM EST Office Visit [facility] [address] [place] [phone] Tobias Darby DO [address] [place] [address] documented as of this encounter Visit Diagnoses Diagnosis S/P CABG (coronary artery bypass graft)- Primary Postsurgical aortocoronary bypass status documented in this encounter Discontinued Medications Medication Sig Discontinue Reason Start Date End Da te amiodarone (PACERONE) 200 mg Oral Tablet Take 1 Tablet by mouth daily. Reorder 08/19/2025 08/24/2025 documented as of this encounter Additional Health Concerns Assessment Noted Time A fall risk assessment has been complete d for the patient 06/16/2020 10:01 AM EDT documented as of this encounter Care Teams Roofing Machine Tender Relationship Specialty Start Date End Date Darrius Fair MD [address] [address] [address] [place] [address] PCP - General 03/05/11 Marcial Vizcarra MD [address] [address] [address] [place] [address] Physician Internal Medicine-Gastroenterology 11/22/16 documented as of this encounter
--- OUTSIDE RECORDS SUMMARY | 2025-09-02 12:00 | XMS_ITS | Encounter Summary ---
Author Organization [place] [address] Care Team Providers Care Fire Prevention Bureau Captain Name Role Phone Darrius Fair MD Primary Care Provider [phone] Marcial Vizcarra MD Unavailable [phone] Reason for Referral * Echo (Routine) - Authorized Specialty Diagnoses / Procedures Referred By Lima mosqueda Referred To Contact Radiology Diagnoses ASHD (arteriosclerotic heart disease) Congestive heart failure, unspecified HF chronicity, unspecified heart failure type (HCC) Primary hypertension Procedures EC ECHOCARDIOGRAM COMPLETE W DOPPLER AND COLOR FLOW MAPPING Mendoza February, [address] [place] [address] Phone: tel: fax: Referral ID Status Reason Start Date Expiration Date V isits Requested Visits Authorized [id number] Authorized 09/02/2025 09/02/2027 1 1 Reason for Visit * Reason Comments Hospital Follow Up D/C [facility] 08/06/25 s/p CABG 07/28/25 Encounter Details Date Type Department Care Team (Late st Contact Info) Description 09/02/2025 1:00 PM EDT Office Visit [facility] [address] [place] [phone] Mendoza February, WELDER TACK [address] [place] [address] ASHD (arteriosclerotic heart disease) (Primary Dx); Congestive heart failure, unspecified HF chronicity, unspecified heart failure type (HCC); Primary hypertension Social History Tobacco Use Types Packs/Day Years [...] from your doctor or pharmacy? Sometimes 07/20/2025 [facility] Utilities Answer Date Recorded In the past 12 months has th e electric, gas, oil, or water company threatened to shut off services in your home? No 07/29/2025 Overall Financial Resource Strain (CARDIA) Answe r Date Recorded How hard is it for you to pa y for the very basics like food, housing, medical care, and heating? Not hard at all 07/29/2025 PHQ-2 Answer Date Recorded PHQ-2 Total Score 0 07/29/2025 [facility] [place] [facility] - Occupational Stress Questionnaire Answer Date Recorded [...] any time in the past 12 m [facility], were you homeless or living in a care home (including now)? No 07/20/[address] [facility] IP Transportation Answer D ate Recorded [...] Sign Reading Time Taken Comments Blood Pressure 112/58 09/02/2025 1:02 PM EDT Pulse - - Temperature - - Respiratory Rate - - Oxygen Saturation - - Inhaled Oxygen Concentration - - Weight 106.3 kg (234 lb 6.4 oz) 09/02/2025 1:02 PM EDT Height 182.9 cm (6') 09/02/2025 1:02 PM EDT Body Mass Index 31.79 09/02/2025 1:02 PM EDT documented in this encounter Functional Status * Is the person deaf or does he/she have serious difficulty hearing? Answer Date of Assessment Author No 01/03/2023 6:00 PM Lizzie Almaguer, Superintendent Renting Managing * Is the person blind or does he/she have serious difficulty seeing even when wearing glasses? Answer Date of Assessment Author No 01/03/2023 6:00 PM Lizzie Almaguer, Superintendent [employer] Managing * Does this person have serious difficulty walking or climbing stairs? Answer Date of Assessment Author No 01/03/2023 6:00 PM Lizzie Almaguer, Superintendent [employer] Managing * Does this person have difficulty dressing or bathing? Answer Date of Assessment Author No 01/03/2023 6:00 PM Lizzie Almaguer, Superintendent [employer] Managing * Because of a physical, mental or emotional condition, does this person have difficulty doing errands alone such as visiting a doctor's office or shopping? Answer Date of Assessment Author No 01/03/2023 6:00 PM Lizzie Almaguer, Superintendent [employer] Managing documented as of this encounter Mental Status * Because of a physical, mental or emotional condition, does this person have serious difficulty concentrating, remembering or making decisions? Answer Entry Date Author No 01/03/2023 6:00 PM Lizzie Almaguer, Superintendent [employer] Managing documented in this encounter Progress Notes * Mendoza February, WEL[employer] TACK - 09/02/2025 1:00 PM EDT Subjective: Patient ID: Jonathon Lara is a 80 y.o. male. Chief Complaint Patient presents with Hospital Follow Up D/C [facility] 08/06/25 s/p CABG 07/28/25 Mr. Lara is here for a hosp follow up HPI he has no chest pain, no undue sob. Doing home PT No dizziness No falls. Is tolerating medication. No new complaints. Their chronic cardiac conditions are: Problem List Cardiology Problems Hypertension Acute (reversible) ischemia of small intestine, extent unspecified Congestive heart failure, unspecified HF chronicity, unspecified heart failure type (HCC) Supraventricular tachycardia ASHD (arteriosclerotic heart disease) Mixed hyperlipidemia Tobacco Use History[1] Current Medications[2] Objective: Patient Vitals for the past 24 hrs: BP 09/02/25 1302 112/58 Body mass index is 31.79 kg/m??. PHYSICAL EXAM: Constitutional: appears in no distress Eyes: no icterus Neck: Normal range of motion. Neck supple Cardiovascular: Normal rate, regular rhythm, S1 normal, S2 normal and normal heart sounds. Pulmonary/Chest: Breath sounds normal. no wheezes. no rales. Abdominal: Soft. Musculoskeletal: exhibits no edema. Neurological: is alert and oriented to person, place, and time. Skin: Skin is warm and dry. Psychiatry: mood and affect appropriate No results found for this visit on 09/02/25. Lab Review Lab Results Component Value Date WBC 12.1 (H) 08/06/2025 HGB 9.5 (L) 08/06/2025 PLT 356 08/06/2025 Lab Results Component Value Date NA 138 08/06/2025 K 4.2 08/06/2025 BUN 33 (H) 08/06/2025 CREATININE 1.19 08/06/2025 GLU 113 (H) 08/06/2025 ALT 10 06/14/2025 ALKPHOS 122 06/14/2025 Lab Results Component Value Date TSH 2.860 07/28/2019 Lab Results Component Value Date CHOLESTEROL 120 06/07/2025 HDL 33 (L) 06/07/2025 LDLCALC 60 06/07/2025 TRIG 156 (H) 06/07/2025 Lab Results Component Value Date INR 1.02 07/21/2025 Assessment and Plan: ASHD - s/p CABG x5 + KAT ligation Jul 2025 - TTE Jun 2025 normal EF, mild - check echo post op - denies angina - med rx: asa, BB, statin - cardiac rehab to start after home health is over Post op AF - per CTS, amio x3 months - SR based on exam today - TE Jun 2025 normal EF, mild - compensated Remote hx SVT s/p ablation at - continue Toprol 12.5 HTN - only on toprol 12.5 now - has midodrine PRN - controlled HLD - crestor 20 - LDL May Hypothyroidism Neuropathy D/w family at bedside February KURTIS Donaldson [1] Social History Tobacco Use Smoking Status Former Current packs/day: 0.00 Types: Cigarettes Quit date: 03/05/1968 Years since quittin.5 Smokeless Tobacco Former Types: Chew [2] Current Outpatient Medications Medication Sig Dispense Refill acetaminophen 325 mg Oral Tab Take 2 Tablets by mouth every 4 hours as needed for Pain. amiodarone (PACERONE) 200 mg Oral Tablet Take 1 Tablet by mouth daily. 30 Tablet 1 aspirin 81 mg Oral Tablet, Chewable Take 1 Tablet by mouth daily for 90 days. Cholecalciferol, Vitamin D3, 50 mcg (2,000 unit) Oral Tablet Take 1 Tablet by mouth daily. 90 Tablet 2 folic acid (FOLVITE) 1 mg Oral Tablet Take 1 Tablet by mouth daily. 30 Tablet 0 fUROsemide (LASIX) 20 mg Oral Tablet Take 1 Tablet by mouth daily. 30 Tablet 0 guaiFENesin (MUCINEX) 600 mg Oral Tablet Extended Release 12hr Take 1 Tablet by mouth 2 times dailyas needed for Congestion. LEVOthyroxine (SYNTHROID) 50 mcg Oral Tablet Take 50 mcg by mouth daily. metoprolol succinate (TOPROL-XL) 25 mg Oral Tablet Sustained Release 24 hr Take 0.5 Tablets by mouth daily. midodrine (PROAMATINE) 5 mg Oral Tablet Take 1 tablet by mouth three times daily IF systolic blood pressure is less than 90 60 Tablet 0 omeprazole (PRILOSEC) 40 mg Oral Capsule, Delayed Release(E.C.) Take 40 mg by mouth 2 times daily. polyethylene glycol (GLYCOLAX, MIRALAX) 17 gram Oral Powder in Packet Take 17 g by mouth daily for 30 days. 30 Each 0 pregabalin (LYRICA) 100 mg Oral Capsule 100 mg 3 times daily. rosuvastatin (CRESTOR) 20 mg Oral Tablet Take 1 Tablet by mouth nightly. 90 Tablet 3 senna-docusate (SENNOSIDES-DOCUSATE SODIUM) 8.6-50 mg Oral Tablet Take 2 Tablets by mouth 2 times daily. 120 Tablet 0 tamsulosin (FLOMAX) 0.4 mg capsule Take 0.4 mg by mouth nightly. No current facility-administered medications for this visit. documented in this encounter Miscellaneous Notes * Patient Instructions - Sabiha Alvarez RMA - 09/02/2025 1:00 PM EDT You may receive a survey via phone, mail or e-mail, regarding your visit today. Your feedback is important to us. We ask that you please take a few minutes to fill out the survey. You were assisted today by Melani Donaldson APRN and KIARRA Deleon. Thank You for choosing [facility]. We sincerely thank you for the opportunity to be a part of your care. documented in this encounter Plan of Treatment Upcoming Encounters Date Type Department Care Team (Late st Contact Info) Description 11/09/2025 1:00 PM EST Office Visit [facility] [place] [address] [place] [phone] Mukund Noel MD [address] [place], [place] [id number] 11/15/2025 12:15 PM EST Appointment [facility] [address] [place] [address] Melani Donaldson, WELDER TACK [address] [place] [place], [place] [id number] 12/14/2025 11:15 AM EST Office Visit [facility] [address] [place] [phone] Tobias Darby DO [address] [place] [address] Scheduled Orders Name Type Priority Associated Diagnoses Order Schedule EC ECHOCARDIOGRAM COMPLETE W DOPPLER AND COLOR FLOW MAPPING Imaging Cardiology Routine ASHD (arteriosclerotic heart disease) Congestive heart failure, unspecified HF chronicity, unspecified heart failure type (HCC) Primary hypertension 1 Occurrences starting 09/02/2025 until 09/02/2027 documented as of this encounter Visit Diagnoses Diagnosis ASHD (arteriosclerotic heart disease)- Primary Coronary atherosclerosis of unspecified type of vessel, [place] or graft Congestive heart failure, unspecified HF chronicity, unspecified heart failure type (HCC) Primary hypertension Unspecified essential hypertension documented in this encounter Discontinued Medications Medication Sig Discontinue Reason Start Date End Da te albuterol (PROVENTIL HFA;VENTOLIN HFA) 90 mcg/actuation Inhl HFA Aerosol Inhaler INHALE 2 PUFFS INTO THE LUNGS EVERY 4 TO 6 HOURS NEEDED FOR SHORTNESS OF BREATH OR WHEEZING. Patient Reported not taking medication 02/10/2024 09/02/2025 docusate sodium (COLACE) 100 mg Oral Capsule Take 1 Capsule by mouth 2 times daily. Patient Reported not taking medication 08/19/2025 09/02/2025 oxyCODONE (ROXICODONE) 5 mg Oral Tablet Take 1 Tablet by mouth every 6 hours as needed for Acute Pain > 3 Days Medically Necessary (R52). Patient Reported not taking medication 08/19/2025 09/02/2025 pantoprazole (PROTONIX) 40 mg Oral Tablet, Delayed Release (E.C.) Take 1 Tablet by mouth daily for 30 days. Patient Reported not taking medication 08/06/2025 09/02/2025 documented as of this encounter Historical Medications * This list may reflect changes made after this encounter. omeprazole (PRILOSEC) 40 mg Oral Capsule, Delayed Release(E.C.) Take 40 mg by mouth 2 times daily. pregabalin (LYRICA) 100 mg Oral Capsule 100 mg 3 times daily. 08/23/2025 added in this encounter Additional Health Concerns Assessment Noted Time A fall risk assessment has been complete d for the patient 06/16/2020 10:01 AM EDT documented as of this encounter Care Teams Fire Prevention Bureau Captain Relationship Specialty Start Date End Date Darrius Fair MD [address] [place] [address] PCP - General 03/05/11 Marcial Vizcarra MD [address] [place] [phone] Physician Internal Medicine-Gastroenterology 11/22/16 documented as of this encounter
--- OUTSIDE RECORDS SUMMARY | 2025-09-14 12:45 | XMS_ITS | Encounter Summary ---
Author Organization [place] [address] Care Team Providers Care Manager Division Name Role Phone Darrius Fair MD Primary Care Provider [phone] Marcial Vizcarra MD Unavailable [phone] Reason for Visit * Reason Comments Post-op CABG f/u Encounter Details Date Type Department Care Team (Late st Contact Info) Description 09/14/2025 1:45 PM EDT Office Visit [facility] Cardiac Surgeons [place] [address] [place] [address] [address] [place] [address] Mukund Noel MD [address] [place], [place] [id number] S/P CABG (coronary artery bypass graft) (Primary [...] from your doctor or pharmacy? Sometimes 07/20/2025 [facility] Utilities Answer Date Recorded In the past 12 months has [employer], oil, or water [employer] threatened to shut off services in your home? No 07/29/2025 Overall Financial Resource Strain (CARDIA) Answe r Date Recorded How hard is it for you to pa y for the very basics like food, housing, medical care, and heating? Not hard at all 07/29/2025 PHQ-2 Answer Date Recorded PHQ-2 Total Score 0 07/29/2025 [facility] - Occupational Stress Questionnaire Answer Date Recorded [...] any time in the past [address] m [facility], were you homeless or living in a skilled nursing (including now)? No 07/20/2025 [facility] IP Transportation Answer D ate Recorded In [...] Sign Reading Time Taken Comments Blood Pressure 124/71 09/14/2025 1:55 PM EDT Pulse 68 09/14/2025 1:55 PM EDT Temperature - - Respiratory Rate - - Oxygen Saturation 95% 09/14/2025 1:55 PM EDT Inhaled Oxygen Concentration - - Weight 108.9 kg (240 lb) 09/14/2025 1:55 PM EDT Height 182.9 cm (6') 09/14/2025 1:55 PM EDT Body Mass Index 32.55 09/14/2025 1:55 PM EDT documented in this encounter Functional [...] Refills Last Filled Start Date End Date aspirin 81 mg Oral Tablet, Chewable Take 2 Tablets by mouth daily for 90 days. 09/14/2025 6 fUROsemide (LASIX) 20 mg Oral Tablet Take 1 Tablet by mouth every other day. 90 Tablet 09/14/2025 5 documented in this encounter Progress Notes * Mukund Noel MD - 09/14/2025 1:45 PM EDT Cardiothoracic Surgery Outpatient Follow-up Note Procedure: 07/28/2025 ([facility]) 1. Coronary artery bypass graft x [...] male presents to office today for followup. Walking without sx. Does have some chest soreness with use of arms. Nothing exertional. Objective: Vitals: 09/14/25 1355 BP: 124/71 Pulse: 68 SpO2: 95% General: alert and oriented x 3 Chest: incisions healing well. Discolored at lower portion. Tender to touch. Sternum stable. Heart: no M/R/G Lungs: clear to auscultation Extremities: no edema Current Medications[1] Assessment / Plan: S/p CABG (MOISE-> LAD, SVG-> 2nd OM, SVG-> 1st OM, SVG-> distal RCA, SVG-> 2nd OM), KAT ligation (45 mm Atrial clip), sternal plating 07/28/2025: on bASA, crestor Pneumonia: discharged on cipro. Stable today. Sternal wound cellulitis: completed antibiotics. See image today. Post op afib: regular today. Plan to continue amio for 3 months. No heavy lifting greater than 10 lbs x 12 weeks s/p surgery. Patient may not drive for 2-4 weeks or while taking any narcotic pain meds Cardiac Rehab to be scheduled Return to Clinic 2 months for wound check Further input from Dr Spaulding. he is doing well, no fever, cellulitis has resolved, no drainage. I would like to see him in 2 months to make sure his sternum heals well without infection problems. America Ortiz APRN [1] Current Outpatient Medications: acetaminophen 325 mg Oral Tab, Take 2 Tablets by mouth every 4 hours as needed for Pain., Disp: , Rfl: amiodarone (PACERONE) 200 mg Oral Tablet, Take 1 Tablet by mouth daily., Disp: 30 Tablet, Rfl: 1 aspirin 81 mg Oral Tablet, Chewable, Take 1 Tablet by mouth daily for 90 days., Disp: , Rfl: Cholecalciferol, Vitamin D3, 50 mcg (2,000 unit) Oral Tablet, Take 1 Tablet by mouth daily., Disp: 90 Tablet, Rfl: 2 folic acid (FOLVITE) 1 mg Oral Tablet, [...] Tablets by mouth daily., Disp: , Rfl: omeprazole (PRILOSEC) 40 mg Oral Capsule, Delayed Release(E.C.), Take 40 mg by mouth 2 times daily., Disp: , Rfl: polyethylene glycol (GLYCOLAX, MIRALAX) 17 gram Oral Powder in Packet, Take 17 g by mouth daily for30 days., Disp: 30 Each, Rfl: 0 pregabalin (LYRICA) 100 mg Oral Capsule, 100 mg 3 times daily., Disp: , Rfl: rosuvastatin (CRESTOR) 20 mg Oral Tablet, Take 1 Tablet by mouth nightly., Disp: 90 Tablet, Rfl: 3 senna-docusate (SENNOSIDES-DOCUSATE SODIUM) 8.6-50 mg Oral Tablet, Take 2 Tablets by mouth 2 times daily., Disp: 120 Tablet, Rfl: 0 tamsulosin (FLOMAX) 0.4 mg capsule, Take 0.4 mg by mouth nightly., Disp: , Rfl: fUROsemide (LASIX) 20 mg Oral Tablet, Take 1 Tablet by mouth daily. (Patient not taking: Reported on 09/14/2025), Disp: 30 Tablet, Rfl: 0 midodrine (PROAMATINE) 5 mg Oral Tablet, Take 1 tablet by mouth three times daily IF systolic bloodpressure is less than 90 (Patient not taking: Reported on 09/14/2025), Disp: 60 Tablet, Rfl: 0 documented in this encounter Plan of Treatment Upcoming Encounters Date Type Department Care Team (Late st Contact Info) Description 11/09/2025 1:00 PM EST Office Visit [facility] [place] [address] [place] [address] [address] [place] [address] Mukund Noel MD [address] [place] [address] 11/15/2025 12:15 PM EST Appointment [facility] [address] [facility] [place] [address] Melani Donaldson, ROLL PRESS OPERATOR [address] [address] 12/14/2025 11:15 AM EST Office Visit [facility] [address] [place] [phone] Tobias Darby DO [address] [place] [address] documented as of this encounter Visit Diagnoses Diagnosis S/P CABG (coronary artery bypass graft)- Primary Postsurgical aortocoronary bypass status documented in this encounter Discontinued Medications Medication Sig Discontinue Reason Start Date End Da te fUROsemide (LASIX) 20 mg Oral Tablet Take 1 Tablet by mouth daily. DELETE-Therapy completed 08/19/2025 09/14/2025 aspirin 81 mg Oral Tablet, Chewable Take 1 Tablet by mouth daily for 90 days. 08/06/2025 09/14/2025 documented as of this encounter Additional Health Concerns Assessment Noted Time A fall risk assessment has been complete d for the patient 06/16/2020 10:01 AM EDT documented as of this encounter Care Teams Manager Division Relationship Specialty Start Date End Date Darrius Fair MD [address] [facility] [address] [place] [address] PCP - General 03/05/11 Marcial Vizcarra MD [facility] [place] [address] [place] [address] Physician Internal Medicine-Gastroenterology 11/22/16 documented as of this encounter
--- OUTSIDE RECORDS SUMMARY | 2025-10-18 19:00 | XMS_ITS | Clinical Summary ---
Author Organization Unknown Care Team Providers Care Actuarial Science Professor Name Role Phone IRVING KAYE, KANDIS Unavailable Unavailable PATRIZIA RN, PERCY Unavailable Unavailable TIM BLACK POWDER GLAZING OPERATOR, MAXIMINO Unavailable Unavailable MATTEO PT, LEYLA Unavailable Unavailable MELINDA HONING MACHINE OPERATOR, NELL Unavailable Unavailable Payers Payer Name Policy Type Policy Number Effective Date Expira tion Date NAVIAUTH [id number] Problems Condition Name Condition Details Condition Category Status Onset Date Resolution Date Last Treatment Date Treating Clinician Comments INFECTION FOLLOWING A PROCEDURE, OTHER SURGICAL SITE, SUBS Active 08-06 00:00: 00 ATHSCL HEART DISEASE OF [place] CORONARY ARTERY W/O ANG PCTRS Active 07-28 00:00: 00 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, NEC Active 07-28 00:00: 00 UNSPECIFIED ATRIAL FIBRILLATION Active 07-28 00:00: 00 ACUTE POSTHEMORRHA GIC ANEMIA Active 07-28 00:00: 00 HYPERTENSIVE CHRONIC KIDNEY DISEASE W STG 1-4/UNSP CHR KDNY Active 07-26 00:00: 00 CHRONIC KIDNEY DISEASE, STAGE 3B Active 07-26 00:00: 00 GASTRO-ESOPH AGEAL REFLUX DISEASE WITHOUT ESOPHAGITIS Active 07-26 00:00: 00 DYSPHAGIA, PHARYNGOESOP HAGEAL PHASE Active 07-28 00:00: 00 POLYNEUROPAT HY, UNSPECIFIED Active 07-26 00:00: 00 HYPERLIPIDEM IA, UNSPECIFIED Active 07-26 00:00: 00 HYPOTHYROIDI SM, UNSPECIFIED Active 07-26 00:00: 00 DORSALGIA, UNSPECIFIED Active 07-26 00:00: 00 OTHER CHRONIC PAIN Active 07-26 00:00: 00 VITAMIN D DEFICIENCY, UNSPECIFIED Active 07-26 00:00: 00 OTHER CONSTIPATION Active 07-26 00:00: 00 Obesity, class 1 Active 07-26 00:00: 00 BODY MASS INDEX [BMI] 31.0-31.9, ADULT Active 07-26 00:00: 00 PRESENCE OF AORTOCORONAR Y BYPASS GRAFT Active 07-28 00:00: 00 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 Ordering Clinician Indication Dosage Frequency Signature (SIG) Comments Components amiodarone 200 mg tablet 08-19 00:00: 00 Yes [id number] AFIB 1 tablet DAILY 1 tablet DAILY (route: oral) Med Classific ation: Cardiovas cular Therapy Agents furosemide 20 mg tablet 08-19 00:00: 00 09-21 23:59 :00 No [id number] EDEMA 1 tablet DAILY 1 tablet DAILY (route: oral) Med Classific ation: Cardiovas cular Therapy Agents midodrine 5 mg tablet 08-19 00:00: 00 Yes [id number] LOW BP 1 tablet 3 TIMES DAILY 1 tablet 3 TIMES DAILY (route: oral) Med Classific ation: Cardiovas cular Therapy Agents oxycodone 5 mg tablet 08-19 00:00: 00 Yes [id number] PAIN LEVEL 6-10 1 tablet EVERY 6 HOURS NEEDED 1 tablet EVERY 6 HOURS NEEDED (route: oral) Med Classific ation: Analgesic , Anti-infl ammatory or Antipyret ic omeprazole 40 mg capsule,del ayed release 07-27 00:00: 00 Yes [id number] GERD 1 capsule TWICE DAILY 1 capsule TWICE DAILY (route: oral) Med Classific ation: Gastroint estinal Therapy Agents diclofenac sodium 75 mg tablet,chandana yed release 07-22 00:00: 08-23 00:00 :00 No [id number] Per instruc tions TWICE DAILY Per instructio ns TWICE DAILY (route: oral) Med Classific ation: Analgesic , Anti-infl ammatory or Antipyret ic methocarbam ol 500 mg tablet 07-22 00:00: 00 08-23 00:00 :00 No [id number] Per instruc tions 2 TIMES DAILY Per instructio ns 2 TIMES DAILY (route: oral) Med Classific ation: Locomotor System levothyroxi ne 50 mcg tablet 07-21 00:00: 00 Yes [id number] THYROID 1 tablet ONCE DAILY EVERY 1 tablet ONCE DAILY EVERY (route: oral) Med Classific ation: Endocrine pregabalin 100 mg capsule 07-21 00:00: 00 08-23 00:00 :00 No [id number] Per instruc tions 3 TIMES DAILY Per instructio ns 3 TIMES DAILY (route: oral) Med Classific ation: Central Nervous System Agents acetaminoph en 500 mg tablet 07-26 00:00: 00 Yes [id number] PAIN LEVEL 2-5 2 tablet EVERY 8 HOURS 2 tablet EVERY 8 HOURS (route: oral) Med Classific ation: Analgesic , Anti-infl ammatory or Antipyret ic albuterol sulfate HFA 90 mcg/actuati on aerosol inhaler 07-26 00:00: 00 Yes [id number] SHORTNESS OF BREATH 2 puff EVERY 4 HOURS 2 puff EVERY 4 HOURS (route: inhalation ) Med Classific ation: Respirato ry Therapy Agents aspirin 81 mg tablet 07-26 00:00: 00 Yes [id number] HEART 1 tablet DAILY 1 tablet DAILY (route: oral) Med Classific ation: Hematolog ical Agents cephalexin 500 mg tablet 07-26 00:00: 00 08-26 23:59 :00 No [id number] PNA 1 tablet 2 TIMES DAILY 1 tablet 2 TIMES DAILY (route: oral) Med Classific ation: Anti-Infe ctive Agents folic acid 1 mg tablet 07-26 00:00: 00 Yes [id number] SUPPLEMENTS 1 tablet DAILY 1 tablet DAILY (route: oral) Med Classific ation: Electroly te Balance-N utritiona l Products metoprolol succinate ER 25 mg tablet,exte nded release 24 hr 07-26 00:00: 00 Yes [id number] BLOOD PRESSURE 0.5 tablet DAILY 0.5 tablet DAILY (route: oral) Med Classific ation: Cardiovas cular Therapy Agents rosuvastati n 20 mg tablet 07-26 00:00: 00 Yes [id number] HYPERLIPIDE BERTRAND 1 tablet DAILY 1 tablet DAILY (route: oral) Med Classific ation: Cardiovas cular Therapy Agents tamsulosin 0.4 mg capsule 07-26 00:00: 00 Yes [id number] BPH 1 capsule DAILY 1 capsule DAILY (route: oral) Med Classific ation: Genitouri nary Therapy Vitamin D3 25 mcg (1,000 unit) capsule 07-26 00:00: 00 Yes [id number] SUPPLEMENTS 1 capsule DAILY 1 capsule DAILY (route: oral) Med Classific ation: Electroly te Balance-N utritiona l Products furosemide 20 mg tablet 2024-11 00:00: 00 Yes [id number] EDEMA, SOB Per instruc tions DIRECTED Per instructio ns DIRECTED (route: oral) Med Classific ation: Cardiovas cular Therapy Agents Vital Signs Vital Name Observation Time Observation Value Commen ts Temperature 2025-10-19 08:55:00.000 96.8 [degF] Temperature 2025-10-14 11:34:00.000 97.2 [degF] Temperature 2025-10-07 11:53:00.000 97.6 [degF] Temperature 2025-10-01 13:44:00.000 97.1 [degF] Temperature 2025-10-01 11:37:00.000 97.2 [degF] Temperature 2025-09-21 08:46:00.000 96.7 [degF] Temperature 2025-09-17 12:42:00.000 97.4 [degF] Temperature 2025-09-17 10:09:00.000 97.4 [degF] Temperature 2025-09-10 11:45:00.000 97.1 [degF] Temperature 2025-09-09 09:51:00.000 97.7 [degF] Temperature 2025-09-01 13:55:00.000 97.2 [degF] Temperature 2025-08-31 10:05:00.000 97.6 [degF] Temperature 2025-08-26 15:28:00.000 96.5 [degF] Temperature 2025-08-26 15:25:00.000 96.5 [degF] Temperature 2025-08-23 15:48:00.000 98.8 [degF] BMI (%) 2025-08-23 15:24:05.000 31 kg/m2 Height 2025-08-23 15:23:46.000 72 [in_us] Pulse 2025-10-19 08:55:00.000 68 /min Pulse 2025-10-14 11:34:00.000 74 /min Pulse 2025-10-07 11:53:00.000 69 /min Pulse 2025-10-01 13:44:00.000 70 /min Pulse 2025-10-01 11:37:00.000 66 /min Pulse 2025-09-21 08:46:00.000 82 /min Pulse 2025-09-17 12:42:00.000 76 /min Pulse 2025-09-17 10:09:00.000 74 /min Pulse 2025-09-10 11:45:00.000 79 /min Pulse 2025-09-09 09:51:00.000 93 /min Pulse 2025-09-01 13:55:00.000 80 /min Pulse 2025-08-31 10:05:00.000 65 /min Pulse 2025-08-26 15:25:00.000 76 /min Pulse 2025-08-26 15:25:00.000 76 /min Pulse 2025-08-23 15:48:00.000 76 /min O2 Saturation (%) 2025-10-19 08:55:00.000 97 % O2 Saturation (%) 2025-10-14 11:34:00.000 96 % O2 Saturation (%) 2025-10-07 11:53:00.000 96 % O2 Saturation (%) 2025-10-01 13:44:00.000 96 % O2 Saturation (%) 2025-10-01 11:37:00.000 93 % O2 Saturation (%) 2025-09-21 08:46:00.000 95 % O2 Saturation (%) 2025-09-17 12:42:00.000 95 % O2 Saturation (%) 2025-09-17 10:09:00.000 94 % O2 Saturation (%) 2025-09-10 11:45:00.000 95 % O2 Saturation (%) 2025-09-09 09:51:00.000 98 % O2 Saturation (%) 2025-09-01 13:55:00.000 98 % O2 Saturation (%) 2025-08-31 10:05:00.000 96 % O2 Saturation (%) 2025-08-26 15:25:00.000 93 % O2 Saturation (%) 2025-08-26 15:25:00.000 93 % O2 Saturation (%) 2025-08-23 15:48:00.000 97 % Respirations 2025-10-19 08:55:00.000 18 /min Respirations 2025-10-14 11:34:00.000 17 /min Respirations 2025-10-07 11:53:00.000 17 /min Respirations 2025-10-01 13:44:00.000 16 /min Respirations 2025-10-01 11:37:00.000 18 /min Respirations 2025-09-21 08:46:00.000 18 /min Respirations 2025-09-17 12:42:00.000 16 /min Respirations 2025-09-17 10:09:00.000 16 /min Respirations 2025-09-10 11:45:00.000 17 /min Respirations 2025-09-09 09:51:00.000 16 /min Respirations 2025-09-01 13:55:00.000 16 /min Respirations 2025-08-31 10:05:00.000 16 /min Respirations 2025-08-26 15:25:00.000 16 /min Respirations 2025-08-26 15:25:00.000 16 /min Respirations 2025-08-23 15:48:00.000 16 /min Weight (lbs) 2025-10-14 11:34:00.000 246 [lb_av] Weight (lbs) 2025-10-07 11:53:00.000 244.2 [lb_av] Weight (lbs) 2025-10-01 13:44:00.000 242.6 [lb_av] Weight (lbs) 2025-10-01 11:37:00.000 242.6 [lb_av] Weight (lbs) 2025-09-21 08:46:00.000 242.8 [lb_av] Weight (lbs) 2025-09-17 10:09:00.000 240 [lb_av] Weight (lbs) 2025-09-10 11:49:00.000 235.6 [lb_av] Weight (lbs) 2025-09-01 14:09:00.000 227.2 [lb_av] Weight (lbs) 2025-08-31 10:05:00.000 226.2 [lb_av] Weight (lbs) 2025-08-26 15:25:00.000 235 [lb_av] Weight (lbs) 2025-08-23 15:24:05.000 235 [lb_av] Systolic Blood Pressure 2025-10-19 08:55:00.000 138 mm [Hg] Systolic Blood Pressure 2025-10-14 11:34:00.000 110 mm [Hg] Systolic Blood Pressure 2025-10-07 11:53:00.000 116 mm [Hg] Systolic Blood Pressure 2025-10-01 13:44:00.000 110 mm [Hg] Systolic Blood Pressure 2025-10-01 11:37:00.000 114 mm [Hg] Systolic Blood Pressure 2025-09-21 08:46:00.000 128 mm [Hg] Systolic Blood Pressure 2025-09-17 12:42:00.000 122 mm [Hg] Systolic Blood Pressure 2025-09-17 10:09:00.000 120 mm [Hg] Systolic Blood Pressure 2025-09-10 11:45:00.000 130 mm [Hg] Systolic Blood Pressure 2025-09-09 09:51:00.000 120 mm [Hg] Systolic Blood Pressure 2025-09-01 13:55:00.000 112 mm [Hg] Systolic Blood Pressure 2025-08-31 10:05:00.000 120 mm [Hg] Systolic Blood Pressure 2025-08-26 15:25:00.000 102 mm [Hg] Systolic Blood Pressure 2025-08-26 15:25:00.000 102 mm [Hg] Systolic Blood Pressure 2025-08-23 15:48:00.000 110 mm [Hg] Diastolic Blood Pressure 2025-10-19 08:55:00.000 68 mm [Hg] Diastolic Blood Pressure 2025-10-14 11:34:00.000 68 mm [Hg] Diastolic Blood Pressure 2025-10-07 11:53:00.000 68 mm [Hg] Diastolic Blood Pressure 2025-10-01 13:44:00.000 70 mm [Hg] Diastolic Blood Pressure 2025-10-01 11:37:00.000 62 mm [Hg] Diastolic Blood Pressure 2025-09-21 08:46:00.000 70 mm [Hg] Diastolic Blood Pressure 2025-09-17 12:42:00.000 68 mm [Hg] Diastolic Blood Pressure 2025-09-17 10:09:00.000 84 mm [Hg] Diastolic Blood Pressure 2025-09-10 11:45:00.000 76 mm [Hg] Diastolic Blood Pressure 2025-09-09 09:51:00.000 80 mm [Hg] Diastolic Blood Pressure 2025-09-01 13:55:00.000 76 mm [Hg] Diastolic Blood Pressure 2025-08-31 10:05:00.000 70 mm [Hg] Diastolic Blood Pressure 2025-08-26 15:25:00.000 62 mm [Hg] Diastolic Blood Pressure 2025-08-26 15:25:00.000 62 mm [Hg] Diastolic Blood Pressure 2025-08-23 15:48:00.000 72 mm [Hg] Plan of Treatment Planned Activity Planned Date Details Comments Future Scheduled Test RN TO OBSE RVE, ASSESS, EVALUATE, AND DEVELOP AN INDIVIDUALIZED PLAN OF CARE. AGENCY MAY ACCEPT ORDERS FROM CONSULTING PHYSICIANS KANDIS VILLATORO MD RN TO OBSERVE AND ASSESS, BLACK POWDER GLAZING OPERATOR/HEALTH CARE ADMINISTRATOR TO OBSERVE FOR RISK FOR FALLS AND INSTRUCT IN FALL PREVENTION, HOME SAFETY, MEDICATION MANAGEMENT, INFECTION PREVENTION, AND NUTRITION MANAGEMENT. RN/BLACK POWDER GLAZING OPERATOR/HEALTH CARE ADMINISTRATOR NURSE MAY PERFORM O2 SATURATION LEVEL ON ADMISSION AND PRN FOR RN TO ASSESS/BLACK POWDER GLAZING OPERATOR TO OBSERVE PATIENT, WITH NOTIFICATION TO THE PHYSICIAN IF SATURATION IS 90% IN THE ABSENCE OF MORE SPECIFIC PARAMETERS FROM THE PHYSICIAN. AGENCY MAY PERFORM A RESUMPTION OF CARE VISIT FOLLOWING ANY HOSPITAL ADMISSION. RN/BLACK POWDER GLAZING OPERATOR/HEALTH CARE ADMINISTRATOR TO MONITOR CO-MORBID CONDITIONS LISTED ON THE PLAN OF CARE AND ANY NEW CONDITIONS THAT PRESENT THEMSELVES DURING THIS EPISODE TO IDENTIFY CHANGES AND INTERVENE TO MINIMIZE COMPLICATIONS. [code = RN TO OBSERVE, ASSESS, EVALUATE, AND DEVELOP AN INDIVIDUALIZED PLAN OF CARE. AGENCY MAY ACCEPT ORDERS FROM CONSULTING PHYSICIANS KANDIS VILLATORO MD RN TO OBSERVE AND ASSESS, BLACK POWDER GLAZING OPERATOR/HEALTH CARE ADMINISTRATOR TO OBSERVE FOR RISK FOR FALLS AND INSTRUCT IN FALL PREVENTION, HOME SAFETY, MEDICATION MANAGEMENT, INFECTION PREVENTION, AND NUTRITION MANAGEMENT. RN/BLACK POWDER GLAZING OPERATOR/HEALTH CARE ADMINISTRATOR NURSE MAY PERFORM O2 SATURATION LEVEL ON ADMISSION AND PRN FOR RN TO ASSESS/BLACK POWDER GLAZING OPERATOR TO OBSERVE PATIENT, WITH NOTIFICATION TO THE PHYSICIAN IF SATURATION IS 90% IN THE ABSENCE OF MORE SPECIFIC PARAMETERS FROM THE PHYSICIAN. AGENCY MAY PERFORM A RESUMPTION OF CARE VISIT FOLLOWING ANY HOSPITAL ADMISSION. RN/BLACK POWDER GLAZING OPERATOR/HEALTH CARE ADMINISTRATOR TO MONITOR CO-MORBID CONDITIONS LISTED ON THE PLAN OF CARE AND ANY NEW CONDITIONS THAT PRESENT THEMSELVES DURING THIS EPISODE TO IDENTIFY CHANGES AND INTERVENE TO MINIMIZE COMPLICATIONS.] Future Scheduled Test MEDICATION MANAGEMENT; RN/BLACK POWDER GLAZING OPERATOR/HEALTH CARE ADMINISTRATOR TO REVIEW MEDICATIONS FOR INTERACTIONS, EFFECTIVENESS OF DRUG THERAPY, AND SIGNS/SYMPTOMS OF ADVERSE REACTIONS. MAY INSTRUCT AND REINFORCE MEDICATION TEACHING RELATED TO THE USE OF MEDICATIONS, DOSAGE, FREQUENCY, PURPOSE, SIDE EFFECTS, AND TO REPORT COMPLICATIONS. [code = MEDICATION MANAGEMENT; RN/BLACK POWDER GLAZING OPERATOR/HEALTH CARE ADMINISTRATOR TO REVIEW MEDICATIONS FOR INTERACTIONS, EFFECTIVENESS OF DRUG THERAPY, AND SIGNS/SYMPTOMS OF ADVERSE REACTIONS. MAY INSTRUCT AND REINFORCE MEDICATION TEACHING RELATED TO THE USE OF MEDICATIONS, DOSAGE, FREQUENCY, PURPOSE, SIDE EFFECTS, AND TO REPORT COMPLICATIONS.] Future Scheduled Test RISK FOR H OSPITALIZATION; RN TO ASSESS/TEACH, HEALTH CARE ADMINISTRATOR/BLACK POWDER GLAZING OPERATOR TO OBSERVE/TEACH PATIENT/CAREGIVER ON RISK FOR HOSPITALIZATION/EMERGENCY ROOM VISITS, TEACH SIGNS AND SYMPTOMS THAT PUT PATIENT AT RISK, WHEN TO NOTIFY NURSE/PHYSICIAN OF COMPLICATIONS/DECLINE, AND WHEN TO CALL 911. [code = RISK FOR HOSPITALIZATION; RN TO ASSESS/TEACH, HEALTH CARE ADMINISTRATOR/BLACK POWDER GLAZING OPERATOR TO OBSERVE/TEACH PATIENT/CAREGIVER ON RISK FOR HOSPITALIZATION/EMERGENCY ROOM VISITS, TEACH SIGNS AND SYMPTOMS THAT PUT PATIENT AT RISK, WHEN TO NOTIFY NURSE/PHYSICIAN OF COMPLICATIONS/DECLINE, AND WHEN TO CALL 911.] Future Scheduled Test CARDIOVASC ULAR SYSTEM; RN TO ASSESS/TEACH, BLACK POWDER GLAZING OPERATOR/HEALTH CARE ADMINISTRATOR TO OBSERVE/TEACH RELATED TO ALTERED CARDIOVASCULAR STATUS TO MINIMIZE COMPLICATIONS AND REDUCE HOSPITALIZATION. [code = CARDIOVASCULAR SYSTEM; RN TO ASSESS/TEACH, BLACK POWDER GLAZING OPERATOR/HEALTH CARE ADMINISTRATOR TO OBSERVE/TEACH RELATED TO ALTERED CARDIOVASCULAR STATUS TO MINIMIZE COMPLICATIONS AND REDUCE HOSPITALIZATION.] Future Scheduled Test CORONARY A RTERY BYPASS GRAFT (CABG); RN TO ASSESS/TEACH, BLACK POWDER GLAZING OPERATOR/HEALTH CARE ADMINISTRATOR TO OBSERVE/TEACH WARNING SIGNS AND SYMPTOMS TO AVOID HOSPITALIZATION. MONITOR SURGICAL INCISION SITES FOR S/S OF INFECTION. [code = CORONARY ARTERY BYPASS GRAFT (CABG); RN TO ASSESS/TEACH, BLACK POWDER GLAZING OPERATOR/HEALTH CARE ADMINISTRATOR TO OBSERVE/TEACH WARNING SIGNS AND SYMPTOMS TO AVOID HOSPITALIZATION. MONITOR SURGICAL INCISION SITES FOR S/S OF INFECTION.] Future Scheduled Test HYPERTENSI ON MANAGEMENT; RN TO ASSESS AND TEACH, BLACK POWDER GLAZING OPERATOR/HEALTH CARE ADMINISTRATOR TO OBSERVE AND TEACH WARNING SIGNS AND SYMPTOMS TO AVOID HOSPITALIZATION. [code = HYPERTENSION MANAGEMENT; RN TO ASSESS AND TEACH, BLACK POWDER GLAZING OPERATOR/HEALTH CARE ADMINISTRATOR TO OBSERVE AND TEACH WARNING SIGNS AND SYMPTOMS TO AVOID HOSPITALIZATION.] Future Scheduled Test ANGINA MAN AGEMENT; RN TO ASSESS AND TEACH, BLACK POWDER GLAZING OPERATOR/HEALTH CARE ADMINISTRATOR TO OBSERVE AND TEACH WARNING SIGNS AND SYMPTOMS TO AVOID HOSPITALIZATION. [code = ANGINA MANAGEMENT; RN TO ASSESS AND TEACH, BLACK POWDER GLAZING OPERATOR/HEALTH CARE ADMINISTRATOR TO OBSERVE AND TEACH WARNING SIGNS AND SYMPTOMS TO AVOID HOSPITALIZATION.] Future Scheduled Test ARRHYTHMIA MANAGEMENT; RN TO ASSESS AND TEACH, BLACK POWDER GLAZING OPERATOR/HEALTH CARE ADMINISTRATOR TO OBSERVE AND TEACH WARNING SIGNS AND SYMPTOMS TO AVOID HOSPITALIZATION. [code = ARRHYTHMIA MANAGEMENT; RN TO ASSESS AND TEACH, BLACK POWDER GLAZING OPERATOR/HEALTH CARE ADMINISTRATOR TO OBSERVE AND TEACH WARNING SIGNS AND SYMPTOMS TO AVOID HOSPITALIZATION.] Future Scheduled Test SKIN INTEG RITY RN TO ASSESS AND TEACH, BLACK POWDER GLAZING OPERATOR/HEALTH CARE ADMINISTRATOR TO OBSERVE AND TEACH INTEGUMENTARY STATUS TO IDENTIFY CHANGES AND INTERVENE TO MINIMIZE COMPLICATIONS. PROVIDE SKILLED TEACHING OF GENERAL WOUND AND SKIN CARE AND PREVENTION RELATED TO POTENTIAL FOR OR ACTUAL ALTERED SKIN INTEGRITY [code = SKIN INTEGRITY RN TO ASSESS AND TEACH, BLACK POWDER GLAZING OPERATOR/HEALTH CARE ADMINISTRATOR TO OBSERVE AND TEACH INTEGUMENTARY STATUS TO IDENTIFY CHANGES AND INTERVENE TO MINIMIZE COMPLICATIONS. PROVIDE SKILLED TEACHING OF GENERAL WOUND AND SKIN CARE AND PREVENTION RELATED TO POTENTIAL FOR OR ACTUAL ALTERED SKIN INTEGRITY] Future Scheduled Test PAIN MANAG EMENT; RN TO ASSESS AND TEACH, HEALTH CARE ADMINISTRATOR/BLACK POWDER GLAZING OPERATOR TO OBSERVE AND TEACH AND PROVIDE EDUCATION ON PAIN MANAGEMENT TECHNIQUES. [code = PAIN MANAGEMENT; RN TO ASSESS AND TEACH, HEALTH CARE ADMINISTRATOR/BLACK POWDER GLAZING OPERATOR TO OBSERVE AND TEACH AND PROVIDE EDUCATION ON PAIN MANAGEMENT TECHNIQUES.] Future Scheduled Test RN TO ASSE SS AND TEACH, BLACK POWDER GLAZING OPERATOR/HEALTH CARE ADMINISTRATOR TO OBSERVE AND TEACH, TREAT AND EDUCATE ON CELLULITIS SIGNS, SYMPTOMS, AND SELF-CARE MANAGEMENT. [code = RN TO ASSESS AND TEACH, BLACK POWDER GLAZING OPERATOR/HEALTH CARE ADMINISTRATOR TO OBSERVE AND TEACH, TREAT AND EDUCATE ON CELLULITIS SIGNS, SYMPTOMS, AND SELF-CARE MANAGEMENT.] Future Scheduled Test ANEMIA MAN AGEMENT; RN TO ASSESS AND TEACH, HEALTH CARE ADMINISTRATOR/BLACK POWDER GLAZING OPERATOR TO OBSERVE AND TEACH AND PROVIDE EDUCATION ON ANEMIA. [code = ANEMIA MANAGEMENT; RN TO ASSESS AND TEACH, HEALTH CARE ADMINISTRATOR/BLACK POWDER GLAZING OPERATOR TO OBSERVE AND TEACH AND PROVIDE EDUCATION ON ANEMIA.] Future Scheduled Test FALL REDUC TION MANAGEMENT; RN TO ASSESS AND OBSERVE, BLACK POWDER GLAZING OPERATOR/HEALTH CARE ADMINISTRATOR TO OBSERVE FALL RISK FACTORS AND EDUCATE PATIENT/CAREGIVER ON STRATEGIES TO MINIMIZE THE RISK OF FALLING. [code = FALL REDUCTION MANAGEMENT; RN TO ASSESS AND OBSERVE, BLACK POWDER GLAZING OPERATOR/HEALTH CARE ADMINISTRATOR TO OBSERVE FALL RISK FACTORS AND EDUCATE PATIENT/CAREGIVER ON STRATEGIES TO MINIMIZE THE RISK OF FALLING.] Future Scheduled Test RESPIRATOR Y SYSTEM MANAGEMENT; RN TO ASSESS AND TEACH, BLACK POWDER GLAZING OPERATOR/HEALTH CARE ADMINISTRATOR TO OBSERVE AND TEACH RELATED TO ALTERED RESPIRATORY STATUS TO MINIMIZE COMPLICATIONS AND REDUCE HOSPITALIZATION. [code = RESPIRATORY SYSTEM MANAGEMENT; RN TO ASSESS AND TEACH, BLACK POWDER GLAZING OPERATOR/HEALTH CARE ADMINISTRATOR TO OBSERVE AND TEACH RELATED TO ALTERED RESPIRATORY STATUS TO MINIMIZE COMPLICATIONS AND REDUCE HOSPITALIZATION.] Future Scheduled Test PNEUMONIA MANAGEMENT; RN TO ASSESS AND TEACH, BLACK POWDER GLAZING OPERATOR/HEALTH CARE ADMINISTRATOR TO OBSERVE AND TEACH SIGNS OF PNEUMONIA EXACERBATION AND PROVIDE EARLY INTERVENTIONS TO MINIMIZE RISK OF HOSPITALIZATION. [code = PNEUMONIA MANAGEMENT; RN TO ASSESS AND TEACH, BLACK POWDER GLAZING OPERATOR/HEALTH CARE ADMINISTRATOR TO OBSERVE AND TEACH SIGNS OF PNEUMONIA EXACERBATION AND PROVIDE EARLY INTERVENTIONS TO MINIMIZE RISK OF HOSPITALIZATION.] Future Scheduled Test OCCUPATION AL THERAPY EVALUATION PERFORMED. NO ADDITIONAL VISITS REQUIRED. PROVIDED SKILLED INTERVENTION INCLUDING : PATIENT REQUIRING ASSISTANCE WITH WIPING POST TOILETINT, OT RECOMMENDED UNIVERSAL BIDET AND DISCUSSED BENEFITS. OT ADVISED ON LONG HOSED SHOWER HEAD, AND ALSO SECOND HOOK FOR SHOWED HEAD. PATIENT IS ANXIOUS TO RETURN TO STANDING AND SHOWERING, OT ENCOURAGED TO CONTINUE TO USE BENCH AND PUT THESE ACCOMMODATIONS IN PLACE TO IMPROVE EASE AND COMFORT AND SAFETY FOR SHOWERING. OT REVIEWED COMPENSATORY STRATEGIES FOR UB DRESSING FOR BUTTON / ZIP OR OPENED SHIRTS. [code = OCCUPATIONAL THERAPY EVALUATION PERFORMED. NO ADDITIONAL VISITS REQUIRED. PROVIDED SKILLED INTERVENTION INCLUDING : PATIENT REQUIRING ASSISTANCE WITH WIPING POST TOILETINT, OT RECOMMENDED UNIVERSAL BIDET AND DISCUSSED BENEFITS. OT ADVISED ON LONG HOSED SHOWER HEAD, AND ALSO SECOND HOOK FOR SHOWED HEAD. PATIENT IS ANXIOUS TO RETURN TO STANDING AND SHOWERING, OT ENCOURAGED TO CONTINUE TO USE BENCH AND PUT THESE ACCOMMODATIONS IN PLACE TO IMPROVE EASE AND COMFORT AND SAFETY FOR SHOWERING. OT REVIEWED COMPENSATORY STRATEGIES FOR UB DRESSING FOR BUTTON / ZIP OR OPENED SHIRTS.] Future Scheduled Test AGENCY MAY PERFORM A RESUMPTION OF CARE VISIT FOLLOWING ANY HOSPITAL ADMISSION. PT TO EVALUATE, OBSERVE / ASSESS, AND MONITOR, HONING MACHINE OPERATOR TO OBSERVE AND MONITOR, PROVIDE SKILLED THERAPEUTIC INTERVENTION, ACTIVITY, EDUCATION, AND TRAINING TO ADDRESS; PT/HONING MACHINE OPERATOR TO PROVIDE GAIT TRAINING FOR IMPROVED MOBILITY AND /OR TO NORMALIZE GAIT PATTERN NEUROMUSCULAR RE-EDUCATION / BALANCE / POSTURAL CONTROL (PT) THERAPEUTIC EXERCISES AND ESTABLISHING A HOME EXERCISE PROGRAM (PT/HONING MACHINE OPERATOR) PT/HONING MACHINE OPERATOR TO PROVIDE STAIR TRAINING SIT TO/FROM STAND TRANSFERS (PT/HONING MACHINE OPERATOR) PT / HONING MACHINE OPERATOR TO OBSERVE WOUND/INCISION AND/OR INTACT DRESSING ON CHEST AND REPORT EARLY SIGNS AND SYMPTOMS OF WOUND DETERIORATION, COMPLICATIONS, OR INFECTION TO PHYSICIAN AND/OR THE RN CLINICAL PUMPER HEAD FOR PHYSICIAN NOTIFICATION. PT TO ASSESS / HONING MACHINE OPERATOR TO MONITOR FOR HEART FAILURE EXACERBATION AND RECORD PATIENT REPORTED WEIGHT, AND NOTIFY THE PHYSICIAN AND/OR THE RN CLINICAL PUMPER HEAD FOR PHYSICIAN NOTIFICATION OF HF EXACERBATION (2LB WEIGHT GAIN IN 1 DAY, 5LBS IN A WEEK OR 5 LBS OVER BASELINE; INCREASED SOB, EDEMA, NEEDING MORE PILLOWS AT NIGHT, CRACKLES IN BASIS OF THE LUNGS OR PMI SHIFT) PT TO ASSESS / HONING MACHINE OPERATOR TO MONITOR CARDIO/RESPIRATORY SYSTEM; AND NOTIFY THE PHYSICIAN AND/OR THE RN CLINICAL PUMPER HEAD FOR PHYSICIAN NOTIFICATION FOR EARLY SIGNS AND SYMPTOMS OF EXACERBATION OR DETERIORATION. PT/HONING MACHINE OPERATOR TO IDENTIFY FALL RISK FACTORS; EDUCATE THE PATIENT/CAREGIVER ON WAYS TO REDUCE FALL RISK FACTORS AND ESTABLISH HOME EXERCISE PROGRAM TO MINIMIZE FALL RISK. MAY TEACH THE PATIENT FLOOR RECOVERY WHEN CLINICALLY APPROPRIATE [code = AGENCY MAY PERFORM A RESUMPTION OF CARE VISIT FOLLOWING ANY HOSPITAL ADMISSION. PT TO EVALUATE, OBSERVE / ASSESS, AND MONITOR, HONING MACHINE OPERATOR TO OBSERVE AND MONITOR, PROVIDE SKILLED THERAPEUTIC INTERVENTION, ACTIVITY, EDUCATION, AND TRAINING TO ADDRESS; PT/HONING MACHINE OPERATOR TO PROVIDE GAIT TRAINING FOR IMPROVED MOBILITY AND /OR TO NORMALIZE GAIT PATTERN NEUROMUSCULAR RE-EDUCATION / BALANCE / POSTURAL CONTROL (PT) THERAPEUTIC EXERCISES AND ESTABLISHING A HOME EXERCISE PROGRAM (PT/HONING MACHINE OPERATOR) PT/HONING MACHINE OPERATOR TO PROVIDE STAIR TRAINING SIT TO/FROM STAND TRANSFERS (PT/HONING MACHINE OPERATOR) PT / HONING MACHINE OPERATOR TO OBSERVE WOUND/INCISION AND/OR INTACT DRESSING ON CHEST AND REPORT EARLY SIGNS AND SYMPTOMS OF WOUND DETERIORATION, COMPLICATIONS, OR INFECTION TO PHYSICIAN AND/OR THE RN CLINICAL PUMPER HEAD FOR PHYSICIAN NOTIFICATION. PT TO ASSESS / HONING MACHINE OPERATOR TO MONITOR FOR HEART FAILURE EXACERBATION AND RECORD PATIENT REPORTED WEIGHT, AND NOTIFY THE PHYSICIAN AND/OR THE RN CLINICAL PUMPER HEAD FOR PHYSICIAN NOTIFICATION OF HF EXACERBATION (2LB WEIGHT GAIN IN 1 DAY, 5LBS IN A WEEK OR 5 LBS OVER BASELINE; INCREASED SOB, EDEMA, NEEDING MORE PILLOWS AT NIGHT, CRACKLES IN BASIS OF THE LUNGS OR PMI SHIFT) PT TO ASSESS / HONING MACHINE OPERATOR TO MONITOR CARDIO/RESPIRATORY SYSTEM; AND NOTIFY THE PHYSICIAN AND/OR THE RN CLINICAL PUMPER HEAD FOR PHYSICIAN NOTIFICATION FOR EARLY SIGNS AND SYMPTOMS OF EXACERBATION OR DETERIORATION. PT/HONING MACHINE OPERATOR TO IDENTIFY FALL RISK FACTORS; EDUCATE THE PATIENT/CAREGIVER ON WAYS TO REDUCE FALL RISK FACTORS AND ESTABLISH HOME EXERCISE PROGRAM TO MINIMIZE FALL RISK. MAY TEACH THE PATIENT FLOOR RECOVERY WHEN CLINICALLY APPROPRIATE] Goal 2025-10-19 Patient Goal - GET AROUND BE TTER Goal Provider Goal - A PLAN OF CARE WILL BE ESTABLISHED THAT MEETS THE PATIENT S NEEDS. PATIENT WILL DEMONSTRATE OXYGEN SATURATION WITHIN NORMAL LIMITS OR PATIENT S OPTIMAL LEVEL ESTABLISHED BY THE PHYSICIAN THROUGHOUT CARE. CHANGES TO CO-MORBID CONDITIONS AND ANY NEW CONDITIONS WILL BE IDENTIFIED AND REPORTED TO THE PHYSICIAN. Goal Provider Goal - PATIENT/CAREGIVER TO VERBALIZE, AND CONSISTENTLY DEMONSTRATE EFFECTIVE, SAFE MANAGEMENT OF MEDICATION INCLUDING KNOWLEDGE OF EFFECTIVENESS, POTENTIAL SIDE EFFECTS AND DRUG REACTIONS AND WHEN TO CONTACT THE APPROPRIATE CARE PROVIDER. PATIENT/CAREGIVER WILL BE ABLE TO VERBALIZE UNDERSTANDING OF MEDICATION REGIMEN AND ACCURATELY TAKE MEDICATIONS PRESCRIBED WITHOUT ADVERSE EFFECTS BY EOE Goal Provider Goal - PATIENT/CAREGIVER WILL VERBALIZE UNDERSTANDING OF SIGNS AND SYMPTOMS THAT PUT THE PATIENT AT RISK FOR HOSPITALIZATION /EMERGENCY ROOM VISITS, WHEN TO NOTIFY NURSE/PHYSICIAN OF COMPLICATIONS/DECLINE AND WHEN TO CALL 911. Goal Provider Goal - PATIENT / CAREGIVER WILL VERBALIZE/DEMONSTRATE UNDERSTANDING OF MEASURES TO MANAGE ALTERED CARDIOVASCULAR STATUS BY EOE Goal Provider Goal - PATIENT / CAREGIVER WILL VERBALIZE/DEMONSTRATE AN ABILITY TO ADHERE TO SELF-MANAGEMENT OF CABG TO MINIMIZE COMPLICATIONS AND AVOID HOSPITALIZATION BY END OF EPISODE. Goal Provider Goal - PATIENT / CAREGIVER WILL VERBALIZE/DEMONSTRATE AN ABILITY TO ADHERE TO SELF-MANAGEMENT OF HTN TO MINIMIZE COMPLICATIONS AND AVOID HOSPITALIZATION BY END OF EPISODE. Goal Provider Goal - PATIENT / CAREGIVER WILL VERBALIZE/DEMONSTRATE AN ABILITY TO ADHERE TO SELF-MANAGEMENT OF ANGINA TO MINIMIZE COMPLICATIONS AND AVOID HOSPITALIZATION BY END OF EPISODE. Goal Provider Goal - PATIENT / CAREGIVER WILL VERBALIZE/DEMONSTRATE AN ABILITY TO ADHERE TO SELF-MANAGEMENT OF HEART ARRHYTHMIA TO MINIMIZE COMPLICATIONS AND AVOID HOSPITALIZATION BY END OF EPISODE. Goal Provider Goal - CHANGES IN SKIN INTEGRITY STATUS WILL BE IDENTIFIED AND REPORTED TO THE PHYSICIAN FOR PROMPT INTERVENTION. PATIENT / CAREGIVER WILL VERBALIZE/DEMONSTRATE ADEQUATE KNOWLEDGE OF INTEGUMENTARY STATUS AND APPROPRIATE MEASURES TO PROMOTE SKIN INTEGRITY AND PREVENT INJURY BY EOE Goal Provider Goal - PATIENT / CAREGIVER WILL VERBALIZE / DEMONSTRATE UNDERSTANDING OF PAIN CONTROL MEASURES BY EOE Goal Provider Goal - PATIENT/ CAREGIVER WILL BE ABLE TO VERBALIZE/DEMONSTRATE CARE TO MANAGE AND RESOLVE CELLULITIS TO MINIMIZE COMPLICATIONS AND AVOID HOSPITALIZATION BY THE END OF EPISODE. Goal Provider Goal - PATIENT/CAREGIVER WILL VERBALIZE UNDERSTANDING OF CARE AND MANAGEMENT OF ANEMIA BY END OF EPISODE. Goal Provider Goal - PATIENT/CAREGIVER WILL VERBALIZE/DEMONSTRATE UNDERSTANDING OF FALL RISK FACTORS AND IMPLEMENT STRATEGIES TO MINIMIZE FALL RISK. PATIENT/CAREGIVER WILL VERBALIZE/DEMONSTRATE AN ABILITY TO ADHERE TO FALL REDUCTION SELF-MANAGEMENT AND LIFE-STYLE CHANGES BY EOE Goal Provider Goal - PATIENT / CAREGIVER WILL VERBALIZE/DEMONSTRATE UNDERSTANDING OF MEASURES TO MANAGE ALTERED RESPIRATORY STATUS BY END OF EPISODE. Goal Provider Goal - PATIENT / CAREGIVER WILL VERBALIZE/DEMONSTRATE AN ABILITY TO ADHERE TO PNEUMONIA SELF-MANAGEMENT TO MINIMIZE COMPLICATIONS AND AVOID HOSPITALIZATION BY END OF EPISODE. Goal Provider Goal - PATIENT / CAREGIVER WITHIN 1 VISIT WILL BE ABLE TO VERBALIZE / DEMONSTRATE UNDERSTANDING OF : ADL SAFETY, ENVIRONMENTAL MODIFICATIONS TO IMPROVE SAFETY AND CONFORT, STERNAL/CARDIAC PRECAUTIONS, AND FALL RISK REDUCTION STRATEGIES Goal Provider Goal - PT LTG: PATIENT WILL DEMONSTRATE IMPROVED SAFE FUNCTIONAL MOBILITY ON EVEN (SURFACE) USING SPC FROM CGA TO DC WITHIN 9 WEEKS IN ORDER TO ACCESS HOME ENVIRONMENT PT LTG: PATIENT WILL DEMONSTRATE REDUCED FALL RISK EVIDENCED BY TUG TEST (CUT SCORE >11 SECONDS INDICATES INCREASED FALL RISK) IMPROVING FROM 24 TO 15 WITHIN 9WEEKS PT LTG: PATIENT WILL DEMONSTRATE IMPROVED FUNCTIONAL STRENGTH EVIDENCED BY FIVE TIMES SIT TO STAND TEST (CUT SCORE >12 SECONDS INDICATES AN INCREASED FALL RISK) IMPROVING FROM 25 TO 19 WITHIN 9 WEEKS IN ORDER TO REDUCE FALL RISK PT LTG: PATIENT WILL DEMONSTRATE IMPROVED ABILITY TO SAFELY NEGOTIATE STAIRS FROM CGA TO DC WITH WALKER OR CANE IN ORDER TO ENTER/EXIT HOME WITHIN 9WEEKS PT STG: PATIENT WILL DEMONSTRATE IMPROVED ABILITY TO PERFORM SIT TO/FROM STAND TRANSFERS TO REDUCE THE RISK OF SKIN BREAKDOWN AND REDUCE FALL RISK FROM CGA TO DC WITHIN 9WEEKS PT GOAL: THE PATIENT WILL NOT DEMONSTRATE ANY WOUND COMPLICATIONS DURING THE EPISODE OF CARE. PT GOAL: PATIENT S HEART FAILURE WILL REMAIN WELL CONTROLLED THROUGHOUT EPISODE OF CARE. PT LTG: PATIENT WILL NOT EXPERIENCE CARDIAC OR RESPIRATORY COMPLICATIONS THROUGHOUT THE EPISODE OF CARE. PT LTG: PATIENT/CAREGIVER WILL DEMONSTRATE ADHERENCE TO FALL REDUCTION SELF-MANAGEMENT AND REDUCING FALL RISK FACTORS TO MINIMIZE FALL RISK BY END OF EPISODE PT LTG: PATIENT WILL BE INDEPENDENT WITH IMPLEMENTATION OF HEP WITHIN 9WEEKS Reason for Visit INDEPENDENT WITH USE OF ASSISTIVE DEVICE Encounters Start Date/Time End Date/Time Encounter Type Admission Type Attending [facility] Care Department Encounter ID Discharge Date Discharge Status Discharge Condition Discharge Reason Percent Goals Met 2025-08-23 00:00:00 2025-10-19 00:00:00 Outpatient NEW ADMISSION LEYLA FELIPE [facility] [id number] 2025-10-19 00:00:00 DISCHARGE TO HOME OR SELF CARE INDEPENDEN T WITH USE OF ASSISTIVE DEVICE HH - DISCHARGE TO OUTPATIENT REHAB 50.00
--- OUTSIDE RECORDS SUMMARY | 2025-10-18 19:00 | XMS_ITS | Clinical Summary ---
Author Organization Unknown Care Team Providers Care Manager Research Name Role Phone IRVING KAYE, KANDIS Unavailable Unavailable PATRIZIA RN, PERCY Unavailable Unavailable TIM EVENT ATTENDANT, MAXIMINO Unavailable Unavailable MATTEO PT, LEYLA Unavailable Unavailable MELINDA INTRAVENOUS THERAPY NURSE, NELL Unavailable Unavailable Payers Payer Name Policy Type Policy Number Effective Date Expira tion Date NAVIAUTH [id number] Problems Condition Name Condition Details Condition Category Status Onset Date Resolution Date Last Treatment Date Treating Clinician Comments INFECTION FOLLOWING A PROCEDURE, OTHER SURGICAL SITE, SUBS Active 08-06 00:00: 00 ATHSCL HEART DISEASE OF [place] CORONARY ARTERY W/O ANG PCTRS Active 07-28 [...] Y BYPASS GRAFT Active 07-28 00:00: 00 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) USE OF ANTITHROMBOT ICS/ANTIPLAT ELETS Active [...] 200 mg tablet 08-19 00:00: 00 Yes [id number] AFIB 1 tablet DAILY 1 tablet DAILY (route: oral) Med Classific ation: Cardiovas cular Therapy Agents furosemide 20 mg tablet 08-19 00:00: 00 09-21 23:59 :00 No [id number] EDEMA 1 tablet DAILY 1 tablet DAILY (route: oral) Med Classific ation: Cardiovas cular Therapy Agents midodrine 5 mg tablet 08-19 00:00: 00 Yes [id number] LOW BP 1 tablet 3 TIMES DAILY 1 tablet 3 TIMES DAILY (route: oral) Med Classific ation: Cardiovas cular Therapy Agents oxycodone 5 mg tablet 08-19 00:00: 00 Yes [id number] PAIN LEVEL 6-10 1 tablet EVERY 6 HOURS NEEDED 1 tablet EVERY 6 HOURS NEEDED (route: oral) Med Classific ation: Analgesic , Anti-infl ammatory or Antipyret ic omeprazole 40 mg capsule,del ayed release 07-27 00:00: 00 Yes [id number] GERD 1 capsule TWICE DAILY 1 capsule TWICE DAILY (route: oral) Med Classific ation: Gastroint estinal Therapy Agents diclofenac sodium 75 mg tablet,chandana yed release 07-22 00:00: 08-23 00:00 :00 No [id number] Per instruc tions TWICE DAILY Per instructio ns TWICE DAILY (route: oral) Med Classific ation: Analgesic , Anti-infl ammatory or Antipyret ic methocarbam ol 500 mg tablet 07-22 00:00: 00 08-23 00:00 :00 No [id number] Per instruc tions 2 TIMES DAILY Per instructio ns 2 TIMES DAILY (route: oral) Med Classific ation: Locomotor System levothyroxi ne 50 mcg tablet 07-21 00:00: 00 Yes [id number] THYROID 1 tablet ONCE DAILY EVERY 1 tablet ONCE DAILY EVERY (route: oral) Med Classific ation: Endocrine pregabalin 100 mg capsule 07-21 00:00: 00 08-23 00:00 :00 No [id number] Per instruc tions 3 TIMES DAILY Per instructio ns 3 TIMES DAILY (route: oral) Med Classific ation: Central Nervous System Agents acetaminoph en 500 mg tablet 07-26 00:00: 00 Yes [id number] PAIN LEVEL 2-5 2 tablet EVERY 8 HOURS 2 tablet EVERY 8 HOURS (route: oral) Med Classific ation: Analgesic , Anti-infl ammatory or Antipyret ic albuterol sulfate HFA 90 mcg/actuati on aerosol inhaler 07-26 00:00: 00 Yes [id number] SHORTNESS OF BREATH 2 puff EVERY 4 HOURS 2 puff EVERY 4 HOURS (route: inhalation ) Med Classific ation: Respirato ry Therapy Agents aspirin 81 mg tablet 07-26 00:00: 00 Yes [id number] HEART 1 tablet DAILY 1 tablet DAILY (route: oral) Med Classific ation: Hematolog ical Agents cephalexin 500 mg tablet 07-26 00:00: 00 08-26 23:59 :00 No [id number] PNA 1 tablet 2 TIMES DAILY 1 tablet 2 TIMES DAILY (route: oral) Med Classific ation: Anti-Infe ctive Agents folic acid 1 mg tablet 07-26 00:00: 00 Yes [id number] SUPPLEMENTS 1 tablet DAILY 1 tablet DAILY (route: oral) Med Classific ation: Electroly te Balance-N utritiona l Products metoprolol succinate ER 25 mg tablet,exte nded release 24 hr 07-26 00:00: 00 Yes [id number] BLOOD PRESSURE 0.5 tablet DAILY 0.5 tablet DAILY (route: oral) Med Classific ation: Cardiovas cular Therapy Agents rosuvastati n 20 mg tablet 07-26 00:00: 00 Yes [id number] HYPERLIPIDE BERTRAND 1 tablet DAILY 1 tablet DAILY (route: oral) Med Classific ation: Cardiovas cular Therapy Agents tamsulosin 0.4 mg capsule 07-26 00:00: 00 Yes [id number] BPH 1 capsule DAILY 1 capsule DAILY (route: oral) Med Classific ation: Genitouri nary Therapy Vitamin D3 25 mcg (1,000 unit) capsule 07-26 00:00: 00 Yes [id number] SUPPLEMENTS 1 capsule DAILY 1 capsule DAILY (route: oral) Med Classific ation: Electroly te Balance-N utritiona l Products furosemide 20 mg tablet 2024-11 00:00: 00 Yes [id number] EDEMA, SOB Per instruc tions DIRECTED Per [...] VILLATORO MD RN TO OBSERVE AND ASSESS, EVENT ATTENDANT/REAGENT TENDER TO OBSERVE FOR RISK FOR FALLS AND INSTRUCT IN FALL PREVENTION, HOME SAFETY, MEDICATION MANAGEMENT, INFECTION PREVENTION, AND NUTRITION MANAGEMENT. RN/EVENT ATTENDANT/REAGENT TENDER NURSE MAY PERFORM O2 SATURATION LEVEL ON ADMISSION AND PRN FOR RN TO ASSESS/EVENT ATTENDANT TO OBSERVE PATIENT, WITH NOTIFICATION TO THE PHYSICIAN IF SATURATION IS 90% IN THE ABSENCE OF MORE SPECIFIC PARAMETERS FROM THE PHYSICIAN. AGENCY MAY PERFORM A RESUMPTION OF CARE VISIT FOLLOWING ANY HOSPITAL ADMISSION. RN/EVENT ATTENDANT/REAGENT TENDER TO MONITOR CO-MORBID CONDITIONS LISTED ON THE PLAN OF CARE AND ANY NEW CONDITIONS THAT PRESENT THEMSELVES DURING THIS EPISODE TO IDENTIFY CHANGES AND INTERVENE TO MINIMIZE COMPLICATIONS. [code = RN TO OBSERVE, ASSESS, EVALUATE, AND DEVELOP AN INDIVIDUALIZED PLAN OF CARE. AGENCY MAY ACCEPT ORDERS FROM CONSULTING PHYSICIANS KANDIS VILLATORO MD RN TO OBSERVE AND ASSESS, EVENT ATTENDANT/REAGENT TENDER TO OBSERVE FOR RISK FOR FALLS AND INSTRUCT IN FALL PREVENTION, HOME SAFETY, MEDICATION MANAGEMENT, INFECTION PREVENTION, AND NUTRITION MANAGEMENT. RN/EVENT ATTENDANT/REAGENT TENDER NURSE MAY PERFORM O2 SATURATION LEVEL ON ADMISSION AND PRN FOR RN TO ASSESS/EVENT ATTENDANT TO OBSERVE PATIENT, WITH NOTIFICATION TO THE PHYSICIAN IF SATURATION IS 90% IN THE ABSENCE OF MORE SPECIFIC PARAMETERS FROM THE PHYSICIAN. AGENCY MAY PERFORM A RESUMPTION OF CARE VISIT FOLLOWING ANY HOSPITAL ADMISSION. RN/EVENT ATTENDANT/REAGENT TENDER TO MONITOR CO-MORBID CONDITIONS LISTED ON THE PLAN OF CARE AND ANY NEW CONDITIONS THAT PRESENT THEMSELVES DURING THIS EPISODE TO IDENTIFY CHANGES AND INTERVENE TO MINIMIZE COMPLICATIONS.] Future Scheduled Test MEDICATION MANAGEMENT; RN/EVENT ATTENDANT/REAGENT TENDER TO REVIEW MEDICATIONS FOR INTERACTIONS, EFFECTIVENESS OF DRUG THERAPY, AND SIGNS/SYMPTOMS OF ADVERSE REACTIONS. MAY INSTRUCT AND REINFORCE MEDICATION TEACHING RELATED TO THE USE OF MEDICATIONS, DOSAGE, FREQUENCY, PURPOSE, SIDE EFFECTS, AND TO REPORT COMPLICATIONS. [code = MEDICATION MANAGEMENT; RN/EVENT ATTENDANT/REAGENT TENDER TO REVIEW MEDICATIONS FOR INTERACTIONS, EFFECTIVENESS OF DRUG THERAPY, AND SIGNS/SYMPTOMS OF ADVERSE REACTIONS. MAY INSTRUCT AND REINFORCE MEDICATION TEACHING RELATED TO THE USE OF MEDICATIONS, DOSAGE, FREQUENCY, PURPOSE, SIDE EFFECTS, AND TO REPORT COMPLICATIONS.] Future Scheduled Test RISK FOR H OSPITALIZATION; RN TO ASSESS/TEACH, REAGENT TENDER/EVENT ATTENDANT TO OBSERVE/TEACH PATIENT/CAREGIVER ON RISK FOR HOSPITALIZATION/EMERGENCY ROOM VISITS, TEACH SIGNS AND SYMPTOMS THAT PUT PATIENT AT RISK, WHEN TO NOTIFY NURSE/PHYSICIAN OF COMPLICATIONS/DECLINE, AND WHEN TO CALL 911. [code = RISK FOR HOSPITALIZATION; RN TO ASSESS/TEACH, REAGENT TENDER/EVENT ATTENDANT TO OBSERVE/TEACH PATIENT/CAREGIVER ON RISK FOR HOSPITALIZATION/EMERGENCY ROOM VISITS, TEACH SIGNS AND SYMPTOMS THAT PUT PATIENT AT RISK, WHEN TO NOTIFY NURSE/PHYSICIAN OF COMPLICATIONS/DECLINE, AND WHEN TO CALL 911.] Future Scheduled Test CARDIOVASC ULAR SYSTEM; RN TO ASSESS/TEACH, EVENT ATTENDANT/REAGENT TENDER TO OBSERVE/TEACH RELATED TO ALTERED CARDIOVASCULAR STATUS TO MINIMIZE COMPLICATIONS AND REDUCE HOSPITALIZATION. [code = CARDIOVASCULAR SYSTEM; RN TO ASSESS/TEACH, EVENT ATTENDANT/REAGENT TENDER TO OBSERVE/TEACH RELATED TO ALTERED CARDIOVASCULAR STATUS TO MINIMIZE COMPLICATIONS AND REDUCE HOSPITALIZATION.] Future Scheduled Test CORONARY A RTERY BYPASS GRAFT (CABG); RN TO ASSESS/TEACH, EVENT ATTENDANT/REAGENT TENDER TO OBSERVE/TEACH WARNING SIGNS AND SYMPTOMS TO AVOID HOSPITALIZATION. MONITOR SURGICAL INCISION SITES FOR S/S OF INFECTION. [code = CORONARY ARTERY BYPASS GRAFT (CABG); RN TO ASSESS/TEACH, EVENT ATTENDANT/REAGENT TENDER TO OBSERVE/TEACH WARNING SIGNS AND SYMPTOMS TO AVOID HOSPITALIZATION. MONITOR SURGICAL INCISION SITES FOR S/S OF INFECTION.] Future Scheduled Test HYPERTENSI ON MANAGEMENT; RN TO ASSESS AND TEACH, EVENT ATTENDANT/REAGENT TENDER TO OBSERVE AND TEACH WARNING SIGNS AND SYMPTOMS TO AVOID HOSPITALIZATION. [code = HYPERTENSION MANAGEMENT; RN TO ASSESS AND TEACH, EVENT ATTENDANT/REAGENT TENDER TO OBSERVE AND TEACH WARNING SIGNS AND SYMPTOMS TO AVOID HOSPITALIZATION.] Future Scheduled Test ANGINA MAN AGEMENT; RN TO ASSESS AND TEACH, EVENT ATTENDANT/REAGENT TENDER TO OBSERVE AND TEACH WARNING SIGNS AND SYMPTOMS TO AVOID HOSPITALIZATION. [code = ANGINA MANAGEMENT; RN TO ASSESS AND TEACH, EVENT ATTENDANT/REAGENT TENDER TO OBSERVE AND TEACH WARNING SIGNS AND SYMPTOMS TO AVOID HOSPITALIZATION.] Future Scheduled Test ARRHYTHMIA MANAGEMENT; RN TO ASSESS AND TEACH, EVENT ATTENDANT/REAGENT TENDER TO OBSERVE AND TEACH WARNING SIGNS AND SYMPTOMS TO AVOID HOSPITALIZATION. [code = ARRHYTHMIA MANAGEMENT; RN TO ASSESS AND TEACH, EVENT ATTENDANT/REAGENT TENDER TO OBSERVE AND TEACH WARNING SIGNS AND SYMPTOMS TO AVOID HOSPITALIZATION.] Future Scheduled Test SKIN INTEG RITY RN TO ASSESS AND TEACH, EVENT ATTENDANT/REAGENT TENDER TO OBSERVE AND TEACH INTEGUMENTARY STATUS TO IDENTIFY CHANGES AND INTERVENE TO MINIMIZE COMPLICATIONS. PROVIDE SKILLED TEACHING OF GENERAL WOUND AND SKIN CARE AND PREVENTION RELATED TO POTENTIAL FOR OR ACTUAL ALTERED SKIN INTEGRITY [code = SKIN INTEGRITY RN TO ASSESS AND TEACH, EVENT ATTENDANT/REAGENT TENDER TO OBSERVE AND TEACH INTEGUMENTARY STATUS TO IDENTIFY CHANGES AND INTERVENE TO MINIMIZE COMPLICATIONS. PROVIDE SKILLED TEACHING OF GENERAL WOUND AND SKIN CARE AND PREVENTION RELATED TO POTENTIAL FOR OR ACTUAL ALTERED SKIN INTEGRITY] Future Scheduled Test PAIN MANAG EMENT; RN TO ASSESS AND TEACH, REAGENT TENDER/EVENT ATTENDANT TO OBSERVE AND TEACH AND PROVIDE EDUCATION ON PAIN MANAGEMENT TECHNIQUES. [code = PAIN MANAGEMENT; RN TO ASSESS AND TEACH, REAGENT TENDER/EVENT ATTENDANT TO OBSERVE AND TEACH AND PROVIDE EDUCATION ON PAIN MANAGEMENT TECHNIQUES.] Future Scheduled Test RN TO ASSE SS AND TEACH, EVENT ATTENDANT/REAGENT TENDER TO OBSERVE AND TEACH, TREAT AND EDUCATE ON CELLULITIS SIGNS, SYMPTOMS, AND SELF-CARE MANAGEMENT. [code = RN TO ASSESS AND TEACH, EVENT ATTENDANT/REAGENT TENDER TO OBSERVE AND TEACH, TREAT AND EDUCATE ON CELLULITIS SIGNS, SYMPTOMS, AND SELF-CARE MANAGEMENT.] Future Scheduled Test ANEMIA MAN AGEMENT; RN TO ASSESS AND TEACH, REAGENT TENDER/EVENT ATTENDANT TO OBSERVE AND TEACH AND PROVIDE EDUCATION ON ANEMIA. [code = ANEMIA MANAGEMENT; RN TO ASSESS AND TEACH, REAGENT TENDER/EVENT ATTENDANT TO OBSERVE AND TEACH AND PROVIDE EDUCATION ON ANEMIA.] Future Scheduled Test FALL REDUC TION MANAGEMENT; RN TO ASSESS AND OBSERVE, EVENT ATTENDANT/REAGENT TENDER TO OBSERVE FALL RISK FACTORS AND EDUCATE PATIENT/CAREGIVER ON STRATEGIES TO MINIMIZE THE RISK OF FALLING. [code = FALL REDUCTION MANAGEMENT; RN TO ASSESS AND OBSERVE, EVENT ATTENDANT/REAGENT TENDER TO OBSERVE FALL RISK FACTORS AND EDUCATE PATIENT/CAREGIVER ON STRATEGIES TO MINIMIZE THE RISK OF FALLING.] Future Scheduled Test RESPIRATOR Y SYSTEM MANAGEMENT; RN TO ASSESS AND TEACH, EVENT ATTENDANT/REAGENT TENDER TO OBSERVE AND TEACH RELATED TO ALTERED RESPIRATORY STATUS TO MINIMIZE COMPLICATIONS AND REDUCE HOSPITALIZATION. [code = RESPIRATORY SYSTEM MANAGEMENT; RN TO ASSESS AND TEACH, EVENT ATTENDANT/REAGENT TENDER TO OBSERVE AND TEACH RELATED TO ALTERED RESPIRATORY STATUS TO MINIMIZE COMPLICATIONS AND REDUCE HOSPITALIZATION.] Future Scheduled Test PNEUMONIA MANAGEMENT; RN TO ASSESS AND TEACH, EVENT ATTENDANT/REAGENT TENDER TO OBSERVE AND TEACH SIGNS OF PNEUMONIA EXACERBATION AND PROVIDE EARLY INTERVENTIONS TO MINIMIZE RISK OF HOSPITALIZATION. [code = PNEUMONIA MANAGEMENT; RN TO ASSESS AND TEACH, EVENT ATTENDANT/REAGENT TENDER TO OBSERVE AND TEACH SIGNS OF PNEUMONIA [...] TO EVALUATE, OBSERVE / ASSESS, AND MONITOR, INTRAVENOUS THERAPY NURSE TO OBSERVE AND MONITOR, PROVIDE SKILLED THERAPEUTIC INTERVENTION, ACTIVITY, EDUCATION, AND TRAINING TO ADDRESS; PT/INTRAVENOUS THERAPY NURSE TO PROVIDE GAIT TRAINING FOR IMPROVED MOBILITY AND /OR TO NORMALIZE GAIT PATTERN NEUROMUSCULAR RE-EDUCATION / BALANCE / POSTURAL CONTROL (PT) THERAPEUTIC EXERCISES AND ESTABLISHING A HOME EXERCISE PROGRAM (PT/INTRAVENOUS THERAPY NURSE) PT/INTRAVENOUS THERAPY NURSE TO PROVIDE STAIR TRAINING SIT TO/FROM STAND TRANSFERS (PT/INTRAVENOUS THERAPY NURSE) PT / INTRAVENOUS THERAPY NURSE TO OBSERVE WOUND/INCISION AND/OR INTACT DRESSING ON CHEST AND REPORT EARLY SIGNS AND SYMPTOMS OF WOUND DETERIORATION, COMPLICATIONS, OR INFECTION TO PHYSICIAN AND/OR THE RN CLINICAL LAUNDRY PRESS OPERATOR FOR PHYSICIAN NOTIFICATION. PT TO ASSESS / INTRAVENOUS THERAPY NURSE TO MONITOR FOR HEART FAILURE EXACERBATION AND RECORD PATIENT REPORTED WEIGHT, AND NOTIFY THE PHYSICIAN AND/OR THE RN CLINICAL LAUNDRY PRESS OPERATOR FOR PHYSICIAN NOTIFICATION OF HF EXACERBATION (2LB WEIGHT GAIN IN 1 DAY, 5LBS IN A WEEK OR 5 LBS OVER BASELINE; INCREASED SOB, EDEMA, NEEDING MORE PILLOWS AT NIGHT, CRACKLES IN BASIS OF THE LUNGS OR PMI SHIFT) PT TO ASSESS / INTRAVENOUS THERAPY NURSE TO MONITOR CARDIO/RESPIRATORY SYSTEM; AND NOTIFY THE PHYSICIAN AND/OR THE RN CLINICAL LAUNDRY PRESS OPERATOR FOR PHYSICIAN NOTIFICATION FOR EARLY SIGNS AND SYMPTOMS OF EXACERBATION OR DETERIORATION. PT/INTRAVENOUS THERAPY NURSE TO IDENTIFY FALL RISK FACTORS; EDUCATE THE PATIENT/CAREGIVER ON WAYS TO REDUCE FALL RISK FACTORS AND ESTABLISH HOME EXERCISE PROGRAM TO MINIMIZE FALL RISK. MAY TEACH THE PATIENT FLOOR RECOVERY WHEN CLINICALLY APPROPRIATE [code = AGENCY MAY PERFORM A RESUMPTION OF CARE VISIT FOLLOWING ANY HOSPITAL ADMISSION. PT TO EVALUATE, OBSERVE / ASSESS, AND MONITOR, INTRAVENOUS THERAPY NURSE TO OBSERVE AND MONITOR, PROVIDE SKILLED THERAPEUTIC INTERVENTION, ACTIVITY, EDUCATION, AND TRAINING TO ADDRESS; PT/INTRAVENOUS THERAPY NURSE TO PROVIDE GAIT TRAINING FOR IMPROVED MOBILITY AND /OR TO NORMALIZE GAIT PATTERN NEUROMUSCULAR RE-EDUCATION / BALANCE / POSTURAL CONTROL (PT) THERAPEUTIC EXERCISES AND ESTABLISHING A HOME EXERCISE PROGRAM (PT/INTRAVENOUS THERAPY NURSE) PT/INTRAVENOUS THERAPY NURSE TO PROVIDE STAIR TRAINING SIT TO/FROM STAND TRANSFERS (PT/INTRAVENOUS THERAPY NURSE) PT / INTRAVENOUS THERAPY NURSE TO OBSERVE WOUND/INCISION AND/OR INTACT DRESSING ON CHEST AND REPORT EARLY SIGNS AND SYMPTOMS OF WOUND DETERIORATION, COMPLICATIONS, OR INFECTION TO PHYSICIAN AND/OR THE RN CLINICAL LAUNDRY PRESS OPERATOR FOR PHYSICIAN NOTIFICATION. PT TO ASSESS / INTRAVENOUS THERAPY NURSE TO MONITOR FOR HEART FAILURE EXACERBATION AND RECORD PATIENT REPORTED WEIGHT, AND NOTIFY THE PHYSICIAN AND/OR THE RN CLINICAL LAUNDRY PRESS OPERATOR FOR PHYSICIAN NOTIFICATION OF HF EXACERBATION (2LB WEIGHT GAIN IN 1 DAY, 5LBS IN A WEEK OR 5 LBS OVER BASELINE; INCREASED SOB, EDEMA, NEEDING MORE PILLOWS AT NIGHT, CRACKLES IN BASIS OF THE LUNGS OR PMI SHIFT) PT TO ASSESS / INTRAVENOUS THERAPY NURSE TO MONITOR CARDIO/RESPIRATORY SYSTEM; AND NOTIFY THE PHYSICIAN AND/OR THE RN CLINICAL LAUNDRY PRESS OPERATOR FOR PHYSICIAN NOTIFICATION FOR EARLY SIGNS AND SYMPTOMS OF EXACERBATION OR DETERIORATION. PT/INTRAVENOUS THERAPY NURSE TO IDENTIFY FALL RISK FACTORS; EDUCATE THE [...] EVEN (SURFACE) USING SPC FROM CGA TO NV WITHIN 9 WEEKS IN ORDER TO ACCESS [...] TO SAFELY NEGOTIATE STAIRS FROM CGA TO NV WITH WALKER OR CANE IN ORDER TO ENTER/EXIT HOME WITHIN 9WEEKS PT STG: PATIENT WILL DEMONSTRATE IMPROVED ABILITY TO PERFORM SIT TO/FROM STAND TRANSFERS TO REDUCE THE RISK OF SKIN BREAKDOWN AND REDUCE FALL RISK FROM CGA TO NV WITHIN 9WEEKS PT GOAL: THE PATIENT WILL [...] End Date/Time Encounter Type Admission Type Attending [facility] Care Department Encounter ID Discharge Date Discharge Status Discharge Condition Discharge Reason Percent Goals Met 2025-08-23 00:00:00 2025-10-19 00:00:00 Outpatient NEW ADMISSION LEYLA FELIPE [facility] [id number] 2025-10-19 00:00:00 DISCHARGE TO HOME OR SELF CARE INDEPENDEN T WITH USE OF ASSISTIVE DEVICE HH - DISCHARGE TO OUTPATIENT REHAB 50.00
[2025-10-19 19:14] LABS: Hematocrit 33.8 % (42.0-52.0); Hemoglobin 10.4 g/dL (14.1-18.0); Immature Granulocytes % 0.2 %; Mean Corpuscular HGB Conc 30.8 g/dL (31.8-35.4); Mean Corpuscular Hemoglobin 30.1 pg (27.0-31.2); Mean Corpuscular Volume 98.0 fl (80-94); Nucleated Red Blood Cells % 0 %; Platelet Count 238 K/mm3 (142-424); Red Blood Count 3.45 M/mm3 (4.60-6.20); Red Cell Distribution Width-SD 51.8 fL; White Blood Count 5.4 K/mm3 (4.8-10.8)
[2025-10-19 19:20] LABS: Albumin Level 3.5 g/dl (3.5-5.0); Chloride 105 mmol/L (98-107); Potassium 4.2 mmoL/L (3.5-5.1); Sodium 143 mmol/L (136-145)
[2025-10-19 19:23] LABS: Alanine Aminotransferase 12 U/L (12-78); Albumin/Globulin Ratio 1.3 (1.1-1.8); Alkaline Phosphatase 101 U/L (38-126); Anion Gap 16.2 mEq/L (5-15); Aspartate Amino Transferase 28 U/L (17-59); Bilirubin,Total 0.5 mg/dl (0.2-1.3); Blood Urea Nitrogen 20 mg/dl (9-20); Carbon Dioxide 26 mmol/L (22.0-30.0); Creatinine,Serum 1.40 mg/dl (0.66-1.25); Estimated Glomerular Filt Rate 49 ml/min (>60); GFR (African American) 59 ML/MIN (>60); Globulin 2.7 g/dL (1.3-3.2); Total Protein,Serum 6.2 g/dl (6.3-8.2)
[2025-10-19 19:24] LABS: Calcium 8.7 mg/dl (8.4-10.2); Glucose 90 mg/dl (74-100)
--- OUTSIDE RECORDS SUMMARY | 2025-10-20 09:49 | XMS_ITS | Encounter Summary ---
Author Organization [place] [address] Care Team Providers Care Cook Italian Style Food Name Role Phone Darrius Fair MD Primary Care Provider [phone] Marcial Vizcarra MD Unavailable [phone] Encounter Details Date Type Department Care Team (Late st Contact Info) Description 09/21/2025 Orders Only [facility] Cardiac Surgeons [place] [address] [facility] [address] [place] [address] America Ortiz, RISK ASSESSMENT CONSULTANT 1 [place] [address] S/P CABG (coronary artery bypass graft) (Primary [...] from your doctor or pharmacy? Sometimes 07/20/2025 [facility] Utilities Answer Date Recorded In the past 12 months has [employer] electric, gas, oil, or water company threatened to shut off services in your home? No 07/29/2025 Overall Financial Resource Strain (CARDIA) Answe r Date Recorded How hard is it for you to pa y for the very basics like food, housing, medical care, and heating? Not hard at all 07/29/2025 PHQ-2 Answer Date Recorded PHQ-2 Total Score 0 07/29/2025 [facility] [place] of Occupat ional Health - Occupational Stress [...] any time in the past 12 m [facility], were you homeless or living in a longterm (including now)? No 07/20/2025 [facility] IP Transportation Answer D ate Recorded [...] Author No 01/03/2023 6:00 PM Lizzie Almaguer, Trust Officer * Is the person blind or [...] Refills Last Filled Start Date End Date fUROsemide (LASIX) 20 mg Oral TabletIndications:S /P CABG (coronary artery bypass graft) Take 1 Tablet by mouth daily. 09/21/2025 documented in this encounter Plan of Treatment Upcoming Encounters Date Type Department Care Team (Late st Contact Info) Description 11/09/2025 1:00 PM EST Office Visit [facility] [place] [address] [facility] [address] [place] [address] Mukund Noel MD 1 [place] [address] 11/15/2025 12:15 PM EST Appointment [facility] [address] [place] [address] Melani Donaldson, RISK ASSESSMENT CONSULTANT [address] [facility] [address] [place], [place] [id number] 12/14/2025 11:15 AM EST Office Visit [facility] [address] [place] [address] Tobias Darby DO [address] [place] [address] documented as of this encounter Visit Diagnoses Diagnosis S/P CABG (coronary artery bypass graft)- Primary Postsurgical aortocoronary bypass status documented in this encounter Discontinued Medications Medication Sig Discontinue Reason Start Date End Da te fUROsemide (LASIX) 20 mg Oral Tablet Take 1 Tablet by mouth every other day. 09/14/2025 09/21/2025 documented as of this encounter Additional Health Concerns Assessment Noted Time A fall risk assessment has been complete d for the patient 06/16/2020 10:01 AM EDT documented as of this encounter Care Teams Cook Italian Style Food Relationship Specialty Start Date End Date Darrius Fair MD [address] [place] [address] PCP - General 03/05/11 Marcial Vizcarra MD [address] [place] [address] Physician Internal Medicine-Gastroenterology 11/22/16 documented as of this encounter
--- OUTSIDE RECORDS SUMMARY | 2025-10-20 09:49 | XMS_ITS | Clinical Summary ---
Author Organization [facility] [place] Address [address] [place] [address] Care Team Providers Care Beauty School Instructor Name Role Phone Lore Neal NP Primary Care Provider [phone] Allergies No known active allergies Medications Abaloparatide [...] FOR SUPPLEMENT. 3 Active vitamin D-2 (ERGOCALCIFEROL) 38437 unit (1.25mg) CAPS Take 50,000 Units by mouth. 3 Active doxycycline (VIBRA-TABS) 100 MG TABS Take 100 mg by mouth 2 (two) times daily. 3 Active ergocalciferol (ERGOCALCIFEROL) 1.25 MG (37214 UT) CAPS Take 1 capsule by mouth [...] SECONDARY ONLY MEDICARE on file Care Teams Beauty School Instructor Relationship Specialty Start Date End Date Lore Neal NP PCP - General 06/11/23
--- OUTSIDE RECORDS SUMMARY | 2025-10-20 09:49 | XMS_ITS | Encounter Summary ---
Author Organization [place] [address] Care Team Providers Care President Commercial Bank Name Role Phone Darrius Fair MD Primary Care Provider [phone] Marcial Vizcarra MD Unavailable [phone] Reason for Visit * Reason Onset Date Comments Weight Gain 09/21/2025 Encounter Details Date Type Department Care Team (Late st Contact Info) Description 09/21/2025 Telephone [facility] Cardiac Surgeons [place] [address] [facility] [address] [place] [address] Mukund Noel MD 1 [place], [place] [id number] Weight Gain Social History Tobacco Use Types Packs/Day Years [...] from your doctor or pharmacy? Sometimes 07/20/2025 [facility] Utilities Answer Date Recorded In the past 12 months has [employer] electric, gas, oil, or water company threatened to shut off services in your home? No 07/29/2025 Overall Financial Resource Strain (CARDIA) Answe r Date Recorded How hard is it for you to pa y for the very basics like food, housing, medical care, and heating? Not hard at all 07/29/2025 PHQ-2 Answer Date Recorded PHQ-2 Total Score 0 07/29/2025 [facility] [place] of Occupat ional Health - Occupational Stress [...] in a longterm (including now)? No 07/20/2025 [facility] IP Transportation Answer D ate [...] Author No 01/03/2023 6:00 PM Lizzie Almaguer, Horse Stud Worker * Is the person blind or does [...] Almaguer Nursing Student documented in this encounter Miscellaneous Notes * Telephone Encounter - Daphnie Crowley RN - 09/21/2025 9:33 AM EDT Returned Delia's call. Placed on speaker to discuss with patient/family. Provided instructions. Lasix20 mg oral daily for 7 days then continue back on every other day administration. Requested update on weights at end of 7 days. Instructed to call at any point if symptoms worsen. Verbalized understanding. Daphnie Crowley RN * Telephone Encounter - America Ortzi APRN - 09/21/2025 9:29 AM EDT Should take lasix every day for 1 week and update us with weights. * Telephone Encounter - Sabiha Moore RMA - 09/21/2025 8:53 AM EDT [facility] PT Delia called regarding trace swelling in BLE and increased SOB x 2-3 days. Weights 09/10 235.6 09/17 240.0 09/21 242.8 BP 128/70 HR 82 O2 - 95% Pt currently taking Lasix 20mg QOD (changed last week by Dr. Spaulding when in office). Please call Delia at [phone] with new instructions. documented in this encounter Plan of Treatment Upcoming Encounters Date Type Department Care Team (Late st Contact Info) Description 11/09/2025 1:00 PM EST Office Visit [facility] Cardiac Surgeons [address] [place] [address] Mukund Noel MD 1 [place] [address] 11/15/2025 12:15 PM EST Appointment [facility] [address] [facility] [place] [address] Melani Donaldson APRN [address] [place] [address] [address] [place] [id number] 12/14/2025 11:15 AM EST Office Visit [facility] [address] [place] [address] Tobias Darby DO [address] [place] [address] documented as of this encounter Visit Diagnoses Not on filedocumented in this encounter Additional Health Concerns Assessment Noted Time A fall risk assessment has been complete d for the patient 06/16/2020 10:01 AM EDT documented as of this encounter Care Teams President Commercial Bank Relationship Specialty Start Date End Date Darrius Fair MD [address] [place] [address] PCP - General 03/05/11 Marcial Vizcarra MD [address] [place] [address] Physician Internal Medicine-Gastroenterology 11/22/16 documented as of this encounter
--- OUTSIDE RECORDS SUMMARY | 2025-10-20 09:49 | XMS_ITS | Encounter Summary ---
Author Organization [place] [address] Care Team Providers Care Rubber Process Hand Name Role Phone Darrius Fair MD Primary Care Provider [phone] Marcial Vizcarra MD Unavailable [phone] Deb Garcia RN Unavailable Un available Encounter Details Date Type Department Care Team (Late st Contact Info) Description 12/01/2012 Orders Only [facility] [address] [place] [id number] Marcial Vizcarra MD [address] [place] [address] Social History Tobacco Use Types Packs/Day Years [...] Description 11/09/2025 1:00 PM EST Office Visit [facility] Cardiac Surgeons [place] [address] [place] [address] [address] [place] [address] ChellyMukund Bustillos MD 1 [place] [address] 11/15/2025 12:15 PM EST Appointment [facility] [address] [place] [address] Melani Donaldson, SHREDDED FILLER HOPPER FEEDER [address] [facility] [address] [place], [place] [id number] 12/14/2025 11:15 AM EST Office Visit [facility] [address] [place] [address] Tobias Darby DO [address] [place] [address] documented as of this encounter Procedures Procedure [...] ORDERABLES Fin al Result [facility] [address] [facility] [address] [place], [place] [id number] documented in this encounter Visit Diagnoses Not on filedocumented in this encounter Additional Health Concerns Infection Onset Date Last Indicated Resolved Time R/O C-Diff 09/16/2019 09/16/2019 09/16/2019 2:46 PM EDT R/O C-Diff 12/10/2019 12/10/2019 12/10/2019 8:04 PM EST COVID-19 Comment:Reports positive home test on 09/1109/11/2023 09/18/2023 10/08/2023 10:12 PM EST documented as of this encounter Care Teams Rubber Process Hand Relationship Specialty Start Date End Date Darrius Fair MD [address] [facility] [place] [address] PCP - General 03/05/11 Marcial Vizcarra MD [address] [facility] [address] [place] [address] Physician Internal Medicine-Gastroenterology 11/22/16 Deb Garcia, RN Registered Nurse 06/02/20 06/02/20 documented as of this encounter
--- OUTSIDE RECORDS SUMMARY | 2025-10-20 09:49 | XMS_ITS | Clinical Summary ---
Author Organization [facility] Address [address] [place] [address] Phone Care Team Providers Care Road Freight Brake Coupler Name Role Phone Antonieta Ulloa MD [facility] [phone] Conditions or Problems Problem Name Problem Code Onset Date Status Entry Date Provider Comment Standard Description Annotate HERNIATED LUMBAR DISC 578962063 (SNOMED CT) Active Jalen Mckeon MD Prolapsed lumbar intervertebral disc Medications Medication Instructions Start Date Stop Date Generic Name NDC Provider MEDROL 4 MG TBPK take as directed 6 days METHYLPREDNISOLONE 49355971224 Jalen Mckeon MD PROTONIX 40 MG SOLR [place] PANTOPRAZOLE SODIUM [id number] Jalen Mckeon MD MOBIC TABLET [facility] MELOXICAM TABS [id number] Jalen Mckeon MD Medications Administered No information [...]
--- OUTSIDE RECORDS SUMMARY | 2025-10-20 09:49 | XMS_ITS | Encounter Summary ---
Author Organization [place] [address] Care Team Providers Care Chemical Dependency Therapist Name Role Phone Darrius Fair MD Primary Care Provider + [phone] Marcial Vizcarra MD Unavailable [phone] Deb Garcia RN Unavailable Un available Encounter Details Date Type Department Care Team (Late st Contact Info) Description 11/22/2016 Orders Only [facility] [address] [place] [id number] Marcial Vizcarra MD [address] [place] [address] Social History Tobacco Use Types Packs/Day Years [...] Description 11/09/2025 1:00 PM EST Office Visit [facility] Cardiac Surgeons [place] [address] [place] [address] [address] [place] [address] ChellyMukund Bustillos MD [address] [place], [place] [id number] 11/15/2025 12:15 PM EST Appointment [facility] [address] [place], [place] [phone] Melani Donaldson, CLAIMS ATTORNEY [address] [facility] [place] [address] 12/14/2025 11:15 AM EST Office Visit [facility] [address] [place] [address] Tobias Darby DO [address] [place] [address] documented as of this encounter Procedures Procedure Name Priority Date/Time Associated Diagnosis Comments GMED EGD Routine 11/22/2016 2:00 PM EST documented in this encounter Results * GMED EGD (11/22/2016 2:00 PM EST) 11/22/2016 2:00 PM EST Impressions [facility] - 11/22/2016 1:21 PM EST Normal duodenum. Hiatal Hernia. 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 (Dilation). Plan: Follow-up as needed This section is an excerpt of the full report. us Marcial Vizcarra MD GI PROCEDURE ORDERABLES Fin al Result [facility] 1 [place] [address] documented in this encounter Visit Diagnoses Not on filedocumented in this encounter Additional Health Concerns Infection Onset Date Last Indicated Resolved Time R/O C-Diff 09/16/2019 09/16/2019 09/16/2019 2:46 PM EDT R/O C-Diff 12/10/2019 12/10/2019 12/10/2019 8:04 PM EST COVID-19 Comment:Reports positive home test on 09/1109/11/2023 09/18/2023 10/08/2023 10:12 PM EST documented as of this encounter Care Teams Chemical Dependency Therapist Relationship Specialty Start Date End Date Darrius Fair MD [address] [place] [address] PCP - General 03/05/11 Marcial Vizcarra MD [address] [facility] [address] [place] [address] Physician Internal Medicine-Gastroenterology 11/22/16 Deb Garcia, RN Registered Nurse 06/02/20 06/02/20 documented as of this encounter
--- OUTSIDE RECORDS SUMMARY | 2025-10-20 09:49 | XMS_ITS | Encounter Summary ---
Author Organization [place] [address] Care Team Providers Care Heat Treater Name Role Phone Darrius Fair MD Primary Care Provider + [phone] Marcial Vizcarra MD Unavailable [phone] Deb Garcia RN Unavailable Un available Encounter Details Date Type Department Care Team (Late st Contact Info) Description 09/22/2014 Orders Only [facility] [address] [place] [id number] Marcial Vizcarra MD [address] [place] [address] Social History Tobacco Use Types Packs/Day Years [...] Description 11/09/2025 1:00 PM EST Office Visit [facility] Cardiac Surgeons [place] [address] [place] [address] [address] [place] [address] ChellyMukund Bustillos MD 1 [place], [place] [id number] 11/15/2025 12:15 PM EST Appointment [facility] [address] [place], [place] [address] Melani Donaldson, HAZARDOUS MATERIALS WASTE TECHNICIAN [address] [facility] [place] [address] 12/14/2025 11:15 AM EST Office Visit [facility] [address] [place] [address] Tobias Darby DO [address] [place] [address] documented as of this encounter Procedures Procedure Name Priority Date/Time Associated Diagnosis Comments GMED EGD Routine 09/22/2014 10:15 AM EDT documented in this encounter Results * GMED EGD (09/22/2014 10:15 AM EDT) 09/22/2014 10:1 5 AM EDT Impressions [facility] - 09/22/2014 10:51 AM EDT Normal duodenum. Hiatal Hernia. 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 (Dilation). Plan: Follow-up as needed This section is an excerpt of the full report. us Marcial Vizcarra MD GI PROCEDURE ORDERABLES Fin al Result [facility] 1 [place] [address] documented in this encounter Visit Diagnoses Not on filedocumented in this encounter Additional Health Concerns Infection Onset Date Last Indicated Resolved Time R/O C-Diff 09/16/2019 09/16/2019 09/16/2019 2:46 PM EDT R/O C-Diff 12/10/2019 12/10/2019 12/10/2019 8:04 PM EST COVID-19 Comment:Reports positive home test on 09/1109/11/2023 09/18/2023 10/08/2023 10:12 PM EST documented as of this encounter Care Teams Heat Treater Relationship Specialty Start Date End Date Darrius Fair MD [address] [place] [address] PCP - General 03/05/11 Marcial Vizcarra MD [address] [place] [address] Physician Internal Medicine-Gastroenterology 11/22/16 Deb Garcia, RN Registered Nurse 06/02/20 06/02/20 documented as of this encounter
--- OUTSIDE RECORDS SUMMARY | 2025-10-20 09:50 | XMS_ITS | Clinical Summary ---
Author Organization [facility] Address [address] [facility] [address] [place] [address] Phone Care Team Providers Care Electrical Controls Assembler Name Role Phone Darrius Fair MD Primary Care Provider [phone] Marcial Vizcarra MD Unavailable [phone] Allergies No known active allergies Medications tamsulosin (FLOMAX) 0.4 mg capsule Take 0.4 mg by mouth nightly. Active Cholecalciferol, Vitamin D3, 50 mcg (2,000 unit) Oral TabletIndications :Kyphosis of thoracic region, unspecified kyphosis type,Age related osteoporosis, unspecified pathological fracture presence Take 1 Tablet by mouth daily. 90 Tablet 2 024 Active LEVOthyroxine (SYNTHROID) 50 mcg Oral Tablet Take 50 mcg by mouth daily. 024 Active rosuvastatin (CRESTOR) 20 mg Oral TabletIndications :Mixed hyperlipidemia Take 1 Tablet by mouth nightly. 90 Tablet 3 025 Active acetaminophen 325 mg Oral Tab Take 2 Tablets by mouth every 4 hours as needed for Pain. 025 Active metoprolol succinate (TOPROL-XL) 25 mg Oral Tablet Sustained Release 24 hr Take 0.5 Tablets by mouth daily. 025 Active folic acid (FOLVITE) 1 mg Oral Tablet Take 1 Tablet by mouth daily. 30 Tablet Active guaiFENesin (MUCINEX) 600 mg Oral Tablet Extended Release 12hr Take 1 Tablet by mouth 2 times daily as needed for Congestion. Active midodrine (PROAMATINE) 5 mg Oral Tablet Take 1 tablet by mouth three times daily IF systolic blood pressure is less than 90 60 Tablet Active Additional Information Patient not taking.Reported on 09/14/2025 senna-docusate (SENNOSIDES-DOCUS ATE SODIUM) 8.6-50 mg Oral Tablet Take 2 Tablets by mouth 2 times daily. 120 Tablet Active amiodarone (PACERONE) 200 mg Oral TabletIndications :S/P CABG (coronary artery bypass graft) Take 1 Tablet by mouth daily. 30 Tablet 1 Active pregabalin (LYRICA) 100 mg Oral Capsule 100 mg 3 times daily. Active omeprazole (PRILOSEC) 40 mg Oral Capsule, Delayed Release(E.C.) Take 40 mg by mouth 2 times daily. Active aspirin 81 mg Oral Tablet, Chewable Take 2 Tablets by mouth daily for 90 days. 2025 Active fUROsemide (LASIX) 20 mg Oral TabletIndications :S/P CABG (coronary artery bypass graft) Take 1 Tablet by mouth daily. Active fUROsemide (LASIX) 20 mg Oral Tablet Take 1 Tablet by mouth every other day. 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 Supraventricular tachycardia 08/11/2021 Assessment & Plan (08/11/2021 3:08 PM EDT): Status post ablation and EP study-followed at [facility] Moderate protein-calorie malnutrition 05/17/2021 Assessment & [...] (01/24/2021): Added automatically from request for surgery [id number] Thickening of esophagus 05/29/2020 Intractable nausea and [...] (11/20/2019): Added automatically from request for surgery [id number] Perforated viscus 11/08/2018 06/02/2020 Gastric outlet obstruction 0 06/02/2020 Encounters Date Type Department Care Team Description 09/21/2025 Orders Only [facility] Cardiac Surgeons [address] [place] [phone] America Ortiz APRN S/P CABG (coronary artery bypass graft) (Primary Dx) 09/21/2025 Telephone [facility] Cardiac Surgeons [address] [place] [phone] Mukund Noel MD Weight Gain 09/14/2025 1:45 PM EDT Office Visit [facility] Cardiac Surgeons [address] [place] [phone] uMkund Noel MD S/P CABG (coronary artery bypass graft) (Primary Dx) 09/02/2025 1:00 PM EDT Office Visit [facility] [address] [place] [phone] Melani Donaldson APRN ASHD (arteriosclerotic heart disease) (Primary Dx); Congestive heart failure, unspecified HF chronicity, unspecified heart failure type (HCC); Primary hypertension 08/27/2025 Telephone [facility] Cardiac Rehab [address] [place] [address] Shannan Carlos, Clerical Staff Referral Follow-up (Cardiac Rehab) 08/24/2025 2:45 PM EDT Office Visit [facility] Cardiac Surgeons [address] [place] [phone] Mukund Noel MD S/P CABG (coronary artery bypass graft) (Primary Dx) 08/19/2025 External Contact [facility] [address] [place] [phone] Paz Leblanc MD Wound cellulitis (Primary Dx); ASHD (arteriosclerotic heart disease); Postoperative anemia; Postoperative atrial fibrillation (HCC); Primary hypertension; Poor appetite; Esophageal dysphagia; Stage 3b chronic kidney disease (HCC); Constipation, chronic 08/18/2025 Telephone [facility] Cardiac Surgeons [address] [place] [phone] Daphnie Crowley, RN Follow-up 08/18/2025 Telephone [facility] Cardiac [address] [place] [phone] Daphnie Crowley, RN Follow-up 08/17/2025 External Contact [address] [address] Paz Leblanc MD Wound cellulitis (Primary Dx); Leukocytosis, unspecified type; Acute kidney injury superimposed on CKD; Elevated LFTs; ASHD (arteriosclerotic heart disease); Postoperative anemia; Postoperative atrial fibrillation (HCC); Primary hypertension; Poor appetite 08/16/2025 1:30 PM EDT Office Visit [facility] Cardiac Surgeons [address] [place] [address] America Ortiz APRN S/P CABG (coronary artery bypass graft) (Primary Dx) 08/16/2025 Orders Only [facility] Cardiac Surgeons [address] [place] [phone] America Ortiz APRN S/P CABG (coronary artery bypass graft) (Primary Dx) 08/16/2025 External Contact [address] [place] [address] Paz Leblanc MD Wound cellulitis (Primary Dx); Leukocytosis, unspecified type; Acute kidney injury superimposed on CKD; Elevated LFTs; ASHD (arteriosclerotic heart disease); Postoperative anemia; Postoperative atrial fibrillation (HCC); Primary hypertension; Weight loss 08/13/2025 Orders Only [address] [place] [address] Paz Leblanc MD 08/13/2025 External Contact [address] [place] [address] Paz Leblanc MD Wound cellulitis (Primary Dx); Leukocytosis, unspecified type; Acute kidney injury superimposed on CKD; Elevated LFTs; ASHD (arteriosclerotic heart disease); Postoperative anemia; Postoperative atrial fibrillation (HCC); Pneumonia of both lungs due to Pseudomonas species, unspecified part of lung (HCC); Primary hypertension 08/13/2025 Telephone [facility] Cardiac Surgeons [address] [place] [address] Daphnie Crowley RN Follow-up 08/10/2025 External Contact [address] [place] [address] Paz Leblanc MD ASHD (arteriosclerotic heart disease) (Primary Dx); Weight loss; Poor appetite; Postoperative anemia; Postoperative atrial fibrillation (HCC); Pneumonia of both lungs due to Pseudomonas species, unspecified part of lung (HCC); Esophageal dysphagia; Stage 3b chronic kidney disease (HCC); Primary hypertension; Acquired hypothyroidism; Peripheral neuropathy, idiopathic 08/09/2025 Telephone [facility] Cardiac Surgeons [place] [address] [facility] [address] [place] [address] Daphnie Crowley RN Follow-up 08/09/2025 External Contact [facility] [address] [place] [address] Paz Leblanc MD ASHD (arteriosclerotic heart disease) (Primary Dx); Postoperative anemia; Postoperative atrial fibrillation (HCC); Pneumonia of both lungs due to Pseudomonas species, unspecified part of lung (HCC); Esophageal dysphagia; Stage 3b chronic kidney disease (HCC); Primary hypertension; Acquired hypothyroidism; Mixed hyperlipidemia; Peripheral neuropathy, idiopathic 08/07/2025 Telephone [facility] Nurse Now [facility] [place] [address] Kristi Bradley RN Leg Pain 08/06/2025 Orders Only [facility] [address] [place] [address] Paz Leblanc MD 08/02/2025 8:45 AM EDT Ancillary Procedure [facility] [address] [place] [id number] 08/02/2025 Orders Only [facility] [id number] [place] [address] Kasi Orellana Jose Manuel 07/28/2025 7:40 AM EDT Anesthesia Event [facility] [place] [address] Marina Sauer MD Zehnder, Wende, KURTIS 07/28/2025 7:15 AM EDT - 07/28/2025 1:45 PM EDT Surgery [facility] [place] [address] Mukund Noel MD CORONARY ARTERY BYPASS GRAFT 07/28/2025 5:16 AM EDT - 08/06/2025 1:35 PM EDT Hospital Encounter [facility] [place] [address] Mukund Noel MD ASHD (arteriosclerotic heart disease) (Primary Dx) Discharge Disposition: Group Home Facility 07/28/2025 Travel 07/22/2025 8:52 AM EDT - 07/22/2025 11:59 PM EDT Hospital Encounter [facility] [place] [address] Mukund Noel MD Bruit Discharge Disposition: Home or Self Care 07/22/2025 8:52 AM EDT - 07/22/2025 11:59 PM EDT Hospital Encounter [facility] [place] [address] Mukund Noel MD Leg swelling Discharge Disposition: Home or Self Care 07/21/2025 9:03 AM EDT - 07/21/2025 11:59 PM EDT Hospital Encounter [facility] D-WING XRAY [facility] [place] [address] America Ortiz, KURTIS Discharge Disposition: Home or Self Care 07/21/2025 8:11 AM EDT - 07/21/2025 9:02 AM EDT Hospital Encounter [facility] PRE-ADMIT TESTING [facility] [place] [address] Hypothyroidism, unspecified type (Primary Dx); ASHD (arteriosclerotic heart disease); Preop testing Discharge Disposition: Home or Self Care 07/21/2025 8:04 AM EDT - 07/21/2025 8:10 AM EDT Hospital Encounter [place] [facility] [place] [address] America Ortiz, DEMOLITION WORKER Discharge Disposition: Home or Self Care 07/21/2025 Results Follow-Up [facility] Cardiac Surgeons [address] [place] [phone] America Ortiz, DEMOLITION WORKER CBC WITH DIFF, BASIC METABOLIC PANEL, PT / INR, Additional followed-up results: 8 07/21/2025 Travel from Last 3 Months Immunizations Immunization Administration [...] MD; Location: [facility]; Service: Spine Medical devices from this surgery are in the Medical Devices section. CORONARY ARTERY BYPASS GRAFT 07/28/2025 N/A CORONARY BYPASS GRAFT X5 , LEFT INTERNAL MAMMARY ARTERY GRAFT X1, LEFT ENDOSCOPIC SAPHENOUS VEIN GRAFT X4 , TRANSESOPHOGEAL ECHOCARDIOGRAM, LEFT ATRIAL APPENDAGE CLIPPING WITH 45MM CLIP, STERNAL PLATING; Surgeon: Mukund Noel MD; Location: [facility] MAIN OR; Service: Open Heart Medical devices from this surgery are in the Medical Devices section. Medical History Medical History Date Comments Hypertension Shortness of breath Prostate disorder BPH SVT (supraventricular tachycardia) Clostridium difficile diarrhea GERD (gastroesophageal reflux disease) Hiatal hernia with esophageal dysmotility Arthritis Neuromuscular disorder (HCC) je rking in BLE at times Thyroid disease Pneumonia 10/25/2022 covid SCHMIDT (dyspnea on exertion) CAD (coronary artery disease) Family History Medical History Relation Name Comments [...] from your doctor or pharmacy? Sometimes 07/20/2025 [facility] Utilities Answer Date Recorded In the past 12 months has e electric, gas, oil, or water [employer] threatened to shut off services in your home? No 07/29/2025 Overall Financial Resource Strain (CARDIA) Answe r Date Recorded How hard is it for you to pa y for the very basics like food, housing, medical care, and heating? Not hard at all 07/29/2025 PHQ-2 Answer Date Recorded PHQ-2 Total Score 0 07/29/2025 [employer] [facility] - Occupational Stress [...] any time in the past 12 [facility], were you homeless or living in a senior care (including now)? No 07/20/2025 [facility] IP Transportation Answer D ate Recorded [...] Pulse 68 09/14/2025 1:55 PM EDT Temperature 36.9 C (98.4 F) 08/09/2025 9:10 AM EDT Respiratory Rate 18 08/09/2025 9:10 AM EDT Oxygen Saturation 95% 09/14/2025 1:55 PM EDT Inhaled Oxygen Concentration - - Weight 108.9 kg (240 lb) 09/14/2025 1:55 PM EDT Height 182.9 cm (6') 09/14/2025 1:55 PM EDT Body Mass Index 32.55 09/14/2025 1:55 PM EDT Plan of Treatment Upcoming Encounters Date Type Department Care Team (Late st Contact Info) Description 11/09/2025 1:00 PM EST Office Visit [facility] Cardiac Surgeons [place] [address] [facility] [address] [place] [address] Mukund Noel MD [address] [place], [place] [phone] 11/15/2025 12:15 PM EST Appointment [facility] [address] [place] [address] Melani Donaldson, DEMOLITION WORKER [address], [place] [id number] 12/14/2025 11:15 AM EST Office Visit [facility] [address] [place] [address] Tobias Darby DO [address] [place] [address] Health Maintenance Due Date Last Done Comments Wellness Exam Medicare 1948 Hepatitis C Screening 1965 Zoster (2 of 3) 01/14/2015 11/19/2014 RSV or 60+ (1 - 1-dose 75+ series) 2022 DTaP/TDaP/Td (3 - Td or Tdap) 11/19/2024, 11/19/2014 COVID-19 Vaccine (2024-2 6 season) 2025 12/05/2021, 12/28/2020, 12/01/2020 Influenza Vaccine (#1) 2025 Pneumococcal Vaccine 50+ Completed 017, 11/19/2014 Hepatitis B Vaccine Aged Out No longe r eligible based on patient's age to complete this topic Meningococcal B Vaccine Aged Out No l onger eligible based on patient's age to complete this topic Medical Devices Implanted Type Area Investigative Assistant Device Identifier Shelf Expiration Date Model / Serial / Lot Iol Right Tkr Device Fixation Strap Absorbable 12 Straps Secure Strap 5mm - [id number] Implanted:Qty : 1 on 09/12/2018 by Oneil Koroma MD at [facility] Left: Inguinal J&J:ETHICON:END O-SURGERY 06/24/2020 STRAP12 / [id number] / [id number] Mesh 3d Left Large [id number] - [id number] Implanted:Qty : 1 on 09/12/2018 by Oneil Koroma MD at [facility] Left: Inguinal CR BARD:DAVOL 03/22/2023 [id number] / [id number] / [id number] Putty 1ml I-Fact Dbm Crsh Syr Bg - [id number] Implanted:Qty : 1 on 01/02/2023 by Clifford Velasco MD at [facility] N/A: Spine Cervical CERAPEDICS 07/25/2025 700-010 / / [id number] Cage Spinal Acis Proti 10 Degree Large 8 Mm - [id number] Implanted:Qty : 1 on 01/02/2023 by Clifford Velasco MD at [facility] N/A: Spine Cervical J&J:DEPUY:DEPUY SPINE [id number] 10/02/[id number] / [id number] Putty 1ml I-Fact Dbm Crsh Syr Bg - [id number] Implanted:Qty : 1 on 01/02/2023 by Clifford Velasco MD at [facility] N/A: Spine Cervical CERAPEDICS 06/24/2025 700-010 / / [id number] Cage Spinal Acis Proti 10 Degree Large 8 Mm - [id number] Implanted:Qty : 1 on 01/02/2023 by Clifford Velasco MD at [facility] N/A: Spine Cervical J&J:DEPUY:DEPUY SPINE [id number] 10/02/[id number] / / [id number] Cage Spinal Acis Proti 10 Degree Large 8 Mm - [id number] Implanted:Qty : 1 on 01/02/2023 by Clifford Velasco MD at [facility] N/A: Spine Cervical J&J:DEPUY:DEPUY SPINE [id number] 10/02/2024 [id number] / / [id number] Scr Bn 4mm 14mm Antonito Ti - [id number] Implanted:Qty : 8 on 01/02/2023 by Clifford Velasco MD at [facility] N/A: Spine Cervical J&J:DEPUY:DEPUY SPINE [id number] / / Plt 14mm Prebnt 48h91l8.5mm Ti - [id number] Implanted:Qty : 1 on 01/02/2023 by Clifford Velasco MD at [facility] N/A: Spine Cervical J&J:DEPUY:DEPUY SPINE [id number] / / Kt Graft 1.4ml Infs Xs Angelo Matrx 2-Tn Bnd 5ml Strl H2o - [id number] Implanted:Qty : 1 on 09/19/2023 by Clifford Velasco MD at [facility] N/A: Spine Lumbar MEDTRONIC:SOFAM OR DANEK [id number] 11/24/2024 [id number] / / [id number] Cage Spinal Modulus Alif [id number] 20 Angle Degree - [id number] Implanted:Qty : 1 on 09/19/2023 by Clifford Velasco MD at [facility] N/A: Spine Lumbar NUVASIVE 03/30/2026 [id number] / / [id number] [place] Spinal Modulus Alif 5.0mm X 22.5mm Fixed Titanium - [id number] Implanted:Qty : 1 on 09/19/2023 by Clifford Velasco MD at [facility] N/A: Back NUVASIVE [id number] / / [place] Spinal Modulus Alif 5.0mm X 25mm Fixed Titanium - [id number] Implanted:Qty : 1 on 09/19/2023 by Clifford Velasco MD at [facility] N/A: Back NUVASIVE [id number] / / Screw Lock Reline Tulip Open 5.5mm - [id number] Implanted:Qty : 4 on 09/19/2023 by Clifford Velasco MD at [facility] N/A: Back NUVASIVE [id number] / / Screw Bn 7.5mm 50mm Reline 2c Spne Pa Ns Mas - [id number] Implanted:Qty : 1 on 09/19/2023 by Clifford Velasco MD at [facility] N/A: Back NUVASIVE [id number] / / Screw Bn 7.5mm 40mm Reline 2c Spne Pa Ns Mas - [id number] Implanted:Qty : 3 on 09/19/2023 by Clifford Velasco MD at [facility] N/A: Back NUVASIVE [id number] / / Song Ti Mas Reline 5.5 X 35mm Lordotic - [id number] Implanted:Qty : 1 on 09/19/2023 by Clifford Velasco MD at [facility] N/A: Back NUVASIVE [id number] / / Song Ti Mas Reline 5.5 X 40mm Lordotic - [id number] Implanted:Qty : 1 on 09/19/2023 by Clifford Velasco MD at [facility] N/A: Back NUVASIVE [id number] / / Gel Propel Dbm 5cc - [id number] Implanted:Qty : 1 on 09/19/2023 by Clifford Velasco MD at [facility] N/A: Back NUVASIVE 02/20/2026 [id number] / / [id number] Clip Arterial Articlip Flex Mini Device 45mm - [id number] Implanted:Qty : 1 on 07/28/2025 by Mukund Noel MD at [facility] N/A: Heart-Atriu m [employer] [id number] 02/23/2026 [id number] / / [id number] Plates H 6 Holes Nonsterile - [id number] Implanted:Qty : 2 on 07/28/2025 by Mukund Noel MD at [facility] N/A: Sternum BIOMET:MICKEY SERA SURG 115.102.06 / / Screw Locking 14mm Blue Nonsterile - [id number] Implanted:Qty : 6 on 07/28/2025 by Mukund Noel MD at [facility] N/A: Sternum BIOMET:MICKEY SERA SURG 100.035.14 / / Screw Locking 16mm Gold Nonsterile - [id number] Implanted:Qty : 6 on 07/28/2025 by Mukund Noel MD at [facility] N/A: Sternum BIOMET:MICKEY SERA SURG 100.035.16 / / Procedures Procedure Name Priority Date/Time Associated Diagnosis Comments XR ABDOMEN AP STAT 08/06/2025 7:57 AM EDT ECG AND WAVEFORMS - TELEMETRY Routine 08/06/2025 6:31 AM EDT ECG AND WAVEFORMS - TELEMETRY Routine 08/06/2025 6:29 AM EDT XR CHEST AP PORTABLE Early AM 08/06/2025 6:18 AM EDT CBC Early AM 08/06/2025 3:52 AM EDT BASIC METABOLIC PANEL Early AM 08/06/2025 3:52 AM EDT MAGNESIUM LEVEL Early AM 08/06/2025 3:52 AM EDT POTASSIUM WHOLE BLOOD STAT 08/05/2025 2:49 PM EDT ECG AND WAVEFORMS - TELEMETRY Routine 08/05/2025 12:29 PM EDT ECG AND WAVEFORMS - TELEMETRY Routine 08/05/2025 7:50 AM EDT XR CHEST AP PORTABLE Early AM 08/05/2025 6:05 AM EDT CBC Early AM 08/05/2025 4:19 AM EDT BASIC METABOLIC PANEL Early AM 08/05/2025 4:19 AM EDT MAGNESIUM LEVEL Early AM 08/05/2025 4:19 AM EDT POTASSIUM WHOLE BLOOD Routine 08/05/2025 4:19 AM EDT POTASSIUM WHOLE BLOOD Routine 08/04/2025 2:05 PM EDT PROCALCITONIN Timed 08/04/2025 2:01 PM EDT CBC Timed 08/04/2025 2:01 PM EDT URINALYSIS REFLEX Routine 08/04/2025 1:23 PM EDT UA W/REFLEX TO CULTURE Routine 08/04/2025 1:23 PM EDT EXTRA ALEX URINE CX Routine 08/04/2025 1:23 PM EDT LOWER RESPIRATORY CULTURE (STAIN INCLUDED) Routine 08/04/2025 9:50 AM EDT ECG AND WAVEFORMS - TELEMETRY Routine 08/04/2025 9:33 AM EDT CBC WITH DIFF STAT 08/04/2025 6:41 AM EDT BASIC METABOLIC PANEL STAT 08/04/2025 6:41 AM EDT MAGNESIUM LEVEL Early AM 08/04/2025 6:41 AM EDT XR CHEST AP PORTABLE Early AM 08/04/2025 6:00 AM EDT ECG AND WAVEFORMS - TELEMETRY Routine 08/04/2025 4:46 AM EDT POTASSIUM WHOLE BLOOD Routine 08/03/2025 6:24 PM EDT ECG AND WAVEFORMS - TELEMETRY Routine 08/03/2025 10:[address] CHEST WO CONTRAST AMPARO 08/03/2025 8:46 AM EDT ECG AND WAVEFORMS - TELEMETRY Routine 08/03/2025 7:50 AM EDT XR CHEST AP PORTABLE Early AM 08/03/2025 6:38 AM EDT ECG AND WAVEFORMS - TELEMETRY Routine 08/03/2025 4:54 AM EDT BASIC METABOLIC PANEL Early AM 08/03/2025 3:57 AM EDT CBC WITH DIFF Early AM 08/03/2025 3:57 AM EDT MAGNESIUM LEVEL Early AM 08/03/2025 3:57 AM EDT ECG AND WAVEFORMS - TELEMETRY Routine 08/02/2025 7:25 PM EDT PHOSPHORUS LEVEL Timed 08/02/2025 1:52 PM EDT MAGNESIUM LEVEL Timed 08/02/2025 1:52 PM EDT BASIC METABOLIC PANEL Routine 08/02/2025 1:52 PM EDT US SENIOR PAYROLL SPECIALIST/HOSPI TALIST BEDSIDE ULTRASOUND AMPARO 08/02/2025 8:40 AM EDT ECG AND WAVEFORMS - TELEMETRY Routine 08/02/2025 7:37 AM EDT XR CHEST AP PORTABLE Early AM 08/02/2025 6:17 AM EDT MAGNESIUM LEVEL Early AM 08/02/2025 4:19 AM EDT BASIC METABOLIC PANEL Early AM 08/02/2025 4:19 AM EDT CBC Early AM 08/02/2025 4:19 AM EDT POTASSIUM LEVEL Routine 08/02/2025 2:06 AM EDT MAGNESIUM LEVEL Routine 08/02/2025 2:06 AM EDT ECG AND WAVEFORMS - TELEMETRY Routine 08/01/2025 8:25 PM EDT XR CHEST AP PORTABLE Early AM 08/01/2025 6:40 AM EDT MAGNESIUM LEVEL Early AM 08/01/2025 4:04 AM EDT BASIC METABOLIC PANEL Early AM 08/01/2025 4:04 AM EDT CBC Early AM 08/01/2025 4:04 AM EDT ECG AND WAVEFORMS - TELEMETRY Routine 07/31/2025 7:43 PM EDT MAGNESIUM LEVEL Early AM 07/31/2025 4:06 PM EDT POTASSIUM LEVEL Routine 07/31/2025 4:06 PM EDT ECG AND WAVEFORMS - TELEMETRY Routine 07/31/2025 10:13 AM EDT XR CHEST PA AND LATERAL AMPARO 07/31/2025 9:01 AM EDT MAGNESIUM LEVEL Add-On 07/31/2025 3:31 AM EDT CBC WITH DIFF Early AM 07/31/2025 3:31 AM EDT BASIC METABOLIC PANEL Early AM 07/31/2025 3:31 AM EDT EK EKG 12 LEAD Routine 07/31/2025 12:05 AM EDT POTASSIUM LEVEL Routine 07/30/2025 10:57 PM EDT ECG AND WAVEFORMS - TELEMETRY Routine 07/30/2025 10:43 PM EDT ECG AND WAVEFORMS - TELEMETRY Routine 07/30/2025 10:42 PM EDT ECG AND WAVEFORMS - TELEMETRY Routine 07/30/2025 7:24 PM EDT ECG AND WAVEFORMS - TELEMETRY Routine 07/30/2025 3:38 PM EDT ECG AND WAVEFORMS - TELEMETRY Routine 07/30/2025 3:37 PM EDT GLUCOSE METER POC Routine 07/30/2025 1:27 PM EDT CALCIUM, IONIZED Routine 07/30/2025 1:24 PM EDT MAGNESIUM LEVEL Routine 07/30/2025 1:24 PM EDT POTASSIUM WHOLE BLOOD Routine 07/30/2025 1:24 PM EDT ECG AND WAVEFORMS - TELEMETRY Routine 07/30/2025 6:48 AM EDT XR CHEST AP PORTABLE Early AM 07/30/2025 6:48 AM EDT POC ARTERIAL BLOOD GAS PROFILE Routine 07/30/2025 3:18 AM EDT CBC WITH DIFF Early AM 07/30/2025 3:16 AM EDT BASIC METABOLIC PANEL Early AM 07/30/2025 3:16 AM EDT MAGNESIUM LEVEL Routine 07/30/2025 3:16 AM EDT POC ARTERIAL BLOOD GAS PROFILE Routine 07/30/2025 12:06 AM EDT POC ARTERIAL BLOOD GAS PROFILE Routine 07/29/2025 9:03 PM EDT ECG AND WAVEFORMS - TELEMETRY Routine 07/29/2025 7:09 PM EDT ECG AND WAVEFORMS - TELEMETRY Routine 07/29/2025 7:04 PM EDT GLUCOSE METER POC Routine 07/29/2025 6:04 PM EDT GLUCOSE METER POC Routine 07/29/2025 12:51 PM EDT POTASSIUM WHOLE BLOOD Timed 07/29/2025 10:26 AM EDT ECG AND WAVEFORMS - TELEMETRY Routine 07/29/2025 10:14 AM EDT GLUCOSE METER POC Routine 07/29/2025 8:50 AM EDT POC ARTERIAL BLOOD GAS PROFILE Routine 07/29/2025 6:37 AM EDT XR CHEST AP PORTABLE Early AM 07/29/2025 6:05 AM EDT GLUCOSE METER POC Routine 07/29/2025 5:35 AM EDT POC ARTERIAL BLOOD GAS PROFILE Routine 07/29/2025 4:03 AM EDT POC OPEN HEART O2SAT - MIXED VENOUS Routine 07/29/2025 3:10 AM EDT POC ARTERIAL BLOOD GAS PROFILE Routine 07/29/2025 3:09 AM EDT PHOSPHORUS LEVEL Early AM 07/29/2025 3:04 AM EDT MAGNESIUM LEVEL Early AM 07/29/2025 3:04 AM EDT CALCIUM, IONIZED Early AM 07/29/2025 3:04 AM EDT CBC WITH DIFF Early AM 07/29/2025 3:04 AM EDT BASIC METABOLIC PANEL Early AM 07/29/2025 3:04 AM EDT POTASSIUM WHOLE BLOOD Timed 07/29/2025 3:04 AM EDT CORTISOL Routine 07/29/2025 3:04 AM EDT O2 SAT - MIXED VENOUS Timed 07/29/2025 3:04 AM EDT POC ARTERIAL BLOOD GAS PROFILE Routine 07/29/2025 1:56 AM EDT POTASSIUM WHOLE BLOOD Timed 07/29/2025 12:57 AM EDT GLUCOSE METER POC Routine 07/29/2025 12:56 AM EDT EK EKG 12 LEAD Early AM 07/29/2025 12:05 AM EDT POC ARTERIAL BLOOD GAS PROFILE Routine 07/28/2025 11:58 PM EDT XR CHEST AP PORTABLE STAT 07/28/2025 11:35 PM EDT ECG AND WAVEFORMS - TELEMETRY Routine 07/28/2025 11:10 PM EDT POC ARTERIAL BLOOD GAS PROFILE Routine 07/28/2025 10:53 PM EDT POC ARTERIAL BLOOD GAS PROFILE Routine 07/28/2025 10:02 PM EDT EK EKG 12 LEAD STAT 07/28/2025 9:26 PM EDT MAGNESIUM LEVEL STAT 07/28/2025 9:05 PM EDT POTASSIUM WHOLE BLOOD Timed 07/28/2025 9:05 PM EDT POC ARTERIAL BLOOD GAS PROFILE Routine 07/28/2025 8:58 PM EDT POC ARTERIAL BLOOD GAS PROFILE Routine 07/28/2025 7:34 PM EDT POC ARTERIAL BLOOD GAS PROFILE Routine 07/28/2025 6:30 PM EDT POC ARTERIAL BLOOD GAS PROFILE Routine 07/28/2025 5:54 PM EDT POTASSIUM WHOLE BLOOD Timed 07/28/2025 5:29 PM EDT POC ARTERIAL BLOOD GAS PROFILE Routine 07/28/2025 4:43 PM EDT PLATELETS REQUEST AMPARO 07/28/2025 4:08 PM EDT ASHD (arteriosclerot ic heart disease) POC ARTERIAL BLOOD GAS PROFILE Routine 07/28/2025 3:55 PM EDT POC ARTERIAL BLOOD GAS PROFILE Routine 07/28/2025 2:59 PM EDT POC ARTERIAL BLOOD GAS PROFILE Routine 07/28/2025 2:02 PM EDT XR CHEST AP PORTABLE STAT 07/28/2025 1:50 PM EDT O2 SAT - MIXED VENOUS STAT 07/28/2025 1:27 PM EDT PHOSPHORUS LEVEL STAT 07/28/2025 1:27 PM EDT POTASSIUM WHOLE BLOOD STAT 07/28/2025 1:27 PM EDT CBC STAT 07/28/2025 1:27 PM EDT BASIC METABOLIC PANEL STAT 07/28/2025 1:27 PM EDT IP CONSULT TO SURGICAL SENIOR PAYROLL SPECIALIST - EDG ONLY Routine 07/28/2025 1:25 PM EDT Procedure Note - Eddie Lees MD - 07/28/2025 11:56 AM EDTThis note is in progress. CARDIAC SURGICAL CRITICAL CARE CONSULTATION-[facility], [place], [place] Initial Hospital Care 07/28/2025 Eddie Lees MD Matilde Lara is a 80 y.o. male admitted 07/28* He is status post CABG. We are asked to see this patient for chief complaint of hemodynamicinstability and hypoxic pulmonary insufficiency by Dr. Joshua. MEDICAL HISTORY HISTORY OF PRESENT ILLNESS 80 year-old man with PMH of multi-vessel CAD, mild , SVT (s/p albationat [place]), HTN, chronic back pain who had recent left-heart catheterization,was found to have severe, multi-vessel CAD with good target candidates.Presents to [employer] immediately post-operative from CABG by . PLAN - Maintain PAC and arterial line for now. Consider dobutamine for CI lessthan 2.0 and/or Adalberto-Synephrine gtt for MAP less than 65 with low SVR. - Follow CVP and UOP - Remains intubated post-op for hemodynamic instability. Send ABG andcheck CXR. - Continue mechanical ventilation for now, OK for SAT/SBT pendingimprovement in hemodynamics. - Holding all sedation; would like to extubate AMPARO. - Check coags if chest tube out is high or if pressor requirementincreases. - Admission labs ordered: CBC, CMP, ABG, mag, phos, lactate, Mixed venousSpO2 - Serial CBCs.Transfuse as needed. - Jeri-operative insulin drip on - Glucose goal less than 180. PROBLEM LIST Active Hospital Problems Mixed hyperlipidemia *ASHD (arteriosclerotic heart disease) Hypertension Severe, multi-vessel coronary artery disease: - now s/p CABG - Maintain PAC and arterial line for now. - Continue epinephrine gtt for inotropy for now - Consider addition of Adalberto gtt for low SVR - Follow CVP and UOP - Admission labs ordered: CBC, CMP, ABG, mag, phos, lactate, mixed venousSpO2 - Serial CBCs. Follow chest tube output. Check coags. Transfuse asneeded - ASA and statin when stable - BB when hemodynamics allow History of hypertension - [employer] WORK[employer] on HCTZ 25 mg daily, Toprol 25 daily - Hold ARB/ACEi for now - BB as hemodynamics allow - IV hydralazine as needed - Add CCB drip if unable to control with IVP and PO meds HL - History of hyperlipidemia - HL on rosuvastatin 20 mg daily Hypoxic pulmonary insufficiency - Continue mechanical ventilation for now: PRVC. Keep Vt < 8 mL/kg, PEEP6-8, Wean FiO2 as tolerated - HOB > 30, Pulm Toilet, Oral Care - Wean to PS as soon as possible - Send ABG - CXR on Admission and q AM while intubated - Follow chest tube output and H&H - Check coags if chest tube out is high or if pressor requirementincreases - OK for SAT/SBT pending improvement in hemodynamics Chronic Back pain - [employer] OFF[employer] WORKER meds: Lyrica 100 TID, Robax 500 BID - Continuing jeri-operative insulin gtt initially - Transition to SSI and lantus when stable - Glucose goal less than 180 mg/dL Post-operative pain - Holding sedation for now, in anticipation of improvement in mentalstatus and possible extubation - Scheduled Ofirmev IV, PRN IV morphine, oxycodone Infection prophylaxis - Cont jeri-op prophylaxis for now Class I obesity - Challenges all aspects of care Infusions: lactated ringers 50 mL/hr at 07/28/25 0619 ICU MANAGEMENT Lieberman: Yes Stress Ulcer Prophylaxis: IV/oral pantoprazole VTE Prophylaxis: LUKAS hose in place. Bowel Regimen: Will start when appropriate Diet: NPO currently, will advance when appropriate Hyperglycemia: Jeri-operative glucose control protocol including insulingtt Pneumonia Prophylaxis: HOB > 30; Oral care; Spirometry and pulmonarytoilet Code Status: FULL Disposition: ICU Eddie Lees MD Critical care time: 41 minutes This was care delivered because one or more vital organ systems wasimpaired so that there was a high probability of imminent or lifethreatening deterioration in the patient s condition. I instituted carethat is considered a critical intervention because it involves highcomplexity decision making to assess, manipulate, and support vital organsystem failure. This time was spent engaged in work directly related tothe individual patient s care either at the immediate bedside or elsewhereon unit. Documented time is exclusive of time spent on procedures(separately documented), unless otherwise noted. Eddie Lees M.D. Surgical Critical Care [facility] POC ARTERIAL BLOOD GAS PROFILE Routine 07/28/2025 1:05 PM EDT ACTIVATED CLOTTING TIME + POC Routine 07/28/2025 1:04 PM EDT POC ARTERIAL BLOOD GAS PROFILE Routine 07/28/2025 1:01 PM EDT ACTIVATED CLOTTING TIME + POC Routine 07/28/2025 1:00 PM EDT ACTIVATED CLOTTING TIME + POC Routine 07/28/2025 12:29 PM EDT POC ARTERIAL BLOOD GAS PROFILE Routine 07/28/2025 12:29 PM EDT POC ARTERIAL BLOOD GAS PROFILE Routine 07/28/2025 12:01 PM EDT ACTIVATED CLOTTING TIME + POC Routine 07/28/2025 11:58 AM EDT POC ARTERIAL BLOOD GAS PROFILE Routine 07/28/2025 11:42 AM EDT ACTIVATED CLOTTING TIME + POC Routine 07/28/2025 11:31 AM EDT POC ARTERIAL BLOOD GAS PROFILE Routine 07/28/2025 11:30 AM EDT ADMIT Routine 07/28/2025 11:09 AM EDT ACTIVATED CLOTTING TIME + POC Routine 07/28/2025 11:08 AM EDT POC ARTERIAL BLOOD GAS PROFILE Routine 07/28/2025 11:08 AM EDT POC ARTERIAL BLOOD GAS PROFILE Routine 07/28/2025 10:32 AM EDT ACTIVATED CLOTTING TIME + POC Routine 07/28/2025 10:30 AM EDT POC ARTERIAL BLOOD GAS PROFILE Routine 07/28/2025 10:01 AM EDT ACTIVATED CLOTTING TIME + POC Routine 07/28/2025 10:00 AM EDT POC VENOUS BLOOD GAS PROFILE Routine 07/28/2025 9:54 AM EDT POC ARTERIAL BLOOD GAS PROFILE Routine 07/28/2025 9:35 AM EDT ACTIVATED CLOTTING TIME + POC Routine 07/28/2025 9:34 AM EDT ACTIVATED CLOTTING TIME + POC Routine 07/28/2025 9:11 AM EDT POC ARTERIAL BLOOD GAS PROFILE Routine 07/28/2025 9:10 AM EDT JEREMY Routine 07/28/2025 9:03 AM EDT ANE PA CATHETER PLACEMENT Routine 07/28/2025 8:58 AM EDT ANE PA CATHETER PLACEMENT Routine 07/28/2025 8:58 AM EDT ANE PA CATHETER PLACEMENT Routine 07/28/2025 8:58 AM EDT POC ARTERIAL BLOOD GAS PROFILE Routine 07/28/2025 8:06 AM EDT ACTIVATED CLOTTING TIME + POC Routine 07/28/2025 8:05 AM EDT INTRAOP AIRWAY PLACEMENT Routine 07/28/2025 7:51 AM EDT STERNAL PLATING 07/28/2025 7:15 AM EDT ASHD (arteriosclerot ic heart disease) Special Needs 3D Transesophageal Echocardiogram, ACBx3, IMAx1 th DE CABG W/ARTERIAL GRAFT SINGLE ARTERIAL GRAFT 07/28/2025 7:15 AM EDT ASHD (arteriosclerot ic heart disease) Special Needs 3D Transesophageal Echocardiogram, ACBx3, IMAx1 th DE CORONARY ARTERY BYP W/VEIN & ARTERY GRAFT 3 VEIN 07/28/2025 7:15 AM EDT ASHD (arteriosclerot ic heart disease) Special Needs 3D Transesophageal Echocardiogram, ACBx3, IMAx1 th ADMIT Routine 07/28/2025 5:28 AM EDT ADMIT Routine 07/28/2025 5:28 AM EDT INSERT PERIPHERAL IV Routine 07/28/2025 5:28 AM EDT VA US LOWER EXTREMITY BILATERAL MAPPING Routine 07/22/2025 9:46 AM EDT Leg swelling VA US CAROTID DUPLEX BILATERAL Routine 07/22/2025 9:46 AM EDT Bruit RED BLOOD CELLS REQUEST Routine 07/21/2025 10:33 AM EDT RED BLOOD CELLS REQUEST AMPARO 07/21/2025 10:33 AM EDT ASHD (arteriosclerot ic heart disease) BB HISTORY CHECK Routine 07/21/2025 10:33 AM EDT ASHD (arteriosclerot ic heart disease) SURGERY DATE Routine 07/21/2025 10:33 AM EDT ASHD (arteriosclerot ic heart disease) ANTIBODY SCREEN IGG Routine 07/21/2025 10:33 AM EDT ASHD (arteriosclerot ic heart disease) ABORH Routine 07/21/2025 10:33 AM EDT ASHD (arteriosclerot ic heart disease) PREADMISSION TYPE AND SCREEN Routine 07/21/2025 10:33 AM EDT ASHD (arteriosclerot ic heart disease) TSH REFLEX TO FT4 Routine 07/21/2025 10:33 AM EDT Hypothyroidism, unspecified type Preop testing HEMOGLOBIN A1C Routine 07/21/2025 10:33 AM EDT ASHD (arteriosclerot ic heart disease) PT / INR Routine 07/21/2025 10:33 AM EDT ASHD (arteriosclerot ic heart disease) BASIC METABOLIC PANEL Routine 07/21/2025 10:33 AM EDT ASHD (arteriosclerot ic heart disease) CBC WITH DIFF Routine 07/21/2025 10:33 AM EDT ASHD (arteriosclerot ic heart disease) BLOOD GAS ARTERIAL Routine 07/21/2025 10:32 AM EDT ASHD (arteriosclerot ic heart disease) URINALYSIS REFLEX Routine 07/21/2025 9:11 AM EDT ASHD (arteriosclerot ic heart disease) UA W/REFLEX TO CULTURE Routine 07/21/2025 9:11 AM EDT ASHD (arteriosclerot ic heart disease) EXTRA ALEX URINE CX Routine 07/21/2025 9:11 AM EDT ASHD (arteriosclerot ic heart disease) XR CHEST PA AND LATERAL AMPARO 07/21/2025 9:06 AM EDT EK EKG 12 LEAD STAT 07/21/2025 8:04 AM EDT from Last 3 Months Results * XR ABDOMEN AP (08/06/2025 7:57 AM EDT) Anatomical Region Laterality Modality Abdomen Radiographic Ashanti ging 08/06/2025 7:57 AM EDT Impressions 08/06/2025 8:03 AM EDT Left lower lobe pneumonia. - Note: Radiology results need to be interpreted within a comprehensive clinical context. If you have questions about the radiology report, please contact the office of the ordering clinician. Narrative 08/06/2025 8:03 AM EDT CR, ABDOMEN AP, 08/06/2025 7:57 AM CLINICAL HISTORY: -emesis COMPARISON: CT abdomen and pelvis May 16, 2021 PROCEDURE COMMENTS: AP view(s) of the abdomen per protocol. FINDINGS: No large or small bowel dilatation. Left lower lobe infiltrate is present suggesting pneumonia. Lumbar postsurgical changes are present at L5-S1. Procedure Note Best Grimes MD - 08/06/2025 CR, ABDOMEN AP, 08/06/2025 7:57 AM CLINICAL HISTORY: -emesis COMPARISON: CT abdomen and pelvis May 16, 2021 PROCEDURE COMMENTS: AP view(s) of the abdomen per protocol. FINDINGS: No large or small bowel dilatation. Left lower lobe infiltrate is present suggesting pneumonia. Lumbar postsurgical changes are present at L5-S1. IMPRESSION: Left lower lobe pneumonia. - Note: Radiology results need to be interpreted within a comprehensiveclinical context. If you have questions about the radiology report, please contactthe office of the ordering clinician. us Prabhjot Santos MD IMG DIAGNOSTIC IMAGING ORDER SUDHAKAR Final Result * ECG AND WAVEFORMS - TELEMETRY (08/06/2025 6:31 AM EDT) Only the most recent of22 resultswithin the time period is included. ECG INTERPRET Sinus Rhythm w/ First Degree AVB [facility] 08/06/2025 6:31 AM EDT Narrative [facility] - 08/06/2025 6:31 AM EDT See Clinical Report link for waveform capture us Unknown Provider POINT OF CARE CARDIOLOGY Final Result [facility] [address] [place] [id number] * XR CHEST AP PORTABLE (08/06/2025 6:18 AM EDT) Only the most recent of10 resultswithin the time period is included. Anatomical Region Laterality Modality Chest Radiographic Ashanti ging 08/06/2025 6:18 AM EDT Impressions 08/06/2025 6:35 AM EDT Continued left lower lobe atelectasis and left effusion. - Note: Radiology results need to be interpreted within a comprehensive clinical context. If you have questions about the radiology report, please contact the office of the ordering clinician. Narrative 08/06/2025 6:35 AM EDT XR CHEST AP PORTABLE, 08/06/2025 6:18 AM CLINICAL HISTORY: -Post-op cardiac surgery COMPARISON: August 05, 2025, 0610 hours PROCEDURE COMMENTS: AP portable technique. FINDINGS: Support devices: No visible support devices. Postoperative appearance of the heart and mediastinum are stable appearing. Left lower lobe atelectasis and left effusion continue. No new airspace opacities. No visible pneumothorax. Procedure Note Best Grimes MD - 08/06/2025 XR CHEST AP PORTABLE, 08/06/2025 6:18 AM CLINICAL HISTORY: -Post-op cardiac surgery COMPARISON: August 05, 2025, 0610 hours PROCEDURE COMMENTS: AP portable technique. FINDINGS: Support devices: No visible support devices. Postoperative appearance of the heart and mediastinum are stableappearing. Left lower lobe atelectasis and left effusion continue. No new airspace opacities. No visible pneumothorax. IMPRESSION: Continued left lower lobe atelectasis and left effusion. - Note: Radiology results need to be interpreted within a comprehensiveclinical context. If you have questions about the radiology report, please contactthe office of the ordering clinician. us Jd Lagne APRN IMG DIAGNOSTIC IMAGING ORDERAB LES Final Result * (ABNORMAL) CBC (08/06/2025 3:52 AM EDT) Only the most recent of6 resultswithin the time period is included. WBC 12.1(H) 3.7 - 10.3 x10(3)/mcL 08/06/2025 3:59 AM EDT [facility] RBC 2.87(L) 4.60 - 6.10 x10(6)/mcL 08/06/2025 3:59 AM EDT [facility] Hgb 9.5(L) 13.7 - 17.5 g/dL 08/06/2025 3:59 AM EDT [facility] Hct 29.7(L) 40.0 - 51.0 % 08/06/2025 3:59 AM EDT [facility] MCV 103.5(H) 80.0 - 100.0 fL 08/06/2025 3:59 AM EDT [facility] MCH 33.1 26.0 - 34.0 pg 08/06/2025 3:59 AM EDT [facility] MCHC 32.0 30.7 - 35.5 g/dL 08/06/2025 3:59 AM EDT [facility] RDW 15.5(H) <=14.9 % 08/06/2025 3:59 AM EDT [facility] Platelet 356 155 - 369 x10(3)/mcL 08/06/2025 3:59 AM EDT [facility] MPV 9.6 8.8 - 12.5 fL 08/06/2025 3:59 AM EDT [facility] NRBC Auto % 0.3(H) <=0.0 % 08/06/2025 3:59 AM EDT [facility] NRBC# 0.0 x10(3)/[facility] 08/06/2025 3:59 AM EDT [facility] Blood VENOUS BLOOD / Unknown Venipuncture / Unknown 08/06/2025 3:52 AM EDT 08/06/2025 3:56 AM EDT us Lamine Acosta MD HEMATOLOGY ORDERABLES Final R esult [facility] [address] , [place] [address] * MAGNESIUM LEVEL (08/06/2025 3:52 AM EDT) Only the most recent of14 resultswithin the time period is included. Magnesium 2.2 1.6 - 2.4 mg/dL 08/06/2025 4:12 AM EDT [facility] Blood VENOUS BLOOD / Unknown Venipuncture / Unknown 08/06/2025 3:52 AM EDT 08/06/2025 3:55 AM EDT us Lamine Acosta MD CHEMISTRY ORDERABLES Final Re sult [facility] [address] [place] [id number] * (ABNORMAL) BASIC METABOLIC PANEL (08/06/2025 3:52 AM EDT) Only the most recent of12 resultswithin the time period is included. Sodium 138 136 - 145 mmol/L 08/06/2025 4:12 AM EDT [facility] Potassium 4.2 3.5 - 5.0 mmol/L 08/06/2025 4:12 AM EDT [facility] Chloride 103 98 - 107 mmol/L 08/06/2025 4:12 AM EDT [facility] Total CO2 22 22 - 29 mmol/L 08/06/2025 4:12 AM EDT [facility] Anion Gap 13 7 - 16 mmol/L 08/06/2025 4:12 AM EDT [facility] Calcium 8.5(L) 8.8 - 10.4 mg/dL 08/06/2025 4:12 AM EDT [facility] Glucose Lvl 113(H) 70 - 99 mg/dL 08/06/2025 4:12 AM EDT [facility] BUN 33(H) 8 - 23 mg/dL 08/06/2025 4:12 AM EDT [facility] Creatinine 1.19 0.67 - 1.30 mg/dL 08/06/2025 4:12 AM EDT [facility] eGFR (CKD-EPIcr 2020) 63 >=60 mL/min/1.7 3 m2 08/06/2025 4:12 AM EDT [facility] Comment:Estimated GFR was ca lculated using the CKD-EPIcr (2020) equation refit without race. The equation is recommended by the [employer] Kid[employer] - [place] [employer] Neph[employer] Task Force. Blood VENOUS BLOOD / Unknown Venipuncture / Unknown 08/06/2025 3:52 AM EDT 08/06/2025 3:55 AM EDT Lamine Acosta MD CHEMISTRY ORDERABLES Final Re sult Performing Organization Address [facility]/[place] [address] * POTASSIUM WHOLE BLOOD (08/05/2025 2:49 PM EDT) Only the most recent of11 resultswithin the time period is included. K-WB 5.0 3.5 - 5.0 mEq/L 08/05/2025 3:07 PM EDT [facility] [employer] [facility] Blood VENOUS BLOOD / Unknown Venipuncture / Unknown 08/05/2025 2:49 PM EDT 08/05/2025 3:01 PM EDT us Mukund Cavazos MD CHEMISTRY ORDERA BLES Final Result Performing Organization Address [facility] Co de Phone Number [facility] [address] [place] [address], [place] [address] * PROCALCITONIN (08/04/2025 2:01 PM EDT) Procalcitonin 0.13 <=0.49 ng/mL 08/04/2025 2:54 PM EDT [facility] Blood VENOUS BLOOD / Unknown Venipuncture / Unknown 08/04/2025 2:01 PM EDT 08/04/2025 2:10 PM EDT Narrative [facility] - 08/04/2025 2:54 PM EDT Procalcitonin <0.50 ng/mL: Procalcitonin levels below 0.50 ng/mL on the first day of ICU admission represent a low risk for progression to severe sepsis and/or septic shock Procalcitonin >=0.50 ng/mL and <=2.00 ng/mL: If the procalcitonin measurement is performed shortly after the systemic infection process has started (usually less than 6 hours), this value may still be low. As various non-infectious conditions are known to induce procalcitonin as well, procalcitonin levels between 0.50 ng/mL and 2.00 ng/mL should be reviewed carefully to take into account the specific clinical background and condition(s) of the patient. Procalcitonin >2.00 ng/mL: Procalcitonin levels above 2.00 ng/mL on the first day of ICU admission represent a high risk for progression to severe sepsis and/or septic shock. us Lamine Acosta MD CHEMISTRY ORDERABLES Final Re sult [facility] [address] , [address] [place] [id number] * (ABNORMAL) URINALYSIS REFLEX (08/04/2025 1:23 PM EDT) Only the most recent of2 resultswithin the time period is included. UA Color Yellow 08/04/2025 2:41 PM EDT [facility] UA Appear Clear Clear 08/04/2025 2:41 PM EDT [facility] UA Glucose Negative Negative mg/dL 08/04/2025 2:41 PM EDT [facility] UA Ketones Negative Negative mg/dL 08/04/2025 2:41 PM EDT [facility] UA Blood Negative Negative 08/04/2025 2:41 PM EDT [facility] UA pH 6.0 5.0 - 8.0 pH 08/04/2025 2:41 PM EDT [facility] UA Protein Negative Negative mg/dL 08/04/2025 2:41 PM EDT [facility] UA Urobilinogen Normal <=1 mg/dL 2:41 PM EDT [facility] UA Bili Negative Negative 08/04/2025 2:41 PM EDT [facility] UA Nitrite Negative Negative 08/04/2025 2:41 PM EDT [facility] UA Leuk Est Negative Negative 08/04/2025 2:41 PM EDT [facility] UA Spec Grav 1.025 1.001 - 1.035 no units 08/04/2025 2:41 PM EDT [facility] Comment:Reference range eleni d for random specimens only. UA WBC <1 0 - 4 /HPF 08/04/2025 2:41 PM EDT [facility] UA RBC <1 0 - 3 /HPF 08/04/2025 2:41 PM EDT [facility] UA Mucus Trace /LPF 08/04/2025 2:41 PM EDT [facility] UA Hyal Cast 6(H) 0 - 2 /LPF 08/04/2025 2:41 PM EDT [facility] Urine STRUCTURE OF URINARY TRACT PROPER / Unknown 08/04/2025 1:23 PM EDT 08/04/2025 1:29 PM EDT Lamine Acosta MD URINE ORDERABLES Final Result Performing Organization Address [facility]/ZIP Co de Phone Number [facility] [address] [facility], [place] [address] * EXTRA ALEX URINE CX (08/04/2025 1:23 PM EDT) Only the most recent of2 resultswithin the time period is included. Urine STRUCTURE OF URINARY TRACT PROPER / Unknown 08/04/2025 1:23 PM EDT 08/04/2025 1:29 PM EDT Lamine Acosta MD MICROBIOLOGY - GENERAL ORDERA BLES Final Result Performing Organization Address City/[facility]/ZIP Co de Phone Number [facility] [address] [place] [id number] * (ABNORMAL) LOWER RESPIRATORY CULTURE (STAIN INCLUDED) (08/04/2025 9:50 AM EDT) Culture Positive Growth(A) 08/06/2025 10:47 AM EDT [facility] Culture Moderate growth of Pseudomonas aeruginosa SUSCEPTIBI LITY RESULT 08/06/2025 10:47 AM EDT [facility] Stain Group 5: >25 WBC and <10 epithelial cells/lpf 08/06/2025 10:47 AM EDT [facility] Stain Rare Mixed oral jesús 08/06/2025 10:47 AM EDT [employer], [facility] Sputum LOWER RESPIRATORY TRACT STRUCTURE / Unknown 08/04/2025 9:50 AM EDT 08/04/2025 10:00 AM EDT Narrative Organism Antibiotic Method Susceptibility Pseudomonas aeruginosa Amikacin SUSCEPTIBILITY RESULT Pseudomonas aeruginosa Amoxicillin/Clavulanat e SUSCEPTIBILITY RESULT Pseudomonas aeruginosa Ampicillin SUSCEPTIBILITY RESULT Pseudomonas aeruginosa Ampicillin/Sulbactam SUSCEPTIBILITY RESULT Pseudomonas aeruginosa Aztreonam SUSCEPTIBILITY RESULT <=4 ug/mL: Susceptible Pseudomonas aeruginosa Cefazolin SUSCEPTIBILITY RESULT Pseudomonas aeruginosa Cefepime SUSCEPTIBILITY RESULT <=2 ug/mL: Susceptible Pseudomonas aeruginosa Cefotaxime SUSCEPTIBILITY RESULT Pseudomonas aeruginosa Cefoxitin SUSCEPTIBILITY RESULT Pseudomonas aeruginosa Ceftazidime SUSCEPTIBILITY RESULT 4 ug/mL: Susceptible Pseudomonas aeruginosa Ceftazidime/Avibactam SUSCEPTIBILITY RESULT Pseudomonas aeruginosa Ceftolozane/Tazobactam SUSCEPTIBILITY RESULT Pseudomonas aeruginosa Ceftriaxone SUSCEPTIBILITY RESULT Pseudomonas aeruginosa Cefuroxime SUSCEPTIBILITY RESULT Pseudomonas aeruginosa Ciprofloxacin SUSCEPTIBILITY RESULT <=0.25 ug/mL: Susceptible Pseudomonas aeruginosa Ertapenem SUSCEPTIBILITY RESULT Pseudomonas aeruginosa Gentamicin SUSCEPTIBILITY RESULT Pseudomonas aeruginosa Imipenem SUSCEPTIBILITY RESULT <=1 ug/mL: Susceptible Pseudomonas aeruginosa Levofloxacin SUSCEPTIBILITY RESULT <=0.5 ug/mL: Susceptible Pseudomonas aeruginosa Meropenem SUSCEPTIBILITY RESULT <=1 ug/mL: Susceptible Pseudomonas aeruginosa Meropenem/Vaborbactam SUSCEPTIBILITY RESULT Pseudomonas aeruginosa Minocycline SUSCEPTIBILITY RESULT Pseudomonas aeruginosa Moxifloxacin SUSCEPTIBILITY RESULT Pseudomonas aeruginosa Nitrofurantoin SUSCEPTIBILITY RESULT Pseudomonas aeruginosa Piperacillin/Tazobacta m SUSCEPTIBILITY RESULT <=8 ug/mL: Susceptible Pseudomonas aeruginosa Tetracycline SUSCEPTIBILITY RESULT Pseudomonas aeruginosa Tigecycline SUSCEPTIBILITY RESULT Pseudomonas aeruginosa Tobramycin SUSCEPTIBILITY RESULT Pseudomonas aeruginosa Trimethoprim/Sulfameth oxazole SUSCEPTIBILITY RESULT us Lamine Acosta MD MICROBIOLOGY - GENERAL ORDERA BLES Final Result [employer] [address] , [place] [address] * (ABNORMAL) CBC WITH DIFF (08/04/2025 6:41 AM EDT) Only the most recent of6 resultswithin the time period is included. WBC 18.7(H) 3.7 - 10.3 x10(3)/mcL 08/04/2025 7:06 AM EDT [facility] RBC 3.23(L) 4.60 - 6.10 x10(6)/mcL 08/04/2025 7:06 AM EDT [facility] Hgb 10.8(L) 13.7 - 17.5 g/dL 08/04/2025 7:06 AM EDT [facility] Hct 33.9(L) 40.0 - 51.0 % 08/04/2025 7:06 AM EDT [facility] MCV 105.0(H) 80.0 - 100.0 fL 08/04/2025 7:06 AM EDT [facility] MCH 33.4 26.0 - 34.0 pg 08/04/2025 7:06 AM EDT [facility] MCHC 31.9 30.7 - 35.5 g/dL 08/04/2025 7:06 AM EDT [facility] RDW 14.9 <=14.9 % 08/04/2025 7:06 AM EDT [facility] Platelet 291 155 - 369 x10(3)/mcL 08/04/2025 7:06 AM EDT [facility] MPV 10.4 8.8 - 12.5 fL 08/04/2025 7:06 AM EDT [facility] NRBC Auto % 0.3(H) <=0.0 % 08/04/2025 7:06 AM EDT [facility] NRBC# 0.1 x10(3)/[facility] 08/04/2025 7:06 AM EDT [facility] Neut Percent 79.1 % 08/04/2025 7:06 AM EDT [facility] Comment:Neutrophils equals s egs plus bands Imm Gran% 4.0 % 08/04/2025 7:06 AM EDT [facility] Comment:Automated count of m etamyelocytes, myelocytes and promyelocytes. IG > 3% may predict positive blood cultures with 98% specificity and 92% PPV. Nick Olvera, et al. (2003). [place] Journal of Clinical Pathology, 120:5, [phone] Lymph Percent 6.2 % 08/04/2025 7:06 AM EDT [facility] [place] Percent 10.0 % 08/04/2025 7:06 AM EDT [facility] Eos Percent 0.3 % 08/04/2025 7:06 AM EDT [facility] Baso Percent 0.4 % 08/04/2025 7:06 AM EDT [facility] Neut # 14.8(H) 1.6 - 6.1 x10(3)/[facility] 08/04/2025 7:06 AM EDT [facility] Comment:Neutrophils equals s egs plus bands IMMGRAN# 0.8(H) 0.0 - 0.1 x10(3)/[facility] 08/04/2025 7:06 AM EDT [facility] Comment:Automated count of m etamyelocytes, myelocytes and promyelocytes. An absolute IG <0.1 is reported as 0.0. Lymph # 1.2 1.2 - 3.9 x10(3)/[facility] 08/04/2025 7:06 AM EDT [facility] [place] # 1.9(H) 0.3 - 0.9 x10(3)/[facility] 08/04/2025 7:06 AM EDT [facility] Eos# 0.1 0.0 - 0.5 x10(3)/[facility] 08/04/2025 7:06 AM EDT [facility] Baso # 0.1 0.0 - 0.1 x10(3)/[facility] 08/04/2025 7:06 AM EDT [facility] Blood VENOUS BLOOD / Unknown Venipuncture / Unknown 08/04/2025 6:41 AM EDT 08/04/2025 6:46 AM EDT us Paz Ramon DEMOLITION WORKER HEMATOLOGY ORDERABLES Final R esult [facility] [address] , [place] [address] * CT CHEST WO CONTRAST (08/03/2025 8:46 AM EDT) Anatomical Region Laterality Modality Chest Computed Tomogra phy 08/03/2025 8:46 AM EDT Impressions 08/03/2025 9:19 AM EDT 1. Left lower lobe atelectasis and small left effusion. 2. Additional atelectasis in the posterior left upper lobe and lingula. 3. Postoperative changes of CABG with retrosternal seroma or hematoma. - Note: Radiology results need to be interpreted within a comprehensive clinical context. If you have questions about the radiology report, please contact the office of the ordering clinician. Narrative 08/03/2025 9:[address] CHEST WITHOUT CONTRAST, 08/03/2025 8:46 AM CLINICAL HISTORY: -Hypoxemic respiratory failure, eval for L infiltrate vs effusion. COMPARISON: CT chest January 20, 2024 PROCEDURE COMMENTS: Multi-detector CT of the chest with multiplanar reconstructions per protocol. No contrast given. Dose 1 : CT DLP Total : 703.34 mGycm DLP Spiral Max : 700.19 mGycm Maximum CTDI Vol : 21.02 mGy FINDINGS: There is left lower lobe atelectasis. There is atelectasis of the posterior left upper lobe and lingula. Small left effusion is present, under a centimeter. There is linear atelectasis in the right lung base. The upper lungs and apices are comparatively clear. Sternotomy wires and CABG changes are present. Retrosternal seroma or hematoma is noted, as expected. Mild pericardial effusion is concordant with recent surgery. No pneumothorax identified. Procedure Note Best Grimes MD - 08/03/2025 CT CHEST WITHOUT CONTRAST, 08/03/2025 8:46 AM CLINICAL HISTORY: -Hypoxemic respiratory failure, eval for L infiltratevs effusion. COMPARISON: CT chest January 20, 2024 PROCEDURE COMMENTS: Multi-detector CT of the chest with multiplanar reconstructions per protocol. No contrast given. Dose 1 : CT DLP Total : 703.34 mGycm DLP Spiral Max : 700.19 mGycm Maximum CTDI Vol : 21.02 mGy FINDINGS: There is left lower lobe atelectasis. There is atelectasis ofthe posterior left upper lobe and lingula. Small left effusion is present, under a centimeter. There is linear atelectasis in the right lung base. The upper lungs andapices are comparatively clear. Sternotomy wires and CABG changes are present. Retrosternal seroma orhematoma is noted, as expected. Mild pericardial effusion is concordant withrecent surgery. No pneumothorax identified. IMPRESSION: 1. Left lower lobe atelectasis and small left effusion. 2. Additional atelectasis in the posterior left upper lobe and lingula. 3. Postoperative changes of CABG with retrosternal seroma or hematoma. - Note: Radiology results need to be interpreted within a comprehensiveclinical context. If you have questions about the radiology report, please contactthe office of the ordering clinician. us Lamine Acosta MD IMG CT ORDERABLES Final Resul t * PHOSPHORUS LEVEL (08/02/2025 1:52 PM EDT) Only the most recent of3 resultswithin the time period is included. Phosphorus 4.0 2.5 - 4.5 mg/dL 08/02/2025 2:27 PM EDT [facility] Blood VENOUS BLOOD / Unknown Venipuncture / Unknown 08/02/2025 1:52 PM EDT 08/02/2025 1:57 PM EDT us Lamine Acosta MD CHEMISTRY ORDERABLES Final Re sult [facility] [address] , [place] [address] * US SENIOR PAYROLL SPECIALIST/HOSPITALIST BEDSIDE ULTRASOUND (08/02/2025 8:40 AM EDT) Narrative SarauserJosefa - 08/02/2025 8:40 AM EDT Senior Technologist Ultrasound performed at bedside. The study image(s) are for reference only and will not be interpreted by a Radiologist. Refer to the same day procedure note for image description and procedure details. us Lamine Acosta MD IMG US ORDERABLES Final Resul t * POTASSIUM LEVEL (08/02/2025 2:06 AM EDT) Only the most recent of3 resultswithin the time period is included. Potassium 4.9 3.5 - 5.0 mmol/L 08/02/2025 2:43 AM EDT [facility] Blood VENOUS BLOOD / Unknown Venipuncture / Unknown 08/02/2025 2:06 AM EDT 08/02/2025 2:17 AM EDT Mukund Cavazos MD CHEMISTRY ORDERA BLES Final Result [facility] [address] , [place] [address] * XR CHEST PA AND LATERAL (07/31/2025 9:01 AM EDT) Only the most recent of2 resultswithin the time period is included. Anatomical Region Laterality Modality Chest Radio Fluoroscop y 07/31/2025 9:01 AM EDT Impressions 07/31/2025 9:22 AM EDT Small LEFT pleural effusion with LEFT chest drain removed. Stable cardiomegaly. - Note: Radiology results need to be interpreted within a comprehensive clinical context. If you have questions about the radiology report, please contact the office of the ordering clinician. Narrative 07/31/2025 9:22 AM EDT PA AND LATERAL CHEST X-RAY, 07/31/2025 9:01 AM CLINICAL HISTORY: -Post-op cardiac surgery Follow up transition of care COMPARISON: 07/30/2025 PROCEDURE COMMENTS: Frontal and lateral views of the chest. FINDINGS: Stable RIGHT internal jugular sheath. Left chest drain removed. Atrial appendage clip stable. Evidence of median sternotomy stable. Stable cardiomegaly. Small LEFT pleural effusion. No pneumothorax. Procedure Note Zoran Stern MD - 07/31/2025 PA AND LATERAL CHEST X-RAY, 07/31/2025 9:01 AM CLINICAL HISTORY: -Post-op cardiac surgery Follow up transition of care COMPARISON: 07/30/2025 PROCEDURE COMMENTS: Frontal and lateral views of the chest. FINDINGS: Stable RIGHT internal jugular sheath. Left chest drain removed. Atrialappendage clip stable. Evidence of median sternotomy stable. Stable cardiomegaly. Small LEFT pleural effusion. No pneumothorax. IMPRESSION: Small LEFT pleural effusion with LEFT chest drain removed. Stable cardiomegaly. - Note: Radiology results need to be interpreted within a comprehensiveclinical context. If you have questions about the radiology report, please contactthe office of the ordering clinician. us Jd Lange DEMOLITION WORKER IMG DIAGNOSTIC IMAGING ORDERAB LES Final Result * EK EKG 12 LEAD (07/31/2025 12:05 AM EDT) Only the most recent of4 resultswithin the time period is included. Anatomical Region Laterality Modality Electrocardiogra phy 07/31/2025 6:14 AM EDT Impressions 07/31/2025 4:[address] [facility] Test Date: 2025-07-31 Pat Name: MATILDE GREENSBORO Department: DEPID Room: [place] [address] Gender: Male Active Directory Administrator: Sw9 : 1945 Requested By: JD LANGE A Order Number: [id number] Reading MD: Nelson Subramanian MD Measurements Intervals Guild Rate: 87 P: 14 DE: 289 QRS: 7 QRSD: 91 T: 25 QT: 361 QTc: 435 Interpretive Statements SINUS RHYTHM WITH FIRST DEGREE AV BLOCK DIFFUSE ST ELEVATION CONSIDER PERICARDITIS Electronically Signed On 07-31-2025 16:26:33 EDT by Nelson Subramanian MD Narrative Procedure Note Nelson Subramanian MD - 07/31/[address] [facility] Test Date: 2025-07-31 Pat Name: MATILDE GREENSBORO Department: DEPID Room: [place] [address] Gender: Male Active Directory Administrator: Sw9 : 1945 Requested By: JD LANGE A Order Number: [id number] Reading MD: Nelson Subramanian MD Measurements Intervals Guild Rate: 87 P: 14 DE: 289 QRS: 7 QRSD: 91 T: 25 QT: 361 QTc: 435 Interpretive Statements SINUS RHYTHM WITH FIRST DEGREE AV BLOCK DIFFUSE ST ELEVATION CONSIDER PERICARDITIS Electronically Signed On 07-31-2025 16:26:33 EDT by Nelson Subramanian MD Jd Lange DEMOLITION WORKER IMG ECG ORDERABLES Final Resul t * (ABNORMAL) GLUCOSE METER POC (07/30/2025 1:27 PM EDT) Only the most recent of6 resultswithin the time period is included. [facility] Glucose Meter POC 129(H) 70 - 100 mg/dL 07/30/2025 1:28 PM EDT [facility] Sample Type Capillary 07/30/2025 1:28 PM EDT [facility] Patient Status Non-Critical Patient 07/30/2025 1:28 PM EDT [facility] Blood BLOOD SPECIMEN / Unknown 07/30/2025 1:27 PM EDT 07/30/2025 1:28 PM EDT Mukund Cavazos MD POINT OF CARE TE ST ORDERABLES Final Result Performing Organization Address City/[facility] Co de Phone Number [facility] [address] [place], [place] [id number] * IONIZED CALCIUM - INPATIENT (07/30/2025 1:24 PM EDT) Only the most recent of2 resultswithin the time period is included. [facility] Calcium Ionized 1.17 1.12 - 1.32 mmol/L 07/30/2025 1:41 PM EDT [facility] Blood VENOUS BLOOD / Unknown Venipuncture / Unknown 07/30/2025 1:24 PM EDT 07/30/2025 1:34 PM EDT Jd Lange APRN CHEMISTRY ORDERABLES Final Res ult Performing Organization Address City/[facility]/ZIP Co de Phone Number [facility] [address] [place] [address], [place] [address] * (ABNORMAL) POC ARTERIAL BLOOD GAS PROFILE (07/30/2025 3:18 AM EDT) Only the most recent of30 resultswithin the time period is included. [facility] pH 7.44 7.35 - 7.45 pH 07/30/2025 3:20 AM [facility] pCO2 40 35 - 45 mmHg 07/30/2025 3:20 AM [facility] pO2 61(L) 80 - 100 mmHg 07/30/2025 3:20 AM [facility] HCO3 26.8(H) 22.0 - 26.0 mmol/L 07/30/2025 3:20 AM [facility] Base Excess 3.1(H) -2.0 - 3.0 mmol/L 07/30/2025 3:20 AM [facility] O2 Sat 91.1(L) 95.0 - 98.0 % 07/30/2025 3:20 AM [facility] Sodium 138 136 - 145 mmol/L 07/30/2025 3:20 AM [facility] Calcium Ionized 1.16 1.12 - 1.32 mmol/L 07/30/2025 3:20 AM [facility] Chloride 103 98 - 107 mmol/L 07/30/2025 3:20 AM [facility] Glucose WB 140(H) 72 - 112 mg/dL 07/30/2025 3:20 AM [facility] Lactic Acid 1.1 0.5 - 1.9 mmol/L 07/30/2025 3:20 AM [facility] K-WB 4.3 3.5 - 5.0 mmol/L 07/30/2025 3:20 AM [facility] Hgb 10.1(L) 13.7 - 17.5 g/dL 07/30/2025 3:20 AM [facility] Hct 30.9(L) 40.0 - 51.0 % 07/30/2025 3:20 AM [facility] Inspired O2 36.0 % 07/30/2025 3:20 AM [facility] P/F Ratio 169 mmHg 07/30/2025 3:20 AM [facility] Blood ARTERIAL BLOOD / Unknown 07/30/2025 3:18 AM EDT 07/30/2025 3:20 AM EDT Mukund Cavazos MD POINT OF CARE TE ST ORDERABLES Final Result Performing Organization Address City/[facility] Co de Phone Number [facility] [address] [place] [address] * POC OPEN HEART O2SAT - MIXED VENOUS (07/29/2025 3:10 AM EDT) O2 Sat Mixed Venous 68.2 40.0 - 70.0 % 07/29/2025 9:06 AM EDT [facility] Blood BLOOD SPECIMEN / Unknown 07/29/2025 3:10 AM EDT 07/29/2025 9:06 AM EDT Mukund Cavazos MD POINT OF CARE TE ST ORDERABLES Final Result Performing Organization Address [facility] [place] [address] * (ABNORMAL) O2 SAT - MIXED VENOUS (07/29/2025 3:04 AM EDT) Only the most recent of2 resultswithin the time period is included. O2 Sat Mixed Venous 81.9(H) 40.0 - 70.0 % 07/29/2025 3:23 AM EDT [facility] Blood VENOUS BLOOD / Unknown Venipuncture / Unknown 07/29/2025 3:04 AM EDT 07/29/2025 3:16 AM EDT Bud Wilkinson DEMOLITION WORKER CHEMISTRY ORDERABLES Fin al Result Performing Organization Address [facility] Co de Phone Number [facility] [address] [place] [address], [address] [place] [phone] * CORTISOL (07/29/2025 3:04 AM EDT) Cortisol 9.20 mcg/dL 07/29/2025 4:0 3 AM EDT [facility] Blood VENOUS BLOOD / Unknown Arterial / Unknown 07/29/2025 3:04 AM EDT 07/29/2025 3:16 AM EDT Narrative [facility] - 07/29/2025 4:03 AM EDT AM: 4.82 - 19.5 mcg/dL This reference interval was verified on healthy individuals between the hours of 6:00 am -10:00 am. This interval may not be appropriate outside of that time range. PM: 2.47 - 11.9 mcg/dL This reference interval was verified on healthy individuals between the hours of 4:00 pm -8:00 pm. This interval may not be appropriate outside of that time range. Ingestion of miranda doses of biotin (>5 mg/day) taken within 8 hours of drawing blood sample can interfere with this immunoassay test. Dima Greenfield DEMOLITION WORKER CHEMISTRY ORDERABLES Final Result [facility] [address] , [place] [address] * PLATELETS REQUEST (07/28/2025 4:08 PM EDT) Product Code [id number] [facility] Unit Number [id number] [facility] Dispense Status RETURNED [facility] Blood Expiration Date [id number] [facility] ISBT 128 Type 6200 [facility] Blood Unit Volume 219 ml [facility] BA CODING SYSTEM [id number] [facility] Blood Type (Unit) A POS [facility] Product Code [id number] [facility] Unit Number [id number] [facility] Dispense Status RETURNED [facility] Blood Expiration Date [id number] [facility] ISBT 128 Type 6200 [facility] Blood Unit Volume 462 ml [facility] BA CODING SYSTEM [id number] [facility] Blood Type (Unit) A POS [facility] Blood 07/28/2025 4:08 PM EDT us America Ortiz APRN BLOOD PRODUCT ORDERS Fin al Result Performing Organization Address City/[facility]/ZIP Co de Phone Number [facility] [address] [place] [address] * ACTIVATED CLOTTING TIME + POC (07/28/2025 1:04 PM EDT) Only the most recent of11 resultswithin the time period is included. Pathologist [facility] ACT+ 136 89 - 169 second(s) 07/28/2025 1:15 PM EDT [facility] Blood BLOOD SPECIMEN / Unknown 07/28/2025 1:04 PM EDT 07/28/2025 1:15 PM EDT Mukund Cavazos MD POINT OF CARE TE ST ORDERABLES Final Result Performing Organization Address City/[facility] Co de Phone Number [facility] [address] [place] [address] * (ABNORMAL) POC VENOUS BLOOD GAS PROFILE (07/28/2025 9:54 AM EDT) [facility] pH Venous 7.31(L) 7.32 - 7.42 pH 07/28/2025 9:58 AM EDT [facility] pCO2 Venous 47 41 - 51 mmHg 07/28/2025 9:58 AM EDT [facility] pO2 Venous 55(H) 25 - 40 mmHg 07/28/2025 9:58 AM EDT [facility] Hco3 Venous 22.0(L) 24.0 - 28.0 mmol/L 07/28/2025 9:58 AM EDT [facility] Base Excess Gustavo -2.6(L) -2.0 - 3.0 mmol/L 07/28/2025 9:58 AM EDT [facility] O2 Sat. Venous 84.4(H) 40.0 - 70.0 % 07/28/2025 9:58 AM EDT [facility] Sodium 139 136 - 145 mmol/L 07/28/2025 9:58 AM EDT [facility] Calcium Ionized 1.10(L) 1.12 - 1.32 mmol/L 07/28/2025 9:58 AM EDT [facility] Chloride 106 98 - 107 mmol/L 07/28/2025 9:58 AM EDT [facility] Glucose WB 142(H) 72 - 112 mg/dL 07/28/2025 9:58 AM EDT [facility] Lactic Acid 1.0 0.5 - 1.9 mmol/L 07/28/2025 9:58 AM EDT [facility] K-WB 4.2 3.5 - 5.0 mmol/L 07/28/2025 9:58 AM EDT [facility] Hgb 9.9(L) 13.7 - 17.5 g/dL 07/28/2025 9:58 AM EDT [facility] Hct 30.5(L) 40.0 - 51.0 % 07/28/2025 9:58 AM EDT [facility] Inspired O2 21.0 % 07/28/2025 9:58 AM EDT [facility] Blood VENOUS BLOOD / Unknown 07/28/2025 9:54 AM EDT 07/28/2025 9:58 AM EDT us Mukund Cavazos MD POINT OF CARE TE ST ORDERABLES Final Result Performing Organization Address City/State/[facility] Co de Phone Number [facility] [address] [place] [address] * JEREMY (07/28/2025 9:03 AM EDT) Narrative [facility] - 07/28/2025 9:03 AM EDT Marina Sauer MD 07/28/2025 9:48 AM JEREMY by Anesthesia Procedure Date/Time: 07/28/2025 7:58 AMLocation: OR Physician Requesting Echo: Mukund Noel MD Examiner: Marina Sauer MD Intubated: YES Sedated: YES Insertion: Easy Probe type: Multiplane Indications for diagnostic purposes: Ventricle function Modalities: 3D, 2D, PWD, CWD and CFM Echocardiographic and Doppler Measurements Aorta Size Diam (cm) Dissection Plaque thick (mm) Ascending AO nl 3.4 No AO Arch nl 2.6 No II Descending AR nl 2.7 No II Aorta Comments: Valves Annulus Stenosis Area/ Gradient Regurg Leaflet Morphology Leaflet Motion Aortic Valve normal mild area 2.0 cm2 None nl nl 3D Mitral Valve normal no None nl nl 3D Tricuspid normal Valves Comments: Aortic Valve: peak/mean 22/11 mmHg Mitral Valve: AP 3.25 cm AL-PM 2.98 cm Peak E Velocity 55 cm/s Peak A Velocity 79 cm/s E/A ratio 0.7 DT 169 msec PHT 50 msec Area 4.4 cm2 Pressure Gradient 1 mmHg Mitral Valve E/A Ratio: <1 Mitral Valve Pulmonic vein flow: Normal Atria Size SEC (smoke) Thrombus Tumor Device Right Atrium normal No No No Yes Left Atrium normal No No No No Atria Comments: Left atrial appendage: No Clot Interatrial Septum Morphology: normal, Interventricular Septum Morphology:Normal Ventricles Cavity Size Cavity Dimension Hypertrophy Thrombus Global FXN EF RV normal No No LV normal Yes No normal 65% Ventricles Comments: Pericardium: Normal Pleura: Normal Post Intervention Follow-up Study Findings and images discussed with surgeon. Complications: None us Marina Sauer MD ANESTHESIA ORDERABLES Edit ed Result - Final [facility] [address] [place] [address] * ANE PACER SWAN PLACEMENT, ANE SWAN JAKE PLACEMENT, ANE INTRODUCER PLACEMENT (07/28/2025 8:58 AM EDT) Narrative [facility] - 07/28/2025 8:58 AM EDT Marina Sauer MD 07/28/2025 9:01 AM PA Catheter Placement Procedure Date/Time: 07/28/2025 7:30 AM Anesthesiologist: Marina Sauer MD Location: OR Preprocedure Checklist: Patient identified- 2 criteria, IV access functioning, Timeout performed, Allergies confirmed, Sedation given, if needed, Procedure consent verified, Supplemental O2 applied, if needed, MICHELLE recommended monitors applied and Aseptic technique used Patient sedated: Yes Immediate pre anesthetic assessment completed:Yes PA catheter type: Oximetric Oximetric catheter: 8 Fr Laterality: Right Site: Internal jugular Sterility prep: Provider hand hygiene prior to procedure, Provider used sterile gloves, gown, hat, mask and Sterile full body drape was used Insertion attempts: 1 Placement verification: Pressure tracing changes PA catheter depth: 50 PA Catheter Events: Patient tolerated well with no complications Yes- Introducer placed Introducer: Double 9 Fr x 11.5 cm Skin prep: Chloraprep Patient position: Trendelenburg Local Anesthetic: Topical Technique/Guidance: Ultrasound guided and Seldinger (Ultrasound [US] was used to identify potential site for the Central venous line. Using US, the Internal Jugular vein was assessed and noted to be patent. US was used live-time to gain needle access to the vein and the wire was visualized within the vessel ) Intravenous Verification: Venous blood return and Ultrasound Post Insertion: All ports aspirated, All ports flushed easily, Line sutured in place, Other-see comment, Sterile dressing applied, Guidewire removed intact and CHG dressing used Introducer Events: Patient tolerated well with no complications Marina Sauer MD ANESTHESIA ORDERABLES Edit ed Result - Final Performing Organization Address [facility] de Phone Number [facility] [address] [place] [address] * INTRAOP AIRWAY PLACEMENT (07/28/2025 7:51 AM EDT) Narrative [facility] - 07/28/2025 7:51 AM EDT Marina Sauer MD 07/28/2025 8:53 AM Intraop Airway Placement: Date/Time: 07/28/2025 7:51 AM Induction type: IV Mask size: Standard adult Pre-Oxygenation: Standard Mask ventilation: Easy mask ventilation Mask ventilation improved by: Oral airway Oral airway sizes: 100 Technique: Video laryngoscope Laryngoscope blade: Buckley Blade size: 3 Grade view: I Airway type: ETT- cuffed Topical Anesthetic/Lubricant: Lubricant jelly Intubation assist devices: Stylet 14fr Airway location: Oral Device size: 8mm Secured at: 23 cm Secured by: Commercial tube thompson Measured from: Lips Placement verified: Auscultation, End tidal CO2 and Symmetric chest wall motion Condition: Atraumatic Insertion attempts: 1 Title: Other (Comment) Ventilation: BMV Marina Sauer MD DE ANESTHESIA Final Resu lt Performing Organization Address [facility]/ZIP Co de Phone Number [facility] [address] [place] [address] * DE US LOWER EXTREMITY BILATERAL MAPPING (07/22/2025 9:46 AM EDT) Anatomical Region Laterality Modality Vascular, Leg Vascular Imaging 07/22/2025 9:29 AM EDT Impressions 07/22/2025 12:19 PM EDT Conclusions 1. The greater saphenous and small saphenous veins were measures/marked bilaterally. There is no evidence of superficial thrombus in the bilateral greater and small saphenous veins. Narrative Procedure Note Zachery Monson, - 07/22/2025 IMPRESSION Conclusions 1. The greater saphenous and small saphenous veins weremeasures/marked bilaterally. There is no evidence of superficial thrombus in thebilateral greater and small saphenous veins. Result [facility] Mukund Cavazos MD [facility] VASCULAR ORD ERABLES Final Result * DE US CAROTID DUPLEX BILATERAL (07/22/2025 9:46 AM EDT) Anatomical Region Laterality Modality Vascular, Head, Neck Vascular Im aging 07/22/2025 9:15 AM EDT Impressions 07/22/2025 12:18 PM EDT Conclusions * There is a right proximal internal carotid artery moderately obstructive lesion noted, with an estimated 40-59% stenosis. * There is a left proximal internal carotid artery severely obstructive lesion noted, with an estimated 60-79% stenosis. * Antegrade flow visualized in the bilateral vertebral artery. Narrative Procedure Note Zachery Monson, - 07/22/2025 IMPRESSION Conclusions * There is a right proximal internal carotid artery moderatelyobstructive lesion noted, with an estimated 40-59% stenosis. * There is a left proximal internal carotid artery severelyobstructive lesion noted, with an estimated 60-79% stenosis. * Antegrade flow visualized in the bilateral vertebral artery. Mukund Cavazos MD [facility] VASCULAR ORD ERABLES Final Result * RED BLOOD CELLS REQUEST (07/21/2025 10:33 AM EDT) Only the most recent of2 resultswithin the time period is included. Product Code [id number] [facility] BLOOD B[facility] Unit Number [id number] [facility] BLOOD [facility] Crossmatch Interp Compatible [facility] Dispense Status RETURNED [facility] BLOOD [facility] Blood Expiration Date [id number] [facility] BLOOD [facility] ISBT 128 Type 0600 [facility] BLOOD [facility] Blood Unit Volume 300 ml [facility] BA CODING SYSTEM [id number] [facility] Blood Type (Unit) A NEG [facility] BLOOD BANK 07/21/2025 10:3 3 AM EDT 07/21/2025 10:33 AM EDT America Ortiz APRN BLOOD PRODUCT ORDERS Fin al Result Performing Organization Address City/[facility]/[place] [address] * BB HISTORY CHECK (07/21/2025 10:33 AM EDT) BB HISTORY CHECK (1) Previous History OK 07/21/2025 10:51 AM EDT [facility] BLOOD [facility] Blood VENOUS BLOOD / Unknown Venipuncture / Unknown 07/21/2025 10:33 AM EDT 07/21/2025 10:33 AM EDT America Ortiz APRN BLOOD BANK ORDERABLES Fi nal Result [facility] BLOOD [address] [id number] * SURGERY DATE (07/21/2025 10:33 AM EDT) Surgery Date (1) Complete 07/21/2025 10:51 AM EDT [facility]LOOD BANK Blood VENOUS BLOOD / Unknown Venipuncture / Unknown 07/21/2025 10:33 AM EDT 07/21/2025 10:33 AM EDT America Ortiz DEMOLITION WORKER BLOOD BANK ORDERABLES Fi nal Result Performing Organization Address City/[facility]/ZIP Co de Phone Number [facility] BLOOD BANK [address] [place], [place] [id number] * TSH REFLEX TO FT4 (07/21/2025 10:33 AM EDT) Pathologist [facility] TSH Reflex 3.750 0.270 - 4.200 mcIU/mL 07/21/2025 4:23 PM EDT [facility] [employer] Blood VENOUS BLOOD / Unknown Venipuncture / Unknown 07/21/2025 10:33 AM EDT 07/21/2025 10:33 AM EDT Narrative [facility] [employer] - 07/21/2025 4:23 PM EDT Ingestion of miranda doses of biotin (>5 mg/day) taken within 8 hours of drawing blood sample can interfere with this immunoassay test. Sania Alonso APRN CHEMISTRY ORDERABLES Final Re sult Performing Organization Address City/[facility]/ZIP Co de Phone Number [facility] [address] [place] [address] * ABORH (07/21/2025 10:33 AM EDT) Pathologist [facility] ABORH Int AB NEG 07/21/2025 12:55 PM EDT [facility] BLOOD [facility] Blood VENOUS BLOOD / Unknown Venipuncture / Unknown 07/21/2025 10:33 AM EDT 07/21/2025 10:33 AM EDT America Ortiz APRN BLOOD BANK ORDERABLES Fi nal Result Performing Organization Address City/[facility]/ZIP Co de Phone Number [facility]LOOD [facility] [address] [place] [address] * PT / INR (07/21/2025 10:33 AM EDT) [facility] PT 11.7 10.5 - 13.6 second(s) 07/21/2025 10:56 AM EDT [facility] [employer] INR 1.02 0.91 - 1.18 (ratio) 07/21/2025 10:56 AM EDT [facility] [employer] Comment: Level of Therapy Indications Target INR Range Standard Dose Treatment and prophylaxis of venous 2.0 - 3.0 thrombosis, pulmonary embolism High Dose High risk patients with mechanical 2.5 - 3.5 heart valves Blood VENOUS BLOOD / Unknown Venipuncture / Unknown 07/21/2025 10:33 AM EDT 07/21/2025 10:33 AM EDT America Ortiz APRN HEMATOLOGY ORDERABLES Fi nal Result [facility] [employer] [facility] [address] [facility], [address] [place] [id number] * ANTIBODY SCREEN IGG (07/21/2025 10:33 AM EDT) Pathologist [facility] ABSC IgG Int Negative 07/21/2025 12:55 PM EDT [facility]OD [facility] Blood VENOUS BLOOD / Unknown Venipuncture / Unknown 07/21/2025 10:33 AM EDT 07/21/2025 10:33 AM EDT America Ortiz APRN BLOOD BANK ORDERABLES Fi nal Result Performing Organization Address City/[facility]/ZIP Co de Phone Number [facility]LOOD [facility] [address] [place] [address] * HEMOGLOBIN A1C (07/21/2025 10:33 AM EDT) Hgb A1C 5.5 4.2 - 5.6 % 07/21/2025 12:12 PM EDT [facility] [employer] Est. Avg Glucose 111 mg/dL 07/21/2025 12:12 PM EDT [facility] Granular, Mytrus Blood VENOUS BLOOD / Unknown Venipuncture / Unknown 07/21/2025 10:33 AM EDT 07/21/2025 10:33 AM EDT Narrative [facility] [employer] - 07/21/2025 12:12 PM EDT REFERENCE RANGE: Normal: 4.0-5.6% Pre-diabetes: 5.7-6.4% Provisional diagnosis of diabetes: >6.4% Hgb F>10% and anything which shortens red cell survival, such as hemolytic anemia, or unstable hemoglobin variants such as HbSS, HbSC, or HbCC, will lower the HbA1c value associated with a given level of glycemic control. America Ortiz APRN CHEMISTRY ORDERABLES Fin al Result Performing Organization Address [facility]/ZIP Co de Phone Number [facility], [facility] [address] , [place] [address] * (ABNORMAL) BLOOD GAS ARTERIAL (07/21/2025 10:32 AM EDT) pH 7.43 7.35 - 7.45 pH 07/21/2025 10:45 AM EDT [facility] pCO2 35 35 - 45 mmHg 07/21/2025 10:45 AM EDT [facility] pO2 82 80 - 100 mmHg 07/21/2025 10:45 AM EDT [facility] HCO3 22.9 22.0 - 26.0 mmol/L 07/21/2025 10:45 AM EDT [facility] TCO2 20(L) 22 - 29 mmol/L 07/21/2025 10:45 AM EDT [facility] Base Excess -0.5 -2.0 - 3.0 mmol/L 07/21/2025 10:45 AM EDT [facility] O2 Sat 95.1 95.0 - 98.0 % 07/21/2025 10:45 AM EDT [facility] Inspired O2 RA 07/21/2025 10:45 AM EDT [facility] Blood ARTERIAL BLOOD / Unknown Arterial / Unknown 07/21/2025 10:32 AM EDT 07/21/2025 10:32 AM EDT America Ortiz APRN CHEMISTRY ORDERABLES Fin al Result Performing Organization Address [facility]/ZIP Co de Phone Number [facility], [address] , [place] [address] from Last 3 Months Insurance MEDICARE ADVANTAGE MR MEDICARE ADVANTAGE MR EM MEDICARE ADVANTAGE MR ANTHEM MEDICARE ADVANTAGE MR ANTHEM MEDICARE ADVANTAGE MR Advance Directives For more information, please contact: [phone] Documents on File Type Date Recorded 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 Power of Traffic Engineering Director 12/23/2024 1:54 PM OC PO WER OF PRODUCT MARKETING ANALYST ADVANCE DIRECTIVE 09/24/2023 5:29 PM POA 02/23/2013 * Full Code (Latest Code Status on File) Date Activated Date Inactivated Comments 07/28/2025 1:25 PM 08/06/2025 6:50 PM * Full Code Date Activated Date Inactivated Comments 09/19/2023 7:35 PM 09/20/2023 10:08 PM * Full Code Date Activated Date Inactivated Comments 01/02/2023 8:25 PM 01/03/2023 11:06 PM * Full Code Date Activated Date Inactivated Comments 05/18/2021 10:04 AM 05/20/2021 5:45 PM * Full Code Date Activated Date Inactivated Comments 06/02/2020 10:55 AM 06/06/2020 9:26 PM Care Teams Electrical Controls Assembler Relationship Specialty Start Date End Date Darrius Fair MD [address] [place] [address] PCP - General 03/05/11 Marcial Vizcarra MD [address] [place] [address] Physician Internal Medicine-Gastroenterology 11/22/16
--- OUTSIDE RECORDS SUMMARY | 2025-10-20 09:50 | XMS_ITS | Encounter Summary ---
Author Organization [place] [address] Care Team Providers Care Quality Assistant Name Role Phone Darrius Fair MD Primary Care Provider [phone] Marcial Vizcarra MD Unavailable [phone] Reason for Visit * Reason Onset Date Comments Referral Follow-up 08/27/2025 Cardiac Rehab Encounter Details Date Type Department Care Team (Late st Contact Info) Description 08/27/2025 Telephone [facility] Cardiac Rehab [place] [address] [facility] [place] [address] Shannan Carlos, Clerical Staff Referral Follow-up (Cardiac Rehab) Social History Tobacco Use Types Packs/Day Years [...] doctor or pharmacy? Sometimes 07/20/2025 [facility] Utilities Answer Date Recorded In the past [...] Date Recorded PHQ-2 Total Score 0 07/29/2025 [facility] of Occupat ional Health - Occupational Stress [...] any time in the past 12 m [facility], were you homeless or living in a [place] health care facility (including now)? No 07/20/2025 [facility] IP Transportation Answer D ate Recorded [...] Author No 01/03/2023 6:00 PM Lizzie Almaguer, Landing Worker * Is the person blind or does he/she have serious difficulty seeing even when wearing glasses? Answer Date of Assessment Author No 01/03/2023 6:00 PM Lizzie Almaguer, Landing Worker * Does this person have serious difficulty walking or climbing stairs? Answer Date of Assessment Author No 01/03/2023 6:00 PM Lizzie Almaguer, Landing Worker * Does this person have difficulty dressing [...] encounter Miscellaneous Notes * Telephone Encounter - Shannan Carlos, Clerical Staff - 09/03/2025 12:40 PM EDT 09/03/25 @ 12:37 Phone conversation and he is still having Home Care. * Telephone Encounter - Shannan Carlos, Clerical Staff - 08/27/2025 2:48 PM EDT Summary: [facility] Cardiac Rehab Program 08/27/25 @ 14:48 phone left HIPAA Compliant VM about program documented in this encounter Plan of Treatment Upcoming Encounters Date Type Department Care Team (Late st Contact Info) Description 11/09/2025 1:00 PM EST Office Visit [facility] Cardiac Surgeons [place] [address] [facility] [address] [place] [address] Mukund Noel MD [address] [place], [place] [id number] 11/15/2025 12:15 PM EST Appointment [facility] [address] [place] [address] Melani Donaldson, SECURITY GUARD DISPATCHER [address] [place] [address] [address] [place] [address], [place] [id number] 12/14/2025 11:15 AM EST Office Visit [facility] [address] [place] [address] Tobias Darby DO [address] [place] [address] documented as of this encounter Visit Diagnoses Not on filedocumented in this encounter Additional Health Concerns Assessment Noted Time A fall risk assessment has been complete d for the patient 06/16/2020 10:01 AM EDT documented as of this encounter Care Teams Quality Assistant Relationship Specialty Start Date End Date Darrius Fair MD [address] [place] [address] PCP - General 03/05/11 Marcial Vizcarra MD [address] [place] [address] Physician Internal Medicine-Gastroenterology 11/22/16 documented as of this encounter
--- OUTSIDE RECORDS SUMMARY | 2025-10-20 09:50 | XMS_ITS | Encounter Summary ---
Author Organization [place] [address] Care Team Providers Care Technician Helper Instrument Name Role Phone Darrius Fair MD Primary Care Provider [phone] Marcial Vizcarra MD Unavailable [phone] Encounter Details Date Type Department Care Team (Latest Contact Info) Description 08/19/2025 External Contact [facility] [address] [place] [address] Paz Leblanc MD [address], [place] [id number] Wound cellulitis (Primary Dx); ASHD (arteriosclerotic heart disease); Postoperative anemia; Postoperative atrial fibrillation (HCC); Primary hypertension; Poor appetite; Esophageal dysphagia; Stage 3b chronic kidney disease (HCC); Constipation, chronic Social History Tobacco Use Types Packs/Day Years [...] from your doctor or pharmacy? Sometimes 07/20/2025 [facility] Utilities Answer Date Recorded In the past 12 months has [employer], or [employer] threatened to shut off services in your home? No 07/29/2025 Overall Financial Resource Strain (CARDIA) Answe r Date Recorded How hard is it for you to pa y for the very basics like food, housing, medical care, and heating? Not hard at all 07/29/2025 PHQ-2 Answer Date Recorded PHQ-2 Total Score 0 07/29/2025 [facility] - Occupational Stress Questionnaire Answer Date [...] any time in the past 12 m [facility], were you homeless or living in a detention (including now)? No 07/20/2025 [facility] IP Transportation Answer D ate Recorded [...] Author No 01/03/2023 6:00 PM Lizzie Almaguer, Edi Developer * Is the person blind or does he/she have serious difficulty seeing even when wearing glasses? Answer Date of Assessment Author No 01/03/2023 6:00 PM Lizzie Almaguer Nursing Student * Does this person have serious difficulty walking or climbing stairs? Answer Date of Assessment Author No 01/03/2023 6:00 PM Lizzie Almgauer Nursing Student * Does this person have difficulty dressing or bathing? Answer Date of Assessment Author No 01/03/2023 6:00 PM Lizzie Almaguer Nursing Student * Because of a physical, mental or emotional condition, does this person have difficulty doing errands alone such as visiting a doctor's office or shopping? Answer Date of Assessment Author No 01/03/2023 6:00 PM Lizzie Almaguer Edi Developer documented as of this encounter Mental Status * Because of a physical, mental or emotional condition, does this person have serious difficulty concentrating, remembering or making decisions? Answer Entry Date Author No 01/03/2023 6:00 PM Lizzie Almaguer Edi Developer documented in this encounter Ordered Prescriptions Prescription Sig Dispense Quantity Refills Last Filled Start Date End Date senna-docusate (SENNOSIDES-DOCUSA TE SODIUM) 8.6-50 mg Oral Tablet Take 2 Tablets by mouth 2 times daily. 120 Tablet 08/19/2025 midodrine (PROAMATINE) 5 mg Oral Tablet Take 1 tablet by mouth three times daily IF systolic blood pressure is less than 90 60 Tablet 08/19/2025 guaiFENesin (MUCINEX) 600 mg Oral Tablet Extended Release 12hr Take 1 Tablet by mouth 2 times daily as needed for Congestion. 08/19/2025 folic acid (FOLVITE) 1 mg Oral Tablet Take 1 Tablet by mouth daily. 30 Tablet 08/19/2025 polyethylene glycol (GLYCOLAX, MIRALAX) 17 gram Oral Powder in Packet Take 17 g by mouth daily for 30 days. 30 Each 08/19/2025 5 oxyCODONE (ROXICODONE) 5 mg Oral Tablet Take 1 Tablet by mouth every 6 hours as needed for Acute Pain > 3 Days Medically Necessary (R52). 20 Tablet 08/19/2025 5 fUROsemide (LASIX) 20 mg Oral Tablet Take 1 Tablet by mouth daily. 30 Tablet 08/19/2025 5 docusate sodium (COLACE) 100 mg Oral Capsule Take 1 Capsule by mouth 2 times daily. 60 Capsule 08/19/2025 5 cephALEXin (KEFLEX) 500 mg Oral Capsule Take 1 Capsule by mouth 3 times daily for 10 days. 08/13/2025 5 amiodarone (PACERONE) 200 mg Oral Tablet Take 1 Tablet by mouth daily. 30 Tablet 08/19/2025 5 documented in this encounter Progress Notes * Paz Leblanc MD - 08/19/2025 1:09 PM EDT [facility] DISCHARGE SUMMARY [facility] FACILITY ADMISSION DATE: 08/06/2025 FACILITY DISCHARGE DATE: 08/20/2025 VISIT DATE: 08/19/2025 PCP: Darrius Fair MD CC: Jonathon Lara is a 80 y.o. male seen for discharge coordination from [facility] at [facility] where he was for short-term rehabilitation after hospitalization at [facility] 07/28/25-08/06/25for coronary artery bypass grafting and LA appendage clip HPI: This is a 80 y.o. male with hx HTN, HLD, SVT s/p ablation, ASHD who had angina for few months prior, was evaluated and underwent elective 5-vessel CABG and LA appendage ligation on 07/28/25 by . He remained intubated post- op due to hemodynamic instability and was admitted to CICU. He was extubated the following day but had increased O2 requirements post-op. He also had post-op recurrent Afib with RVR and was treated with amiodarone drip which was converted eventually to oral taper. He did not tolerate low dose metoprolol so he was also started on midodrine. He had post-op anemia that remained stable (Hgb 12-->9). He went back into Afib and was hypotensive with that with some KENNY which resolved. He remained on oxygen despite ongoing diuresis. Chest CT done 08/03/25 showed atelectasis. He developed worsening leukocytosis but was able to wean off O2. A sputum culture grew pseudomonas and he was discharged to the [facility] for rehab. on ciprofloxacin x 7 days. At [facility]: He did well with therapy, slowly progressing as he was feeling better. He now walks 65'with walker, stand by assist for transfers, but still needs mod-max assist for lower body dressing,he's contact guard assist for toileting. He completed ciprofloxacin for pseudomonas pneumonia (now off oxygen), diuresed 6 lbs in 3 days with some KENNY and furosemide was stopped, restarted few days later at 20 mg daily for weight gain. He developed a sternal wound cellulitis vs bruise and is being treated with cephalexin. His WBC improved and the redness is fading. LFTs elevated on scheduled tylenol so tylenol was changed to prn (with LFTs normalizing) and he was treated with oxycodone prn for pain (takes 3-4/day, encouraged to cut back and use some tylenol in-between). His appetite improved,however he remains with soft BP's, metoprolol ER cut back to 12.5 mg daily along with midodrine 5 mg TID. Midodrine is now changed to TID prn if SBP <90 and instructions given to patient and family to check BP at home and only take midodrine if SBP low. He got a cut from insurance and he will discharge home with tomorrow. He has f/u with CT surgery on 08/24 and with cardiology 09/02. Advised to see PCP next week as well. ALLERGIES Patient has no known allergies. ROUTINE MEDS: Current Outpatient Medications Medication Sig Dispense Refill amiodarone (PACERONE) 200 mg Oral Tablet Take 1 Tablet by mouth daily. 30 Tablet 0 cephALEXin (KEFLEX) 500 mg Oral Capsule Take 1 Capsule by mouth 3 times daily for 10 days. docusate sodium (COLACE) 100 mg Oral Capsule Take 1 Capsule by mouth 2 times daily. 60 Capsule 0 folic acid (FOLVITE) 1 mg Oral Tablet Take 1 Tablet by mouth daily. 30 Tablet 0 guaiFENesin (MUCINEX) 600 mg Oral Tablet Extended Release 12hr Take 1 Tablet by mouth 2 times dailyas needed for Congestion. midodrine (PROAMATINE) 5 mg Oral Tablet Take 1 tablet by mouth three times daily IF systolic blood pressure is less than 90 60 Tablet 0 oxyCODONE (ROXICODONE) 5 mg Oral Tablet Take 1 Tablet by mouth every 6 hours as needed for Acute Pain > 3 Days Medically Necessary (R52). 20 Tablet 0 polyethylene glycol (GLYCOLAX, MIRALAX) 17 gram Oral Powder in Packet Take 17 g by mouth daily for 30 days. 30 Each 0 senna-docusate (SENNOSIDES-DOCUSATE SODIUM) 8.6-50 mg Oral Tablet Take 2 Tablets by mouth 2 times daily. 120 Tablet 0 acetaminophen 325 mg Oral Tab Take 2 Tablets by mouth every 4 hours as needed for Pain. albuterol (PROVENTIL HFA;VENTOLIN HFA) 90 mcg/actuation Inhl HFA Aerosol Inhaler INHALE 2 PUFFS INTO THE LUNGS EVERY 4 TO 6 HOURS NEEDED FOR SHORTNESS OF BREATH OR WHEEZING. aspirin 81 mg Oral Tablet, Chewable Take 1 Tablet by mouth daily for 90 days. Cholecalciferol, Vitamin D3, 50 mcg (2,000 unit) Oral Tablet Take 1 Tablet by mouth daily. 90 Tablet 2 fUROsemide (LASIX) 20 mg Oral Tablet Take 1 Tablet by mouth daily. 30 Tablet 0 LEVOthyroxine (SYNTHROID) 50 mcg Oral Tablet Take 50 mcg by mouth daily. metoprolol succinate (TOPROL-XL) 25 mg Oral Tablet Sustained Release 24 hr Take 0.5 Tablets by mouth daily. pantoprazole (PROTONIX) 40 mg Oral Tablet, Delayed Release (E.C.) Take 1 Tablet by mouth daily for 30 days. rosuvastatin (CRESTOR) 20 mg Oral Tablet Take 1 Tablet by mouth nightly. 90 Tablet 3 tamsulosin (FLOMAX) 0.4 mg capsule Take 0.4 mg by mouth nightly. No current facility-administered medications for this visit. PHYSICAL EXAM VITAL SIGNS: soft BP's GEN: Alert, focused, no distress HEENT: MMM, good hearing CV: RRR, S1S2 RESP: unlabored, lungs clear GI: abdomen soft, non-tender, non-distended, bowel sounds normal, no masses SKIN: warm, dry, no rash noted. Sternal wound appears similar to prior, looks more like a bruise now (deep red), fading NEURO: alert, grossly non-focal exam, coordination normal MUSCULOSK: no obvious deformities, no edema PSYCH: normal mood and affect LABS - reviewed ASSESSMENT/PLAN Surgical wound cellulitis vs bruise 08/13/25 Blanching erythema around distal third of sternal surgical wound, superficial, with worsening leukocytosis (WBC 9.5-->11.6), no other source identified. - 08/13/25 area marked for monitoring - started cephalexin TID x 7 days (after discussion with CT surgery) - repeat CBC on Saturday - 08/16/25 redness is now deeper color, appears more like bruising than cellulitis? He's on day #3/7of cephalexin and will be seeing CT surgery later today for evaluation. Cont antibiotic for now, await repeat CBC results (pending) - 08/17/25 WBC down to normal (=6.2), cont cephalexin - 08/19/25 fading erythema, will remain on cephalexin until f/u with CT surgery on 08/24/25, improving Elevated LFTs (new) Suspect due to scheduled tylenol along with statin. AST=74, ALT=50 (08/12/25) - change tylenol to prn - will continue statin for now - repeat CMP Saturday - 08/16/25 off scheduled tylenol, await repeat CMP results - 08/17/25 CMP not done yesterday, ordered stat today, LFT's normal (AST=15, ALT=17) - 08/19/25 resolved off scheduled tylenol KENNY on CKD3b (new) Baseline creat 1.1-1.3 (has been 1.1-1.2 more recently). Now (08/13/25) creat=1.53I suspect KENNY is due to furosemide causing prerenal state? He has diuresed well since hospital, weight prior to surgery 249 lbs-->233 lbs upon discharge from hospital. At [facility] he was 235 lbs -->229 lbs-->226.8 lbs today. - d/c furosemide - encourage PO hydration - repeat CMP on Saturday - 08/16/25 weight up 1.5 lbs since Saturday, off furosemide, await repeat CMP results - 08/17/25 BUN=11, creat=1.14 today (from 1.53), start furosemide 20 mg daily for weight gain (no edema) - 08/19/25 resolved, he's back on lower dose furosemide, need f/u BMP as outpatient Severe CAD s/p 5-v CABG Underwent elective 5-vessel CABG (MOISE to LAD, SVG to OM1, OM2, dRCA and first diagonal) and left atrial appendage ligation on 07/28/[address] Spaulding. - cont bASA, statin, metoprolol ER - sternal precautions - completing colchinine daily x 5 days - cont furosemide 40 mg daily - pain management with tylenol 1000 mg TID and tramadol prn - PT/OT for debility - 08/10/25 stable, no chest pain, cont meds as previous - 08/13/25 completed colchicine, d/c furosemide, discussed pain regimen, will switch to oxycodone 5 mg daily (every morning and q 4 hrs prn), d/c tramadol, hopefully this will be more effective - 08/16/25 cont ASA/statin, f/u with CT surgery this afternoon - 08/17/25 cont ASA, statin, metoprolol ER 12.5 mg daily, restarting furosemide 20 mg daily - 08/19/25 cont ASA/statin/bblocker, and low dose furosemide, f/u with CT surgery and cardiology Weight loss Poor Appetite - 08/10/25 Likely due to diuresis at this point. Hospital initial lgseuq=349 lbs-->233 lbs at discharge. SNF weight 235 lbs-->229 lbs today (diuresing well). He's not eating much (still on high dose cipro which may be affecting appetite) but doubt he lost 6 lbs in 3 days due to poor appetite. I'm hopeful his appetite will return once he's off some meds (after completing cipro and colchicine) - cont furosemide 40 mg daily - d/c methocarbamol (adding to polypharmacy at this time and may worsen appetite as a result) - 08/13/25 continue to encourage PO intake, cont magic cup - 08/16/25 off furosemide, taking more bites at meals, appetite may be coming back? - 08/17/25 eating better Postop Afib New onset post-op Afib, was treated with amiodarone and bblocker. He's back in NSR - cont amiodarone taper per orders (400 mg BID x 5 days, then 200 mg BID x 7 days, then 200 mg daily) - cont metoprolol ER - cont baby ASA - 08/10/25 in NSR, rate controlled on amiodarone. Will decrease metoprolol ER to 25 mg daily to see if he can get off midodrine. Cont baby ASA - 08/13/25 in NSR, rate controlled, decrease metoprolol ER further to 12.5 mg daily (to make room inblood pressure), hoping he can come off midodrine, cont bASA - 08/16/25 remains in NSR on my exam, on amiodarone taper and low dose metoprolol ER - 08/17/25 in NSR on my exam, cont amiodarone, ASA, low dose metoprolol ER - 08/19/25 has remained in NSR here on all my exams, cont ASA/bblocker and amiodarone (now down to 200 mg daily per taper). F/u with CT surgery 08/24 and cardiology 09/02 Pseudomonas Pneumonia - resolved Persistent leukocytosis 11-15 with spike to 18.7. UA negative. Respiratory culture 08/04/25 grew pseudomonas aeruginosa and he was started on zosyn inpatient and discharged to complete course of ciprofloxacin - cont ciprofloxacin 750 mg BID x 7 days - cont saline nebs 4x/day x 10 days (to help with pulmonary toilet) - cont Mucinex BID - encouraged incentive spirometer and flutter valve - 08/10/25 on day #4/7 ciprofloxacin, WBC down to 9.5. Cont cipro, saline nebs, mucinex - 08/13/25 completed ciprofloxacin this morning, WBC was down but now up again (likely due to cellulitis). Switching pain regimen to oxycodone so he can cough more easily with less pain and clear upper airway secretions - 08/16/25 off cipro, await repeat CBC - 08/17/25 resolved, WBC=6.2 Hx HTN Previously on HCTZ and metoprolol ER 25 mg daily, now on metoprolol but also on midodrine - cont metoprolol ER 50 mg daily - cont midodrine 5 mg TID (hold SBP>120) - may need to decrease metoprolol if continues to need midodrine - 08/10/25 decrease metoprolol ER to 25 mg daily, cont midodrine with holding parameters (hold if SBP>120) - 08/13/25 continues to require midodrine (1 dose held since last visit), decrease metoprolol ER to 12.5 mg daily hoping to make room in BP, also will d/c furosemide - 08/16/25 will switch midodrine to prn next week if he continues to require, hopefully it will be held more - 08/17/25 soft BP's, on metoprolol ER 12.5 mg daily and midodrine to support BP's - 08/19/25 soft BP's, changing midodrine to prn if SBP<90 (to see if he can get off), cont metoprolol ER 12.5 mg daily Postop Anemia Hgb 12-->9 - check iron studies, B12/folate, repeat CBC - 08/10/25 Fe=54, DBYO=271, owfpuzlu=369, transferrin sat=19%, folate=4.61, D39=4882. Adequate iron stores and normal B12. Start folic acid 1 mg daily. May eventually need some iron but he's currentlynot eating much, would re-evaluate later if Hgb not recovering, avoid adding meds that may affect appetite - 08/13/25 Hgb stable at 10.7, cont folic acid supplement - 08/16/25 await repeat CBC, cont folic acid - 08/17/25 stable Hgb 9.5, cont folic acid - 08/19/25 stable, cont folic acid for at least 30 days, he will need f/u CBC and anemia labs in a couple of months to see make sure he is not deficient in any of these nutrients Constipation Likely exacerbated by opioid use - cont colace 100 mg BID - cont senna-S 2 tabs BID - cont miralax daily - taper off as needed (encouraged to taper oxycodone) Esophageal dysphagia GERD Per speech notes with corkscrew esophagus, sleeps in recliner at home due to severe GERD - cont pantoprazole 40 mg daily - head of bed elevated at all times - ST - 08/10/25 stable, on PPI - 08/13/25 cont PPI - 08/19/25 stable, on PPI HLD - cont home Rosuvastatin Chronic Back Pain Peripheral neuropathy Previously on pregabaline 100 mg TID and methocarbamol. Pregabalin has been stopped in hospital although it's on his discharge list. Denies neuropathic pain at this time - holding pregabalin, can try scheduled tylenol for now (has low BP's) - cont methocarbamol 500 mg BID - scheduled tylenol 1000 mg TID - 08/10/25 cont scheduled tylenol and tramadol prn, d/c methocarbamol (off pregabalin) - 08/13/25 change tylenol to prn (due to elevated LFTs), d/c tramadol, change to oxycodone 5 mg every morning and q 4 hrs prn - 08/19/25 on oxycodone prn, strongly advised to avoid taking, use tylenol prn for pain. He's been off Lyrica and off methocarbamol Hypothyroidism Euthyroid, last TSH=3.750 (07/21/25) - cont levothyroxine 50 mcg daily Vit D insufficiency Vit D=31 on 08/09/25 - started Vit D3 2000 units daily for insufficiency - 08/19/25 cont Vit D3 2000 units daily Obesity Class 1 BMI=31 - complicates all aspects of care Advance Directive Document: Documents present in chart Influenza Vaccine received during - Influenza Season: No documents present in chart, medically contraindicated for current Influenza Season DVT prophylaxis: enoxaparin Code Status: Full Dispo: home with , home care PT/OT, f/u with CT surgery 08/24/25 and cardiology 09/02/25. F/u with PCP in 3-5 days. I went over meds/instructions with patient//daughter at bedside, written instructions provided, med reconciliation done. I spent >35 min in discharge coordination. Plan of care was reviewed with the patient and the nursing staff. All orders were reviewed and signed in the EMR. Paz Leblanc MD 08/19/2025 documented in this encounter Plan of Treatment Upcoming Encounters Date Type Department Care Team (Late st Contact Info) Description 11/09/2025 1:00 PM EST Office Visit [facility] [place] [address] [place] [address] Mukund Noel MD [address] [place], [place] [id number] 11/15/2025 12:15 PM EST Appointment [facility] [address] [place], [place] [id number] Melani Donaldson M, CORPORATE STRATEGY INTERN [address] [place] [address] [address] [facility], [place] [id number] 12/14/2025 11:15 AM EST Office Visit [facility] [address] [place] [id number] Tobias Darby DO [address] [place] [address] documented as of this encounter Visit Diagnoses Diagnosis Wound cellulitis- Primary Cellulitis and abscess of unspecified site ASHD (arteriosclerotic heart disease) Coronary atherosclerosis of unspecified type of vessel, deering or graft Postoperative anemia Anemia, unspecified Postoperative atrial fibrillation (HCC) Cardiac complications Primary hypertension Unspecified essential hypertension Poor appetite Anorexia Esophageal dysphagia Dysphagia, pharyngoesophageal phase Stage 3b chronic kidney disease (HCC) Constipation, chronic Unspecified constipation documented in this encounter Discontinued Medications Medication Sig Discontinue Reason Start Date End Da te enoxaparin (LOVENOX) 40 mg/0.4 mL SubQ Syringe 40 mg/0.4 mL Inject 0.4 mL under the skin daily. Cancelled by 08/07/2025 08/19/2025 Insulin Tuttle, Disposable, 30 gauge x 5/16 Misc Needle 1 Each by Misc.(Non-Drug; Combo Route) route daily. Cancelled by 06/11/2023 08/19/2025 amiodarone (PACERONE) 200 mg Oral Tablet Take 2 Tablets by mouth 2 times daily for 5 days, THEN 1 Tablet 2 times daily for 7 days, THEN 1 Tablet daily for 90 days. Reorder 08/06/2025 08/19/2025 midodrine (PROAMATINE) 5 mg Oral Tablet Take 1 Tablet by mouth 3 times daily (with meals) for 15 days. Reorder 08/06/2025 08/19/2025 guaiFENesin (MUCINEX) 600 mg Oral Tablet Extended Release 12hr Take 1 Tablet by mouth 2 times daily for 30 days. 08/06/2025 08/19/2025 docusate sodium (COLACE) 100 mg Oral Capsule Take 1 Capsule by mouth 2 times daily for 30 days. Reorder 08/06/2025 08/19/2025 polyethylene glycol (GLYCOLAX, MIRALAX) 17 gram Oral Powder in Packet Take 17 g by mouth daily for 30 days. Reorder 08/06/2025 08/19/2025 oxyCODONE (ROXICODONE) 5 mg Oral Tablet Take 1 tablet by mouth daily scheduled AND take 1 tablet by mouth every 4 hrs as needed Reorder 08/13/2025 08/19/2025 cephALEXin (KEFLEX) 500 mg Oral Capsule Take 1 Capsule by mouth 3 times daily for 7 days. 08/14/2025 08/19/2025 folic acid (FOLVITE) 1 mg Oral Tablet Take 1 Tablet by mouth daily. Reorder 08/16/2025 08/19/2025 senna-docusate (SENNOSIDES-DOCUSATE SODIUM) 8.6-50 mg Oral Tablet Take 2 Tablets by mouth nightly. Reorder 08/16/2025 08/19/2025 documented as of this encounter Additional Health Concerns Assessment Noted Time A fall risk assessment has been complete d for the patient 06/16/2020 10:01 AM EDT documented as of this encounter Care Teams Technician Helper Instrument Relationship Specialty Start Date End Date Darrius Fair MD [address] [place] [id number] PCP - General 03/05/11 Marcial Vizcarra MD [address] [place] [phone] Physician Internal Medicine-Gastroenterology 11/22/16 documented as of this encounter
--- OUTSIDE RECORDS SUMMARY | 2025-10-20 09:50 | XMS_ITS | Encounter Summary ---
Author Organization [place] [address] Care Team Providers Care Commercial Kitchen Service Technician Name Role Phone Darrius Fair MD Primary Care Provider [phone] Marcial Vizcarra MD Unavailable [phone] Encounter Details Date Type Department Care Team (Late st Contact Info) Description 03/04/2023 Orders Only SEP Gastro [facility] [address] [facility] [address] [place] [address] Marcial Vizcarra MD [address] [place], [place] [id number] Social History Tobacco Use Types Packs/Day Years [...] Author No 01/03/2023 6:00 PM Lizzie Almaguer, Aerial Planting And Cultivation Manager * Is the person blind or does he/she have serious difficulty seeing even when wearing glasses? Answer Date of Assessment Author No 01/03/2023 6:00 PM Lizzie Almaguer, Aerial Planting And Cultivation Manager * Does this person have serious difficulty walking or climbing stairs? Answer Date of Assessment Author No 01/03/2023 6:00 PM Lizzie Almaguer, Aerial Planting And Cultivation Manager * Does this person have difficulty dressing or bathing? Answer Date of Assessment Author No 01/03/2023 6:00 PM Lizzie Almaguer, Aerial Planting And Cultivation Manager * Because of a physical, mental or emotional condition, does this person have difficulty doing errands alone such as visiting a doctor's office or shopping? Answer Date of Assessment Author No 01/03/2023 6:00 PM Lizzie Almaguer, Aerial Planting And Cultivation Manager documented as of this encounter Mental Status * Because of a physical, mental or emotional condition, does this person have serious difficulty concentrating, remembering or making decisions? Answer Entry Date Author No 01/03/2023 6:00 PM Lizzie Almaguer Aerial Planting And Cultivation Manager documented in this encounter Plan of Treatment Upcoming Encounters Date Type Department Care Team (Late st Contact Info) Description 11/09/2025 1:00 PM EST Office Visit [facility] Cardiac Surgeons [address] [place] [address] Mukund Noel MD [address] [place] [address] 11/15/2025 12:15 PM EST Appointment [facility] [address] [address] Melani Donaldson APRN [address] [place] [address] [place] [address] 12/14/2025 11:15 AM EST Office Visit [facility] [address] [place] [phone] Tobias Darby DO [address] [place] [address] documented as of this encounter Procedures Procedure Name Priority Date/Time Associated Diagnosis Comments GMED EGD Routine 03/04/2023 1:00 PM EDT documented in this encounter Results * GMED EGD (03/04/2023 1:00 PM EDT) 03/04/2023 1:00 PM EDT Impressions [facility] - 03/04/2023 2:12 PM EDT Normal duodenum. Hiatal Hernia. Tortuosity of the esophageal lumen was noted, consistent with presbyesophagus. Plan: Follow-up as needed This section is an excerpt of the full report. Marcial Vizcarra MD GI PROCEDURE ORDERABLES Fin al Result Performing Organization Address City/State/[facility] Co de Phone Number [facility] [address] [place] [address] documented in this encounter Visit Diagnoses Not on filedocumented in this encounter Additional Health Concerns Infection Onset Date Last Indicated Resolved Time COVID-19 Comment:Reports positive home test on 09/1109/11/2023 09/18/2023 10/08/2023 10:12 PM EST Assessment Noted Time A fall risk assessment has been complete d for the patient 06/16/2020 10:01 AM EDT documented as of this encounter Care Teams Commercial Kitchen Service Technician Relationship Specialty Start Date End Date Darrius Fair MD [address] [place] [address] PCP - General 03/05/11 Marcial Vizcarra MD [address] [place] [address] Physician Internal Medicine-Gastroenterology 11/22/16 documented as of this encounter
--- OUTSIDE RECORDS SUMMARY | 2025-10-20 09:50 | XMS_ITS | Encounter Summary ---
Author Organization [facility] Address [address] [place] [address] Care Team Providers Care Property Officer Name Role Phone None, None Primary Care Provider Unavailabl e Encounter Details Date Type Department Care Team (Late st Contact Info) Description 06/05/2024 Preop Surgical Orders Community Physician Ordering Department [address] [place] [address] Ney Amaral MD [address] [place] [address] [address] [place] [address] Social History Tobacco Use Types Packs/Day Years [...] on filedocumented in this encounter Care Teams Property Officer Relationship Specialty Start Date End Date None, None [address] [place] [address] PCP - General 06/11/24 documented as of this encounter
--- OUTSIDE RECORDS SUMMARY | 2025-10-20 09:50 | XMS_ITS | Encounter Summary ---
Author Organization [place] [address] Care Team Providers Care Dry Dip Worker Name Role Phone Darrius Fair MD Primary Care Provider [phone] Marcial Vizcarra MD Unavailable Encounter Details Date Type Department Care Team (Late st Contact Info) Description 07/21/2025 Results Follow-Up [facility] Cardiac Surgeons [place] [address] [facility] [address] [place] [address] Ameirca Ortiz, SENIOR CONTROLS ENGINEER [address] [place] [address] CBC WITH DIFF, BASIC METABOLIC PANEL, PT / INR, Additional followed-up results: 8 Social History Tobacco Use Types Packs/Day Years [...] from your doctor or pharmacy? Sometimes 07/20/2025 [facility] Utilities Answer Date Recorded In the past 12 months has e electric, gas, oil, or water company threatened to shut off services in your home? No 07/29/2025 Overall Financial Resource Strain (CARDIA) Answe r Date Recorded How hard is it for you to pa y for the very basics like food, housing, medical care, and heating? Not hard at all 07/29/2025 PHQ-2 Answer Date Recorded PHQ-2 Total Score 0 07/29/2025 [facility] Occupat ional [facility] - Occupational Stress Questionnaire Answer Date [...] in the past 12 m [facility], were you homeless or living in a group home (including now)? No 07/20/2025 [facility] IP Transportation Answer D ate Recorded [...] Author No 01/03/2023 6:00 PM Lizzie Almaguer, Professor Of Early Childhood Education * Is the person blind or does he/she have serious difficulty seeing even when wearing glasses? Answer Date of Assessment Author No 01/03/2023 6:00 PM Lizzie Almaguer, Professor Of Early Childhood Education * Does this person have serious difficulty walking or climbing stairs? Answer Date of Assessment Author No 01/03/2023 6:00 PM Lizzie Almaguer, Professor Of Early Childhood Education * Does this person have difficulty dressing or bathing? Answer Date of Assessment Author No 01/03/2023 6:00 PM Lizzie Almaguer, Professor Of Early Childhood Education * Because of a physical, mental or emotional condition, does this person have difficulty doing errands alone such as visiting a doctor's office or shopping? Answer Date of Assessment Author No 01/03/2023 6:00 PM Lizzie Almaguer, Professor Of Early Childhood Education * Question Answer Date of Assessment Author Little interest or pleasure in doing things 0 07/29/2025 10:04 AM EDT Tiera Almeida BS W Feeling down, depressed, or hopeless 0 02/2025 10:04 AM EDT Tiera Almeida BSW PHQ-2 Total Score 0 07/29/2025 10:04 AM EDT Tiera Almeida PASSENGER SERVICE AGENT * PHQ-9 Total Score Answer Date of Assessment Author 0 07/29/2025 10:04 AM EDT Tiera Almeida PASSENGER SERVICE AGENT * PHQ-2 Total Score Answer Date of Assessment Author 0 07/29/2025 10:04 AM EDT Tiera Almeida PASSENGER SERVICE AGENT documented as of this encounter Mental Status * Because of a physical, mental or emotional condition, does this person have serious difficulty concentrating, remembering or making decisions? Answer Entry Date Author No 01/03/2023 6:00 PM Lizzie Almaguer Professor Of Early Childhood Education documented in this encounter Plan of Treatment Upcoming Encounters Date Type Department Care Team (Late st Contact Info) Description 11/09/2025 1:00 PM EST Office Visit [facility]geons [place] [address] [facility] [address] [place] [address] Mukund Noel MD [address] [place], [place] [id number] 11/15/2025 12:15 PM EST Appointment [facility] [address] [place], [place] [id number] Melani Donaldson, SENIOR CONTROLS ENGINEER [address] [place] [address] [place] [address] 12/14/2025 11:15 AM EST Office Visit [facility] [address] [place] [phone] Tobias Darby DO [address] [place] [address] documented as of this encounter Visit Diagnoses Not on filedocumented in this encounter Additional Health Concerns Assessment Noted Time A fall risk assessment has been complete d for the patient 06/16/2020 10:01 AM EDT documented as of this encounter Care Teams Dry Dip Worker Relationship Specialty Start Date End Date Darrius Fair MD [address] [place] [address] PCP - General 03/05/11 Marcial Vizcarra MD [address] [place] [address] Physician Internal Medicine-Gastroenterology 11/22/16 documented as of this encounter
--- OUTSIDE RECORDS SUMMARY | 2025-10-20 09:50 | XMS_ITS | Encounter Summary ---
Author Organization [place] [address] Care Team Providers Care Research Home Economist Name Role Phone Darrius Fair MD Primary Care Provider [phone] Marcial Vizcarra MD Unavailable [phone] Encounter Details Date Type Department Care Team (Late st Contact Info) Description 10/18/2020 Orders Only SEP Gastro [facility] [address] [facility] [address] [place] [address] Marcial Vizcarra MD [address] [place], [place] [phone] Social History Tobacco Use Types Packs/Day Years [...] Description 11/09/2025 1:00 PM EST Office Visit [facility] Cardiac Surgeons [address] [place] [phone] Mukund Noel MD [address] [place] [address] 11/15/2025 12:15 PM EST Appointment [facility] [address] [place] [address] Melani Donaldson APRN [address] [place] [address] [place] [address] 12/14/2025 11:15 AM EST Office Visit [facility] [address] [place] [phone] Tobias Darby DO [address] [place] [address] documented as of this encounter Procedures Procedure Name Priority Date/Time Associated Diagnosis Comments GMED EGD Routine 10/18/2020 1:00 PM EST documented in this encounter Results * GMED EGD (10/18/2020 1:00 PM EST) 10/18/2020 1:00 PM EST Impressions [facility] - 10/18/2020 2:43 PM EST Normal duodenum. Hiatal Hernia. 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 (Dilation). Plan: Follow-up as needed This section is an excerpt of the full report. us Marcial Vizcarra MD GI PROCEDURE ORDERABLES Wilfrido marii Result - Final [facility] [address] [place] [address] documented in this encounter Visit Diagnoses Not on filedocumented in this encounter Additional Health Concerns Infection Onset Date Last Indicated Resolved Time COVID-19 Comment:Reports positive home test on 09/1109/11/2023 09/18/2023 10/08/2023 10:12 PM EST Assessment Noted Time A fall risk assessment has been complete d for the patient 06/16/2020 10:01 AM EDT documented as of this encounter Care Teams Research Home Economist Relationship Specialty Start Date End Date Darrius Fair MD [address] [facility] [place] [address] PCP - General 03/05/11 Marcial Vizcarra MD [address] [place] [address] Physician Internal Medicine-Gastroenterology 11/22/16 documented as of this encounter
--- OUTSIDE RECORDS SUMMARY | 2025-10-20 09:50 | XMS_ITS | Clinical Summary ---
Author Organization [facility] Address [address] [place] [address] Care Team Providers Care Sleeve Fixer Name Role Phone None, None Primary Care [...] Vaccines (1 - 1-dose 75+ series) 2022 Advance Care Planning 11/25/2024 Depression Screening 11/25/2024 Lipid Monitoring 03/27/2025 03/27/2024 COVID-19 Vaccine ( - season) 2025 Influenza Vaccination (#1) 2025 Lipid Screening Discontinued 03/27/2024 Medical Devices Implanted Type Area Manpower Development Advisor Device Identifier Shelf Expiration Date Model / Serial / Lot Attune Pat Med Shannan 35mm - [id number] Implanted:Qty : 1 on 06/11/2024 by Ney Amaral MD at [facility] Right: Knee [employer] \T\ [employer] [id number] 03/24/2029 [id number] / / [id number] Attune Tib Base Afxm Fxd Bear Sz 7 - [id number] Implanted:Qty : 1 on 06/11/2024 by Ney Amaral MD at [facility] Right: Knee [employer] \T\ [employer] [id number] 03/24/2034 [id number] / / [id number] Cruciate Retaining Sz7 - [id number] Implanted:Qty : 1 on 06/11/2024 by Ney Amaral MD at [facility] Right: Knee [employer] \T\ [employer] [id number] 02/22/2033 [id number] / / [id number] Cement Bone Simplex Hv - [id number] Implanted:Qty : 1 on 06/11/2024 by Ney Amaral MD at [facility] Right: Knee [employer] [id number] 07/25/2025 [id number] / / [id number] Tibial Insert Fixed Bearing Sz7 - [id number] Implanted:Qty : 1 on 06/11/2024 by Ney Amaral MD at [facility] Right: Knee [employer] \T\ [employer] [id number] 02/23/2032 [id number] / / [id number] - [id number] Implanted:Qty : 1 on 06/11/2024 by Ney Amaral MD at [facility] Right: Knee [employer] \T\ [employer] [id number] / Insurance [employer] MED[employer]ARE Care Teams Sleeve Fixer Relationship Specialty Start Date End Date None, None [address] [place] [address] PCP - General 06/11/24
== END 2025-10-19 23:59 ==
LOC: LAB.DROPOF 10-20 09:46
PROVIDERS: PCP Family Medicine; Visit Provider Family Medicine
DX: I25.10 Atherosclerotic heart disease of native coronary artery without angina pectoris (principal)
CPT/HCPCS: 80053; 85025